=== PATIENT | female | born 1960 | race Caucasian/White ===

== ENCOUNTER 2018-07-14 12:00 | Emergency (ER) | payer OTHER ==
[~2018-07-14] VITALS: Ht 172.7 cm; Wt 90.7 kg
[~2018-07-14 12:00] MED LIST: AMLO5 PO; CEPH500 PO; CHOL10002 PO; CYCL10 PO; Celebrex200 MG PO; Cleocin HCl150 MG PO; Flagyl500 MG PO; HYDACE5 PO; HYDR1TAB94 PO; IBUP600 PO; IBUP800 PO; LEVSOD125 PO; LEVSOD150 PO; LEVSOD175 PO; LISI20 PO; LISI5 PO; MAGIC MOUTHWASH; Monodox100 MG PO; Naprosyn500 MG PO; Neurontin 300300 MG PO; Norco 10-325 T1 EACH PO; Norco 5-325 Ta1 EACH PO; OXYACE5T PO; PENVK500 PO; Percocet 5-3251 EACH PO; Robaxin500 MG PO; SULTRIDS PO; Ultram50 MG PO; Zofran Odt8 MG SL; Zofran4 MG PO
[2018-07-14] MEDS ORDERED: Amoxicillin500 MG PO (13:28)
== END 2018-07-14 13:35 | disposition home or self-care (01) ==
LOC: ER 12:00
DX: H65.91 Unspecified nonsuppurative otitis media, right ear (principal); J06.9 Acute upper respiratory infection, unspecified; I10 Essential (primary) hypertension; Z87.891 Personal history of nicotine dependence; Z88.2 Allergy status to sulfonamides; Z88.1 Allergy status to other antibiotic agents; Z79.899 Other long term (current) drug therapy
CPT/HCPCS: 99282

== ENCOUNTER 2018-08-06 05:59 | Inpatient (IN) | payer OTHER ==
[~2018-08-06] VITALS: Ht 172.7 cm; Wt 83.2 kg
[~2018-08-06 05:59] MED LIST changes: +Amoxicillin500 MG PO; -LISI20 PO
[2018-08-06 06:31] LABS: BASOPHILS ABSOLUTE AUTO 0.08 K/mm3 (0.00-0.23); BASOPHILS PERCENT AUTO 1 % (0-2); EOSINOPHILS ABSOLUTE AUTO 0.41 K/mm3 (0.00-0.68); EOSINOPHILS PERCENT AUTO 4 % (0-6); Hematocrit 40.6 % (33.0-51.0); Hemoglobin 12.6 g/dL (11.5-16.0); IMMATURE GRAN ABSOLUTE AUTO 0.06 K/mm3 (0.00-0.10); IMMATURE GRAN PERCENT AUTO 1 % (0-1); LYMPHOCYTES ABSOLUTE AUTO 2.28 K/mm3 (0.84-5.20); LYMPHOCYTES PERCENT AUTO 20 % (21-46); MONOCYTES ABSOLUTE AUTO 0.91 K/mm3 (0.16-1.47); MONOCYTES PERCENT AUTO 8 % (4-13); Mean Corpuscular HGB 28.2 pg (26.0-34.0); Mean Corpuscular Volume 91 fL (80-100); Mean Platelet Volume 11.2 fL (9.1-12.4); NEUTROPHILS ABSOLUTE AUTO 7.94 K/mm3 (1.96-9.15); NEUTROPHILS PERCENT AUTO 68 % (41-73); Platelet Count 281 K/mm3 (150-400); RDW Coefficient Variation 14.5 % (11.7-14.2); RDW Standard Deviation 48.1 fL (35.1-46.3); Red Blood Cell Count 4.47 M/mm3 (3.80-5.20); White Blood Cell Count 11.68 K/mm3 (4.00-11.30)
[2018-08-06 06:43] LABS: PCO2 Arterial 37.7 mmHg (35-45); PO2 Arterial 57.5 mmHg (80-100); pH Blood Arterial 7.36 (7.35-7.45)
[2018-08-06 06:49] LABS: Anion Gap 13 mmol/L (6-16); Blood Urea Nitrogen 22 mg/dL (8-24); Bun/Creatinine Ratio 22.6 (12.0-20.0); CO2, Blood 18 mmol/L (21-32); Chloride, Blood 109 mmol/L (98-108); Creatinine, Blood 0.97 mg/dL (0.40-1.00); Glomerular Filtration Rate >60 (60-); Glucose, Blood 161 mg/dL (70-99); Potassium, Blood 4.3 mmol/L (3.5-5.5); Sodium, Blood 140 mmol/L (136-145); Troponin I 0.048 ng/mL (0.000-0.040)
[2018-08-06 08:54] LABS: PCO2 Arterial 56.3 mmHg (35-45); PO2 Arterial 54.5 mmHg (80-100); pH Blood Arterial 7.11 (7.35-7.45)
[2018-08-06 11:13] LABS: Source, Urine Catheter
[2018-08-06 11:24] LABS: Appearance, Urine Clear (Clear); Bilirubin, Urine Neg (Neg); Blood, Urine Neg (Neg); Color, Urine Yellow (P-Yellow); Glucose Qualitative, Urine 1+ (Neg); Ketones, Urine Neg (Neg); Leukocyte Esterase, Urine Neg (Neg); Nitrite, Urine Neg (Neg); Protein, Urine Neg (Neg); Urobilinogen, Urine NORM (Normal)
[2018-08-06 11:53] LABS: PO2 Arterial 69.3 mmHg (80-100); pH Blood Arterial 7.27 (7.35-7.45)
[2018-08-06 11:59] LABS: U Amphetamine Screen DETECTED; U Barbituate Screen Not Detected; U Benzodiazapine Screen Not Detected; U Buprenorphine Screen Not Detected; U Cannabinoids Screen DETECTED; U Cocaine Screen Not Detected; U Methadone Screen Not Detected; U Methamphetamine Screen DETECTED; U Opiates Screen Not Detected; U Oxycodone Screen Not Detected; U Phencyclidine Screen Not Detected; U Propoxyphene Screen Not Detected
[2018-08-06 16:19] LABS: BASOPHILS ABSOLUTE AUTO 0.02 K/mm3 (0.00-0.23); BASOPHILS PERCENT AUTO 0 % (0-2); EOSINOPHILS ABSOLUTE AUTO 0.01 K/mm3 (0.00-0.68); EOSINOPHILS PERCENT AUTO 0 % (0-6); Hematocrit 40.2 % (33.0-51.0); Hemoglobin 12.5 g/dL (11.5-16.0); IMMATURE GRAN ABSOLUTE AUTO 0.11 K/mm3 (0.00-0.10); IMMATURE GRAN PERCENT AUTO 1 % (0-1); LYMPHOCYTES ABSOLUTE AUTO 0.66 K/mm3 (0.84-5.20); LYMPHOCYTES PERCENT AUTO 4 % (21-46); MONOCYTES ABSOLUTE AUTO 0.28 K/mm3 (0.16-1.47); MONOCYTES PERCENT AUTO 2 % (4-13); Mean Corpuscular HGB 28.4 pg (26.0-34.0); Mean Corpuscular HGB Conc 31.1 g/dL (31.5-36.5); Mean Corpuscular Volume 91 fL (80-100); Mean Platelet Volume 11.2 fL (9.1-12.4); NEUTROPHILS ABSOLUTE AUTO 14.83 K/mm3 (1.96-9.15); NEUTROPHILS PERCENT AUTO 93 % (41-73); Platelet Count 279 K/mm3 (150-400); RDW Coefficient Variation 14.4 % (11.7-14.2); White Blood Cell Count 15.91 K/mm3 (4.00-11.30)
[2018-08-06 16:36] LABS: Albumin, Blood 3.1 g/dL (3.4-5.0); Albumin/Globulin Ratio 0.7 (0.8-1.8); Bilirubin, Total 0.7 mg/dL (0.1-1.0); Bun/Creatinine Ratio 19.7 (12.0-20.0); Calcium, Blood 8.6 mg/dL (8.5-10.1); Creatinine, Blood 1.27 mg/dL (0.40-1.00); Globulin, Blood 4.2 g/dL (2.2-4.0); Potassium, Blood 4.5 mmol/L (3.5-5.5); Total Protein, Blood 7.3 g/dL (6.4-8.2)
[2018-08-07 05:17] LABS: BASOPHILS ABSOLUTE AUTO 0.03 K/mm3 (0.00-0.23); BASOPHILS PERCENT AUTO 0 % (0-2); EOSINOPHILS PERCENT AUTO 0 % (0-6); Hematocrit 38.2 % (33.0-51.0); Hemoglobin 12.1 g/dL (11.5-16.0); IMMATURE GRAN ABSOLUTE AUTO 0.14 K/mm3 (0.00-0.10); IMMATURE GRAN PERCENT AUTO 1 % (0-1); LYMPHOCYTES ABSOLUTE AUTO 1.38 K/mm3 (0.84-5.20); LYMPHOCYTES PERCENT AUTO 7 % (21-46); MONOCYTES ABSOLUTE AUTO 1.62 K/mm3 (0.16-1.47); MONOCYTES PERCENT AUTO 8 % (4-13); Mean Corpuscular HGB 28.5 pg (26.0-34.0); Mean Corpuscular HGB Conc 31.7 g/dL (31.5-36.5); Mean Corpuscular Volume 90 fL (80-100); Mean Platelet Volume 10.7 fL (9.1-12.4); NEUTROPHILS ABSOLUTE AUTO 17.65 K/mm3 (1.96-9.15); NEUTROPHILS PERCENT AUTO 85 % (41-73); Platelet Count 334 K/mm3 (150-400); RDW Coefficient Variation 14.5 % (11.7-14.2); RDW Standard Deviation 47.7 fL (35.1-46.3); Red Blood Cell Count 4.25 M/mm3 (3.80-5.20); White Blood Cell Count 20.82 K/mm3 (4.00-11.30)
[2018-08-07 05:21] LABS: Base Excess Venous -0.1 mmol/L; PCO2 Venous 44.2 mmHg (38-42); PO2 Venous 60.6 mmHg (38-42); pH Blood Venous 7.37 (7.34-7.37)
[2018-08-07 05:38] LABS: Albumin/Globulin Ratio 0.7 (0.8-1.8); Bilirubin, Total 0.4 mg/dL (0.1-1.0); Bun/Creatinine Ratio 22.4 (12.0-20.0); Calcium, Blood 8.3 mg/dL (8.5-10.1); Creatinine, Blood 1.25 mg/dL (0.40-1.00); Globulin, Blood 4.1 g/dL (2.2-4.0); Magnesium, Blood 1.8 mg/dL (1.6-2.4); Phosphorus, Blood 4.4 mg/dL (2.5-4.9); Potassium, Blood 4.5 mmol/L (3.5-5.5); Total Protein, Blood 7.1 g/dL (6.4-8.2)
[2018-08-07 16:31] LABS: Albumin, Blood 2.7 g/dL (3.4-5.0); Albumin/Globulin Ratio 0.7 (0.8-1.8); Bilirubin, Total 0.4 mg/dL (0.1-1.0); Bun/Creatinine Ratio 24.4 (12.0-20.0); Calcium, Blood 8.2 mg/dL (8.5-10.1); Creatinine, Blood 1.31 mg/dL (0.40-1.00); Globulin, Blood 3.7 g/dL (2.2-4.0); Potassium, Blood 4.4 mmol/L (3.5-5.5); Total Protein, Blood 6.4 g/dL (6.4-8.2)
[2018-08-08 02:55] LABS: BASOPHILS ABSOLUTE AUTO 0.04 K/mm3 (0.00-0.23); BASOPHILS PERCENT AUTO 0 % (0-2); EOSINOPHILS ABSOLUTE AUTO 0.04 K/mm3 (0.00-0.68); EOSINOPHILS PERCENT AUTO 0 % (0-6); Hemoglobin 11.8 g/dL (11.5-16.0); IMMATURE GRAN ABSOLUTE AUTO 0.07 K/mm3 (0.00-0.10); IMMATURE GRAN PERCENT AUTO 0 % (0-1); LYMPHOCYTES ABSOLUTE AUTO 3.68 K/mm3 (0.84-5.20); LYMPHOCYTES PERCENT AUTO 22 % (21-46); MONOCYTES ABSOLUTE AUTO 1.46 K/mm3 (0.16-1.47); MONOCYTES PERCENT AUTO 9 % (4-13); Mean Corpuscular HGB 28.6 pg (26.0-34.0); Mean Corpuscular HGB Conc 31.9 g/dL (31.5-36.5); Mean Corpuscular Volume 90 fL (80-100); Mean Platelet Volume 10.6 fL (9.1-12.4); NEUTROPHILS ABSOLUTE AUTO 11.12 K/mm3 (1.96-9.15); NEUTROPHILS PERCENT AUTO 68 % (41-73); Platelet Count 314 K/mm3 (150-400); RDW Coefficient Variation 14.6 % (11.7-14.2); RDW Standard Deviation 47.5 fL (35.1-46.3); Red Blood Cell Count 4.13 M/mm3 (3.80-5.20); White Blood Cell Count 16.41 K/mm3 (4.00-11.30)
[2018-08-08 03:12] LABS: Albumin, Blood 2.9 g/dL (3.4-5.0); Albumin/Globulin Ratio 0.7 (0.8-1.8); Bilirubin, Total 0.5 mg/dL (0.1-1.0); Bun/Creatinine Ratio 26.4 (12.0-20.0); Calcium, Blood 8.5 mg/dL (8.5-10.1); Creatinine, Blood 1.25 mg/dL (0.40-1.00); Globulin, Blood 3.9 g/dL (2.2-4.0); Magnesium, Blood 1.7 mg/dL (1.6-2.4); Phosphorus, Blood 2.1 mg/dL (2.5-4.9); Potassium, Blood 3.8 mmol/L (3.5-5.5); Total Protein, Blood 6.8 g/dL (6.4-8.2)
[2018-08-08 12:11] LABS: Magnesium, Blood 2.3 mg/dL (1.6-2.4); Phosphorus, Blood 3.1 mg/dL (2.5-4.9); Potassium, Blood 4.2 mmol/L (3.5-5.5)
[2018-08-08] MEDS ORDERED: VITAMIN D-32000 UNIT PO (17:19)
[2018-08-09 04:40] LABS: PCO2 Arterial 42.8 mmHg (35-45); pH Blood Arterial 7.42 (7.35-7.45)
[2018-08-09 05:04] LABS: BASOPHILS ABSOLUTE AUTO 0.04 K/mm3 (0.00-0.23); BASOPHILS PERCENT AUTO 0 % (0-2); EOSINOPHILS ABSOLUTE AUTO 0.22 K/mm3 (0.00-0.68); EOSINOPHILS PERCENT AUTO 2 % (0-6); Hematocrit 37.5 % (33.0-51.0); Hemoglobin 11.7 g/dL (11.5-16.0); IMMATURE GRAN ABSOLUTE AUTO 0.07 K/mm3 (0.00-0.10); IMMATURE GRAN PERCENT AUTO 1 % (0-1); LYMPHOCYTES ABSOLUTE AUTO 1.63 K/mm3 (0.84-5.20); LYMPHOCYTES PERCENT AUTO 14 % (21-46); MONOCYTES ABSOLUTE AUTO 0.98 K/mm3 (0.16-1.47); MONOCYTES PERCENT AUTO 8 % (4-13); Mean Corpuscular HGB 28.1 pg (26.0-34.0); Mean Corpuscular HGB Conc 31.2 g/dL (31.5-36.5); Mean Corpuscular Volume 90 fL (80-100); Mean Platelet Volume 10.7 fL (9.1-12.4); NEUTROPHILS ABSOLUTE AUTO 9.07 K/mm3 (1.96-9.15); NEUTROPHILS PERCENT AUTO 76 % (41-73); Platelet Count 247 K/mm3 (150-400); RDW Coefficient Variation 14.6 % (11.7-14.2); RDW Standard Deviation 47.5 fL (35.1-46.3); Red Blood Cell Count 4.17 M/mm3 (3.80-5.20); White Blood Cell Count 12.01 K/mm3 (4.00-11.30)
[2018-08-09 05:33] LABS: Anion Gap 9 mmol/L (6-16); Blood Urea Nitrogen 19 mg/dL (8-24); Bun/Creatinine Ratio 22.9 (12.0-20.0); CO2, Blood 27 mmol/L (21-32); Calcium, Blood 8.6 mg/dL (8.5-10.1); Chloride, Blood 102 mmol/L (98-108); Creatinine, Blood 0.83 mg/dL (0.40-1.00); Glomerular Filtration Rate >60 (60-); Glucose, Blood 111 mg/dL (70-99); Magnesium, Blood 1.9 mg/dL (1.6-2.4); Phosphorus, Blood 2.8 mg/dL (2.5-4.9); Potassium, Blood 4.3 mmol/L (3.5-5.5); Sodium, Blood 138 mmol/L (136-145)
[2018-08-11 05:03] LABS: Magnesium, Blood 1.7 mg/dL (1.6-2.4)
[2018-08-11 05:04] LABS: Anion Gap 9 mmol/L (6-16); Blood Urea Nitrogen 22 mg/dL (8-24); Bun/Creatinine Ratio 24.2 (12.0-20.0); CO2, Blood 28 mmol/L (21-32); Chloride, Blood 99 mmol/L (98-108); Creatinine, Blood 0.91 mg/dL (0.40-1.00); Glomerular Filtration Rate >60 (60-); Glucose, Blood 105 mg/dL (70-99); Potassium, Blood 4.2 mmol/L (3.5-5.5); Sodium, Blood 136 mmol/L (136-145)
[2018-08-11] MEDS ORDERED: CARV6.25 PO (09:46)
[2018-08-11] MEDS ORDERED: SACC250C PO (09:47)
[2018-08-11] MEDS ORDERED: SPIR25 PO (09:47)
[2018-08-11] MEDS ORDERED: AMOX875 PO (09:48)
[2018-08-11] MEDS ORDERED: FURO20 PO (09:49)
== END 2018-08-11 11:00 | disposition home or self-care (01) | DRG 208 ==
LOC: ER 05:59 → ICUW 08:17 → PCU 08-09 18:41
PROVIDERS: Emergency Medicine; Internal Medicine; Internal Medicine Critical Care Medicine; Internal Medicine Pulmonary Disease
PROC: 0BH18EZ Insertion of Endotracheal Airway into Trachea, Via Natural or Artificial Opening Endoscopic (ICD-10-PCS; principal; 2018-08-06)
PROC: 5A1945Z Respiratory Ventilation, 24-96 Consecutive Hours (ICD-10-PCS; 2018-08-06)
PROC: 3E033XZ Introduction of Vasopressor into Peripheral Vein, Percutaneous Approach (ICD-10-PCS; 2018-08-06)
PROC: 3E033XZ Introduction of Vasopressor into Peripheral Vein, Percutaneous Approach (ICD-10-PCS; 2018-08-07)
DX: J96.01 Acute respiratory failure with hypoxia (principal); R57.0 Cardiogenic shock; J18.1 Lobar pneumonia, unspecified organism; I50.23 Acute on chronic systolic (congestive) heart failure; I47.1 Supraventricular tachycardia; N17.9 Acute kidney failure, unspecified; I11.0 Hypertensive heart disease with heart failure; I25.5 Ischemic cardiomyopathy; E03.9 Hypothyroidism, unspecified; D72.829 Elevated white blood cell count, unspecified; F15.10 Other stimulant abuse, uncomplicated; I34.0 Nonrheumatic mitral (valve) insufficiency; I16.0 Hypertensive urgency; E66.9 Obesity, unspecified; Z68.30 Body mass index [BMI] 30.0-30.9, adult; Z79.899 Other long term (current) drug therapy; Z88.2 Allergy status to sulfonamides; Z88.1 Allergy status to other antibiotic agents; Z87.891 Personal history of nicotine dependence
CPT/HCPCS: 31500; 31720; 36415; 36556; 36600; 51702; 71045; 71260; 80048; 80053; 81003; 82803; 83605; 83735; 83880; 84100; 84132; 84145; 84443; 84484; 85025; 85379; 87040; 87070; 87205; 93005; 93010; 93306; 94002; 94003; 94640; 96374; 96375; 97161; 97530; 99291-25; 99292; C1751; C9113; G0480; G8978; G8979; G8980; J0330; J0456; J0696; J1265; J1650; J1940; J2060; J2250; J2930; J3010; J3475; J3480; J7030; J7040; J7050; J7060; Q9967

== ENCOUNTER 2019-02-03 08:30 | Day surgery (SDC) | payer OTHER ==
[~2019-02-03] VITALS: Ht 170.2 cm; Wt 100.0 kg
[~2019-02-03 08:30] MED LIST changes: +AMOX875 PO; +CARV6.25 PO; +FURO20 PO; +SACC250C PO; +SPIR25 PO; +VITAMIN D-32000 UNIT PO
--- NOTE | 2019-02-03 15:31 | NUR ---
TR BAND TR BAND DEFLATED AT THIS TIME. WILL LEAVE IN POSITION AND MONITOR. IV DC'D TIP IN TACT-DUE TO SMALL INFILTRATION-LIGHT PRESSURE DRESSING APPLIES TO AREA.
[2019-02-03] MEDS ORDERED: ATOR80 PO (16:31)
[2019-02-03] MEDS ORDERED: CLOP75 PO (16:32)
[2019-02-03] MEDS ORDERED: ASPI81CH PO (16:32)
--- NOTE | 2019-02-03 16:50 | NUR ---
DISCHARGE PT REMAINED A&OX3 AND DENIED ANY PAIN DURING RECOVERY. R RADIAL SITE CDI-NO HEMATOMA NOTED-WHITE BOARD AND CLOTH DOT BADAGE IN PLACE. R GIFTY SITE REMAINS CDI-NO HEMATOMA NOTED-BAILEY PATCH AND TEGADERM IN PLACE. PT UP TO RESTROOM INDEPENDANLY WITH STEADY GATE. IV SITE IMPROVED -BRUISING NOTED VERY LITTLE SWELLING NOTED. PT DRESSES SELF INDEPENDANTLY. MEDICATIONS CALLED INTO [facility]. PLAVIX AND ASPIRIN CONTRACT FILLED OUT AND SIGNED. DISCHARGE PAPERWORK GONE OVER WITH PT. PT DENIED ANY QUESTIONS ON THE DICHARGE EDUCATION GIVEN. PT WHEELED OUT WITH BELONGING BY AVANI Hale RN.
== END 2019-02-03 17:00 | disposition home or self-care (01) ==
LOC: MHTC 08:30
DX: I25.10 Atherosclerotic heart disease of native coronary artery without angina pectoris (principal); I11.0 Hypertensive heart disease with heart failure; I50.9 Heart failure, unspecified; Z88.1 Allergy status to other antibiotic agents; Z79.899 Other long term (current) drug therapy; Z79.02 Long term (current) use of antithrombotics/antiplatelets
CPT/HCPCS: 85347; 93005; 93010; 93460; 99152; 99153; C1725; C1769; C1874; C1887; C1894; C9600; J1644; J2250; J3010; J3246; J7030; Q9967

== ENCOUNTER → 2019-08-23 | Outpatient (CLI) | payer OTHER ==
[~2019-08-23] MED LIST changes: +ASPI81CH PO; +ATOR80 PO; +CLOP75 PO
== END | disposition home or self-care (01) ==
LOC: LAB 10:45 → LAB SHORT 10:45 → LAB FUT 07-22 14:05
DX: N18.3 Chronic kidney disease, stage 3 (moderate) (principal); D63.1 Anemia in chronic kidney disease; D75.1 Secondary polycythemia; N25.81 Secondary hyperparathyroidism of renal origin; E55.9 Vitamin D deficiency, unspecified; E78.00 Pure hypercholesterolemia, unspecified; R76.9 Abnormal immunological finding in serum, unspecified; R94.5 Abnormal results of liver function studies; R94.6 Abnormal results of thyroid function studies
CPT/HCPCS: 87493

== ENCOUNTER → 2020-10-23 | Outpatient (CLI) | payer OTHER ==
[2020-10-23 20:46] LABS: Free Thyroxine 1.35 ng/dL (0.70-1.60); Thyroid Stimulating Hormone 5.2 uIU/mL (0.360-4.800)
== END ==
LOC: LAB 19:38 → LAB SHORT 19:38
PROVIDERS: Family Medicine
DX: E03.9 Hypothyroidism, unspecified (principal)
CPT/HCPCS: 84439; 84443

== ENCOUNTER 2021-05-11 05:42 | Emergency (ER) | payer OTHER ==
[~2021-05-11] VITALS: Ht 170.2 cm; Wt 104.3 kg
[2021-05-11 06:27] LABS: BASOPHILS ABSOLUTE AUTO 0.09 K/mm3 (0.00-0.23); BASOPHILS PERCENT AUTO 1 % (0-2); EOSINOPHILS ABSOLUTE AUTO 0.45 K/mm3 (0.00-0.68); EOSINOPHILS PERCENT AUTO 4 % (0-6); Hematocrit 39.3 % (33.0-51.0); Hemoglobin 12.5 g/dL (11.5-16.0); IMMATURE GRAN ABSOLUTE AUTO 0.19 K/mm3 (0.00-0.10); IMMATURE GRAN PERCENT AUTO 2 % (0-1); LYMPHOCYTES PERCENT AUTO 27 % (21-46); MONOCYTES ABSOLUTE AUTO 1.04 K/mm3 (0.16-1.47); MONOCYTES PERCENT AUTO 10 % (4-13); Mean Corpuscular HGB 29.3 pg (26.0-34.0); Mean Corpuscular HGB Conc 31.8 g/dL (31.5-36.5); Mean Corpuscular Volume 92 fL (80-100); NEUTROPHILS ABSOLUTE AUTO 5.96 K/mm3 (1.96-9.15); NEUTROPHILS PERCENT AUTO 56 % (41-73); Platelet Count 246 K/mm3 (150-400); RDW Coefficient Variation 14.7 % (11.7-14.2); Red Blood Cell Count 4.26 M/mm3 (3.80-5.20); White Blood Cell Count 10.63 K/mm3 (4.00-11.30)
[2021-05-11 06:52] LABS: Albumin/Globulin Ratio 0.8 (0.8-1.8); Bilirubin, Total 0.3 mg/dL (0.1-1.0); Bun/Creatinine Ratio 13.1 (12.0-20.0); Calcium, Blood 8.5 mg/dL (8.5-10.1); Creatinine, Blood 1.07 mg/dL (0.40-1.00); Globulin, Blood 3.8 g/dL (2.2-4.0); Potassium, Blood 4.7 mmol/L (3.5-5.5); Total Protein, Blood 6.8 g/dL (6.4-8.2)
[2021-05-11] MEDS ORDERED: Prinivil10 MG PO (10:24)
[2021-05-11] MEDS ORDERED: OMEP20ER PO (10:24)
[2021-05-11] MEDS ORDERED: CARVEDILOL6.25 MG PO (10:24)
[2021-05-11] MEDS ORDERED: EUTHYROX175 MC1 PO (10:24)
[2021-05-11] MEDS ORDERED: METFORMIN HCL500 M3 PO (10:24)
[2021-05-11] MEDS ORDERED: HYDR1TAB94 PO (10:26)
[2021-05-11] MEDS ORDERED: CLIN300 PO (10:26)
== END 2021-05-11 10:35 | disposition home or self-care (01) ==
LOC: ER 05:42
PROVIDERS: Emergency Medicine
DX: S52.601A Unspecified fracture of lower end of right ulna, initial encounter for closed fracture (principal); S22.43XA Multiple fractures of ribs, bilateral, initial encounter for closed fracture; E03.9 Hypothyroidism, unspecified; I11.0 Hypertensive heart disease with heart failure; I50.30 Unspecified diastolic (congestive) heart failure; Z88.2 Allergy status to sulfonamides; Z88.1 Allergy status to other antibiotic agents; Z79.82 Long term (current) use of aspirin; Z79.899 Other long term (current) drug therapy; V49.40XA Driver injured in collision with unspecified motor vehicles in traffic accident, initial encounter; Y92.410 Unspecified street and highway as the place of occurrence of the external cause
CPT/HCPCS: 12002; 29125; 70450; 71260; 72125; 73130; 73560-RT; 74177; 80053; 85025; 96365-59; 96375-59; 99284-25; G0480; J0690; J2270; Q9967

== ENCOUNTER 2021-05-12 17:02 | Inpatient (IN) | payer OTHER ==
[~2021-05-12] VITALS: Ht 170.2 cm; Wt 112.6 kg
[~2021-05-12 17:02] MED LIST changes: +ATOR40TA PO; -ATOR80 PO; +CARVEDILOL6.25 MG PO; +CLIN300 PO; +EUTHYROX175 MC1 PO; +METFORMIN HCL500 M3 PO; +OMEP20ER PO; +Prinivil10 MG PO
[2021-05-12 17:40] LABS: BASOPHILS ABSOLUTE AUTO 0.07 K/mm3 (0.00-0.23); BASOPHILS PERCENT AUTO 0 % (0-2); EOSINOPHILS PERCENT AUTO 0 % (0-6); Hematocrit 28.2 % (33.0-51.0); Hemoglobin 9.1 g/dL (11.5-16.0); IMMATURE GRAN ABSOLUTE AUTO 0.23 K/mm3 (0.00-0.10); IMMATURE GRAN PERCENT AUTO 1 % (0-1); LYMPHOCYTES ABSOLUTE AUTO 3.48 K/mm3 (0.84-5.20); LYMPHOCYTES PERCENT AUTO 16 % (21-46); MONOCYTES ABSOLUTE AUTO 1.75 K/mm3 (0.16-1.47); MONOCYTES PERCENT AUTO 8 % (4-13); Mean Corpuscular HGB 29.6 pg (26.0-34.0); Mean Corpuscular HGB Conc 32.3 g/dL (31.5-36.5); Mean Corpuscular Volume 92 fL (80-100); Mean Platelet Volume 11.8 fL (9.1-12.4); NEUTROPHILS ABSOLUTE AUTO 16.22 K/mm3 (1.96-9.15); NEUTROPHILS PERCENT AUTO 75 % (41-73); Platelet Count 270 K/mm3 (150-400); RDW Coefficient Variation 15.1 % (11.7-14.2); RDW Standard Deviation 49.4 fL (35.1-46.3); Red Blood Cell Count 3.07 M/mm3 (3.80-5.20); White Blood Cell Count 21.75 K/mm3 (4.00-11.30)
[2021-05-12 18:02] LABS: Albumin, Blood 2.7 g/dL (3.4-5.0); Albumin/Globulin Ratio 0.8 (0.8-1.8); Bilirubin, Total 0.6 mg/dL (0.1-1.0); Bun/Creatinine Ratio 16.1 (12.0-20.0); Calcium, Blood 8.6 mg/dL (8.5-10.1); Creatinine, Blood 1.68 mg/dL (0.40-1.00); Globulin, Blood 3.4 g/dL (2.2-4.0); Potassium, Blood 4.7 mmol/L (3.5-5.5); Total Protein, Blood 6.1 g/dL (6.4-8.2)
[2021-05-12 18:10] LABS: Calcium, Ionized (POC) 1.08 mmol/L (1.10-1.46); Chloride (POC) 98 mmol/L (98-108); Creatinine (POC) 1.9 mg/dL (0.6-1.0); Glucose (ISTAT POC) 277 mg/dL (70-99); Hemoglobin (POC) 6.8 g/dL (12.0-16.0); Potassium (POC) 4.4 mmol/L (3.5-5.5); Sodium (POC) 129 mmol/L (135-148); Total CO2 (POC) 18 mmol/L (21-32)
[2021-05-12 18:31] LABS: International Normalized Ratio 1.01; Prothrombin Time Results 10.9 Sec (9.7-11.5)
[2021-05-12 20:01] LABS: SARS-Cov-2 (COVID-19) PCR, MMC NEGATIVE (NEGATIVE)
[2021-05-12 20:38] LABS: Magnesium, Blood 1.5 mg/dL (1.6-2.4); Troponin I 0.062 ng/mL (0.000-0.040)
[2021-05-12 20:40] LABS: Thyroid Stimulating Hormone 2.68 uIU/mL (0.360-4.800)
--- NOTE | 2021-05-12 21:14 | NUR ---
05/12/212113 Liz Giron PT ENTERED OR WITH NAVARRETE CATHETER
--- NOTE | 2021-05-12 22:37 | NUR ---
PT PLACED ON O2 AT 4 LITER VIA NC. SPO2 DECREASED TO 88%. PLACED PT BACK ON NRB AT 15 LITERS, SPO2 UP TO 96%. ENCOURAGED PT TO COUGH AND DEEP BREATH. LUNGS COARSE. PT A&O FOLLOWING INSTRUCTIONS.
--- NOTE | 2021-05-12 22:56 | NUR ---
PT PLACE ON OXMIZER AT 10 LITERS O2, SPO2 93%. PT C/O BILAT RIB PAIN 03/21, MED WITH FENTANYL 50 MCQ.
--- NOTE | 2021-05-12 23:08 | NUR ---
PAIN PT AWAKE, A&O. C/O PAIN TO RIBS MORE ON LEFT THAN RIGHT 03/21, MED WITH FENTANYL 50 MCQ. PT ON OXMIZER AT 10 LITERS SPO2 92-93%. PT DOING COUGH AND DEEP BREATHING.
--- NOTE | 2021-05-12 23:30 | NUR ---
CALL TO HOSPITALIST CALL TO LINSEY OSBORNE REGARDING COARSE LUNGS. O2 AT 10 LITERS VIA OXMIZER. OBTAINED ORDER FOR LASIX 40 MG IV BID FIRST DOSE NOW, BIPAP/CPAP PROTOCOL AND CXR IN AM. ALSO PT TO RECEIVE MAG THAT WAS ORDERED AT 2114.
--- NOTE | 2021-05-12 23:53 | NUR ---
REPORT CALLED TO [facility] ON SURGICAL FLOOR. PT TO TRANSFER TO 208. LASIX GIVEN AND MAG INFUSING.
[2021-05-13] MEDS ORDERED: THERA-D2000 UNIT PO (00:17)
[2021-05-13 02:28] LABS: BASOPHILS ABSOLUTE AUTO 0.02 K/mm3 (0.00-0.23); BASOPHILS PERCENT AUTO 0 % (0-2); EOSINOPHILS PERCENT AUTO 0 % (0-6); Hematocrit 27.9 % (33.0-51.0); Hemoglobin 9.2 g/dL (11.5-16.0); IMMATURE GRAN ABSOLUTE AUTO 0.22 K/mm3 (0.00-0.10); IMMATURE GRAN PERCENT AUTO 1 % (0-1); LYMPHOCYTES ABSOLUTE AUTO 0.84 K/mm3 (0.84-5.20); LYMPHOCYTES PERCENT AUTO 5 % (21-46); MONOCYTES ABSOLUTE AUTO 0.64 K/mm3 (0.16-1.47); MONOCYTES PERCENT AUTO 4 % (4-13); Mean Corpuscular HGB 30.1 pg (26.0-34.0); Mean Corpuscular Volume 91 fL (80-100); Mean Platelet Volume 11.4 fL (9.1-12.4); NEUTROPHILS ABSOLUTE AUTO 16.27 K/mm3 (1.96-9.15); NEUTROPHILS PERCENT AUTO 90 % (41-73); Platelet Count 163 K/mm3 (150-400); RDW Coefficient Variation 15.3 % (11.7-14.2); RDW Standard Deviation 49.3 fL (35.1-46.3); Red Blood Cell Count 3.06 M/mm3 (3.80-5.20); White Blood Cell Count 17.99 K/mm3 (4.00-11.30)
[2021-05-13 02:38] LABS: Base Excess Venous -2.5 mmol/L; Bicarbonate Venous 22.5 mmol/L (24.0-30.0); PCO2 Venous 38.8 mmHg (38-42); PO2 Venous 161 mmHg (38-42); pH Blood Venous 7.37 (7.34-7.37)
[2021-05-13 02:45] LABS: Albumin, Blood 2.9 g/dL (3.4-5.0); Anion Gap 8 mmol/L (6-16); Blood Urea Nitrogen 24 mg/dL (8-24); CO2, Blood 23 mmol/L (21-32); Calcium, Blood 7.9 mg/dL (8.5-10.1); Chloride, Blood 102 mmol/L (98-108); Glomerular Filtration Rate 35 (60-); Glucose, Blood 300 mg/dL (70-99); Magnesium, Blood 2.1 mg/dL (1.6-2.4); Phosphorus, Blood 4.2 mg/dL (2.5-4.9); Potassium, Blood 4.9 mmol/L (3.5-5.5); Sodium, Blood 133 mmol/L (136-145); Troponin I 0.064 ng/mL (0.000-0.040)
[2021-05-13 03:21] LABS: Source, Urine Clean Catch
[2021-05-13 03:23] LABS: Bilirubin, Urine Neg (Neg); Blood, Urine 1+ (Neg); Glucose Qualitative, Urine Neg (Neg); Ketones, Urine Neg (Neg); Leukocyte Esterase, Urine Neg (Neg); Nitrite, Urine Neg (Neg); Protein, Urine 2+ (Neg); Urobilinogen, Urine NORM (Normal)
[2021-05-13 03:26] LABS: Appearance, Urine Clear (Clear); Color, Urine Yellow (P-Yellow)
[2021-05-13 03:34] LABS: Amorphous Light (0-Heavy); Bacteria Few /hpf; Red Blood Cells, Urine Rare /hpf (0-2); Squamous Epithelial Cells Few /hpf (Few); White Blood Cells, Urine Rare /hpf (0-5)
[2021-05-13 03:36] LABS: U Amphetamine Screen Not Detected; U Barbituate Screen Not Detected; U Benzodiazapine Screen Not Detected; U Buprenorphine Screen Not Detected; U Cannabinoids Screen DETECTED; U Cocaine Screen Not Detected; U Methadone Screen Not Detected; U Methamphetamine Screen Not Detected; U Opiates Screen DETECTED; U Oxycodone Screen Not Detected; U Phencyclidine Screen Not Detected; U Propoxyphene Screen Not Detected
--- NOTE | 2021-05-13 04:16 | NUR ---
SHIFT SUMMARY POD#1 EXP LAB WITH EVACUATION OF HEMOPARITONIUM + INCARCERATED HERNIA REPAIR. AAOX4. DISCOMFORT DECREASED WITH X1 0.5MG IV DILAUDID SINCE ARRIVAL TO FLOOR. NO NAUSEA/EMESIS. LAP ABD INCISIONS X3 SHAY C/D/I. ABD SOFT/TENDER. PT ON 10L VIA OXYMIZER, 91-93%, RESPIRATIONS 18-22, CONTINUE TO ENCOURAGE DEEP BREATHING + INCENTIVE SPIROMETRY/FLUTTER VALVE. TELEMETRY NSR TO ST, 90s TO 110s. RUE IN SPLINT. PT REPOSITIONS WITH ASSISTANCE WELL IN BED, CONTINUE TO ENCOURAGE. CURRENTLY PT IS RESTING WELL IN BED WITH CALL LIGHT IN REACH.
--- NOTE | 2021-05-13 09:49 | NUR ---
V-TACH TECHNICAL PUBLICATIONS MANAGER CALLS TO REPORT PT HAS HAD A 8 BEAT RUN OF V-TACH & HR IS CURRENTLY IN 150'S. UPON ENTERING ROOM, PT IS HAVING A COUGHING FIT. BP CHECK COMPLETED AFTER PT WAS DONE COUGHING & CALL BACK TO TELE MONITOR REPORTS HR @ 76. PT DENIES ANY CP, DIZZINESS, OR LIGHTHEADEDNESS. DR HARRIS CALLED, NO NEW ORDERS.
[2021-05-13 14:29] LABS: Hemoglobin 8.8 g/dL (11.5-16.0)
--- NOTE | 2021-05-13 18:02 | NUR ---
SHIFT SUMMARY PT IS DOING WELL. WAS WEANED TO 8L OXYMIZER. UP IN CHAIR FOR COUPLE HOURS. MOVING AROUND WELL. ABD SOFT. DIURESING WELL. ADVANCED TO ADA DINNER & TOLERATING WELL.
--- NOTE | 2021-05-13 20:39 | NUR ---
PT ALERT SITTING UP IN BED. DENIES CP OR SOB.VERB HURTS WITH COUGH DUE TO RIB PAIN,BUT COMPLIANT WITH CDB.02 WAS TITRATED DOWN PER DAY SHIFT TO 8L FROM REPORTED 16L.RT AT BEDSIDE TAUGHT PT FLUTTER VALVE AND PT DEMONSTRATES EFFECTIVE USE.SATS ON 6L 94-95%
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
--- NOTE | 2021-05-13 22:20 | NUR ---
@221 RECEIVED VOCERA FROM [employer] STATING PT WAS IN V FIB.I IMMEDICATELY WENT TO CHECK ON PT AND NOTED HER LYING IN BED UNRESPONISVE SOME ORAL SECRETION BUBBLING.CODE WAS CALLED AT 2219-SEE CODE RECORDS AND ORDERS FOR FURTHER SPECIFICS.COMPRESSIONS STARTED WAITING CODE TEAM ARRIVAL. ONCE DR AND CODE TEAM ARRIVED,MEDS WERE GIVEN,SHOCK WAS DELIVERED X1,CPR CONTINUOUS. PULSE WAS OBTAINED.PT BECAME MINIMALLY RESPONSE PRIOR TO INTUBATION.PT WAS TRANSFERRED TO ICU 12 PER BED IN ATTENDANCE OF ICU STAFF.
[2021-05-13 22:44] LABS: Hemoglobin 9.7 g/dL (11.5-16.0); Mean Corpuscular HGB 30.3 pg (26.0-34.0); Mean Corpuscular HGB Conc 32.3 g/dL (31.5-36.5); Mean Corpuscular Volume 94 fL (80-100); Mean Platelet Volume 11.7 fL (9.1-12.4); NRBC ABSOLUTE 0.09 K/mm3 (0.00-0.02); NRBC Auto 0.3 /100 WBC (0.0-0.2); Platelet Count 193 K/mm3 (150-400); RDW Coefficient Variation 15.8 % (11.7-14.2); White Blood Cell Count 25.91 K/mm3 (4.00-11.30)
[2021-05-13 23:01] LABS: Albumin, Blood 2.7 g/dL (3.4-5.0); Albumin/Globulin Ratio 0.7 (0.8-1.8); Bilirubin, Total 0.7 mg/dL (0.1-1.0); Bun/Creatinine Ratio 18.5 (12.0-20.0); Calcium, Blood 8.5 mg/dL (8.5-10.1); Creatinine, Blood 1.46 mg/dL (0.40-1.00); Globulin, Blood 3.7 g/dL (2.2-4.0); Potassium, Blood 4.4 mmol/L (3.5-5.5); Total Protein, Blood 6.4 g/dL (6.4-8.2)
[2021-05-13 23:02] LABS: BAND PERCENT MAN 2 % (0-8); BASOPHILS PERCENT MAN 0 % (0-2); EOSINOPHILS PERCENT MAN 0 % (0-6); LYMPHOCYTES ABSOLUTE MAN 5.95 K/mm3 (0.84-5.20); LYMPHOCYTES PERCENT MAN 23 % (21-46); MONOCYTES ABSOLUTE MAN 2.59 K/mm3 (0.16-1.47); MONOCYTES PERCENT MAN 10 % (4-13); NEUTROPHILS ABSOLUTE MAN 17.35 K/mm3 (1.96-9.15); SEG NEUTROPHILS PERCENT MAN 65 % (41-73); TOTAL CELLS COUNTED 100
[2021-05-13 23:05] LABS: PCO2 Arterial 47.5 mmHg (35-45); PO2 Arterial 51.7 mmHg (80-100); pH Blood Arterial 7.32 (7.35-7.45)
[2021-05-13 23:27] LABS: Troponin I 0.083 ng/mL (0.000-0.040)
[2021-05-14 01:20] LABS: U Amphetamine Screen Not Detected; U Barbituate Screen Not Detected; U Benzodiazapine Screen Not Detected; U Buprenorphine Screen Not Detected; U Cannabinoids Screen DETECTED; U Cocaine Screen Not Detected; U Methadone Screen Not Detected; U Methamphetamine Screen Not Detected; U Opiates Screen DETECTED; U Oxycodone Screen DETECTED; U Phencyclidine Screen Not Detected; U Propoxyphene Screen Not Detected
--- NOTE | 2021-05-14 01:45 | NUR ---
CALL TO DR BUSTOS TO DR BARBOUR REGARDING LEVOPHED AT 10 MCQ/MIN. OBTAINED ORDER FOR NS BOLUS AND VASOPRESSIN. BOLUS STARTED.
--- NOTE | 2021-05-14 03:16 | NUR ---
ASSESSMENT/ASSUMED CARE PT WAS V-FIB CODE ON SURGICAL FLOOR AT 2220. WAS SHOCKED ONCE AND INTUBATED. PT TRANSFERED TO ICU 12 AT 2245. PT PLACED ON VENT AC 24 TV 350 PEEP [address] F[address]%. DR BARBOUR AT BEDSIDE. PROPOFOL STARTED AT 10 MCQ/KG/MIN. 2317 INCREASED PEEP TO 16 DUE TO CONT LOW SPO2 IN THE 80'S. [address] TO RIGHT GROIN BY DR BARBOUR. ORDER FOR AMIODARONE OBTAINED. 2347 AMIODARONE 1 MG/HR STARTED. 05/14/21 0009 PT WAKING UP AND FOLLOWING INSTRUCTIONS. DENIES PAIN AT THIS TIME. 0020 PT STARTED ON LEVOPHED AT 5 MCQ/MIN AND SEDATION INCREASED.
--- NOTE | 2021-05-14 04:11 | NUR ---
IO REMOVED IO IV CATHETER REMOVED BY THIS RN. IO LINE PLACED IN PT'S L ABRAMS DURING PT'S CODE BLUE. REMOVAL WNL.
[2021-05-14 04:15] LABS: BASOPHILS ABSOLUTE AUTO 0.06 K/mm3 (0.00-0.23); BASOPHILS PERCENT AUTO 0 % (0-2); EOSINOPHILS ABSOLUTE AUTO 0.04 K/mm3 (0.00-0.68); EOSINOPHILS PERCENT AUTO 0 % (0-6); Hematocrit 26.8 % (33.0-51.0); Hemoglobin 8.7 g/dL (11.5-16.0); IMMATURE GRAN ABSOLUTE AUTO 0.51 K/mm3 (0.00-0.10); IMMATURE GRAN PERCENT AUTO 2 % (0-1); LYMPHOCYTES ABSOLUTE AUTO 2.94 K/mm3 (0.84-5.20); LYMPHOCYTES PERCENT AUTO 13 % (21-46); MONOCYTES ABSOLUTE AUTO 2.07 K/mm3 (0.16-1.47); MONOCYTES PERCENT AUTO 9 % (4-13); Mean Corpuscular HGB Conc 32.5 g/dL (31.5-36.5); Mean Corpuscular Volume 92 fL (80-100); Mean Platelet Volume 11.3 fL (9.1-12.4); NEUTROPHILS ABSOLUTE AUTO 17.92 K/mm3 (1.96-9.15); NEUTROPHILS PERCENT AUTO 76 % (41-73); Platelet Count 211 K/mm3 (150-400); RDW Coefficient Variation 15.5 % (11.7-14.2); RDW Standard Deviation 51.8 fL (35.1-46.3); White Blood Cell Count 23.54 K/mm3 (4.00-11.30)
[2021-05-14 04:23] LABS: PCO2 Arterial 41.8 mmHg (35-45); PO2 Arterial 55.9 mmHg (80-100); pH Blood Arterial 7.38 (7.35-7.45)
[2021-05-14 04:35] LABS: Albumin, Blood 2.5 g/dL (3.4-5.0); Albumin/Globulin Ratio 0.8 (0.8-1.8); Bilirubin, Total 1.1 mg/dL (0.1-1.0); Bun/Creatinine Ratio 21.3 (12.0-20.0); Creatinine, Blood 1.36 mg/dL (0.40-1.00); Globulin, Blood 3.3 g/dL (2.2-4.0); Magnesium, Blood 1.7 mg/dL (1.6-2.4); Potassium, Blood 4.5 mmol/L (3.5-5.5); Total Protein, Blood 5.8 g/dL (6.4-8.2); Troponin I 0.121 ng/mL (0.000-0.040)
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
--- NOTE | 2021-05-14 07:21 | NUR ---
Received report from Rachel JARAMILLO. Patient is lightly sedated and intubated with 7.5 ET and 24 cm at lips, with vent settings AC 24, TV 350, FiO2 90% and PEEP 16 with sats 96%. Jayme opens eye to verbal stimuli and fall right back to sleep. She has Right groin CL Dressing intact and site WNL's and is infusing: Vasopressin 0.04 units/min, Levophed 8 mcg/min, Amiodarone 0.5 mcg/min for 15 hrs more, NS at 25ml/hr-TKO, and Propofol 35 mcg/kg/min. Just placed OG and is on LIS. She has 16 Fr Lucero draining to gravity yellow urine. She has sutures to right inner knee and her right arm spinted and wrapped in Aki bandage. Dr Lehman has been by and assessed patient.
--- NOTE | 2021-05-14 09:30 | NUR ---
No changes with patient, gtt's or vent settings except FiO2 decreased to 80% . She awakens to verbal stimuli and assist with turning. She tolerated med through OG. Repositioned and pulled up in bed. Dr Mistry by and took quick look at patient and will be back to assess. She held coreg and lasix until after am ECHO.
--- NOTE | 2021-05-14 12:06 | NUR ---
Repositioned patient. Decreased FiO2 to 65% and sats >90%. No other changes to gtt's or vent settings. She is able to answer questions and stated she was having pain and medicated with Fentanyl per MAR. Patient awakens with care and falls back to sleep. Dr hill by to evaluate changes.
--- NOTE | 2021-05-14 13:30 | NUR ---
Dr Garcia by for consult, EKG done. ECHO done. Reduced Levophed to 6 mcg/min. Repostioned. Patient thought she had bm and cleaned backside and changed chucks. She continues to awaken with care. No other changes to vent or gtt's.
--- NOTE | 2021-05-14 15:30 | NUR ---
No significant changes with patient and she is resting.
--- NOTE | 2021-05-14 17:36 | NUR ---
Levophed reduced to 4 mcg/min andc systolics 117, HR70's. Vent settings AC 24, TV 350, PEEP 16, FiO2 65% and sats >90%. Vasopressin at 0.04 unit/min, levophed 4 mcg/min, Amiodarone 0.5 mcg/min, NS TKO. Patient awakens with care.
--- NOTE | 2021-05-14 19:00 | NUR ---
ASSUMED CARE ASSUMED CARE OF PATIENT. REMAINS INTUBATED- AC 24, TV 350, PEEP 16, FIO2 65%. RR 24-28. SEDATED WITH PROPOFOL AT 35MCG/KG/MIN. PT ROUSES EASILY TO ANY STIMULI. FOLLOWS SIMPLE COMMANDS. ATTEMPTS TO COMMUNICATE BY POINTING AND MOUTHING WORDS. NODS HEAD YES/NO APPROPRIATELY. BILATERAL SOFT WRIST RESTRAINTS IN PLACE TO PREVENT SELF-EXTUBATION. MONITOR SHOWS NSR, RATE 60s-70s. AMIODARONE AT 0.5MG/MIN AT THIS TIME- PLAN IS TO TRANSITION TO PO CORDARONE THIS EVENING. LEVOHED AT 4MC/MIN AND VASOPRESSIN AT 0.04UNITS/MIN TO MAINTAIN MAP >65. OG CLAMPED AT THIS TIME. ABDOMINAL INCISIONS X 3 INTACT. PT C/O FEELING LIKE SHE NEEDS TO URINATE. NAVARRETE WITH MINIMAL DRAINAGE, BUT WHEN TUBING RESPOSITIONED, IMMEDIATE RETURN OF APPROXIMATELY 1100CC OF YELLOW URINE. SEE SHIFT ASSESSMENT FOR FULL ASSESSMENT.
[2021-05-15 04:42] LABS: BASOPHILS ABSOLUTE AUTO 0.05 K/mm3 (0.00-0.23); BASOPHILS PERCENT AUTO 0 % (0-2); EOSINOPHILS ABSOLUTE AUTO 0.15 K/mm3 (0.00-0.68); EOSINOPHILS PERCENT AUTO 1 % (0-6); Hematocrit 24.5 % (33.0-51.0); Hemoglobin 8.2 g/dL (11.5-16.0); IMMATURE GRAN PERCENT AUTO 3 % (0-1); LYMPHOCYTES ABSOLUTE AUTO 2.18 K/mm3 (0.84-5.20); LYMPHOCYTES PERCENT AUTO 15 % (21-46); MONOCYTES ABSOLUTE AUTO 1.46 K/mm3 (0.16-1.47); MONOCYTES PERCENT AUTO 10 % (4-13); Mean Corpuscular HGB 30.5 pg (26.0-34.0); Mean Corpuscular HGB Conc 33.5 g/dL (31.5-36.5); Mean Corpuscular Volume 91 fL (80-100); Mean Platelet Volume 11.1 fL (9.1-12.4); NEUTROPHILS ABSOLUTE AUTO 10.42 K/mm3 (1.96-9.15); NEUTROPHILS PERCENT AUTO 71 % (41-73); NRBC ABSOLUTE 0.08 K/mm3 (0.00-0.02); NRBC Auto 0.5 /100 WBC (0.0-0.2); Platelet Count 191 K/mm3 (150-400); RDW Coefficient Variation 15.4 % (11.7-14.2); RDW Standard Deviation 49.8 fL (35.1-46.3); Red Blood Cell Count 2.69 M/mm3 (3.80-5.20); White Blood Cell Count 14.76 K/mm3 (4.00-11.30)
[2021-05-15 05:10] LABS: Albumin, Blood 2.4 g/dL (3.4-5.0); Albumin/Globulin Ratio 0.7 (0.8-1.8); Bun/Creatinine Ratio 20.5 (12.0-20.0); Calcium, Blood 8.2 mg/dL (8.5-10.1); Creatinine, Blood 1.51 mg/dL (0.40-1.00); Globulin, Blood 3.6 g/dL (2.2-4.0); Potassium, Blood 3.9 mmol/L (3.5-5.5)
--- NOTE | 2021-05-15 06:23 | NUR ---
SHIFT SUMMARY NO ACUTE CHANGES DURING NOC. REMAINS INTUBATED- AC 24, TV 350, PEEP 12, FIO2 55%. SEDATED WITH PROPOFOL BETWEEN 35-45MCG/KG/MIN- NOW AT 45MCG/KG/MIN. ROUSES TO STIMULI. CONTINUES TO FOLLOW SIMPLE COMMANDS. MOVES ALL EXTREMITIES. MEDICATED WITH FENTANYL 50MCG IV X 1 FOR COMFORT. FREQUENTLY DENIED C/O PAIN WHEN ASKED. MONITOR SHOWS NSR, RATE 60s-70s. SEVERAL EPISODES OF ACCELERATED IDIOVENTRICULAR RHYTHM, BUT SELF-LIMITING. LEVOPHED NOW AT 4MCG/MIN TO MAINTAIN MAP >65. VASOPRESSIN CONTINUES AT 0.04UNITS/MIN. AMIODARONE GTT HAS BEEN OFF SINCE APPROXIMATELY 2129. OG CLAMPED. NAVARRETE PATENT AND DRAINING TO GRAVITY. RUE WITH SPLINT INTACT. ABDOMINAL INCISIONS INTACT. CONTINUED BRUISING NOTED TO ABDOMEN AND SCATTERED T/O BODY. WILL REPORT ONCOMING RN WHEN AVAILABLE.
--- NOTE | 2021-05-15 07:07 | NUR ---
Received report from Lovely JARAMILLO. Patient is sedated and intubated with 7.5 ET and 24cm at lips. She is currently sleeping but awakens to verbal stimuli and is able mostly to communicate her needs. Her vent settings are AC 24, TV 350, FiO2 55% and PEEP 12 with sats 97%. She has right groin CL dressing intact and site WNL's and is infusing Vasopressin 0.04 units/min, Propofol at 45 mcg/kg/min, Levophed 4 mcg/min, NS TKO. She has 16 Fr Lucero draining bradford gravity annel colored urine. Her right arm is splinted and wrapped in Aki bandage. She has open wound with 5 sutures to inner right knee. She has small bruises t/o her body. She MAEW. VSS, See EMR
--- NOTE | 2021-05-15 10:01 | NUR ---
Patient continues to rest on sedation and arouses with care. No vent or gtt setting changes since last note. She tolerated am med IV and OG. VSS, See EMR. Flushed goddard to ensure patency.
--- NOTE | 2021-05-15 12:47 | NUR ---
FiO2 decreased to 50% and no other changes to vent settings. Vasopressin placed on standby and she is tolerating well. VSS, See EMR. No other gtt changes. Sister called and got update after son added her to list.
--- NOTE | 2021-05-15 14:00 | NUR ---
Significant other by and visited, she awoke when hearing his voice. Repositioned. Vasopressin remains off, increased Levophed to 6 mcg/min and systolics low 100's. vent setting changes by Dr Mistry and are AC 24, TV 350, Peep 10, FiO2 50% and sats 96%. Propofol increased to 55 mcg/kg/min.
--- NOTE | 2021-05-15 16:05 | NUR ---
FiO2 40% and no other vent or gtt changes. She continues to rest with sedation at 55 mcg/kg/min. VSS, See EMR. Levophed remains at 6 mcg/min.
--- NOTE | 2021-05-15 18:00 | NUR ---
Vital High Protien started at 25 ml/hr and 30 mlq4 water flushes. AC 24, TV 350, FiO2 40% and Peep 10.0 and after positioning sats 90%. Levophed 6 mcg/min, Propofol 55 mcg/kg/min and sedateded well but still opend eyes with care at times. Was moving all extremities post positioning. She had 1500 urine output. NS TKO. She has denied pain all shift.
--- NOTE | 2021-05-15 19:34 | NUR ---
ASSUMED CARE REPORT RECEIVED FROM LIGIA JARAMILLO. PT INTUBATE AND SEDATED. VENT SETTINGS 224/350/10/40% SPO2 92%. CURRENTLY INFUSING PROPOFOL @ 55 MCG/KG/MIN, LEVOPHED @ 6 MCG/MIN AND NS TKO. TF VHP RUNNING AT 25 ML/HR WITH 30 Q4H WATER FLUSH. NAVARRETE DRAINING TO GRAVITY. LUNGS COARSE WITH DIMINISHED BASES. R ARM SPLINTED AND WRAPPED IN OSCAR BANDAGE. SUTURES TO R KNEE. BRUISES SCATTERED T/O.
[2021-05-16 05:49] LABS: Hematocrit 23.7 % (33.0-51.0); Hemoglobin 7.8 g/dL (11.5-16.0); Mean Corpuscular HGB Conc 32.9 g/dL (31.5-36.5); Mean Corpuscular Volume 91 fL (80-100); Mean Platelet Volume 11.3 fL (9.1-12.4); NRBC ABSOLUTE 0.03 K/mm3 (0.00-0.02); NRBC Auto 0.2 /100 WBC (0.0-0.2); Platelet Count 211 K/mm3 (150-400); RDW Coefficient Variation 15.8 % (11.7-14.2); RDW Standard Deviation 49.7 fL (35.1-46.3)
[2021-05-16 06:12] LABS: Albumin, Blood 2.2 g/dL (3.4-5.0); Albumin/Globulin Ratio 0.6 (0.8-1.8); Bilirubin, Total 1.2 mg/dL (0.1-1.0); Bun/Creatinine Ratio 21.3 (12.0-20.0); Creatinine, Blood 1.83 mg/dL (0.40-1.00); Globulin, Blood 3.5 g/dL (2.2-4.0); Magnesium, Blood 2.2 mg/dL (1.6-2.4); Phosphorus, Blood 4.2 mg/dL (2.5-4.9); Potassium, Blood 3.2 mmol/L (3.5-5.5); Total Protein, Blood 5.7 g/dL (6.4-8.2)
[2021-05-16 06:13] LABS: BAND PERCENT MAN 7 % (0-8); BASOPHILS PERCENT MAN 0 % (0-2); EOSINOPHILS ABSOLUTE MAN 0.26 K/mm3 (0.00-0.68); EOSINOPHILS PERCENT MAN 2 % (0-6); LYMPHOCYTES PERCENT MAN 10 % (21-46); METAMYELOCYTE ABSOLUTE MAN 0.26 K/mm3 (0.00-0.00); METAMYELOCYTE PERCENT MAN 2 % (0-0); MONOCYTES ABSOLUTE MAN 0.65 K/mm3 (0.16-1.47); MONOCYTES PERCENT MAN 5 % (4-13); MYELOCYTE ABSOLUTE MAN 0.39 K/mm3 (0.00-0.00); MYELOCYTE PERCENT MAN 3 % (0-0); NEUTROPHILS ABSOLUTE MAN 10.14 K/mm3 (1.96-9.15); SEG NEUTROPHILS PERCENT MAN 71 % (41-73); TOTAL CELLS COUNTED 100
--- NOTE | 2021-05-16 07:07 | NUR ---
SHIFT SUMMARY PT REMAINS INTUBATED AND SEDATED. PROPOFOL INFUSING AT 55 MCG/KG/MIN, LEVOPHED AT 4 MCG/MIN AND NS TKO. VENT SETTINGS 24/350/10/45%. PT WITH MODERATE AMOUNTS OF THICK CLEAR SECRETIONS FROM ETT. VSS, HR 60'S SR WITH PVC'S, LEVO GOAL MAP >65. NAVARRETE DRAINING YELLOW URINE TO GRAVITY. TF VHP AT GOAL RATE OF 30 ML/HR WITH 30 Q4H WATER FLUSH. LUNGS CLEAR WITH DIMINISHED BASES. WILL CONTINUE TO MONITOR UNTIL REPORT GIVEN TO ONCOMING RN.
[2021-05-16 10:25] LABS: PCO2 Arterial 38.2 mmHg (35-45); PO2 Arterial 62.8 mmHg (80-100); pH Blood Arterial 7.46 (7.35-7.45)
--- NOTE | 2021-05-16 11:00 | NUR ---
ASSUMED PT CARE:REPORT FROM DR. BARBOUR. PT REMAINS INTUBATED AND SEDATED. LUNGS DIMINISHED L>R BASE. PEEP DECREASED TO [address] BARBOUR-FIO2 40%-SATS 92-94%. MAP 60-65 ON LEVOPHED @ 4 MCG/MIN. ECG SHOWS SR. SCATTERED BRUISING NOTED THROUGH OUT THE BODY MORE PREVALENT ON THE LEFT SIDE THAN THE RIGHT. RIGHT ARM IN SPLINT, SUTURES INTACT TO RIGHT LEG -NO SIGNS OF INFECTION. ABDOMEN SLIGHTLY DISTENDED WITH BT'S-OGTF WITH 5 CC RESIDUAL-REFED. NAVARRETE WITH ADEQUATE URINE OUTPUT. 1 UNIT OF PRBC'S HAS JUST COMPLETED AND K+RIDER INFUSING. CECI KNOWLES'D. PLAN TO ATTEMPT WEANING TRIAL ONCE PT AWAKE AND ABLE TO FOLLOW COMMANDS.
--- NOTE | 2021-05-16 14:00 | NUR ---
PT OPENED EYES TO VERBAL ON PROPOFOL @ 55 MG/KG/MIN. PT GRIMACING AND NODS "YES" WHEN ASKED IF IN PAIN-MED WITH FENTANYL 50 MCG IV X1. BED BATH GIVEN, LINEN CHANGE COMPLETED AND PT POSITIONED TO HIGH VU'S POSITION WITH EXTREMITIES ELEVATED ON PILLOWS. SATS 80'S OF FIO2 50% AND PEEP 8-ETT SUCTIONED-LARGE AMOUNT OF THICK, JEREZ SECRETIONS.
--- NOTE | 2021-05-16 14:16 | NUR ---
FIO2 TITRATED UP TO 60% TO KEEP SATS>90% DR. BARBOUR AWARE-CANCELED WEANING TRIAL FOR TODAY DUE TO INCREASED FI02 REQUIREMENTS.
--- NOTE | 2021-05-16 16:00 | NUR ---
PT RESTING QUIETLY ON THE VENT WITH PROPOFOL @ 55 MCG/KG/MIN. SATS>90% ON PEEP 8 AND FIO2 60%. LUNGS DIMINISHED L<R. SUCTION PRODUCTIVE OF MODERATE TO LARGE AMOUNT OF THICK, JEREZ SECRETIONS. MAP TRENDING 60-65 WITH LEVOPHED @ 4 MCG/MIN.OGTF GOAL DECREASED TO 15 CC/HR PER DIETARY. PT TOLERATING OGTF WITH MINIMAL RESIDUALS. URINE OUTPUT IS ADEQUATE.
--- NOTE | 2021-05-16 20:15 | NUR ---
ASSUMED CARE REPORT RECEIVED FROM ARTUR JARAMILLO. PT INTUBATED AND SEDATED. PROPOFOL INFUSING AT 55 MCG/KG/MIN, LEVOPHED AT 4 MCG/MIN AND NS TKO. PT RESPONDS TO PAIN STIMULI, OCCASIONALLY OPENS EYES AND FOLLOWS COMMANDS. VENT SETTINGS 24/350/8/60% WITH SPO2 96%. CPT ORDERED FOR LEFT LOWER LUNG, LUNGS CURRENTLY CLEAR WITH DIMINISHE BASES. TF VHP RUNNING AT GOAL RATE OF 15 ML/HR WITH 30 Q4H WATER FLUSHES. RUE IN SPLINT/OSCAR WRAP, CAP REFILL LESS THAN 3 SECONDS. NAVARRETE DRAINING TO GRAVITY.
[2021-05-17 04:46] LABS: Hematocrit 27.5 % (33.0-51.0); Hemoglobin 9.2 g/dL (11.5-16.0); Mean Corpuscular HGB 30.7 pg (26.0-34.0); Mean Corpuscular HGB Conc 33.5 g/dL (31.5-36.5); Mean Corpuscular Volume 92 fL (80-100); Mean Platelet Volume 10.8 fL (9.1-12.4); NRBC ABSOLUTE 0.04 K/mm3 (0.00-0.02); NRBC Auto 0.4 /100 WBC (0.0-0.2); Platelet Count 201 K/mm3 (150-400); RDW Coefficient Variation 15.7 % (11.7-14.2); RDW Standard Deviation 50.8 fL (35.1-46.3); White Blood Cell Count 10.54 K/mm3 (4.00-11.30)
[2021-05-17 05:04] LABS: BAND PERCENT MAN 1 % (0-8); BASOPHILS PERCENT MAN 0 % (0-2); EOSINOPHILS ABSOLUTE MAN 0.31 K/mm3 (0.00-0.68); EOSINOPHILS PERCENT MAN 3 % (0-6); LYMPHOCYTES ABSOLUTE MAN 0.73 K/mm3 (0.84-5.20); LYMPHOCYTES PERCENT MAN 7 % (21-46); METAMYELOCYTE ABSOLUTE MAN 0.31 K/mm3 (0.00-0.00); METAMYELOCYTE PERCENT MAN 3 % (0-0); MONOCYTES ABSOLUTE MAN 0.73 K/mm3 (0.16-1.47); MONOCYTES PERCENT MAN 7 % (4-13); MYELOCYTE ABSOLUTE MAN 0.21 K/mm3 (0.00-0.00); MYELOCYTE PERCENT MAN 2 % (0-0); NEUTROPHILS ABSOLUTE MAN 8.22 K/mm3 (1.96-9.15); SEG NEUTROPHILS PERCENT MAN 77 % (41-73); TOTAL CELLS COUNTED 100
[2021-05-17 05:06] LABS: Albumin, Blood 2.2 g/dL (3.4-5.0); Albumin/Globulin Ratio 0.6 (0.8-1.8); Bilirubin, Total 1.1 mg/dL (0.1-1.0); Bun/Creatinine Ratio 25.7 (12.0-20.0); Calcium, Blood 8.3 mg/dL (8.5-10.1); Creatinine, Blood 1.67 mg/dL (0.40-1.00); Globulin, Blood 3.6 g/dL (2.2-4.0); Magnesium, Blood 2.2 mg/dL (1.6-2.4); Phosphorus, Blood 3.9 mg/dL (2.5-4.9); Potassium, Blood 3.5 mmol/L (3.5-5.5); Total Protein, Blood 5.8 g/dL (6.4-8.2)
--- NOTE | 2021-05-17 06:38 | NUR ---
SHIFT SUMMARY PT INTUBATED/SEDATED, VENT SETTINGS 24/350/8/50% SPO2 >95% T/O SHIFT. PT CURRENTLY HAS INFUSING PROPOFOL AT 55 MCG/KG/MIN, LEVOPHED AT 2 MCG/MIN AND NS TKO. TF VHP RUNNING AT GOAL RATE OF 15 ML/HR WITH 30 Q4H WATER FLUSHES, NO RESIDUALS THIS SHIFT. BRUISING T/O, SUTURES REMAIN INTACT TO R LEG/KNEE, EDEMA TO LUE AND BLE'S. NAVARRETE DRAINING TO GRAVITY. PT WITH MODERATE AMOUNTS OF THICK JEREZ SECRETIONS VIA ETT AND ORALLY THIS SHIFT.
--- NOTE | 2021-05-17 08:40 | NUR ---
ASSUMED CARE BEDSIDE REPORT FROM LAURA JARAMILLO. PT INTUBATED AND SEDATED. VENT SETTINGS AC 24/350/8/50%. PROPOFOL GTT AT 55 MCG/KG/MIN. PT FOLLOWS SIMPLE COMMANDS. GRIMACES c CARE. LUNGS CLEAR. THICK YELLOW SECRETIONS THROUGH ETT. ABD ROUND, SOFT, NON TENDER. BT X 4. EX LAP INCISIONS C/D/I. INCISION TO RIGHT THIGH C/D/. SCATTERED BRUISING THROUGHOUT BODY. TUBE FEEDS AT 15 ML/HR, TOLERATING WELL. NO RESIDUALS THIS AM. NAVARRETE PATENT, DRAINING CLEAR YELLOW URINE TO GRAVITY. LEVO GTT FOR SBP>90. CVC TO RIGHT GROIN, DRESSING C/D/I. WILL CONTINUE TO MONITOR.
--- NOTE | 2021-05-17 10:18 | NUR ---
Upon receiving a request for spiritual care to contact Father Karlos, I call him and he states that he will visit patient this day after he performs mass.
--- NOTE | 2021-05-17 17:17 | NUR ---
SHIFT SUMMARY PT REMAINS INTUBATED AND SEDATED. VENT SETTINGS SPONT 10/8/60%. PROPOFOL GTT INFUSING AT 40 MCG/KG/MIN. PT FOLLOW SIMPLE COMMANDS. NODS HEAD TO YES/NO QUESTIONS. LUNGS COARSE c EXP WHEEZE. COPIOUS ORAL SECRETIONS, SMALL AMOUNT OF THICK YELLOW SECRETIONS THROUGH ETT. ABD ROUND, SOFT, NON TENDER. BT X 4. 2 SMEAR BM'S THIS SHIFT. INCISIONS C/D/I. NO RESIDUALS THIS SHIFT. NAVARRETE PATENT, DRAINING CLEAR YELLOW URINE TO GRAVITY. VSS. LEVO PLACED ON STANDBY THIS SHIFT. WILL CONTINUE TO MONITOR UNTIL REPORT TO ONCOMING NURSE.
--- NOTE | 2021-05-17 19:40 | NUR ---
ASSUMED CARE PT INTUBATED AND SEDATED, PROPOFOL INFUSING AT 40 MCG/KG/MIN. VENT SETTINGS SPONT 10/8/60%, SPO2 >90%. PT WITH SON AT BEDSIDE. PT OPENING EYES AND FOLLOWING COMMANDS, NODS HEAD "YES/NO". PT NODS HEAD "YES" WHEN ASKED IF IN PAIN, PRN FENTANYL GIVEN. MODERATE AMOUNT OF ORAL SECRETIONS SUCTIONED, SMALL AMOUNT SUCTIONED THROUGH ETT. VSS, HR 70'S SR ON MONITOR, SBP 115'S LEVO ON STANDBY.
[2021-05-18 04:14] LABS: BASOPHILS ABSOLUTE AUTO 0.03 K/mm3 (0.00-0.23); BASOPHILS PERCENT AUTO 0 % (0-2); EOSINOPHILS ABSOLUTE AUTO 0.48 K/mm3 (0.00-0.68); EOSINOPHILS PERCENT AUTO 5 % (0-6); Hematocrit 27.8 % (33.0-51.0); Hemoglobin 8.8 g/dL (11.5-16.0); IMMATURE GRAN ABSOLUTE AUTO 0.45 K/mm3 (0.00-0.10); IMMATURE GRAN PERCENT AUTO 4 % (0-1); LYMPHOCYTES ABSOLUTE AUTO 1.16 K/mm3 (0.84-5.20); LYMPHOCYTES PERCENT AUTO 11 % (21-46); MONOCYTES ABSOLUTE AUTO 1.07 K/mm3 (0.16-1.47); MONOCYTES PERCENT AUTO 10 % (4-13); Mean Corpuscular HGB 29.8 pg (26.0-34.0); Mean Corpuscular HGB Conc 31.7 g/dL (31.5-36.5); Mean Corpuscular Volume 94 fL (80-100); Mean Platelet Volume 10.7 fL (9.1-12.4); NEUTROPHILS ABSOLUTE AUTO 7.11 K/mm3 (1.96-9.15); NEUTROPHILS PERCENT AUTO 69 % (41-73); Platelet Count 238 K/mm3 (150-400); RDW Coefficient Variation 15.8 % (11.7-14.2); RDW Standard Deviation 52.9 fL (35.1-46.3); Red Blood Cell Count 2.95 M/mm3 (3.80-5.20)
[2021-05-18 04:49] LABS: Albumin, Blood 2.3 g/dL (3.4-5.0); Albumin/Globulin Ratio 0.7 (0.8-1.8); Bun/Creatinine Ratio 34.4 (12.0-20.0); Calcium, Blood 8.5 mg/dL (8.5-10.1); Creatinine, Blood 1.54 mg/dL (0.40-1.00); Globulin, Blood 3.5 g/dL (2.2-4.0); Magnesium, Blood 2.2 mg/dL (1.6-2.4); Phosphorus, Blood 4.5 mg/dL (2.5-4.9); Potassium, Blood 4.2 mmol/L (3.5-5.5); Total Protein, Blood 5.8 g/dL (6.4-8.2)
--- NOTE | 2021-05-18 07:02 | NUR ---
SHIFT SUMMARY PT REMAINS INTUBATED/SEDATED ON 40 MCG/KG PROPOFOL. VENT SETTINGS SPONT 10/8 55%. VSS, HR 70'S SR ON MONITOR, SBP 115-120'S, SPO2 >90%. PT OPENS EYES AND FOLLOWS COMMANDS. FREQUENTLY NEEDS ORAL SUCTIONING DUE TO LARGE AMOUNTS OF SECRETIONS. ETT WITH SMALL AMOUNTS OF SECRETIONS. PT MEDICATED WITH PRN FENTANYL THIS SHIFT PER EMAR. NAVARRETE DRAINING DARK TALA URINE TO GRAVITY. SPLINT/OSCAR WRAP IN PLACE ON RUE.
--- NOTE | 2021-05-18 10:00 | NUR ---
Care Assumed 0700 Pt intubated and sedated. On Propofol 40 mcg/kg/min, pt opens eyes and able to follow commands. Nods yes/no to pain and simple questions. Able to move extrems. Vent settings: PS 10/8, FIO2 55%, SPO2 > 88%. Pt has coughing spells where SPO2 decreases to 86% but pt recovers. Small amount of secreations. VHP @ goal of 15 ml/hr, min residual. RUE in splint/francisca wrap, cap refill 4 seconds. Jazmine draning to gravity. Spoke to pts and updated on care being provided. Dr. Morgan in to see patient. VSS.
--- NOTE | 2021-05-18 13:18 | NUR ---
Update- Dr. Perry Proivder in to see patient and plan to extubate tomorrow if FIO2 requirments decrease. No other changes.
--- NOTE | 2021-05-18 16:46 | NUR ---
Shift Summary Pt continues to be intubated and sedated. Vent settings: PS 10/8, FIO2 increased to 60% Propofol infusing via central line, see flow sheet. Pts son at bedside. Pt having PAC's. HR 60-70'S. VSS. Pt able to follow commands, nods yes/no to pain. Lucero remains in place, will report to oncoming shift.
--- NOTE | 2021-05-18 18:51 | NUR ---
ASSUMED PT CARE FROM CLINT WILLIS AT 1700 PT INTUBATED AND LIGHTLY SEDATED. PROPOFOL AT 30MCG/KG/MIN AND PT IS STILL ABLE TO OPEN EYES TO VERBAL STIMULI, FOLLOW COMMANDS, NODS HEAD YES/NO TO QUESTIONS, AND MOVES ALL EXTREMITIES. VENT SPONTANEOUS 10/8; FIO2 60%, RESP RATE UPPER 30'S. MEDICATED WITH 50MCG OF FENTANYL PER ORDERS. VHP IS AT GOAL OF 15MLS/HR. NAVARRETE CATHETER IS PATENT AND DRAINING TALA/GREEN URINE TO GRAVITY. NSR WITH PAC'S; RATE 60'S. BP'S SOFT, BUT STABLE, SEE FLOWSHEET. FAMILY AT BEDSIDE UPON ASSUMPTION OF CARE. SEE SHIFT SUMMARY FOR FURTHER DETAILS.
[2021-05-19 04:45] LABS: Hematocrit 27.8 % (33.0-51.0); Hemoglobin 8.7 g/dL (11.5-16.0); Mean Corpuscular HGB 29.7 pg (26.0-34.0); Mean Corpuscular HGB Conc 31.3 g/dL (31.5-36.5); Mean Corpuscular Volume 95 fL (80-100); Mean Platelet Volume 11.1 fL (9.1-12.4); Platelet Count 265 K/mm3 (150-400); RDW Coefficient Variation 15.8 % (11.7-14.2); RDW Standard Deviation 54.3 fL (35.1-46.3); Red Blood Cell Count 2.93 M/mm3 (3.80-5.20); White Blood Cell Count 12.93 K/mm3 (4.00-11.30)
[2021-05-19 05:01] LABS: Calcium, Blood 8.5 mg/dL (8.5-10.1); Creatinine, Blood 1.74 mg/dL (0.40-1.00); Potassium, Blood 3.9 mmol/L (3.5-5.5)
--- NOTE | 2021-05-19 06:07 | NUR ---
END OF SHIFT SUMMARY NO SIGNIFICANT CHANGES SINCE LAST ENTRY. VENT SETTINGS: SPONTANEOUS 07/19; FIO2 65%, SPO2 94%, RR 20'S. PT HAS REMAINED MOSTLY AWAKE ON PROPOFOL OF 30MCG/KG/MIN. ABLE TO COMMUNICATE NEEDS. SHE HAS REMAINED OUT OF RESTRAINTS THIS SHIFT WITH ADEQUATE COMPLIANCE OF NOT REACHING TOWARD ETT. SHE IS ABLE TO NOD HER HEAD YES/NO APPROPRIATELY TO QUESTIONS. MEDICATED FREQUENTLY (Q1-2 HRS) WITH FENTANYL PER ORDERS; HOWEVER, PT MAY BENEFIT FROM CONTINUOUS INFUSION D/T FREQUENT NEED. BP'S HAVE BEEN SOFT; THEREFORE, UNABLE TO TITRATE UP ON PROPOFOL. CENTRAL LINE TO RIGHT GROIN IS PATENT. PT HAS REMAINED NSR WITH OCCASIONAL PAC'S. SHE DID HAVE A 4 BEAT RUN OF VTACH; NONSUSTAINED. ABDOMEN IS ROUND, FIRM, AND DISTENDED; TENDER UPON PALPATION, BUT HYPOACTIVE TONES WITH A MEDIUM SIZED BM THIS SHIFT. VHP AT GOAL OF 15MLS/HR. NAVARRETE IS PATENT AND DRAINING DARK YELLOW/GREEN URINE TO GRAVITY. WILL CONTINUE TO MONITOR UNTIL REPORT IS HANDED OFF TO ONCOMING RN.
--- NOTE | 2021-05-19 11:07 | NUR ---
Care Assumed 0700 Pt intubated and sedated. Propofol GTT 35 mcg/kg/min, pt awake in room, able to follow commands, nods yes/no to simple questions, not on restraints, moves all extrems. Vent settings: PS 10/8, FIO2 65%, SPO2 > 88%. Pt has moderate thick secreations, white. MAP 70's. Spoke to Dr. Perry in regards to patients BP medications and Lasix (due to elevated renal funcation per Dr. Morgan). Dr. Perry states he will review chart but would like Coreg given to patient and wait one hour to give lisniopril. VHP @ GOAL. NSR with PAC's, HR 70's.
--- NOTE | 2021-05-19 16:01 | NUR ---
DVT - Update Pt has one DVT in right peroneal vein per US tech. Will let Dr. Perry know. Pt requiring increased FIO2 75%. Spoke to patients son and sister to update on current care being provided. Son to visit pt later on today.
--- NOTE | 2021-05-19 17:53 | NUR ---
Shift Summary Pt remains on PS 10/8, FIO2 75%, SPO2 92%. On propofol GTT 30 mcg/kg/min, following commands, opens eyes to verbal stumli, and moving all extrems. Lucero in place with 700 dark yellow cloudy output. VHP @ goal, residual of 5. Pt started on Levonox per Dr. Perry for right peroneal vein DVT. Son at bedside and updated on current care/treatment being provided. Son appears upset about limited visitings hours but states he will be back tomorrow. VSS. NSR with occasional PAC's. Will report to oncoming shift.
--- NOTE | 2021-05-19 20:07 | NUR ---
ASSUMPTION OF CARE PT REMAINS INTUBATED WITH SETTINGS ON SPONT 07/19 WITH FIO2 75%. PT WAKENS TO VERBAL STIMULI. FOLLOWS VERBAL COMMANDS SUCH SQUEEZING HANDS AND WIGGLING TOES. PT NODS/SHAKES HEAD YES/NO TO ANSWER QUESTIONS. PT CURRENTLY RECEIVING PROPOFOL AT 30MCG/KG/MIN AND VHP TUBE FEEDING AT GOAL RATE. PT HAS SCD ON L CALF. SPLINT REMAINS ON R ARM. PT DENIES PAIN AT THIS TIME.
--- NOTE | 2021-05-19 23:47 | NUR ---
SEDATION VACATION PROPOFOL TURNED OFF FOR BLOOD DRAW. PT AWAKE AND ABLE TO FOLLOW COMMANDS, MOVES ALL EXTREMITIES WITH PURPOSEFUL MOVEMENT. PT NODS HEAD YES WHEN ASKED IF SHE HAD DISCOMFORT BUT DENIES PAIN. PROPOFOL RESTARTED AT 30MCG/KG/MIN.
[2021-05-20 03:38] LABS: BASOPHILS ABSOLUTE AUTO 0.04 K/mm3 (0.00-0.23); BASOPHILS PERCENT AUTO 0 % (0-2); EOSINOPHILS ABSOLUTE AUTO 0.53 K/mm3 (0.00-0.68); EOSINOPHILS PERCENT AUTO 4 % (0-6); Hematocrit 25.8 % (33.0-51.0); Hemoglobin 8.2 g/dL (11.5-16.0); IMMATURE GRAN ABSOLUTE AUTO 0.29 K/mm3 (0.00-0.10); IMMATURE GRAN PERCENT AUTO 2 % (0-1); LYMPHOCYTES ABSOLUTE AUTO 1.15 K/mm3 (0.84-5.20); LYMPHOCYTES PERCENT AUTO 9 % (21-46); MONOCYTES ABSOLUTE AUTO 1.32 K/mm3 (0.16-1.47); MONOCYTES PERCENT AUTO 10 % (4-13); Mean Corpuscular HGB 30.1 pg (26.0-34.0); Mean Corpuscular HGB Conc 31.8 g/dL (31.5-36.5); Mean Corpuscular Volume 95 fL (80-100); NEUTROPHILS ABSOLUTE AUTO 9.38 K/mm3 (1.96-9.15); NEUTROPHILS PERCENT AUTO 74 % (41-73); Platelet Count 270 K/mm3 (150-400); RDW Coefficient Variation 15.7 % (11.7-14.2); RDW Standard Deviation 53.5 fL (35.1-46.3); Red Blood Cell Count 2.72 M/mm3 (3.80-5.20); White Blood Cell Count 12.71 K/mm3 (4.00-11.30)
[2021-05-20 03:54] LABS: Albumin, Blood 2.7 g/dL (3.4-5.0); Anion Gap 6 mmol/L (6-16); Blood Urea Nitrogen 85 mg/dL (8-24); Bun/Creatinine Ratio 53.5 (12.0-20.0); CO2, Blood 27 mmol/L (21-32); Calcium, Blood 8.6 mg/dL (8.5-10.1); Chloride, Blood 104 mmol/L (98-108); Creatinine, Blood 1.59 mg/dL (0.40-1.00); Glomerular Filtration Rate 33 (60-); Glucose, Blood 175 mg/dL (70-99); Magnesium, Blood 2.3 mg/dL (1.6-2.4); Phosphorus, Blood 3.7 mg/dL (2.5-4.9); Potassium, Blood 4.1 mmol/L (3.5-5.5); Sodium, Blood 137 mmol/L (136-145)
--- NOTE | 2021-05-20 05:29 | NUR ---
SHIFT SUMMARY PT REMAINS INTUBATED THROUGHOUT SHIFT. VENT SETTINGS: SPONT 8 FIO2 80%. BIOX REMAINS >92%. PT WAKENS TO VERBAL STIMULI, FOLLOWS COMMANDS AND ANSWERS QUESTIONS BY NODDING/SHAKING HEAD. RHONCHI AND COARSE LUNG SOUNDS THROUGHOUT. SMALL AMOUNT OF CLEAR SPUTUM DURING SUCTIONING. PT REQUIRES INCREASED FIO2 WHILE REPOSITIONING. PT DOES NOT TOLERATE LYING FLAT WELL, BEGINS COUGHING AND BIOX DECREASES. WHEN ASKED IF PT HAS PAIN AFTER REPOSITIONING, PT NODS YES. FENTANYL ADMINISTERED PER EMAR. PT'S HR REMAINS IN 60S-70S, SR WITH BBB WITH OCCASIONAL PACS. BOWEL SOUNDS HYPOACTIVE X4 QUADRANTS. URINE OUTPUT 800ML THIS SHIFT. PT RECEIVING PROPOFOL 35MCG/KG/MIN. VHP AT GOAL RATE.
--- NOTE | 2021-05-20 09:35 | NUR ---
Care Assumed 0700 Pt intubated and sedated. Propofol GTT 35 mcg/kg/min, pt able to follow commonds, moves all extrems, and makes needs known. Vent settings: PS 10/8, FIO2 70%, SPO2 > 90%. NSR with PAC's. MAP 65-70's. VHP @ goal. Lucero in place, 300 ml of yellow output currently. SCD on left leg. Splint and francisca wrap remains in place on right arm. VSS. Pt denies pain at this time.
--- NOTE | 2021-05-20 17:54 | NUR ---
Shift Summary Propofol remains the same. Vent settings changed by Dr. Willis, A/C VC 14/400/10/50%, SPO2 > 90%. Pt opens eyes to verbal stumli, able to nod yes/no to simple questions. Nodded yes to pain once but when asked again pt nods no. Moves all extrems. JAYNE. MEÑO. FREDP @ [facility]. Lucero in place with 900 dark yellow clear output. Will report to oncoming shift.
--- NOTE | 2021-05-20 19:20 | NUR ---
12 beat run of VT Pt had 12 beat run of VT, see strip in chart. Pt is A/O and nods yes to being in pain, treated per emar. Otherwise VSS. Charge nurse, Ben, made aware.
--- NOTE | 2021-05-20 20:00 | NUR ---
ASSUMED CARE OF PT AT 1915. REPORT RECEIVED AT BEDSIDE. PT PRESENTS IN BED. INTUBATED. VENT AC/VC 14, Tv 400, 50 PERCENT, PEEP 10. PT TOLERATING THIS WELL. HAD BEEN MEDICATED WITH FENTANYL BY OFFGOING RN. WILL REVIEW CHART AND PLAN OF CARE FOR THIS PT.
--- NOTE | 2021-05-20 23:22 | NUR ---
PT RECEIVED FULL BEDBATH. TOLERATES THIS WELL. IS ABLE TO OPEN EYES AND NOD 'YES' OR 'NO' TO QUESTIONS. PT PREMEDICATED WITH 50 MCG FENTANYL FOR PROBABLE DISCOMFORT WITH BATH. THIS DEMONSTRATES AFFECTIVENESS. INCISIONS TO ABDOMEN WITHOUT DRAINAGE OR S/S INFECTIONS. EDGES ATTACHED. INCISION TO RIGHT INFERIOR TO KNEE INCISION WITH SUTURES. NO S/S INFECTIONS. WILL CONTINUE TO MONITOR PT.
[2021-05-21 04:10] LABS: BASOPHILS ABSOLUTE AUTO 0.05 K/mm3 (0.00-0.23); BASOPHILS PERCENT AUTO 0 % (0-2); EOSINOPHILS ABSOLUTE AUTO 0.63 K/mm3 (0.00-0.68); EOSINOPHILS PERCENT AUTO 5 % (0-6); Hematocrit 26.4 % (33.0-51.0); Hemoglobin 8.4 g/dL (11.5-16.0); IMMATURE GRAN ABSOLUTE AUTO 0.27 K/mm3 (0.00-0.10); IMMATURE GRAN PERCENT AUTO 2 % (0-1); LYMPHOCYTES ABSOLUTE AUTO 1.19 K/mm3 (0.84-5.20); LYMPHOCYTES PERCENT AUTO 9 % (21-46); MONOCYTES ABSOLUTE AUTO 1.52 K/mm3 (0.16-1.47); MONOCYTES PERCENT AUTO 11 % (4-13); Mean Corpuscular HGB Conc 31.8 g/dL (31.5-36.5); Mean Corpuscular Volume 94 fL (80-100); NEUTROPHILS ABSOLUTE AUTO 10.41 K/mm3 (1.96-9.15); NEUTROPHILS PERCENT AUTO 74 % (41-73); Platelet Count 319 K/mm3 (150-400); RDW Coefficient Variation 15.5 % (11.7-14.2); RDW Standard Deviation 53.1 fL (35.1-46.3); White Blood Cell Count 14.07 K/mm3 (4.00-11.30)
[2021-05-21 04:19] LABS: PCO2 Arterial 37.2 mmHg (35-45); PO2 Arterial 69.3 mmHg (80-100); pH Blood Arterial 7.45 (7.35-7.45)
[2021-05-21 04:25] LABS: Albumin, Blood 2.4 g/dL (3.4-5.0); Anion Gap 6 mmol/L (6-16); Blood Urea Nitrogen 88 mg/dL (8-24); Bun/Creatinine Ratio 62.9 (12.0-20.0); CO2, Blood 25 mmol/L (21-32); Calcium, Blood 8.8 mg/dL (8.5-10.1); Chloride, Blood 106 mmol/L (98-108); Glomerular Filtration Rate 38 (60-); Glucose, Blood 159 mg/dL (70-99); Magnesium, Blood 2.4 mg/dL (1.6-2.4); Potassium, Blood 3.9 mmol/L (3.5-5.5); Sodium, Blood 137 mmol/L (136-145)
--- NOTE | 2021-05-21 07:18 | NUR ---
PT HAS BEEN SUCTIONED AT TIMES WITH RETURN OF WHITE/YELLOW SECRETIONS. HAVE DONE SEDATION VACATION FOR THIS PT. PT ABLE TO FOLLOW COMMANDS AND NOD HEAD 'YES' AND 'NO' TO QUESTIONS. DURING BEDSIDE REPORT, PT DOES NOD HEAD 'NO' TO QUESTION IF SHE HAD PAIN.
--- NOTE | 2021-05-21 09:00 | NUR ---
ASSUMED CARE: REPORT RECEIVED FROM JORDAN Wesley RN. ASSUMED CARE OF THIS PT AT APPROX 0700. ON ASSESSMENT, THE PT IS RESTING QUIETLY, LIGHTLY SEDATED W/ PROPOFOL & INTUBATED. SHE AWAKENS EASILY TO VERBAL STIMULUS & IS ABLE TO FOLLOW DIRECTIONS AT THAT TIME. SHE DENIES PAIN BUT DOES SHAKE HEAD "YES" WHEN ASKED IF FEELING ANXIOUS OR NEEDING TO HAVE ETT SUCTIONED. LS COARSE T/O, VENT SETTINGS: AC/VC 14/400/10/55% W/ O2 SATS > 92% ON AVG. MONITOR SHOWS SR W/ HR 60-80s, BP STABLE. OGT IN PLACE W/ TUBE FEEDS INFUSING AT GOAL RATE. TEMP NAVARRETE PATENT/ DRAINING YELLOW URINE. SKIN CONDITION OVERALL INTACT W/ Q2H REPOSITIONING TO MAINTAIN SKIN INTEGRITY. WILL CONTINUE TO MONITOR & UPDATE NEEDED.
--- NOTE | 2021-05-21 10:45 | NUR ---
DR RUDOLPH / UPDATE: PROVIDER AT BEDSIDE TO ANGELLA PT AT APPROX 0950, HE HAS CHANGED VENT SETTINGS TO SPONTANEOUS W/ PS 7, PEEP 5 & 40% FIO2 AT THAT TIME. PROPOFOL PLACED ON STANDBY & THE PT IS AWAKE, ANSWERING QUESTIONS BY NODDING HEAD. TUBE FEED ALSO PLACED ON HOLD AT THIS TIME. SHE NODS "EYS" THAT SHE WOULD LIKE THE ETT REMOVED TODAY. IF SHE CAN REMAIN ON SPONTANEOUS FOR AT LEAST 30 MINS, THE EXTUBATION MAY BE COMPLETED TODAY. THE PT HAS TOLERATED THESE CHANGES WELL FOR APPROX 20 MINS, AT WHICH TIME SHE HAS BECOME INCREASINGLY ANXIOUS & O2 SATS HAVE DECREASED TO 86%. SHE IS ALSO NOTED TO BE HAVING LARGE AMNTS OF JEREZ SECRETIONS SUCTIONED THROUGH ETT. EXTUBATION WILL NOT BE COMPLETED TODAY & AT APPROX 1030 THE PT HAS BEEN RESEDATED & VENT SETTINGS CHANGED BACK TO AC/VC 14/400/10/40%. THE PT IS TOLERATING WELL. TUBE FEEDS ALSO RESUMED AT PRIOR RATE.
--- NOTE | 2021-05-21 12:35 | NUR ---
Pt. is lying in bed and doing much better prayed for her and gave spiritual suppor
[2021-05-21 14:52] LABS: Vancomycin, Random 21.9 ug/mL
--- NOTE | 2021-05-21 17:06 | NUR ---
TUBE FEEDING: TUBE FEED FORMULA CHANGED TO PIVOT 1.5 IMMUNE PER DIETARY ORDERS. INITIATED AT 15 ML/HR AT 1700, CAN BE INCREASED TO GOAL RATE OF 20 ML/HR AT APPROX 0100, PUMP SET TO ALARM AT THAT TIME.
--- NOTE | 2021-05-21 17:18 | NUR ---
SHIFT SUMMARY: NO ACUTE CHANGES SINCE PRIOR UPDATES. PT CONTINUES RESTING QUIETLY, MINIMALLY SEDATED W/ PROPOFOL, AWAKENS EASILY TO VERBAL STIMULUS & IS ABLE TO ANSWER YES/ NO QUESTIONS & FOLLOW DIRECTIONS AT THAT TIME. LS COARSE T/O, VENT SETTINGS: AC/VC 14/400/10/45% W/ O2 SATS > 90% ON AVG, DESATS TO 86% W/ COUGHING EPISODES. MONITOR SHOWS SR W/ BBB, PACs & PVCs, HR 60-80s. HYPOTENSION NOTED WHEN PT MORE HEAVILY SEDATED, BP IMPROVED W/ DECREASED PROPOFOL. OGT IN PLACE W/ TUBE FEEDS INFUSING PER NEW ORDERS - SEE PRIOR NOTE. BM x1 THIS SHIFT. NAVARRETE PATENT/ DRAINING DARK YELLOW URINE. SKIN CONDITION OVERALL INTACT, ECCHYMOTIC W/ SURGICAL SITES x3 TO ABD WNL. WILL CONTINUE TO MONITOR & REPORT OFF TO ONCOMING RN.
--- NOTE | 2021-05-21 20:00 | NUR ---
ASSUMED CARE OF PT AT 1915. PT VENTED. AC 14, Tv 400, FIO2 45, PEEP 10. PT TOLERATING THIS WELL. PT ON LIGHT SEDATIION WITH PROPOFOL AT 15 MCG'S/KG/MIN. PT IN NO APPARENT DISTRESS. IS ABLE TO NOD HEAD 'YES' AN 'NO' TO QUESTIONS. PT DENIES PAIN OR DISTRESS. IS ABLE TO ACKNOWLEDGE IF SHE NEEDS TO BE SUCTIONED. WILL REVIEW CHART AND PLAN OF CARE FOR THIS PT.
--- NOTE | 2021-05-22 | NUR ---
FULL BEDBATH DONE FOR THIS PT. DID PREMEDICATE WITH 50 MCG FENTANYL. THIS IMPROVES PT'S TOLERANCE FOR VENT AND BEDBATH. PT HAS BEEN INCONTINENT TO LIQUID BROWN STOOL. PLACED DIGNISHIELD WITHOUT ISSUES. HAVE SUCTIONED PT WITH RETURN OF WHITE SECRETIONS. WILL CONTINUE TO MONITOR.
[2021-05-22 06:17] LABS: BASOPHILS ABSOLUTE AUTO 0.06 K/mm3 (0.00-0.23); BASOPHILS PERCENT AUTO 0 % (0-2); EOSINOPHILS ABSOLUTE AUTO 0.63 K/mm3 (0.00-0.68); EOSINOPHILS PERCENT AUTO 5 % (0-6); Hematocrit 27.3 % (33.0-51.0); Hemoglobin 8.6 g/dL (11.5-16.0); IMMATURE GRAN ABSOLUTE AUTO 0.42 K/mm3 (0.00-0.10); IMMATURE GRAN PERCENT AUTO 3 % (0-1); LYMPHOCYTES ABSOLUTE AUTO 1.25 K/mm3 (0.84-5.20); LYMPHOCYTES PERCENT AUTO 9 % (21-46); MONOCYTES ABSOLUTE AUTO 1.33 K/mm3 (0.16-1.47); MONOCYTES PERCENT AUTO 10 % (4-13); Mean Corpuscular HGB 29.6 pg (26.0-34.0); Mean Corpuscular HGB Conc 31.5 g/dL (31.5-36.5); Mean Corpuscular Volume 94 fL (80-100); Mean Platelet Volume 10.7 fL (9.1-12.4); NEUTROPHILS ABSOLUTE AUTO 10.21 K/mm3 (1.96-9.15); NEUTROPHILS PERCENT AUTO 74 % (41-73); Platelet Count 363 K/mm3 (150-400); RDW Coefficient Variation 15.5 % (11.7-14.2); RDW Standard Deviation 52.8 fL (35.1-46.3); Red Blood Cell Count 2.91 M/mm3 (3.80-5.20)
--- NOTE | 2021-05-22 06:30 | NUR ---
PT HAS BEEN ABLE TO REST SOME THIS NIGHT. DOES AWAKEN AND ACKNOWLEDGE QUESTIONS. NO COMPLAINTS OF PAIN. NO CHANGE IN VENT SETTINGS THIS NIGHT. DIGNISHIELD IN PLACE DRAINING LIQUID STOOL. WILL CONTINUE TO MONITOR PT, AND WILL REPORT OFF TO ONCOMING RN.
[2021-05-22 06:40] LABS: Albumin, Blood 2.4 g/dL (3.4-5.0); Anion Gap 8 mmol/L (6-16); Blood Urea Nitrogen 101 mg/dL (8-24); Bun/Creatinine Ratio 74.8 (12.0-20.0); CO2, Blood 22 mmol/L (21-32); Calcium, Blood 8.9 mg/dL (8.5-10.1); Chloride, Blood 109 mmol/L (98-108); Creatinine, Blood 1.35 mg/dL (0.40-1.00); Glomerular Filtration Rate 40 (60-); Glucose, Blood 176 mg/dL (70-99); Magnesium, Blood 2.4 mg/dL (1.6-2.4); Potassium, Blood 3.6 mmol/L (3.5-5.5); Sodium, Blood 139 mmol/L (136-145); Vancomycin, Random 16.4 ug/mL
--- NOTE | 2021-05-22 11:13 | NUR ---
AM NOTE.... ASSUMED CARE OF PT AT 0700, PT IS A&Ox4 INTUBATED AND SLIGHTLY SEDEATED ON THE VENT AT AC: 14/400/10/45% WITH O2 SATS >92%. L/S COARSE AND DIM IN THE BASES. BT PRESENT AND HYPOACTIVE, ABD IS SOFT AND TENDER TO PALP, PT IS ABLE TO NOD YES OR NO APPROPRIATELY AND FOLLOW DIRECTIONS. PT HAS 1+ PITTING EDEMA TO HER BLE AND DEPENDENT EDEMA TO HER BILAT HANDS. NAVARRETE IS PATENT AND DRAINING TO GRAVITY. PT IS IN SR /W FIRST DEGREE IN THE HIGH 50'S LOW 60'S. PT'S BP IS STABLE. AT APROX 0930 DR. RUDOLPH AT THE BEDSIDE TO ASSESS THE PT, THE PT'S PEEP WAS TURNED FROM 10 TO 5, PT TOLERATED THIS UNTIL 1105 WHEN HER O2 SATS STARTED TO DROP DOWN TO THE MID 80'S, THE PEEP WAS INCREASED BACK UP TO 10 BY THIS RN WITH THE OKAY FROM MYA MONCADA AND DR. RUDOLPH. WILL CONTINUE TO MONITOR.
[2021-05-22 17:16] LABS: International Normalized Ratio 1.04; Prothrombin Time Results 11.2 Sec (9.7-11.5)
--- NOTE | 2021-05-22 17:50 | NUR ---
SHIFT SUMMARY..... PT CONTINUES TO HAVE SOFT BPs OFF AND ON T/O THE SHIFT, DR. RUDOLPH AWARE. PT'S RIGHT GROIN CENTRAL LINE WAS D/C'd WNL, APROX 2 HOURS LATER UPON ASSESSMENT THE PT'S RIGHT GROIN SITE WAS BLEEDING, PRESSURE WAS HELD FOR 10 MINS AND A BAILEY DRESSING WAS APPLIED. ALSO NOTED THE PT HAS BEEN HAVING RUNS OF ACCELERATED JUNCTIONAL RHYTHM. DR. RUDOLPH AWARE. THE PT WAS STARTED ON HEPARIN GTT RUNNING AT 15 UNITS/KG/HR PER ORDERS. PT'S TUBE FEEDS RUNNING PER ORDERS WITH NO RESIDUALS NOTED. PT'S NAVARRETE IS PATENT AND DRAINING TO GRAVITY. PT'S RECTAL TUBE IS PATENT AND HAS DRAINED A SCANT AMOUNT OF LQIUID BROWN STOOL. PT'S VENT SETTINGS HAVE NOT CHANGED BUT THERE HAS BEEN A NOTICABLE DECREASE IN THE PT'S TRACHIAL SECRETIONS THIS AFTERNOON. WILL CONTINUE TO MONITOR UNTIL REPORT IS GIVEN TO ONCOMING RN.
[2021-05-22 17:55] LABS: Hematocrit 26.4 % (33.0-51.0); Hemoglobin 8.2 g/dL (11.5-16.0)
[2021-05-22 18:22] LABS: Albumin, Blood 2.2 g/dL (3.4-5.0); Albumin/Globulin Ratio 0.6 (0.8-1.8); Bilirubin, Total 0.8 mg/dL (0.1-1.0); Bun/Creatinine Ratio 78.7 (12.0-20.0); Calcium, Blood 8.8 mg/dL (8.5-10.1); Creatinine, Blood 1.27 mg/dL (0.40-1.00); Globulin, Blood 3.5 g/dL (2.2-4.0); Magnesium, Blood 2.4 mg/dL (1.6-2.4); Phosphorus, Blood 3.2 mg/dL (2.5-4.9); Potassium, Blood 3.9 mmol/L (3.5-5.5); Total Protein, Blood 5.7 g/dL (6.4-8.2)
[2021-05-23 04:25] LABS: BASOPHILS ABSOLUTE AUTO 0.07 K/mm3 (0.00-0.23); BASOPHILS PERCENT AUTO 1 % (0-2); EOSINOPHILS ABSOLUTE AUTO 0.62 K/mm3 (0.00-0.68); EOSINOPHILS PERCENT AUTO 4 % (0-6); Hematocrit 26.3 % (33.0-51.0); Hemoglobin 8.1 g/dL (11.5-16.0); IMMATURE GRAN ABSOLUTE AUTO 0.49 K/mm3 (0.00-0.10); IMMATURE GRAN PERCENT AUTO 3 % (0-1); LYMPHOCYTES ABSOLUTE AUTO 1.47 K/mm3 (0.84-5.20); LYMPHOCYTES PERCENT AUTO 10 % (21-46); MONOCYTES ABSOLUTE AUTO 1.32 K/mm3 (0.16-1.47); MONOCYTES PERCENT AUTO 9 % (4-13); Mean Corpuscular HGB 28.8 pg (26.0-34.0); Mean Corpuscular HGB Conc 30.8 g/dL (31.5-36.5); Mean Corpuscular Volume 94 fL (80-100); Mean Platelet Volume 10.7 fL (9.1-12.4); NEUTROPHILS ABSOLUTE AUTO 11.17 K/mm3 (1.96-9.15); NEUTROPHILS PERCENT AUTO 74 % (41-73); Platelet Count 364 K/mm3 (150-400); RDW Coefficient Variation 15.7 % (11.7-14.2); RDW Standard Deviation 53.1 fL (35.1-46.3); Red Blood Cell Count 2.81 M/mm3 (3.80-5.20); White Blood Cell Count 15.14 K/mm3 (4.00-11.30)
[2021-05-23 04:43] LABS: International Normalized Ratio 1.08; Prothrombin Time Results 11.6 Sec (9.7-11.5)
[2021-05-23 04:50] LABS: Alanine Aminotransfer (ALT/SGP 41 U/L (12-78); Albumin, Blood 2.1 g/dL (3.4-5.0); Albumin/Globulin Ratio 0.6 (0.8-1.8); Alk Phos 84 U/L (50-136); Anion Gap 4 mmol/L (6-16); Aspartate Aminotrans (AST/SGOT 42 U/L (12-37); Bilirubin, Total 0.7 mg/dL (0.1-1.0); Blood Urea Nitrogen 97 mg/dL (8-24); Bun/Creatinine Ratio 78.2 (12.0-20.0); CO2, Blood 26 mmol/L (21-32); Calcium, Blood 9.2 mg/dL (8.5-10.1); Chloride, Blood 111 mmol/L (98-108); Creatinine, Blood 1.24 mg/dL (0.40-1.00); Globulin, Blood 3.5 g/dL (2.2-4.0); Glomerular Filtration Rate 44 (60-); Glucose, Blood 183 mg/dL (70-99); Magnesium, Blood 2.6 mg/dL (1.6-2.4); Potassium, Blood 3.9 mmol/L (3.5-5.5); Sodium, Blood 141 mmol/L (136-145); Total Protein, Blood 5.6 g/dL (6.4-8.2)
--- NOTE | 2021-05-23 07:38 | NUR ---
SUMMARY PT CONTINUES TO WAKE UP WITH STIMULATION, SHE IS ABLE TO NOD HER HEAD & ANSWER YES OR NO QUESTIONS. PROPOFOL INFUSING @ 25 MCH/HR, HEP GTT PER EMAR. PT CONTINUES TO HAVE A LOT SECRETIONS, ORAL CARE PROVIDED PRN & SCHEDULED, VENT SETTING REMAIN UNCHANGED VC 14/400/10/45%. LUNG SOUNDS COARS/DIM IN BASES, NAVARRETE PATENT, 775 ML TALA URINE NOTED, RECTAL TUBE IN PLACE. Q2 TURNS PROVIDED. PT IS AWAKE AT THIS TIME WATCHING TV, APPEARS TO BE COMFORTABLE, DENIES PAIN. REPORT GIVEN TO RN. CALL LIGHT IN REACH.
--- NOTE | 2021-05-23 10:07 | NUR ---
Care Assumed 0700 Pt intubated and sedated. Propofol GTT 220-25 MCG/KG/MIN and heparin 13.5 u/kg/hr decreased from 14.5 u/kg/hr due to pTT of 116.4, pharmacy and charge nurse made aware. Vent settings changed from AC VC to PS 7/5, FIO2 45% by Junior MONCADA. Pt tolerating these settings well. Continues to have scant amount of thick secreations. A/O to location, following directions, and able to nod yes/no to pain. Remains off restriants. Pivot 1.5 @ goal. Rectal tube and goddard remain in place. Brown liquid stool via rectal tube. Dr. Lehman in to see patient, dressing removed from mid abd incision, patient with scant amount of bleeding from site, cleared with gauze and band-aid applied per Dr. Lehman. VSS.
--- NOTE | 2021-05-23 11:39 | NUR ---
Extubation at [address] Willis. Initally placed on 5 L via NC, increased to 10-11 L due to pt having coughing spells and stridor. Placed on Bipap after, 22/02, FIO2 50%. Pt A/O to location, able to follow commands, weak campus chaplain bilaterally, moves all extrems. Has good cough with thick yellow production, lung sounds are coarse. VSS. NSR. Will continue to monitor. OG tube removed as well. Tube feed has been stopped. Oral care provided.
--- NOTE | 2021-05-23 19:15 | NUR ---
ASSUMED CARE OF PATIENT. REPORT RECEIVED FROM CLINT WILLIS. PT IS AWAKE AND ALERT. AOX4/4. COMFORTABLY RESTING WITH BIPAP IN PLACE. REVIEWED ABD LAP SITES AND DRESSINGS, IV'S AND HEPARIN GTT. PT'S R ARM IS SPLINTED AND ELEVATED ON PILLOW.
--- NOTE | 2021-05-23 19:39 | NUR ---
pt on bipap therputic vivist with pt and husabnd will follow up with promotions specialist plan of care.
--- NOTE | 2021-05-23 19:39 | NUR ---
Shift Summary Pt A/O X 4, able to follow directions, knows location, and event. On Heparin GTT 12.5 u/kg/hr. Pts mid abd surgical site with oozing blood, chucho dressing in place, nightshift nurse made aware. Powerglide with TKO infusing, dressing needs to be changed, nightshift nurse made aware about oozing around powerglide dressing. Pts at bedside from 1700 to 1800. Updated on care being provided. Pt asking for frequent pain medication due to pain all over and in right arm, treated per emar. Pt hypertensive and Dr. Bar called twice, new orders recieved per emar. Pt remains on Bipap or on 5 L via NC, SPO2 > 90%. NSR with PAC's. Lucero and rectal tube remain in place.
--- NOTE | 2021-05-24 00:31 | NUR ---
PLUM SIZE HEMATOMA NOTED ON MEDIAL ASPECT OF L UPPER ARM. PRESSURE DRESSING APPLIED.
[2021-05-24 04:24] LABS: BASOPHILS ABSOLUTE AUTO 0.13 K/mm3 (0.00-0.23); BASOPHILS PERCENT AUTO 1 % (0-2); EOSINOPHILS ABSOLUTE AUTO 0.21 K/mm3 (0.00-0.68); EOSINOPHILS PERCENT AUTO 1 % (0-6); Hematocrit 28.2 % (33.0-51.0); Hemoglobin 8.9 g/dL (11.5-16.0); IMMATURE GRAN ABSOLUTE AUTO 0.62 K/mm3 (0.00-0.10); IMMATURE GRAN PERCENT AUTO 3 % (0-1); LYMPHOCYTES ABSOLUTE AUTO 1.37 K/mm3 (0.84-5.20); LYMPHOCYTES PERCENT AUTO 6 % (21-46); MONOCYTES ABSOLUTE AUTO 1.68 K/mm3 (0.16-1.47); MONOCYTES PERCENT AUTO 7 % (4-13); Mean Corpuscular HGB 29.5 pg (26.0-34.0); Mean Corpuscular HGB Conc 31.6 g/dL (31.5-36.5); Mean Corpuscular Volume 93 fL (80-100); Mean Platelet Volume 10.6 fL (9.1-12.4); NEUTROPHILS ABSOLUTE AUTO 19.85 K/mm3 (1.96-9.15); NEUTROPHILS PERCENT AUTO 83 % (41-73); Platelet Count 467 K/mm3 (150-400); RDW Coefficient Variation 15.8 % (11.7-14.2); RDW Standard Deviation 53.8 fL (35.1-46.3); Red Blood Cell Count 3.02 M/mm3 (3.80-5.20); White Blood Cell Count 23.86 K/mm3 (4.00-11.30)
[2021-05-24 04:43] LABS: Alanine Aminotransfer (ALT/SGP 44 U/L (12-78); Albumin, Blood 2.3 g/dL (3.4-5.0); Albumin/Globulin Ratio 0.6 (0.8-1.8); Alk Phos 97 U/L (50-136); Anion Gap 5 mmol/L (6-16); Aspartate Aminotrans (AST/SGOT 55 U/L (12-37); Bilirubin, Total 0.9 mg/dL (0.1-1.0); Blood Urea Nitrogen 51 mg/dL (8-24); Bun/Creatinine Ratio 64.5 (12.0-20.0); CO2, Blood 23 mmol/L (21-32); Chloride, Blood 118 mmol/L (98-108); Creatinine, Blood 0.79 mg/dL (0.40-1.00); Globulin, Blood 3.9 g/dL (2.2-4.0); Glomerular Filtration Rate >60 (60-); Glucose, Blood 147 mg/dL (70-99); Magnesium, Blood 2.1 mg/dL (1.6-2.4); Phosphorus, Blood 2.3 mg/dL (2.5-4.9); Potassium, Blood 4.3 mmol/L (3.5-5.5); Sodium, Blood 146 mmol/L (136-145); Total Protein, Blood 6.2 g/dL (6.4-8.2)
--- NOTE | 2021-05-24 06:39 | NUR ---
SHIFT SUMMARY PT CONTINUES TO BE ALERT AND OREINTED, PAINFUL, BUT CONTROLLED WITH IV PAIN MEDICATIONS. POWERGLIDE IN L UA POSITIONAL. HEMATOMA IN MEDIAL L UA RESOLVED, BUT WILL CONTINUE TO MONITOR. OOZING FROM IV SITES AND SURGICAL SITES CONTINUES, BUT DRESSINGS CHANGED. SPEECH EVAL ORDERED FOR THIS MORNING. PT C/O FEELING HUNGRY AND IS ANXIOUS TO GET TO EAT. SHE IS SATIFIED WITH LEMON GLYCERIN SWABS IN THE MEANTIME. WILL REPORT TO ONCOMING SHIFT.
--- NOTE | 2021-05-24 08:30 | NUR ---
ASSUMED CARE BEDSIDE REPORT RECIEVED. PT IS RESTING IN BED WITH BIPAP IN PLACE. PT IS AWAKE, ALERT, AND ORIENTED. PT ANSWERS QUESTIONS APPROPRIATELY. PT COMPLAINS OF PAIN TO RIGHT ARM. PT MED PER EMAR. BIPAP SETTINGS 14/5, FIO2 40%. PT SWITCHED TO 5L O2 NC AND IS TOLERATING WELL. PT REQUESTING WATER AT THIS TIME. PT PENDING SPEECH EVAL THIS AM. POWERGLIDE TO LIZETH C/D/I. HEPARIN INFUSING AT 10 UNITS/KG/HR AND NS TKO. NAVARRETE IN PLACE WITH YELLOW OUTPUT NOTED. RECTAL TUBE IN PLACE WITH DARK BROWN LIQUID OUTPUT NOTED. SPLINT TO RIGHT ARM IN PLACE. PT WITH SCATTERED BRUISING THROUGHOUT. VITAL SIGNS STABLE. WILL CONTINUE TO MONITOR.
--- NOTE | 2021-05-24 11:46 | NUR ---
Spiritual care visit conducted. Patient is sitting up in bed and alert. Patient is very talkative and pleasant. She tells me about her solid family support system consisting of her SO, Reji (they have been together 35 yrs) and her 3 sons (one son lives locally). We discuss her Confucianist background and how that she has walked away from "all of that." Patient has an upbeat personality but is also clearly energize and encouraged by social interaction and positive conversation. I will continue to remain available to patient and family.
--- NOTE | 2021-05-24 17:18 | NUR ---
TRANSFER TO PCU REPORT CALLED VIA PHONE. ALL QUESTIONS ANSWERED. PT TAKEN TO PCU 2 VIA BED. ALL PT BELONGINGS AND MEDS TAKEN WITH PT.
--- NOTE | 2021-05-24 17:45 | NUR ---
UPDATE PT TRANSFERRED TO BED VIA SLIDE TRANSFER. AT TIME OF TRANSFER PT WORKING HARD TO BREATHE WITH RR 30'S. O2 SATURATION IN THE MID 80'S. O2 INCREASED TO 5L NC. PT USING ACCESSORY MUSCLES TO BREATHE. THIS RN CALLS RT IN THE ROOM. WHEN RT ENTERS THE ROOM PT STARTS AGONAL BREATHING. PT LOST PULSE AND CODE BLUE WAS CALLED. SEE CODE CHARTING.
--- NOTE | 2021-05-24 18:29 | NUR ---
pt post cardiac arrest on vent back to icu. family noified son came in to meet with intensvist. prognosis guarded will seek sofa score
--- NOTE | 2021-05-24 18:34 | NUR ---
CODE BLUE/TRANSFER TO ICU CODE BLUE CALLED TO PCU, CPR DONE IN PCU, PT INTUBATED IN PCU. PT TRANSFERED BACK TO ICU 10 AT 1755. PT PLACED ON VENT SETTINGS AC 16, TV 450, PEEP 10, FIO2 100%. 8.0 ETT, 23 AT TEETH. OGT PLACED, BILE OUTPUT NOTED. PT STARTED TO OPEN EYES AND SHAKE HEAD. DR PETERSON AT BEDSIDE. PROPOFOL STARTED AT 30 MCG/KG/MIN. LEVOPHED STARTED, TITRATED UP TO 8 MCG/MIN. PT REMAINS HYPOTENSIVE. PLANS TO PLACE CENTRAL LINE AT THIS TIME. WILL CONTINUE TO MONITOR.
--- NOTE | 2021-05-24 20:00 | NUR ---
INITAL ASSESSMENT PT INTUBATED AND SEDATED WHILE BED SIDE REPORT RECIEVED FROM OFF GOING RN. DR PETERSON JUST FINISHED PLACING A CENTRAL LINE TO PT'S RIGHT IJ. PT HAS A LOW BP AND THUS LEVOPHED GTT IS RUNNING AT 15MCG WILL CON'T TO TITRATE NEEED T/O SHIFT. PT WILL ASLO BE STARTED ON DOBUTAMINE GTT. PROPOFOL GTT WAS TITRATED DOWN AT THIS TIME TO HELP WITH BP. PT IS FAIRLY AWAKE AND NODDING HER HEAD TO YES AND NO QUESTIONS. PT HAS BILATERAL SOFT WRIST RESTRAINTS IN PLACE. RIGHT ARM IS IN A SOFT SPLINT AT THIS TIME. VENT SETTINGS ARE AC 16 VT 450 FIO2 100% AND PEEP IS 10. PT IS TOLERTING THIS WELL. WITH INLINE SUCTION THERE IS BRIGHT RED RETURN SECRETIONS. PT HAS A VERY ROUND ABD AND HAS MANY MANY BRUISES NOTED ON ABD AND T/O BODY. FLEXI SEAL IN PLACE WITH MINIMAL LIGHT BROWN STOOL FOR RETURN. PT ALSO HAS A NAVARRETE CATH IN PLACE WITH GLODEN YELLOW URINE FOR RETURN. PT'S SON IS IN ROOM AT THIS TIME WITH DR PETERSON PRESENT. WILL CON'T TO MONITOR AND KEEP PT SAFE T/O REMAINDER OF SHIFT.
[2021-05-24 20:42] LABS: Base Excess Venous -8.6 mmol/L; Bicarbonate Venous 17.7 mmol/L (24.0-30.0); PCO2 Venous 40.5 mmHg (38-42); PO2 Venous 49.7 mmHg (38-42); pH Blood Venous 7.26 (7.34-7.37)
[2021-05-24 20:47] LABS: Hematocrit 20.5 % (33.0-51.0); Hemoglobin 6.2 g/dL (11.5-16.0)
[2021-05-24 21:08] LABS: Troponin I 0.081 ng/mL (0.000-0.040); Vancomycin, Random 21.5 ug/mL
[2021-05-24 23:27] LABS: Hematocrit 27.5 % (33.0-51.0); Mean Corpuscular HGB 29.7 pg (26.0-34.0); Mean Corpuscular HGB Conc 32.7 g/dL (31.5-36.5); Mean Corpuscular Volume 91 fL (80-100); Mean Platelet Volume 10.6 fL (9.1-12.4); NRBC ABSOLUTE 0.06 K/mm3 (0.00-0.02); NRBC Auto 0.2 /100 WBC (0.0-0.2); Platelet Count 380 K/mm3 (150-400); RDW Coefficient Variation 14.7 % (11.7-14.2); Red Blood Cell Count 3.03 M/mm3 (3.80-5.20); White Blood Cell Count 34.44 K/mm3 (4.00-11.30)
[2021-05-24 23:51] LABS: Bicarbonate Venous 18.9 mmol/L (24.0-30.0); PCO2 Venous 36.5 mmHg (38-42); PO2 Venous 39.8 mmHg (38-42); pH Blood Venous 7.33 (7.34-7.37)
--- NOTE | 2021-05-25 | NUR ---
SHIFT UPDATE PT CON'T TO HAVE A BP ONLY BY DOPPLER WITH 60'S SYSTOLIC BP. DR PETERSON IN TO SEE PT AND HE PLACED A RIGHT GROIN ARTERIAL LINE. VERY LOW BASELINE BP. LEVOPHED GTT UP TO 25MCG AND DOBUTAMINE GTT 15MCG. PT CON'T TO BE DROWSY HOWEVER WAKES WITH NO ISSUES. DR PETERSON ORDERED TO HAVE THREE UNITS OF PRBC'S TO BE GIVEN WHICH WERE GIVEN WITH GOOD RESPONSE TO BLOOD PRESSURE. PT WAS ALSO THEN TAKEN TO CT AND RESULTS WERE REVIEWED BY DR PETERSON. DR CAMP WAS CALLED AND SHE ALSO CAME IN TO SEE PT. STATES PT'S ABD LOOKS BETTER AND DOES NOT HAVE SURGICAL NEEDS AT THIS TIME. ABD IS VERY TENDER TO ANY PALPITATION AT THIS TIME. PT CURRENTLY HAS DOBUTAMINE AT 20MCG, EPI GTT STARTED AND QUICKLY TITRATED UP TO 10MCG AND LEVOPHED GTT AT 30MCG. FAMILY WAS CALLED IN TO SEE PT. DR PETERSON AND CORAZON VASQUEZ IN ROOM TO TALK WITH PT ABOUT HER CODE STATUS. SHE CON'T TO WANT TO BE A FULL CODE AT THIS TIME.
--- NOTE | 2021-05-25 01:16 | NUR ---
FAMILY FAMILY PRESENT IN ROOM. DR PETERSON TALKED WITH BOTH PT'S SONS. FAMILY WILL BE STAYING THE NIGHT WITH PT THEY STATE. PT ALSO HAD A COVID SWAB RE-DONE PER DR CAMP ORDERS. CARDIOLOGY CONSULT WAS CALLED IN BY CORAZON BUTLER ORDERED. DR PETERSON ORDERED TO HAVE TWO UNTIS OF PRBC'S GIVEN AGAIN. HOWEVER H&H RECOVERED WELL AT THIS TIME, THUS THE TWO UNITS WILL BE ON HOLD AT THIS TIME. PT CON'T TO HAVE DELMY WRIST RESTRAINTS IN PLACE. SHE ALSO CON'T TO RESPOND TO VERBAL STIMULI. PROPOFOL GTT AT 15MCG. WILL CON'T TO MONITOR AND KEEP PT COMFORTABLE.
[2021-05-25 01:47] LABS: SARS-Cov-2 (COVID-19) PCR, MMC NEGATIVE (NEGATIVE)
[2021-05-25 03:37] LABS: BASOPHILS ABSOLUTE AUTO 0.17 K/mm3 (0.00-0.23); BASOPHILS PERCENT AUTO 1 % (0-2); EOSINOPHILS ABSOLUTE AUTO 0.02 K/mm3 (0.00-0.68); EOSINOPHILS PERCENT AUTO 0 % (0-6); Hematocrit 26.2 % (33.0-51.0); Hemoglobin 8.5 g/dL (11.5-16.0); IMMATURE GRAN ABSOLUTE AUTO 1.59 K/mm3 (0.00-0.10); IMMATURE GRAN PERCENT AUTO 4 % (0-1); LYMPHOCYTES ABSOLUTE AUTO 2.81 K/mm3 (0.84-5.20); LYMPHOCYTES PERCENT AUTO 8 % (21-46); MONOCYTES ABSOLUTE AUTO 2.95 K/mm3 (0.16-1.47); MONOCYTES PERCENT AUTO 8 % (4-13); Mean Corpuscular HGB 29.1 pg (26.0-34.0); Mean Corpuscular HGB Conc 32.4 g/dL (31.5-36.5); Mean Corpuscular Volume 90 fL (80-100); Mean Platelet Volume 10.7 fL (9.1-12.4); NEUTROPHILS ABSOLUTE AUTO 28.37 K/mm3 (1.96-9.15); NEUTROPHILS PERCENT AUTO 79 % (41-73); NRBC ABSOLUTE 0.03 K/mm3 (0.00-0.02); NRBC Auto 0.1 /100 WBC (0.0-0.2); Platelet Count 365 K/mm3 (150-400); RDW Standard Deviation 49.1 fL (35.1-46.3); Red Blood Cell Count 2.92 M/mm3 (3.80-5.20); White Blood Cell Count 35.91 K/mm3 (4.00-11.30)
[2021-05-25 04:09] LABS: Albumin, Blood 1.6 g/dL (3.4-5.0); Anion Gap 13 mmol/L (6-16); Blood Urea Nitrogen 59 mg/dL (8-24); Bun/Creatinine Ratio 27.6 (12.0-20.0); CO2, Blood 18 mmol/L (21-32); Calcium, Blood 7.8 mg/dL (8.5-10.1); Chloride, Blood 98 mmol/L (98-108); Creatinine, Blood 2.14 mg/dL (0.40-1.00); Glomerular Filtration Rate 23 (60-); Glucose, Blood 499 mg/dL (70-99); Phosphorus, Blood 5.1 mg/dL (2.5-4.9); Potassium, Blood 4.2 mmol/L (3.5-5.5)
[2021-05-25 04:10] LABS: Sodium, Blood 129 mmol/L (136-145)
--- NOTE | 2021-05-25 04:53 | NUR ---
SHIFT UPDATE PT CON'T TO BE FAIRLY STABLE. ARTERIAL LINE TO LEFT GROIN CON'T TO BE PATENT. LOW BLOOD PRESSURES NOTED WITH MAPS IN THE LOW 50'S. DR PETERSON AWARE. LEVOPHED GTT AT 30MCG, DOBUTAMINE GTT AT 20MCG, AND EPI GTT AT 15MCG. WILL CON'T TO TITRATE THESE NEEDED. PT'S ARTERIAL LINE SEEMS TO BE A BIT SENSITIVE. PT'S PANNUS PUTS PRESSURE ON LINE, WHEN PRESSURE IS REMOVED BETTER WAVE FORM IS NOTED AND A BETTER BP. WILL CON'T TO WORK WITH ARTERIAL LINE TO OBTAIN MOST ACCURATE READING OF BP. PT'S MENTATION CON'T TO BE VERY CLEAR. CON'T TO SHAKE HEAD YES OR NO TO QUESTIONS. PROPOFOL GTT AT 15MCG. PT DOES CON'T TO DENY PAIN. HOWEVER WHENEVER THIS NURSE PALPATES HER ABD SHE APPEARS TO BE IN A GREAT DEAL OF DISCOMFORT. SOFT BILATERAL WRIST RESTRAINTS ARE IN PLACE TO PREVENT ACCIDENTAL EXTUBATION OR PULLING ON HER LINES. PT CON'T TO HAVE NAVARRETE CATH IN PLACE DRAINING CLEAR YELLOW URINE. FLEXISEAL IN PLACE DRAINING LIGHT BROWN LIQUID STOOL. MINIMAL OUTPUT WITH FLEXISEAL. CENTRAL LINE TO RIGHT IJ CON'T TO BE IN PLACE AND PATENT. PT'S TEMP PRIMARLY HAS BEEN 96 TO 95 RANGE T/O SHIFT. SHE DOES SHAKE HER HEAD YES TO BEING COLD AND SHE HAS BEEN PROVIDED WITH NEW WARM BLANKETS. NO CHANGES TO VENT SETTINGS T/O SHIFT. WILL CON'T TO MONITOR AND KEEP PT SAFE.
--- NOTE | 2021-05-25 07:30 | NUR ---
ASSUMED CARE BEDSIDE REPORT RECIEVED. PT IS INTUBATED AND SEDATED. PT SEDATED WITH PROPOFOL INITIALLY AT 10 MCG'S, THEN INCREASED TO 30 MCG/KG/MIN. PT ABLE TO OPEN EYES AND SQUEEZE HANDS TO COMMAND. VENT SETTINGS AC 16, TV 450, PEEP 10, FIO2 100%. PT WITH BLOODY ETT SECRETIONS NOTED. PT PROFOUNDLY HYPOTENSIVE. LEVOPHED, EPI, AND DOBUTAMINE GTT'S INFUSING. SEE FLOWSHEET FOR TITRATIONS. CENTRAL LINE TO [facility] C/D/I. ARTLINE TO LEFT FEMORAL SITE IN PLACE, BUT IS POSITIONAL. TRACTION TO SITE NEEDED. LINE ZERO'D AND GOOD WAVEFORM NOTED. BP 70/40'S. NAVARRETE IN PLACE WITH MINIMAL DARK YELLOW OUTPUT NOTED. RECTAL TUBE IN PLACE WITH MINIMAL AMOUNT OF LIQUID BROWN OUTPUT NOTED. OGT IN PLACE, CLAMPED. SPLINT TO RIGHT ARM IN PLACE. SBW RESTRAINTS IN PLACE. WILL CONTINUE TO MONITOR.
[2021-05-25 08:55] LABS: Base Excess Venous -9.2 mmol/L; Bicarbonate Venous 17.5 mmol/L (24.0-30.0); PCO2 Venous 33.8 mmHg (38-42); PO2 Venous 54.9 mmHg (38-42); pH Blood Venous 7.31 (7.34-7.37)
--- NOTE | 2021-05-25 18:35 | NUR ---
SHIFT SUMMARY PT WITH MINIMAL IMPROVEMENT THIS SHIFT. PT REMAINS INTUBATED AND MINIMALLY SEDATED. VENT SETTINGS UNCHANGED. PT WITH MINIMAL ETT SECRETIONS THIS SHIFT. PT SEDATED WITH PROPOFOL AT 40 MCG/KG/MIN. PT OPENS EYES TO VERBAL COMMAND AND SHAKES HEAD YES OR NO TO SIMPLE QUESTIONS. BP SLIGHTLY IMPROVED THIS AFTERNOON AFTER FLUID BOLUSES. LEVOPHED REMAINS AT 30 MCG/MIN AND EPI TITRATED DOWN TO 14 MCG/MIN. HEPARIN GTT INFUSING AT 7 UNITS/KG/HR. CENTRAL LINE TO RIJ C/D/I. ART LINE TO LEFT FEMORAL REMAINS C/D/I. SBW RESTRAINTS REMAIN IN PLACE. SPLINT TO RIGHT ARM REMAINS IN PLACE. FAMILY AT BEDSIDE THIS AFTERNOON TO SEE PT. WILL CONTINUE TO MONITOR AND REPORT OFF TO ONCOMING RN.
--- NOTE | 2021-05-25 19:36 | NUR ---
RECEIVED PATIENT FROM CLINT STILES. PT RESTLESS, STARING AT ME. NODS HEAD TO QUESTION IF SHE IS IN PAIN, MEDICATED WITH FENTANYL 100MCG, BLOOD PRESSURE IS 166/68, EPI ON STANDBY AT THIS TIME. HEART RHYTHM WITH TRIGEMINY, SATS >96% VENT AC/16/450/10/90%. ABDOMEN LARGE ROUND, TENDER, NO BOWEL SOUNDS HEARD, LUNGS COARSE THROUGHOUT, HEART TONES BOUNDING, PULSES PALPABLE IN ALL EXTREMITIES, HANDS AND FEET EDEMATOUS, SALINE LOCK IN LEFT FOREARM PATENT, ART LINE IN LEFT GROIN, GOOD WAVEFORM, CENTRAL LINE RIGHT NECK, NAVARRETE TO GRAVITY DRAINAGE WITH YELLOW RETURN. PT QUIETED WITH FENTANYL. LR FLUID BOLUS CONT. LESS THAN 300 LEFT TO GO, LEVOPHED @ 30MCG, VASOPRESSIN @ 0.04U, HEPARIN @ 7U /MIN. PROPOFOL @ 50MCG/KG/MIN.
--- NOTE | 2021-05-26 01:27 | NUR ---
PT MEDICATED, TURNED AND CLEANED UP. RECTAL TUBE LEAKING, PT REPOSITIONED. ART LINE ZEROED, PT TOLERATED WELL.
--- NOTE | 2021-05-26 04:53 | NUR ---
PT HAS BEEN RESTING WELL THIS SHIFT COMPARED TO LAST EVENING. PT WITH COARSE BREATH SOUNDS, COUGHING OCC, SCANT TO SMALL RETURN WITH SUCTIONING, BROWN TINGE RETURN. ABDOMEN WITH BRUISING PRESENT, CONTINUES WITH HYPOACTIVE BOWEL SOUNDS, NAVARRETE DRAINING YELLOW RETURN, RECTAL TUBE WITH BROWN THICK RETURN. PT TOLERATING ORAL CARE, PILLOWS UNDER SIDES, HANDS REMAIN EDEMATOUS TRYING TO KEEP ELEVATED. CONTINUING TO WEAN OFF LEVOPHED, DOWN TO 5 MCG/MIN. VASOPRESSIN @ 0.04U, EPI REMAINS OFF. HEPARIN CONTINUES AT 6U/KG/HR, AWAITING LAB RESULT TO SEE IF CHANGES NEEDED.
[2021-05-26 05:01] LABS: BASOPHILS ABSOLUTE AUTO 0.14 K/mm3 (0.00-0.23); BASOPHILS PERCENT AUTO 0 % (0-2); EOSINOPHILS ABSOLUTE AUTO 0.04 K/mm3 (0.00-0.68); EOSINOPHILS PERCENT AUTO 0 % (0-6); Hematocrit 28.1 % (33.0-51.0); Hemoglobin 9.8 g/dL (11.5-16.0); IMMATURE GRAN ABSOLUTE AUTO 1.89 K/mm3 (0.00-0.10); IMMATURE GRAN PERCENT AUTO 5 % (0-1); LYMPHOCYTES ABSOLUTE AUTO 1.75 K/mm3 (0.84-5.20); LYMPHOCYTES PERCENT AUTO 5 % (21-46); MONOCYTES ABSOLUTE AUTO 1.77 K/mm3 (0.16-1.47); MONOCYTES PERCENT AUTO 5 % (4-13); Mean Corpuscular HGB 29.8 pg (26.0-34.0); Mean Corpuscular HGB Conc 34.9 g/dL (31.5-36.5); Mean Platelet Volume 10.8 fL (9.1-12.4); NEUTROPHILS ABSOLUTE AUTO 30.48 K/mm3 (1.96-9.15); NEUTROPHILS PERCENT AUTO 85 % (41-73); NRBC ABSOLUTE 0.02 K/mm3 (0.00-0.02); NRBC Auto 0.1 /100 WBC (0.0-0.2); Platelet Count 299 K/mm3 (150-400); RDW Standard Deviation 46.5 fL (35.1-46.3); Red Blood Cell Count 3.29 M/mm3 (3.80-5.20); White Blood Cell Count 36.07 K/mm3 (4.00-11.30)
[2021-05-26 05:10] LABS: Mean Corpuscular Volume 85 fL (80-100)
[2021-05-26 05:32] LABS: Anion Gap 14 mmol/L (6-16); Blood Urea Nitrogen 57 mg/dL (8-24); CO2, Blood 15 mmol/L (21-32); Calcium, Blood 7.1 mg/dL (8.5-10.1); Chloride, Blood 91 mmol/L (98-108); Creatinine, Blood 2.85 mg/dL (0.40-1.00); Glomerular Filtration Rate 17 (60-); Glucose, Blood 308 mg/dL (70-99); Phosphorus, Blood 5.3 mg/dL (2.5-4.9); Potassium, Blood 4.3 mmol/L (3.5-5.5); Sodium, Blood 120 mmol/L (136-145)
[2021-05-26 05:36] LABS: Vancomycin, Trough 25.6 ug/mL (5.0-10.0)
--- NOTE | 2021-05-26 06:49 | NUR ---
SUMMARY: LAURA HAS BEEN RESTING WELL THIS SHIFT, SHE WAS MEDICATED X 2 WITH FENTANYL FOR PAIN RELIEF. TITRATED OFF THE EPI AND THE LEVO DOWN TO 5. VASOPRESSIN CONTINUES @ 0.04, PROPOFOL @ 50, ABDOMEN SOFT, NAVARRETE DRAINING TO GRAVITY, RECTAL TUBE IN PLACE WITH GOOD RETURN. WILL REPORT OFF TO NEXT SHIFT.
--- NOTE | 2021-05-26 10:42 | NUR ---
Care Assumed 0700 Recieved bedside report from CLINT Waterman. Pt able to nod yes/no to questions, denies being in pain. Heparin @ 5 u/kg/hr, Propofol @ 50 mcg/kg/min, Vasopressin @ 0.04 U (placed on SB due to MAP > 65), Norepinephrine 5 mcg/min, infusing via central line to RIJ, dressing C/D/I. NSR with BBB and occasional PVC's. ART line has been zored with good wave form. Lucero draning to gravity and rectal tube in place, stool sample set for C. Diff testing. SWB in place.
[2021-05-26 11:02] LABS: C DIFFICILE DNA NEGATIVE (Negative)
--- NOTE | 2021-05-26 11:35 | NUR ---
Update- Dr. Lehman at bedside Dr. Lehman at bedside, new orders recieved for Lipase test. Pts abd is distended. Dr. Zhu in to see pt, no new orders recieved. Levophed GTT 7 MG/MIN, MAP > 70. Heparin remains the same. Pt able to open eyes to verbal stumli. Vent settings: AC VC 16/450/10/60%, SPO2 > 90%. Will continue to monitor.
--- NOTE | 2021-05-26 12:13 | NUR ---
Report given to CLINT Gambino
[2021-05-26 12:25] LABS: Bun/Creatinine Ratio 19.9 (12.0-20.0); Calcium, Blood 7.2 mg/dL (8.5-10.1); Creatinine, Blood 2.91 mg/dL (0.40-1.00)
--- NOTE | 2021-05-26 14:26 | NUR ---
O.G. PLACEDMENT CONFIRMED WITH [facility] [employer]. STARTED TUBE FEEDING WITH PIVOT 1.5 AT 20ML/HR UNTIL DIETARY CONSULT IN AM.
--- NOTE | 2021-05-26 18:52 | NUR ---
SHIFT SUMMARY PT REMAINS ON VENT WITH AC16/450/10. ABLE TO TITRATE FIO2 TO 50% WITH SATS >90%. HEPARING GTT REMAINING AT SAME GTT RATE PER PHARMACY. NEXT PTT AT 05/26. STARTED TUBE FEEDING PIVOT 1.5 AT 20ML/HR. DIETARY CONSULT IN AM. NOT ABLE TO TITRATE LEVOPHED GTT DOWN, REMAINS AT 7MCG/HR. TITRATED PROPOFOL DOWN TO 45MCG/KG/HR. NO OTHER CHANGES NOTED. WILL REPORT OFF TO NOC SHIFT.
--- NOTE | 2021-05-26 19:15 | NUR ---
ASSUMED CARE. BEDSIDE REPORT RECIEVED. PT ON VENTILATOR: SETTINGS AC 16, TV 450, PEEP 10, FI02 45%. OG TUBE IN PLACE, PIVOT TUBE FEED RUNNING AT 20 ML/HR. PT ON PROPOFOL AT 45 MCG/KG/MIN, LEVOPHED AT 7 MCG/MIN, HEPARIN AT 5 UNITS/KG/HR AND NS AT 10 ML/HR. CENTRAL LINE IN PLACE, RIGHT SUBCLAVIAN. LEFT FEMORIAL ARTERIAL BP LINE IN PLACE. PERIPHERAL IV IN PLACE, LEFT FOREARM. TEMP NAVARRETE IN PLACE, DRAINING DARK TALA URINE. RECTAL TUBE IN PLACE, DRAINING BROWN LIQUID STOOL. NO ACUTE NEEDS NOTED AT THIS TIME, WILL CONTINUE TO MONITOR.
[2021-05-27 05:01] LABS: Hemoglobin 8.9 g/dL (11.5-16.0); Mean Corpuscular HGB 30.3 pg (26.0-34.0); Mean Corpuscular HGB Conc 35.6 g/dL (31.5-36.5); Mean Corpuscular Volume 85 fL (80-100); Mean Platelet Volume 10.6 fL (9.1-12.4); NRBC ABSOLUTE 0.02 K/mm3 (0.00-0.02); NRBC Auto 0.1 /100 WBC (0.0-0.2); Platelet Count 298 K/mm3 (150-400); RDW Coefficient Variation 15.1 % (11.7-14.2); RDW Standard Deviation 46.8 fL (35.1-46.3); Red Blood Cell Count 2.94 M/mm3 (3.80-5.20); White Blood Cell Count 38.45 K/mm3 (4.00-11.30)
[2021-05-27 05:24] LABS: Blood Urea Nitrogen 64 mg/dL (8-24); Bun/Creatinine Ratio 19.5 (12.0-20.0); CO2, Blood 14 mmol/L (21-32); Calcium, Blood 7.1 mg/dL (8.5-10.1); Chloride, Blood 90 mmol/L (98-108); Creatinine, Blood 3.29 mg/dL (0.40-1.00); Glomerular Filtration Rate 14 (60-); Glucose, Blood 272 mg/dL (70-99); Vancomycin, Random 21.3 ug/mL
[2021-05-27 05:26] LABS: Anion Gap 15 mmol/L (6-16); Sodium, Blood 119 mmol/L (136-145)
[2021-05-27 06:00] LABS: BAND PERCENT MAN 6 % (0-8); BASOPHILS PERCENT MAN 0 % (0-2); EOSINOPHILS PERCENT MAN 0 % (0-6); MONOCYTES ABSOLUTE MAN 1.92 K/mm3 (0.16-1.47); MONOCYTES PERCENT MAN 5 % (4-13); MYELOCYTE ABSOLUTE MAN 0.76 K/mm3 (0.00-0.00); MYELOCYTE PERCENT MAN 2 % (0-0); NEUTROPHILS ABSOLUTE MAN 35.75 K/mm3 (1.96-9.15); SEG NEUTROPHILS PERCENT MAN 87 % (41-73); TOTAL CELLS COUNTED 100
--- NOTE | 2021-05-27 06:45 | NUR ---
SHIFT SUMMARY. PT CONTINUES ON VENTILATOR, SETTINGS: AC 16, TV 450, PEEP 10, FI02 50%. OG TUBE IN PLACE, PIVOT RUNNING AT 20 ML/HR WITH 30 ML FLUSH/4 HRS. IV PUMP SETTINS ARE FOLLOWS: LEVOPHED RUNNING AT 8 MCG/MIN, PROPOFOL RUNNING AT 45 MCG/KG/MIN, HEPARIN AT 6 UNITS/KG/HR AND NS AT 10 ML/HR. ARTERIAL BLOOD PRESSURE STILL IN PLACE, R/FEMORAL ACCESS. NAVARRETE CATHETER IN PLACE, SCANT OUTPUT WITH SEDIMENT NOTED IN LINE, FLUSHED WITH 30 ML/STERILE WATER, NO INCREASE IN OUTPUT NOTED. RECTAL TUBE IN PLACE. SEE SHIFT ASSESSMENT FOR FURTHER DETAILS. WILL CONTINUE TO MONITOR AND REPORT OFF TO ONCOMING RN.
--- NOTE | 2021-05-27 08:00 | NUR ---
CARE ASSUMED 0700 Pt intubated and sedated. Heparin GTT 6 units/kg/hr, propofol 45 mcg/kg/min, levophed 8 mcg/min, all infusing via central line to RIJ. Vent settings: AC VC 16/450/10/50%. SPO2 > 90%, lung sounds coarse with wheezing in bases. Pt nods no to being in pain, not opening eyes at this time. Gross movememnt of extrems. Lucero in place with 50 ml of dark yellow urine output. Rectal tube in place with liquid brown output. PIvot @ goal via OG tube. BT active, abd distended. NSR with BBB. Art line zored with good wave form, MAP > 60.
--- NOTE | 2021-05-27 09:58 | NUR ---
Patient positive for ESBL and Ecoli in sputum. Isolation order placed and charge nurse made aware.
[2021-05-27 13:05] LABS: Bun/Creatinine Ratio 19.7 (12.0-20.0); Calcium, Blood 7.1 mg/dL (8.5-10.1); Creatinine, Blood 3.51 mg/dL (0.40-1.00); Potassium, Blood 4.1 mmol/L (3.5-5.5)
[2021-05-27 13:27] LABS: Source, Urine Catheter
[2021-05-27 13:30] LABS: Appearance, Urine Cloudy (Clear); Bilirubin, Urine Neg (Neg); Blood, Urine 5+ (Neg); Color, Urine Yellow (P-Yellow); Glucose Qualitative, Urine Neg (Neg); Ketones, Urine Neg (Neg); Leukocyte Esterase, Urine 3+ (Neg); Nitrite, Urine Neg (Neg); Protein, Urine 3+ (Neg); Specific Gravity, Urine 1.015 (1.003-1.022); Urobilinogen, Urine NORM (Normal)
[2021-05-27 13:39] LABS: Squamous Epithelial Cells Rare /hpf (Few)
[2021-05-27 13:40] LABS: Bacteria Rare /hpf; Yeast/Fungi Urine Many /hpf
[2021-05-27 13:57] LABS: Uric Acid, Blood 7.9 mg/dL (2.6-6.0)
[2021-05-27 14:24] LABS: Albumin, Blood 1.6 g/dL (3.4-5.0); Anion Gap 15 mmol/L (6-16); Blood Urea Nitrogen 65 mg/dL (8-24); Bun/Creatinine Ratio 18.1 (12.0-20.0); CO2, Blood 14 mmol/L (21-32); Calcium, Blood 7.2 mg/dL (8.5-10.1); Chloride, Blood 89 mmol/L (98-108); Glomerular Filtration Rate 13 (60-); Glucose, Blood 258 mg/dL (70-99); Potassium, Blood 4.2 mmol/L (3.5-5.5); Sodium, Blood 118 mmol/L (136-145)
[2021-05-27 14:29] LABS: Osmolality, Serum 275 mos/KG (275-300)
--- NOTE | 2021-05-27 14:35 | NUR ---
Met pt. still in vent offered prayers and blessing for candelaria.
--- NOTE | 2021-05-27 14:52 | NUR ---
Dr. Alonso consulted Dr. Alonso called in regards to consult. New orders recieved, see emar. New lab orders also completed and stat ABG ordered as well, see lab results.
[2021-05-27 14:55] LABS: PO2 Arterial 57.2 mmHg (80-100); pH Blood Arterial 7.29 (7.35-7.45)
[2021-05-27 14:56] LABS: PCO2 Arterial 28.7 mmHg (35-45)
--- NOTE | 2021-05-27 19:15 | NUR ---
Shift Summary Pt continues to be intubated and sedated. Vent settings: AC VC 16/450/10/60%, SPO2 > 88%. Heparin GTT unchanged, Propofol GTT 45 mcg/kg/min, and levophed 14 mcg/min. Pt nods yes/no to pain. Dr. Alonso in to see patient, see new orders. Dr. Ann placed temporary HD cath in [facility] for dialysis. [place]xt x-ray completed and per provider ok to use. [facility] nurse made aware. Notified of critical NA of 118, Dr. Ann aware. Art line remains in place, MAP > 60. NSR with BBB.
--- NOTE | 2021-05-27 20:00 | NUR ---
ASSUMED CARE @1900, PATIENT RESPONDS TO VERBAL STIMULI AND LOCALIZES TO PAIN. ABLE TO NOD YES/NO TO QUESTIONS. PATIENT SEDATED AND INTUBATED, VENT SETTINGS AC VC 16, VT 450, PEEP 10, FI02 60%, PROPOFOL @45MCG/KG/MIN INFUSING THROUGH RIGHT IJ, PRN PAIN MEDICATION GIVEN SEE EMAR. HR SR @70s, LEVOPHED @10 MCG/MIN. TUBE FEED @25 MLS/HR, 20 OF RISDUAL, CHECKED PLACEMENT. BOWEL SOUNDS HYPOACTIVE RECTAL TUBE DRAINING. BRUISING ON LOWER ABDOMEN. NAVARRETE DRAINING BURGUNDY URINE. BED BATH DONE AND GREEN SHEET CHANGED. SOFT CAST IN PLACE ON RIGHT ARM. DIALYSIS TO BE DONE OVERNIGHT. ORAL CARE COMPLETED. PATIENT APPEARS COMFORTABLE WILL CONTINUE TO MONITOR.
[2021-05-28 04:48] LABS: BASOPHILS ABSOLUTE AUTO 0.11 K/mm3 (0.00-0.23); BASOPHILS PERCENT AUTO 0 % (0-2); Hematocrit 22.9 % (33.0-51.0); LYMPHOCYTES ABSOLUTE AUTO 0.79 K/mm3 (0.84-5.20); LYMPHOCYTES PERCENT AUTO 2 % (21-46); MONOCYTES ABSOLUTE AUTO 2.34 K/mm3 (0.16-1.47); MONOCYTES PERCENT AUTO 6 % (4-13); Mean Corpuscular HGB 29.3 pg (26.0-34.0); Mean Corpuscular HGB Conc 34.9 g/dL (31.5-36.5); Mean Corpuscular Volume 84 fL (80-100); Mean Platelet Volume 10.4 fL (9.1-12.4); NRBC ABSOLUTE 0.05 K/mm3 (0.00-0.02); NRBC Auto 0.1 /100 WBC (0.0-0.2); Platelet Count 301 K/mm3 (150-400); RDW Standard Deviation 45.4 fL (35.1-46.3); Red Blood Cell Count 2.73 M/mm3 (3.80-5.20); White Blood Cell Count 37.69 K/mm3 (4.00-11.30)
[2021-05-28 04:49] LABS: EOSINOPHILS ABSOLUTE AUTO 0.01 K/mm3 (0.00-0.68); EOSINOPHILS PERCENT AUTO 0 % (0-6); IMMATURE GRAN ABSOLUTE AUTO 2.54 K/mm3 (0.00-0.10); IMMATURE GRAN PERCENT AUTO 7 % (0-1); NEUTROPHILS PERCENT AUTO 85 % (41-73)
[2021-05-28 05:09] LABS: BAND PERCENT MAN 6 % (0-8); BASOPHILS PERCENT MAN 0 % (0-2); EOSINOPHILS PERCENT MAN 0 % (0-6); LYMPHOCYTES ABSOLUTE MAN 0.75 K/mm3 (0.84-5.20); LYMPHOCYTES PERCENT MAN 2 % (21-46); MONOCYTES PERCENT MAN 4 % (4-13); MYELOCYTE ABSOLUTE MAN 0.37 K/mm3 (0.00-0.00); MYELOCYTE PERCENT MAN 1 % (0-0); NEUTROPHILS ABSOLUTE MAN 35.05 K/mm3 (1.96-9.15); SEG NEUTROPHILS PERCENT MAN 87 % (41-73); TOTAL CELLS COUNTED 100
[2021-05-28 05:14] LABS: Albumin, Blood 1.5 g/dL (3.4-5.0); Albumin/Globulin Ratio 0.4 (0.8-1.8); Bilirubin, Total 1.1 mg/dL (0.1-1.0); Bun/Creatinine Ratio 18.5 (12.0-20.0); Calcium, Blood 6.7 mg/dL (8.5-10.1); Creatinine, Blood 3.03 mg/dL (0.40-1.00); Globulin, Blood 3.6 g/dL (2.2-4.0); Magnesium, Blood 1.5 mg/dL (1.6-2.4); Phosphorus, Blood 5.7 mg/dL (2.5-4.9); Potassium, Blood 3.6 mmol/L (3.5-5.5); Total Protein, Blood 5.1 g/dL (6.4-8.2)
--- NOTE | 2021-05-28 06:28 | NUR ---
SHIFT SUMMARY PATIENT RESPONDS TO VERBAL STIMULI, NODS YES/NO, LOCALIZES TO PAIN. SEDATED, PROPROFOL 50MCG/KG/MIN. REMIANS INTUBATED WITH VENT SETTING, AC VC 16, 450, PEEP 10, FI02 60%, RR 20s-30s, MEDICATED WITH FENTANYL ADJUNCT SEDATION. BICARB INF 50MLS/HR VIA CENTRAL LINE TO RIGHT IJ. HEPARIN gtt REMAINS 6U/KG/HR. LEVOPHED 12 MCG/MIN. ART LINE REMIANS TO LEFT FEMORAL; DRESSING CHANGED. RIGHT IJ DRESSING CHANGED. TUBE FEED PIVOT 1.5 AT GOAL RATE 25 MLS/HR. URINE OUTPUT BURGUNDY WITH HEAVY SEDIMENT, 175 OUTPUT FOR THE SHIFT. MINIMAL OUTPUT TO RECTAL TUBE. ABDOMEN VERY DISTENDED, PAIN WHEN PALPATED, DIFFUSE BRUISE REMAINS UNCHANGED. WILL CONTINUE TO MONITOR UNTIL REPORT HANDED OFF TO DAYSHIFT RN.
--- NOTE | 2021-05-28 08:30 | NUR ---
ASSUMED CARE ASSUMED CARE OF PT AT 0700. REPORT RECEIVED FROM CLINT RAMIREZ. PT INTUBATED AND SEDATED. PT OPENS EYES TO TACTILE STIMULUS, ABLE TO FOLLOW COMMANDS TO WIGGLE TOES AND NODS HEAD YES/NO TO QUESTIONS, HOWEVER NO PURPOSEFUL MOVEMENTS NOTED TO UPPER EXTREMITIES. VENT SETTINGS AC 16, TV 450, PEEP 10, FiO2 60%. SPO2 MID 90'S. LUNG SOUNDS COARSE THROUGHOUT. PT HAS OG TUBE WITH PIVOT 1.5 TF AT GOAL OF 25ML/HR. ABDOMEN ROUND, FIRM, DISTENDED, BT'S FAINT. BRUISES NOTED T/O ABDOMEN. PT HAS RECTAL TUBE IN PLACE WITH SMALL AMT THIN LIQUID STOOL DRAINING TO GRAVITY. PT HAS NAVARRETE IN PLACE DRAINING DARK GREENISH URINE. PT HAS LEFT FEMORAL ART LINE IN PLACE - ZEROED, DRESSING DRY AND INTACT. PT HAS RIGHT IJ CENTRAL LINE AND LEFT IJ DIALYSIS CATHETER IN PLACE - DRESSINGS SECURE AND INTACT. PROPOFOL GTT AT 50MCG/KG, LEVOPHED AT 12 MCG/MIN, HEPARIN AT 6 UNITS/KG, 1/2NS c HCO3 AT 50 ML/HR. PT IS NOT RESTRAINED AT THIS TIME. PLAN FOR ABDOMINAL CT TODAY AND DIALYSIS.
[2021-05-28 10:38] LABS: PCO2 Arterial 39.7 mmHg (35-45); PO2 Arterial 59.8 mmHg (80-100); pH Blood Arterial 7.42 (7.35-7.45)
--- NOTE | 2021-05-28 12:34 | NUR ---
PT TO CT AND BACK UNEVENTFULLY.
--- NOTE | 2021-05-28 14:19 | NUR ---
Pt. is in vent but prayed for her.
--- NOTE | 2021-05-28 14:42 | NUR ---
CT RESULTS REVIEWED CT RESULTS AND DISCUSSED WITH DR. SAXENA AND DR. CAMP. DR. CAMP STATES SHE WILL NOT BE TAKING PT TO SURGERY AND SHE RECOMMENDS DISCONTINUING THERAPEUTIC HEPARIN. DISCUSSED WITH DR. SAXENA AND HEPARIN GTT TURNED OFF. CALLED DR Kilpatrick FOR CONSULT AND LEFT MESSAGE FOR POSSIBLE EMBOLIZATION AND/OR IVC FILTER PLACEMENT. PROVIDED UPDATE TO PT'S SIGNFICANT PHYLICIA ALCAZAR.
--- NOTE | 2021-05-28 15:01 | NUR ---
DR. Kilpatrick HERE TO SEE PT. PLANS TO TAKE HER TO LABEL CUTTER THIS AFTERNOON.
--- NOTE | 2021-05-28 16:10 | NUR ---
PT TO BUILDING CONSTRUCTION PROFESSOR AT THIS TIME WITH BUILDING CONSTRUCTION PROFESSOR RN'S. [place] [facility] [place]
[2021-05-28 16:12] LABS: Hematocrit 22.5 % (33.0-51.0); Hemoglobin 7.9 g/dL (11.5-16.0)
[2021-05-28 16:23] LABS: Bun/Creatinine Ratio 16.7 (12.0-20.0); Calcium, Blood 7.2 mg/dL (8.5-10.1); Creatinine, Blood 2.57 mg/dL (0.40-1.00); Potassium, Blood 3.3 mmol/L (3.5-5.5)
--- NOTE | 2021-05-28 18:19 | NUR ---
SHIFT SUMMARY PT REMAINS IN MINER AT THIS TIME WITH DR. WILDER. VENT SETTINGS AC 16, TV 450, PEEP 10, FIO2 70%. LEVOPHED AT 12 MCG/MIN. PROPOFOL AT 50MCG/KG. PT RECEIEVED DIALYSIS THIS MORNING. PT ABLE TO OPEN EYES TO VOICE AND NOD HEAD YES/NO TO QUESTIONS, NO PURPOSEFUL MOVEMENTS NOTED TO UPPER EXTREMITIES. PT HAD BLOODY OUTPUT FROM NAVARRETE CATHETER - DR. SAXENA AWARE. THIN BROWN STOOL DRAINED TO RECTAL TUBE. PT'S SIGNIFICANT OTHER, PHYLICIA, UPDATED MULTIPLE TIMES TODAY.
[2021-05-29 05:03] LABS: BASOPHILS ABSOLUTE AUTO 0.09 K/mm3 (0.00-0.23); BASOPHILS PERCENT AUTO 0 % (0-2); Hematocrit 24.4 % (33.0-51.0); Hemoglobin 8.4 g/dL (11.5-16.0); LYMPHOCYTES ABSOLUTE AUTO 0.64 K/mm3 (0.84-5.20); LYMPHOCYTES PERCENT AUTO 2 % (21-46); MONOCYTES ABSOLUTE AUTO 2.16 K/mm3 (0.16-1.47); MONOCYTES PERCENT AUTO 7 % (4-13); Mean Corpuscular HGB 29.4 pg (26.0-34.0); Mean Corpuscular HGB Conc 34.4 g/dL (31.5-36.5); Mean Corpuscular Volume 85 fL (80-100); Mean Platelet Volume 10.3 fL (9.1-12.4); NRBC ABSOLUTE 0.05 K/mm3 (0.00-0.02); NRBC Auto 0.2 /100 WBC (0.0-0.2); Platelet Count 239 K/mm3 (150-400); RDW Standard Deviation 46.5 fL (35.1-46.3); Red Blood Cell Count 2.86 M/mm3 (3.80-5.20); White Blood Cell Count 30.08 K/mm3 (4.00-11.30)
[2021-05-29 05:04] LABS: EOSINOPHILS ABSOLUTE AUTO 0.06 K/mm3 (0.00-0.68); EOSINOPHILS PERCENT AUTO 0 % (0-6); IMMATURE GRAN ABSOLUTE AUTO 1.86 K/mm3 (0.00-0.10); IMMATURE GRAN PERCENT AUTO 6 % (0-1); NEUTROPHILS ABSOLUTE AUTO 25.27 K/mm3 (1.96-9.15); NEUTROPHILS PERCENT AUTO 84 % (41-73)
[2021-05-29 05:27] LABS: BAND PERCENT MAN 4 % (0-8); BASOPHILS PERCENT MAN 0 % (0-2); EOSINOPHILS PERCENT MAN 0 % (0-6); LYMPHOCYTES PERCENT MAN 2 % (21-46); METAMYELOCYTE PERCENT MAN 1 % (0-0); MONOCYTES PERCENT MAN 6 % (4-13); NEUTROPHILS ABSOLUTE MAN 27.37 K/mm3 (1.96-9.15); SEG NEUTROPHILS PERCENT MAN 87 % (41-73); TOTAL CELLS COUNTED 100
[2021-05-29 05:28] LABS: Albumin, Blood 1.4 g/dL (3.4-5.0); Anion Gap 12 mmol/L (6-16); Blood Urea Nitrogen 47 mg/dL (8-24); Bun/Creatinine Ratio 16.5 (12.0-20.0); CO2, Blood 23 mmol/L (21-32); Calcium, Blood 6.4 mg/dL (8.5-10.1); Chloride, Blood 86 mmol/L (98-108); Creatinine, Blood 2.85 mg/dL (0.40-1.00); Glomerular Filtration Rate 17 (60-); Glucose, Blood 232 mg/dL (70-99); Phosphorus, Blood 5.5 mg/dL (2.5-4.9); Potassium, Blood 3.3 mmol/L (3.5-5.5); Sodium, Blood 121 mmol/L (136-145)
[2021-05-29 07:05] LABS: PCO2 Arterial 36.5 mmHg (35-45); PO2 Arterial 64.6 mmHg (80-100); pH Blood Arterial 7.41 (7.35-7.45)
--- NOTE | 2021-05-29 07:14 | NUR ---
SHIFT SUMMARY NO ACUTE CHANGES THIS SHIFT. PT REMAINS INTUBATED AND SEDATED, VENT SET TO AC 16/450 PEEP 10 FiO2 70%, THICK YELLOW AND RED TINGED SPUTUM FROM ETT, PT AROUSES TO VERBAL STIMULI, NODS HEAD YES/NO, MOVES TOES UPON COMMAND, NO MOVEMENT NOTED TO UPPER EXTREMETIES, R ARM REMAINS IN SPLINT. MONITOR SHOWS SINUS RHYTHM WITH HR 60'S, LEVO GTT INFUSING TO MAINTAIN MAPS> 65, ABLE TO TITRATE LEVOPHED FROM 12mcg/min TO 4mcg/min THIS SHIFT. 1 UNIT PRBC ADMINISTERED EARLIER IN SHIFT. SODIUM BICARB IN 1/2NS INFUSING @ 50ml/hr. OG IN PLACE WITH TF @ 20ml/hr, LOW RESIDUALS. RECTAL TUBE REMAINS IN PLACE WITH 550ml LIQUID BROWN OUTPUT. NAVARRETE REMAINS IN PLACE WITH RED/PINK TINGED URINE. AM LAB RESULTS DISCUSSED WITH DR ANDREW, SEE NEW ORDERS.
--- NOTE | 2021-05-29 08:15 | NUR ---
ASSUMED CARE FROM NOC SHIFT. PATIENT REMAINS INTUBATED WITH SAME SETTINGS AND CONTINUES TO HAVE IV GTT'S PROPOFOL, LEVOPHED, NSHCO3 AND NS TKO INFUSING. PT HAS EYES CLOSED, VSS. CONTINUE TO MONITOR AND TX PRN.
--- NOTE | 2021-05-29 09:00 | NUR ---
DR SAXENA AT BEDSIDE. NEW ORDERS TO COLLECT SPUTUM DUE TO THICK JEREZ REDDISH COLOR SPUTUM SUCTIONED.
--- NOTE | 2021-05-29 10:30 | NUR ---
GETTING READY TO DO A BED BATH. PT ALERT, NODS HEAD TO "YES" TO HAVING PAIN. WILL MEDICATE PER ORDERS.
--- NOTE | 2021-05-29 11:00 | NUR ---
INCREASE PAIN NOTED, GRIEMANCING TO FOREHEAD WITH BED BATH. WILL GIVE ADD'L FENTANYL 50MCG IV PER ORDERS. CONTINUE TO MONITOR AND TX PRN.
--- NOTE | 2021-05-29 12:30 | NUR ---
RETURNED SISTER ALICIA'S CALL. UPDATED ON PATIENT'S STATUS. VERBALIZED UNDERSTANDING.
--- NOTE | 2021-05-29 13:19 | NUR ---
Pt. lying in bed and her nurses in the room attending to them pt. in her needs and I did pray fo pt.
--- NOTE | 2021-05-29 13:22 | NUR ---
Met pt. in bed relaxed and resting, pt reports to be doing fine encouraged pt. andprayed for him.
--- NOTE | 2021-05-29 14:17 | NUR ---
RESTING COMFORTABLE. INCREASE ALERTNESS, OPENS EYES AND NODS HEAD TO FEELING COMFORTABLE AND HAVING NO PAIN. DIALYSIS NURSE CALLED AND WILL BE DOWN TO DIALYLIZE. TITRATING LEVOPHED GTT DOWN, 2MCG. CONTINUE TO MONITOR.
--- NOTE | 2021-05-29 15:15 | NUR ---
DIALYSIS NURSE HERE AT BEDSIDE SETTING UP. DIALYSIS NURSE ANASTACIO SPOKE WITH DR WASHBURN AND WILL ATEEMPT TO PULL 1.5L OF FLUID OFF TOLERATED.
--- NOTE | 2021-05-29 16:51 | NUR ---
PATIENT NOT ABLE TO TOLERATE DIALYSIS. BP'S TRENDED DOWN AND TITRATED LEVOPHED GTT UP TO 12MCG/HR AND SAT'S DECREASED TO <90%. DIALYSIS NURSE RETURNED PATIENTS BLOOD AND STOPPED. ONCE DIALYSIS WAS STOPPED, WAS ABLE TO DECREASE LEVOPHED BACK TO 2MCG/HR AND SATS IMPROVED BACK TO 93%. DIALYSIS NURSE SPOKE WITH DR SAXENA AND UPDATED ON PATIENT'S STATUS.
--- NOTE | 2021-05-29 18:08 | NUR ---
PLEASE SEE RN NOTES FROM ICU [place]. PT UNABLE TO TOLERATE DIALYSIS. DR SAXENA NOTIFIED. LESLY
--- NOTE | 2021-05-29 18:09 | NUR ---
SHIFT SUMMARY PT REMAINED ON SAME VENT SETTINGS AC16/TV450/PEEP10/60%FIO2. OCCASIONALLY SATS DROPPED DOWN <90%. SUCTIONED SCANT TO MODERATE JEREZ RED BLOOD CLOTS. BP REMAINED STABLE T/O DAY UNTIL DIALYSIS ATTEMPTED. HAD TO TITRATE LEVOPHED TO EFFECT. NEW DRESSING PLACED TO BUTTOCKS AREA TO PREVENT FURTHER BREAKDOWN, PHOTO TAKEN. MELONY AREA RAW/RED/BLEEDING IN AREAS. APPLED ZINCE OXIDE CREAM AND PILLOW CASES PLACED BETWEEN FOLDS. URINE COLOR IMPROVED FROM DARK TALA/PINKISH TINGE TO LIGHT TALA COLOR. NO OTHER ACUTE CHANGES NOTED, WILL REPORT OFF TO NOC SHIFT.
--- NOTE | 2021-05-29 18:22 | NUR ---
review of pt in rounds sofa score is 9, pt to remain full code.
--- NOTE | 2021-05-29 22:00 | NUR ---
ASSUMPTION OF CARE PT INTUBATED AND SEDATE, PT OPENS EYES SPONTANEOUSLY, ABLE TO FOLLOW SOME COMMANDS, NODS YES/NO TO QUESTIONS, NO MOVEMENT NOTED TO UPPER EXTREMETIES. VENT SET TO AC 16/450 PEEP 10 FiO2 60%, LS COARSE. MONITOR SHOWS SINUS RHYTHM WITH HR 60'S, LEVO GTT @ 4mcg/min TO MAINTA MAPS> 65, ARTLINE REMAINS IN PLACE TO L GROIN. R GROIN SITE SOFT AND NONTENDER, BRUISING NOTED AROUND INSERTION SITE. OG IN PLACE WITH TF @ 25ml/hr. RECTAL TUBE IN PLACE WITH LIQUID BROWN STOOL. FOELY IN PLACE, TALA URINE. DIFUSE BRUISING TO ABD AND UPPER EXTREMETIES, EXCORIATIONS TO MELONY AREA, SKIN CARE PROVIDED.
[2021-05-30 05:50] LABS: Hematocrit 24.2 % (33.0-51.0); Hemoglobin 8.3 g/dL (11.5-16.0); Mean Corpuscular HGB 29.4 pg (26.0-34.0); Mean Corpuscular HGB Conc 34.3 g/dL (31.5-36.5); Mean Corpuscular Volume 86 fL (80-100); Mean Platelet Volume 10.9 fL (9.1-12.4); NRBC ABSOLUTE 0.03 K/mm3 (0.00-0.02); NRBC Auto 0.1 /100 WBC (0.0-0.2); Platelet Count 271 K/mm3 (150-400); RDW Coefficient Variation 15.2 % (11.7-14.2); RDW Standard Deviation 47.1 fL (35.1-46.3); Red Blood Cell Count 2.82 M/mm3 (3.80-5.20); White Blood Cell Count 32.12 K/mm3 (4.00-11.30)
[2021-05-30 06:04] LABS: Albumin, Blood 1.4 g/dL (3.4-5.0); Anion Gap 13 mmol/L (6-16); Blood Urea Nitrogen 60 mg/dL (8-24); Bun/Creatinine Ratio 18.6 (12.0-20.0); CO2, Blood 22 mmol/L (21-32); Calcium, Blood 7.3 mg/dL (8.5-10.1); Chloride, Blood 86 mmol/L (98-108); Creatinine, Blood 3.23 mg/dL (0.40-1.00); Glomerular Filtration Rate 14 (60-); Glucose, Blood 240 mg/dL (70-99); Magnesium, Blood 1.8 mg/dL (1.6-2.4); Phosphorus, Blood 6.9 mg/dL (2.5-4.9); Potassium, Blood 3.6 mmol/L (3.5-5.5); Sodium, Blood 121 mmol/L (136-145)
[2021-05-30 06:23] LABS: BAND PERCENT MAN 1 % (0-8); BASOPHILS PERCENT MAN 0 % (0-2); EOSINOPHILS PERCENT MAN 0 % (0-6); LYMPHOCYTES ABSOLUTE MAN 0.32 K/mm3 (0.84-5.20); LYMPHOCYTES PERCENT MAN 1 % (21-46); MONOCYTES ABSOLUTE MAN 0.32 K/mm3 (0.16-1.47); MONOCYTES PERCENT MAN 1 % (4-13); MYELOCYTE ABSOLUTE MAN 1.28 K/mm3 (0.00-0.00); MYELOCYTE PERCENT MAN 4 % (0-0); NEUTROPHILS ABSOLUTE MAN 30.19 K/mm3 (1.96-9.15); SEG NEUTROPHILS PERCENT MAN 93 % (41-73); TOTAL CELLS COUNTED 100
--- NOTE | 2021-05-30 07:28 | NUR ---
SHIFT SUMMARY NO ACUTE CHANGES THIS SHIFT. PT REMAINS INTUBATED AND SEDATED, ANSWERS YES/NO QUESTIONS, PRN FENTANYL ADMINISTERED FOR PAIN. VENT SET TO AC 16/450 PEEP 10 FiO2V 65%. PT CONTINUES TO HAVE THICK JEREZ/YELLOW SECRETIONS WITH RED SPECKS FROM ETT. MONITOR SHOWS SINUS RHYTHM WITH HR 60'S, NO CHANGES TO LEVO GTT TO MAINTAIN MAPS> 65. OG WITH TF INFUSING @ 25ml/hr. RECTAL TUBE CONTINUES TO HAVE MODERATE OUTPUT. NAVARRETE IN PLACE.
--- NOTE | 2021-05-30 08:30 | NUR ---
REMAINS ON VENTILATOR WITH PROPOFOL GTT AT 50MCG AND LEVOPHED GTT AT 4MCG. VSS. OPENS EYES TO VERBAL STIMULI AND NODS HEAD "NO" TO HAVING ANY PAIN. DIALYSIS PLAN FOR THIS AM. CONTINUE TO MONITOR AND TX PRN.
--- NOTE | 2021-05-30 13:00 | NUR ---
COMPLETE WITH DIALYSIS, TOLERATED WELL. WAS ABLE TO REMOVE FLUID. HAD TO TITRATE LEVOPHED GTT UP TEMPORARY DURING DIALYSIS BUT WAS ABLE TO RETURN BACK TO PREVIOUS SETTING 4MCG/HR TO KEEP MAP >60. DENIES NO PAIN. CONTINUE TO MONITOR.
--- NOTE | 2021-05-30 13:56 | NUR ---
Met pt. lying in bed still in vent with little improvement , prayed for the pt.
--- NOTE | 2021-05-30 18:26 | NUR ---
SHIFT SUMMARY NO NEW CHANGES ON VENT SETTINGS. WAS ABLE TO HAVE DIALYSIS WITH FLUID TAKEN OFF; TOLERATED WELL. CONTINUES TO BE ON PROPOFOL GTT AT 50MCG AND LEVOPHED AT 2MCG WITH MAP >60. LUNGS SOUNDS OCCASIONALLY COARSE BUT CLEARS WITH EXP. WHEEZE NOTED, DECREASE BASES AFTER SCANT AMOUNT THICK JEREZ WITH RED FLEX NOTED. ABDOMEN CONTINUES TO BE DISTENDED BUT SOFTER. TOLERATING TUBE FEEDING. CONTINUES TO HAVE RECTAL TUBE WITH LIQUID BROWN AND NAVARRETE CATH PATENT WITH TALA COLOR. NO OTHER CHANGES NOTED. WILL REPORT OFF TO NOC SHIFT.
[2021-05-31 05:37] LABS: Hematocrit 24.8 % (33.0-51.0); Hemoglobin 8.2 g/dL (11.5-16.0); Mean Corpuscular HGB 28.8 pg (26.0-34.0); Mean Corpuscular HGB Conc 33.1 g/dL (31.5-36.5); Mean Corpuscular Volume 87 fL (80-100); Mean Platelet Volume 10.8 fL (9.1-12.4); NRBC ABSOLUTE 0.04 K/mm3 (0.00-0.02); NRBC Auto 0.1 /100 WBC (0.0-0.2); Platelet Count 327 K/mm3 (150-400); RDW Coefficient Variation 15.4 % (11.7-14.2); RDW Standard Deviation 48.5 fL (35.1-46.3); Red Blood Cell Count 2.85 M/mm3 (3.80-5.20); White Blood Cell Count 26.87 K/mm3 (4.00-11.30)
[2021-05-31 05:48] LABS: PO2 Arterial 72.9 mmHg (80-100); pH Blood Arterial 7.41 (7.35-7.45)
[2021-05-31 05:50] LABS: Albumin, Blood 1.5 g/dL (3.4-5.0); Anion Gap 13 mmol/L (6-16); Blood Urea Nitrogen 66 mg/dL (8-24); Bun/Creatinine Ratio 20.4 (12.0-20.0); CO2, Blood 23 mmol/L (21-32); Calcium, Blood 7.7 mg/dL (8.5-10.1); Chloride, Blood 91 mmol/L (98-108); Creatinine, Blood 3.24 mg/dL (0.40-1.00); Glomerular Filtration Rate 14 (60-); Glucose, Blood 215 mg/dL (70-99); Magnesium, Blood 2.1 mg/dL (1.6-2.4); Phosphorus, Blood 7.3 mg/dL (2.5-4.9); Potassium, Blood 3.7 mmol/L (3.5-5.5); Sodium, Blood 127 mmol/L (136-145)
[2021-05-31 06:17] LABS: BAND PERCENT MAN 2 % (0-8); BASOPHILS PERCENT MAN 0 % (0-2); EOSINOPHILS PERCENT MAN 0 % (0-6); LYMPHOCYTES ABSOLUTE MAN 1.34 K/mm3 (0.84-5.20); LYMPHOCYTES PERCENT MAN 5 % (21-46); MONOCYTES ABSOLUTE MAN 2.41 K/mm3 (0.16-1.47); MONOCYTES PERCENT MAN 9 % (4-13); MYELOCYTE ABSOLUTE MAN 0.53 K/mm3 (0.00-0.00); MYELOCYTE PERCENT MAN 2 % (0-0); NEUTROPHILS ABSOLUTE MAN 22.57 K/mm3 (1.96-9.15); SEG NEUTROPHILS PERCENT MAN 82 % (41-73); TOTAL CELLS COUNTED 100
[2021-05-31 07:11] LABS: HBSAG SCREEN Negative (Negative); HEP A AB, IGM Negative (Negative); HEP B CORE AB, IGM Negative (Negative); HEP C VIRUS AB >11.0 (0.0-0.9)
--- NOTE | 2021-05-31 07:28 | NUR ---
SHIFT SUMMARY: NO CHANGE IN THE PATIENT'S CONDITION DURING THE NIGHT. SEDATED UNDER PROPOFOL, ALERT AT TIMES, NOD HEAD TO YES/NO QUESTIONS. RECEIVING FENTANYL FOR PAIN. RESPIRATORY UNDER MECHANICAL VENTILATION DOCUMENTED. MODERATE AMOUNT OF ETT SECRETIONS. HEMODYNAMICALLY SUPPORTED BY NOREPINEPHRINE AT 2MCG/MIN. MAP GREATER THAN 65. PULSE IN NORMAL SINUS RHYTHM. AL WAS DC THIS SHIFT. URINE VIA NAVARRETE CATHETER. RECTAL TUBE IN PLACE. NUTRITION VIA TUBE FEED.
--- NOTE | 2021-05-31 08:00 | NUR ---
ASSUMED CARE ASSUMED CARE OF PT AT 0800. REPORT RECEIVED FROM CLINT LANGSTON. PT INTUBATED AND SEDATED. PT OPENS EYES TO VOICE AND FOLLOWS COMMANDS TO MOVE LOWER EXTREMITIES, NODS HEAD YES/NO TO QUESTIONS. PT NOT MOVING UPPER EXTREMITIES TO COMMAND, BUT NOTED TO RAISE LEFT HAND/ARM OFF THE BED. PROPOFOL AT 50MCG/KG. VENT SETTINGS AC 16, TV 450, PEEP 10, FIO2 70%. LUNG SOUNDS COARSE AND WHEEZY T/O. MODERATE AMT THICK JEREZ/BLOODY SECRETIONS SUCTIONED FROM ET TUBE. MONITOR SHOWS SINUS RHYTHM WITH BBB, HR 70-80'S. SBP WITH MAP >65, LEVOPHED INFUSING AT 2MCG/MIN, PLAN TO TITRATE DOWN ABLE. PT HAS OG TUBE IN PLACE WITH PIVOT 1.5 AT GOAL OF 25ML/HR. ABDOMEN ROUND, DISTENDED, BT'S PRESENT X4 QUADRANTS. SCARS/DRESSING IN PLACE R/T LAP SURGICAL SITES. RECTAL TUBE IN PLACE DRAINING YELLOW/BROWN LIQUID STOOL TO GRAVITY. NAVARRETE IN PLACE DRAINING YELLOW/GREEN URINE TO GRAVITY. CENTRAL LINE IN PLACE TO RIJ. DIALYSIS CATHETER IN PLACE TO LEFT IJ. PT IS NOT RESTRAINED. SPLINT IN PLACE TO RIGHT ARM R/T FX. PLAN FOR DIALYSIS THIS AFTERNOON. WILL CONTINUE TO MONITOR PT.
--- NOTE | 2021-05-31 13:03 | NUR ---
met pt. in bed and still in vent prayed and blessed her
--- NOTE | 2021-05-31 16:47 | NUR ---
DIALYSIS COMPLETE. 3.5 L REMOVED PER MARKETING TEACHER HERMAN. PT REMAINS ON VENT AND LIGHTLY SEDATED WITH PROPOFOL AT 50MCG/KG. LEVOPHED WAS STARTED AT 6MCG AT 1454 FOR HYPOTENSION DURING DIALYSIS, WAS PLACED ON STANDBY WHEN DIALYSIS COMPLETE AT 1635. NO OTHER CHANGES TO PT ASSESSMENT THUS FAR DURING SHIFT.
--- NOTE | 2021-05-31 18:11 | NUR ---
SHIFT SUMMARY NO ACUTE EVENTS THIS SHIFT. VENT SETTINGS REMAIN UNCHANGED. FIO2 50% CURRENTLY WITH SPO2 92%. LEVOPHED ON STANDBY. PROPOFOL CONTINUES AT 50MCG/KG AND PT EASILY AROUSABLE WITH THIS. PT RECEIVED DIALYSIS TODAY WITH 3.5L FLUID REMOVAL.
--- NOTE | 2021-05-31 22:18 | NUR ---
PATIENT AT 2121 GRIMACING NOTED, ASKED PATIENT IF SHE WAS IN PAIN, PATIENT IS ABLE TO NOD HER HEAD YES AND NO, UNABLE TO GET A NUMBER. PATIENT RECEIVED FENTANYL 100MCG IVB PER ORDER, PATIENT UPON REASSESSMENT WAS RESTING COMFORTABLY.
--- NOTE | 2021-06-01 01:27 | NUR ---
MIDNIGHT REASSESSMENT, LUNGS REMAIN COARSE WITH RUB ON EXPIRATION. PT CONTINUES TO ANSWER WITH HEAD NOD, ANASARCA CONTINUES. BRUISING ALL OVER, PT EXPRESSES PAIN TO US. WHEN SPEAKING WITH HER REGARDING FAMILY, PT GETS TEARY. NAVARRETE CONTINUES TO GRAVITY DRAINAGE WELL RECTAL TUBE. PT WAS RESTARTED ON HER LEVOPHED AT 2MCG @ 2210 FOR CONSISTENTLY LOW BLOOD PRESSURES. UP TO 5 MCG @ 2230. 0040 PT BACK DOWN TO 2 MCG.
[2021-06-01 04:26] LABS: Hematocrit 26.7 % (33.0-51.0); Hemoglobin 8.9 g/dL (11.5-16.0); Mean Corpuscular HGB 29.1 pg (26.0-34.0); Mean Corpuscular HGB Conc 33.3 g/dL (31.5-36.5); Mean Corpuscular Volume 87 fL (80-100); Mean Platelet Volume 10.9 fL (9.1-12.4); NRBC ABSOLUTE 0.05 K/mm3 (0.00-0.02); NRBC Auto 0.2 /100 WBC (0.0-0.2); Platelet Count 383 K/mm3 (150-400); RDW Coefficient Variation 15.7 % (11.7-14.2); RDW Standard Deviation 49.2 fL (35.1-46.3); Red Blood Cell Count 3.06 M/mm3 (3.80-5.20); White Blood Cell Count 25.06 K/mm3 (4.00-11.30)
[2021-06-01 04:56] LABS: Albumin, Blood 1.7 g/dL (3.4-5.0); Albumin/Globulin Ratio 0.4 (0.8-1.8); Bilirubin, Direct 0.4 mg/dL (0.0-0.3); Bilirubin, Indirect 0.2 mg/dL (0.1-0.7); Bilirubin, Total 0.6 mg/dL (0.1-1.0); Bun/Creatinine Ratio 21.2 (12.0-20.0); Calcium, Blood 7.4 mg/dL (8.5-10.1); Creatinine, Blood 3.2 mg/dL (0.40-1.00); Globulin, Blood 3.8 g/dL (2.2-4.0); Phosphorus, Blood 7.6 mg/dL (2.5-4.9); Potassium, Blood 3.3 mmol/L (3.5-5.5); Total Protein, Blood 5.5 g/dL (6.4-8.2)
[2021-06-01 05:34] LABS: BAND PERCENT MAN 1 % (0-8); BASOPHILS PERCENT MAN 0 % (0-2); EOSINOPHILS PERCENT MAN 2 % (0-6); LYMPHOCYTES PERCENT MAN 2 % (21-46); METAMYELOCYTE PERCENT MAN 2 % (0-0); MONOCYTES PERCENT MAN 0 % (4-13); MYELOCYTE PERCENT MAN 2 % (0-0); NEUTROPHILS ABSOLUTE MAN 23.05 K/mm3 (1.96-9.15); SEG NEUTROPHILS PERCENT MAN 91 % (41-73); TOTAL CELLS COUNTED 100
--- NOTE | 2021-06-01 12:22 | NUR ---
DR. AMAYA AT BEDSIDE. PEEP INCREASED TO 10, FI02 INCREASED TO 60%. OK TO INCREASE PEEP UP TO [address] AMAYA, RT NOTIFIED. DR. AMAYA DISCUSSED PLAN TO TRACH/PEG PT AND TRANSFER TO [facility] FOR REHAB WHEN ELIGIBLE. PT ABLE TO PARTICIPATE IN CONVERSATION WITH NODS YES/NO.
--- NOTE | 2021-06-01 18:40 | NUR ---
PT REMAINS INTUBATED AND SEDATED. VENT SETTINGS AC 16/450/12/60%. PROPOFOL @ 50 MCG/KG/MIN. PT TREATED WITH OXYCODONE PER TUBE WITH GOOD PAIN RELIEF. LEVOPHED OFF SINCE NOON, MAP REMAINS>65. PLAN TO CONSULT DR. CAMP THURSDAY FOR TRACH/PEG AND POTENTIAL TRANSFER TO [facility] FOR REHAB. WILL REPORT TO ONCOMING NURSE.
[2021-06-02 04:43] LABS: Hematocrit 25.9 % (33.0-51.0); Hemoglobin 8.6 g/dL (11.5-16.0); Mean Corpuscular HGB 29.4 pg (26.0-34.0); Mean Corpuscular HGB Conc 33.2 g/dL (31.5-36.5); Mean Corpuscular Volume 88 fL (80-100); Mean Platelet Volume 10.2 fL (9.1-12.4); NRBC ABSOLUTE 0.02 K/mm3 (0.00-0.02); NRBC Auto 0.1 /100 WBC (0.0-0.2); Platelet Count 364 K/mm3 (150-400); RDW Coefficient Variation 15.8 % (11.7-14.2); RDW Standard Deviation 50.2 fL (35.1-46.3); Red Blood Cell Count 2.93 M/mm3 (3.80-5.20); White Blood Cell Count 17.66 K/mm3 (4.00-11.30)
[2021-06-02 05:09] LABS: Albumin, Blood 1.6 g/dL (3.4-5.0); Anion Gap 15 mmol/L (6-16); Blood Urea Nitrogen 86 mg/dL (8-24); Bun/Creatinine Ratio 24.8 (12.0-20.0); CO2, Blood 22 mmol/L (21-32); Calcium, Blood 7.8 mg/dL (8.5-10.1); Chloride, Blood 94 mmol/L (98-108); Creatinine, Blood 3.47 mg/dL (0.40-1.00); Glomerular Filtration Rate 13 (60-); Glucose, Blood 148 mg/dL (70-99); Magnesium, Blood 2.1 mg/dL (1.6-2.4); Potassium, Blood 3.5 mmol/L (3.5-5.5); Sodium, Blood 131 mmol/L (136-145)
[2021-06-02 05:11] LABS: Phosphorus, Blood 8.3 mg/dL (2.5-4.9)
[2021-06-02 05:41] LABS: BAND PERCENT MAN 1 % (0-8); BASOPHILS PERCENT MAN 0 % (0-2); EOSINOPHILS PERCENT MAN 4 % (0-6); LYMPHOCYTES ABSOLUTE MAN 0.52 K/mm3 (0.84-5.20); LYMPHOCYTES PERCENT MAN 3 % (21-46); METAMYELOCYTE ABSOLUTE MAN 0.35 K/mm3 (0.00-0.00); METAMYELOCYTE PERCENT MAN 2 % (0-0); MONOCYTES PERCENT MAN 4 % (4-13); MYELOCYTE ABSOLUTE MAN 0.35 K/mm3 (0.00-0.00); MYELOCYTE PERCENT MAN 2 % (0-0); NEUTROPHILS ABSOLUTE MAN 15.01 K/mm3 (1.96-9.15); SEG NEUTROPHILS PERCENT MAN 84 % (41-73); TOTAL CELLS COUNTED 100
--- NOTE | 2021-06-02 05:46 | NUR ---
LAURA REMAINS VENTILATED AC16/450/12/45%. SHE HAS BEEN ABLE TO COUGH AND ETT SUCTION RETURNS JEREZ SECRETIONS. SHE HAS BEEN DROOLING T/O THE SHIFT, TOLERATED ORAL CARE WELL EACH TIME, DOES GRIMACE WITH EACH TIME. PT HAD HER BATH, IV NS @ TKO, PROPOFOL @ 50MCG/KG/MIN, TF @ 25ML/HR, NAVARRETE TO GRAVITY DRAINAGE WITH GOOD OUTPUT, RECTAL TUBE W/ 100CC'S OF LIQUID STOOL. EDEMA CONTINUES TO HANDS AND FEET, TRUNK AND THIGHS. PT ABLE TO COMMUNICATE WELL WITH STAFF THIS NIGHT. SHE HAS BEEN TURNED Q2 AND TOLERATED WELL. HER BUTTOCKS ARE RAW & EXCORIATED, CREAM APPLIED WITH CLOVER DRESSINGS APPLIED FOR COMFORT. WILL REPORT OFF TO NEXT SHIFT WHEN ABLE.
--- NOTE | 2021-06-02 08:28 | NUR ---
PT IS AWAKE AND RESPONDING WHILE ON PROPOFOL GTT AT 50 MCG AND TITRATED TO 45 MCG. TOLERATING TF AT GOAL OF 25ML. ABD DSG INTACT AND LAP SITED HEALING. RECTAL TUBE PATENT OF BROWN STOOL. NAVARRETE PATENT OF YELLOW URINE. PT EXT ARE ALL PUFFY TO 2-3 RANGE AND ELEVATED ON PILLOW. H.D. SCHEDULED TODAY.
--- NOTE | 2021-06-02 09:51 | NUR ---
PT BP DROPPED WITH H.D. FLUID PER PRICING MANAGER RETURNED TIMES 400 ML AND PRESSURES CAME UP. PROPOFOL SL DEC NOTED. FIO2 INC FOR SHORT PERIOD AND THEN DOWN TO 40% AGAIN. SATS WERE DOWN TO MID 80 RANGE AND BACK UP WITH RETURN OF BP. WILL MONITOR.
--- NOTE | 2021-06-02 09:57 | NUR ---
ATTEMPTING TO AVOID LEVOPHED GTT, ON S.B. IF NEEDED.
--- NOTE | 2021-06-02 18:16 | NUR ---
PT HAS TOLERATED SLOW DEC OF PROPOFOL GTT TO 35MCG THIS DAY AND OG MEDS. I/O NOTED. VSS POST DIALYSIS. VENT SETTINGS REMAIN AC 18 450 40% 10 PEEP. MODERATE ET SECREATIONS T/O DAY YELLOW COLOR. PT HAS TOLERATED TF WELL THIS DAY WITH CBG NOTED.
[2021-06-03 04:15] LABS: BASOPHILS ABSOLUTE AUTO 0.06 K/mm3 (0.00-0.23); BASOPHILS PERCENT AUTO 0 % (0-2); EOSINOPHILS ABSOLUTE AUTO 0.32 K/mm3 (0.00-0.68); EOSINOPHILS PERCENT AUTO 2 % (0-6); Hematocrit 25.3 % (33.0-51.0); Hemoglobin 8.2 g/dL (11.5-16.0); IMMATURE GRAN ABSOLUTE AUTO 1.27 K/mm3 (0.00-0.10); IMMATURE GRAN PERCENT AUTO 8 % (0-1); LYMPHOCYTES PERCENT AUTO 5 % (21-46); MONOCYTES ABSOLUTE AUTO 1.05 K/mm3 (0.16-1.47); MONOCYTES PERCENT AUTO 7 % (4-13); Mean Corpuscular HGB Conc 32.4 g/dL (31.5-36.5); Mean Corpuscular Volume 89 fL (80-100); Mean Platelet Volume 10.3 fL (9.1-12.4); NEUTROPHILS PERCENT AUTO 78 % (41-73); Platelet Count 356 K/mm3 (150-400); RDW Coefficient Variation 15.8 % (11.7-14.2); RDW Standard Deviation 50.8 fL (35.1-46.3); Red Blood Cell Count 2.83 M/mm3 (3.80-5.20)
[2021-06-03 04:49] LABS: Magnesium, Blood 2.1 mg/dL (1.6-2.4)
[2021-06-03 04:50] LABS: Albumin, Blood 2.2 g/dL (3.4-5.0); Albumin/Globulin Ratio 0.7 (0.8-1.8); Bilirubin, Direct 0.4 mg/dL (0.0-0.3); Bilirubin, Indirect 0.3 mg/dL (0.1-0.7); Bilirubin, Total 0.7 mg/dL (0.1-1.0); Bun/Creatinine Ratio 26.6 (12.0-20.0); Creatinine, Blood 2.89 mg/dL (0.40-1.00); Globulin, Blood 3.2 g/dL (2.2-4.0); Phosphorus, Blood 6.5 mg/dL (2.5-4.9); Potassium, Blood 3.5 mmol/L (3.5-5.5); Total Protein, Blood 5.4 g/dL (6.4-8.2)
--- NOTE | 2021-06-03 05:09 | NUR ---
SHIFT SUMMARY NO ACUTE EVENTS OR CHANGES OVERNIGHT. ASSESSMENT IS CHARTED. VSS. NO C/O PAIN. WILL CONTINUE TO MONITOR.
[2021-06-03 05:57] LABS: BASOPHILS PERCENT MAN 0 % (0-2); EOSINOPHILS PERCENT MAN 2 % (0-6); LYMPHOCYTES ABSOLUTE MAN 0.76 K/mm3 (0.84-5.20); LYMPHOCYTES PERCENT MAN 5 % (21-46); METAMYELOCYTE PERCENT MAN 4 % (0-0); MONOCYTES PERCENT MAN 2 % (4-13); MYELOCYTE ABSOLUTE MAN 0.15 K/mm3 (0.00-0.00); MYELOCYTE PERCENT MAN 1 % (0-0); NEUTROPHILS ABSOLUTE MAN 13.07 K/mm3 (1.96-9.15); SEG NEUTROPHILS PERCENT MAN 86 % (41-73); TOTAL CELLS COUNTED 100
--- NOTE | 2021-06-03 11:40 | NUR ---
LATE AM NOTE. PT WAS CHANGED TO SPONT 5/5 40% AND THEN TURNED UP TO HIGHER SETTINGS BEFORE RETURNED TO AC 16 450 40% 5 PEEP. PT SEDATION TURNED TO 30 ON PROPOFOL AND IS AGAIN CALM AND RESTING ON THESE IMPROVED SETTING. PT IS TOLEATING TF WELL, URINE OUTPUT GOOD. WILL MONITOR PT STATUS. HAVE TALKED WITH THE FAMILY AND SHARED STATUS REPORT. ARRANGED TO PERMACATH PLACEMENT FOR H.D. WITH DR WILDER, [facility] RN TO NOTIFY.
--- NOTE | 2021-06-03 14:09 | NUR ---
Pt. lying in bed and in vent , prayed for the pt.
--- NOTE | 2021-06-03 14:19 | NUR ---
DR MONGE OFFICE CALLED RE PLACING TRACH ON HOLD 1315.
--- NOTE | 2021-06-03 16:45 | NUR ---
PT CONSENTED PER DR WILDER FOR PERMACATH AND CALLED SON TO CONSENT. I/O COMPLETED, VSS. PT IS AWARE TO TALK WITH DR WILDER AND NODING HEAD TO ANSWER, BUT NOT FULLY CLEAR. PT CONT TO TOLERATE PEEP OF 5 WITH OTHER SAME SETTINGS. TUBE FEEDINGS ON HOLD, PROPOFOL CONTINUES AND TKO NS LINE. REMAINS NSR. RT CALLED FOR TRANSPORT WITH PT TO ELECTROLYSIS ENGINEER.
--- NOTE | 2021-06-03 17:18 | NUR ---
PT TO STONE PROCESSING MACHINE OPERATOR VIA BED 1710 WITH RT AND RN X2
--- NOTE | 2021-06-03 18:36 | NUR ---
[facility] SITE BLEEDING INTRACATH WAS CONTROLLED AND SITE CDI CURRENTLY. PT VS STABLE NEW CATH SITE ON L CHEST DSG IS CDI AND PORTS PROTECTED DUE TO HEPARIN PACKING. PT REMAINS ON PROPOFOL GTT AT 40. WILL HOLD TF FOR NOW. PT SEEMED TO TOLERATE WELL AND WAS MAKING EYE CONTACT UPON RETURN TO THE UNIT.
[2021-06-04 05:25] LABS: BASOPHILS ABSOLUTE AUTO 0.08 K/mm3 (0.00-0.23); BASOPHILS PERCENT AUTO 1 % (0-2); EOSINOPHILS ABSOLUTE AUTO 0.51 K/mm3 (0.00-0.68); EOSINOPHILS PERCENT AUTO 3 % (0-6); Hematocrit 26.7 % (33.0-51.0); Hemoglobin 8.7 g/dL (11.5-16.0); IMMATURE GRAN ABSOLUTE AUTO 1.16 K/mm3 (0.00-0.10); IMMATURE GRAN PERCENT AUTO 8 % (0-1); LYMPHOCYTES ABSOLUTE AUTO 0.95 K/mm3 (0.84-5.20); LYMPHOCYTES PERCENT AUTO 6 % (21-46); MONOCYTES ABSOLUTE AUTO 0.97 K/mm3 (0.16-1.47); MONOCYTES PERCENT AUTO 6 % (4-13); Mean Corpuscular HGB 29.3 pg (26.0-34.0); Mean Corpuscular HGB Conc 32.6 g/dL (31.5-36.5); Mean Corpuscular Volume 90 fL (80-100); Mean Platelet Volume 10.5 fL (9.1-12.4); NEUTROPHILS ABSOLUTE AUTO 11.65 K/mm3 (1.96-9.15); NEUTROPHILS PERCENT AUTO 76 % (41-73); Platelet Count 368 K/mm3 (150-400); RDW Standard Deviation 51.7 fL (35.1-46.3); Red Blood Cell Count 2.97 M/mm3 (3.80-5.20); White Blood Cell Count 15.32 K/mm3 (4.00-11.30)
[2021-06-04 05:43] LABS: BASOPHILS PERCENT MAN 0 % (0-2); EOSINOPHILS PERCENT MAN 2 % (0-6); LYMPHOCYTES ABSOLUTE MAN 1.07 K/mm3 (0.84-5.20); LYMPHOCYTES PERCENT MAN 7 % (21-46); MONOCYTES ABSOLUTE MAN 0.76 K/mm3 (0.16-1.47); MONOCYTES PERCENT MAN 5 % (4-13); MYELOCYTE ABSOLUTE MAN 0.15 K/mm3 (0.00-0.00); MYELOCYTE PERCENT MAN 1 % (0-0); NEUTROPHILS ABSOLUTE MAN 13.02 K/mm3 (1.96-9.15); SEG NEUTROPHILS PERCENT MAN 85 % (41-73); TOTAL CELLS COUNTED 100
[2021-06-04 05:51] LABS: Albumin, Blood 1.9 g/dL (3.4-5.0); Albumin/Globulin Ratio 0.5 (0.8-1.8); Bilirubin, Direct 0.4 mg/dL (0.0-0.3); Bilirubin, Indirect 0.3 mg/dL (0.1-0.7); Bilirubin, Total 0.7 mg/dL (0.1-1.0); Bun/Creatinine Ratio 29.9 (12.0-20.0); Calcium, Blood 7.5 mg/dL (8.5-10.1); Creatinine, Blood 3.04 mg/dL (0.40-1.00); Globulin, Blood 3.5 g/dL (2.2-4.0); Magnesium, Blood 1.8 mg/dL (1.6-2.4); Phosphorus, Blood 6.9 mg/dL (2.5-4.9); Potassium, Blood 3.5 mmol/L (3.5-5.5); Total Protein, Blood 5.4 g/dL (6.4-8.2)
--- NOTE | 2021-06-04 06:18 | NUR ---
NO UNUSUAL EVENTS DURING THE NIGHT. SEDATED UNDER PROPOFOL. OPEN EYES TO STIMULI AND FOLLOW COMMANDS SHE CAN. CALM AND COOPERATIVE WHEN AWAKE. RESPIRATORY UNDER MECHANICAL VENTILATION. LARGE AMOUNT OF SECRETIONS FROM ETT. HEMODYNAMIC STABLE W/O SUPPORT. MAP GREATER THAN 65. PULSE IN NORMAL SINUS RHYTHM, AROUND 80 BPM. URINE VIA NAVARRETE CATHETER. ADEQUATE OUTPUT. BATHED.
--- NOTE | 2021-06-04 09:50 | NUR ---
ASSUMED CARE OF PT. PT INTUBATED AND SEDATED, VENT SETTINGS 16/450/5/70%. PROPOFOL @ 40 SKILLED NURSING/KG/MIN. PT OPENES EYES SPONTANEOUSLY AND NODS HEAD YES/NO, ABLE TO MOVE BILATERAL LOWER EXTREMETIES AND LEFT ARM WEAKLY. LEVOPHED @ 3 MCG/MIN TO MAINTAIN MAP>65. PT CURRENTLY GETTING DIALYSIS. PLAN TO EXTUBATE THIS AFTERNOON PER DR. PETERSON.
--- NOTE | 2021-06-04 13:41 | NUR ---
PT'S SISTER ALICIA UPDATED ON PT'S STATUS. STATES SHE WILL ARRIVE IN [place] ON THURSDAY.
--- NOTE | 2021-06-04 14:33 | NUR ---
Pt. is still on vent and can not talk prayed for the pt.
--- NOTE | 2021-06-04 18:15 | NUR ---
SHIFT SUMMARY PT ON SPONTANEOUS VENT SETTINGS 09/15, 50% SINCE 1600. PT TOLERATING WELL. PT HAS MODERATE AMOUNT OF THICK JEREZ/BLOOD TINGED SECRETIONS AND COPIOUS AMOUNTS OF TENACIOUS ORAL SECRETIONS. TITRATING PROPOFOL DOWN (CURRENTLY 10 MCG/KG/MIN) AND STARTED PRECEDEX (CURRENTLY 1.0 MCG/KG/HR), PT APPEARS MUCH MORE COMFORTABLE/RELAXED ON PRECEDEX. PT REMAINS ALERT AND ORIENTED, ABLE TO FOLLOW COMMANDS. PT'S LEFT ARM INCREASING MOBILITY. LEVOPHED TITRATED BETWEEN 1-4 MCG/MIN, CURRENTLY AT 3 MCG/MIN TO MAINTAIN MAP>65. 400 ML DARK TLAA URINARY OUTPUT. WATERY BROWN STOOL IN RECTAL TUBE. PLAN TO EXTUBATE TOMORROW, PT'S SON MALLIKA UPDATED THIS AFTERNOON. WILL REPORT TO ONCOMING NURSE.
--- NOTE | 2021-06-04 18:38 | NUR ---
will review code status with intesivist and prognosis. pt kps score is 30%
--- NOTE | 2021-06-04 20:00 | NUR ---
ASSUMED CARE OF PT AT 1915. REPORT RECEIVED. PT PRESENTS IN BED. ALERT TO MEETING. FOLLOWS THIS RN WITH EYES. NODS HEAD 'YES' AND 'NO' TO QUESTIONS. DENIES COMPLAINTS AT THIS TIME. PT INTUBATED. TOLERATING THIS WELL. WILL REVIEW CHART AND PLAN OF CARE FOR THIS PT.
--- NOTE | 2021-06-04 22:51 | NUR ---
PT TOLERATING TURNS IN BED WELL. TOLERATING VENT WELL. WILL CONTINUE TO MONITOR.
--- NOTE | 2021-06-05 01:13 | NUR ---
HAVE DECREASED LEVOPHED TO 1 MCG/KG/MIN. WILL MONITOR
[2021-06-05 04:31] LABS: Hemoglobin 8.7 g/dL (11.5-16.0); Mean Corpuscular HGB 29.2 pg (26.0-34.0); Mean Corpuscular HGB Conc 32.2 g/dL (31.5-36.5); Mean Corpuscular Volume 91 fL (80-100); Mean Platelet Volume 10.2 fL (9.1-12.4); Platelet Count 359 K/mm3 (150-400); RDW Coefficient Variation 15.9 % (11.7-14.2); RDW Standard Deviation 52.2 fL (35.1-46.3); Red Blood Cell Count 2.98 M/mm3 (3.80-5.20); White Blood Cell Count 14.35 K/mm3 (4.00-11.30)
[2021-06-05 04:55] LABS: Albumin, Blood 1.8 g/dL (3.4-5.0); Anion Gap 10 mmol/L (6-16); Blood Urea Nitrogen 71 mg/dL (8-24); Bun/Creatinine Ratio 26.5 (12.0-20.0); CO2, Blood 26 mmol/L (21-32); Calcium, Blood 7.9 mg/dL (8.5-10.1); Chloride, Blood 101 mmol/L (98-108); Creatinine, Blood 2.68 mg/dL (0.40-1.00); Glomerular Filtration Rate 18 (60-); Glucose, Blood 138 mg/dL (70-99); Magnesium, Blood 1.9 mg/dL (1.6-2.4); Phosphorus, Blood 6.1 mg/dL (2.5-4.9); Potassium, Blood 3.9 mmol/L (3.5-5.5); Sodium, Blood 137 mmol/L (136-145)
--- NOTE | 2021-06-05 06:43 | NUR ---
PT HAS REMAINED AT 1 MCG LEVOPHED THROUGH THE NIGHT. HAS HAD BLOOD PRESSURES THAT WERE SOMEWHAT LOW. DID SPEAK WITH DR ANDREW CONCERNING BLOOD PRESSURES AND LEVOPHED. ORDER RECEIVED FOR MIDODRINE. PT HAS HAD DECREASE IN AMOUNT OF SECRETIONS FROM ETT. LUNGS SOUNDS HAVE IMPROVED SOMEWHAT. PT REMAINS AFEBRILE. DOES ACKNOWLEDGE TEACHING. INCREASE IN PROPOFOL TO 30 MCG'S/KG/HOUR HAS ALLOWED FOR BETTER VENT TOLERANCE. WILL CONTINUE TO MONITOR PT, AND WILL REPORT OFF TO ONCOMING RN.
--- NOTE | 2021-06-05 09:37 | NUR ---
ASSUMED CARE REPORT FROM JORDAN/DEA JARAMILLO. PT INTUBATED, SEDATED. VENT SETTINGS SPONT 12/5, 50%, RATE LOW 20'S. TIDAL VOLUMES MID 300'S. LUNGS c EXP WHEEZES, COARSE. COUGH/GAG REFLEX PRESENT. PT FOLLOWS SIMPLE COMMANDS. PROPOFOL AND PRECEDEX GTT INFUSING. CVC TO RIJ, DRESSING C/D/I. PERICATH TO LEFT CHEST WALL, DRESSING C/D/I. ABD FIRM, DISTENDED, ECCHYMOTIC. TUBE FEEDS PLACED ON STANDBY D/T HIGH RESIDUALS. NAVARRETE PATENT, DRAINING CLOUDY YELLOW URINE TO GRAVITY. RECTAL TUBE IN PLACE, SOFT BROWN STOOL OUT. ANASCARA. LEVO GTT PLACED ON STANDBY, MIDODRINE ORDERED AND ADMINSTERED. WILL CONTINUE TO MONITOR.
--- NOTE | 2021-06-05 10:22 | NUR ---
Residual noted to be greater than 300 cc this morning at time of medication pass. Medications were given with 50 cc water flush to follow, and tube feeding placed on hold.
--- NOTE | 2021-06-05 13:05 | NUR ---
REASSESSMENT PT UP TO RECLINER. DR KRISTEN KELLY. ATTEMPTED TO DECREASE VENT SUPPORT TO 10/5/40%. DECREASED TIDAL VOLUMES AND O2 SATS DECREASED TO UPPER 80'S. VENT CHANGED TO 12/5/40%. WILL NOT ATTEMPT EXTUBATION THIS SHIFT.
--- NOTE | 2021-06-05 18:15 | NUR ---
SHIFT SUMMARY PT REMAINS INTUBATED, SPONT 09/20/50%. LUNGS COARSE c MODERATE AMOUNT OF THICK YELLOW SECRETIONS THROUGH ETT. PT UP TO CHAIR FOR MOST OF SHIFT, REQUESTING TO REMAIN IN CHAIR. FOLLOWS SIMPLE COMMANDS. NODS YES/NO. SPLINT TO RIGHT ARM REMOVED, SUTURES REMOVED AND RE WRAPPED AND SPLINT PLACED. WILL COMMUNICATE TO FOLLOWING RN NEED FOR ORTHO CONSULT. ABD ROUND, SOFT, NON TENDER. BT X 4. TUBE FEEDS CONTINUE AT GOAL. NAVARRETE PATENT, DRAINING TO GRAVITY. NO DIALYSIS TODAY. CVC TO RIJ, DRESSING CHANGED THIS SHIFT. VSS. LEVO REMAINED OFF ENTIRE SHIFT. WILL CONTINUE TO MONITOR UNTIL REPORT TO ONCOMING NURSE.
--- NOTE | 2021-06-06 | NUR ---
LAURA HAS BEEN VERY ENGAGING WITH ME THIS SHIFT, SHE HAS BEEN UP IN THE RECLINER, ON THE VENTILATOR, SPONTANEOUS SETTING WITH 50% FIO2, 12/5. SHE CONTINUES TO HAVE MODERATE AMOUNT OF SECRETIONS, JEREZ THICK. SHE WAS MOVED BACK TO THE BED USING THE CEILING LIFT, SHE HAD A FRIGHTENED LOOK AND WAS ENCOURAGED TO SLOW HER BREATHING, SHE DID WELL AFTER THAT. NAVARRETE AND RECTAL TUBE TO GRAVITY DRAINAGE, TF CONTINUES.
--- NOTE | 2021-06-06 04:44 | NUR ---
LAURA CONTINUES TO DO WELL ON SPONTANEOUS 09/15 50% VENTILATOR SETTINGS, SHE HAS BEEN SLEEPING FOR THE LAST FEW HOURS, INTERRUPTED BY TURNS AND ORAL CARE. SHE TOLERATES BOTH WELL. FEET AND HANDS REMAIN EDEMATOUS, CALLOUSED, LOTION APPLIED. BRUISING SCATTERED OVER HER ENTIRE BODY. LESS DROOLING NOTED AND LESS RETURN ON ET SUCTION OF JEREZ MATERIAL. NAVARRETE AND RECTAL TUBE TO GRAVITY DRAINAGE.
[2021-06-06 04:55] LABS: BASOPHILS ABSOLUTE AUTO 0.06 K/mm3 (0.00-0.23); BASOPHILS PERCENT AUTO 0 % (0-2); EOSINOPHILS ABSOLUTE AUTO 0.63 K/mm3 (0.00-0.68); EOSINOPHILS PERCENT AUTO 4 % (0-6); Hematocrit 27.6 % (33.0-51.0); Hemoglobin 8.7 g/dL (11.5-16.0); IMMATURE GRAN ABSOLUTE AUTO 0.45 K/mm3 (0.00-0.10); IMMATURE GRAN PERCENT AUTO 3 % (0-1); LYMPHOCYTES ABSOLUTE AUTO 0.91 K/mm3 (0.84-5.20); LYMPHOCYTES PERCENT AUTO 6 % (21-46); MONOCYTES ABSOLUTE AUTO 0.86 K/mm3 (0.16-1.47); MONOCYTES PERCENT AUTO 6 % (4-13); Mean Corpuscular HGB 28.7 pg (26.0-34.0); Mean Corpuscular HGB Conc 31.5 g/dL (31.5-36.5); Mean Corpuscular Volume 91 fL (80-100); Mean Platelet Volume 10.6 fL (9.1-12.4); NEUTROPHILS ABSOLUTE AUTO 12.79 K/mm3 (1.96-9.15); NEUTROPHILS PERCENT AUTO 81 % (41-73); Platelet Count 324 K/mm3 (150-400); RDW Coefficient Variation 15.9 % (11.7-14.2); RDW Standard Deviation 52.7 fL (35.1-46.3); Red Blood Cell Count 3.03 M/mm3 (3.80-5.20)
[2021-06-06 05:31] LABS: Alanine Aminotransfer (ALT/SGP 68 U/L (12-78); Albumin, Blood 1.8 g/dL (3.4-5.0); Albumin/Globulin Ratio 0.5 (0.8-1.8); Alk Phos 104 U/L (50-136); Anion Gap 14 mmol/L (6-16); Aspartate Aminotrans (AST/SGOT 430 U/L (12-37); Bilirubin, Direct 0.4 mg/dL (0.0-0.3); Bilirubin, Indirect 0.3 mg/dL (0.1-0.7); Bilirubin, Total 0.7 mg/dL (0.1-1.0); Blood Urea Nitrogen 92 mg/dL (8-24); Bun/Creatinine Ratio 27.1 (12.0-20.0); CO2, Blood 22 mmol/L (21-32); Calcium, Blood 8.1 mg/dL (8.5-10.1); Chloride, Blood 101 mmol/L (98-108); Globulin, Blood 3.5 g/dL (2.2-4.0); Glomerular Filtration Rate 14 (60-); Glucose, Blood 133 mg/dL (70-99); Magnesium, Blood 2.4 mg/dL (1.6-2.4); Phosphorus, Blood 7.2 mg/dL (2.5-4.9); Potassium, Blood 4.4 mmol/L (3.5-5.5); Sodium, Blood 137 mmol/L (136-145); Total Protein, Blood 5.3 g/dL (6.4-8.2)
--- NOTE | 2021-06-06 06:33 | NUR ---
LAURA DID WELL T/O THE NIGHT, MEDS WERE ON STANDBY FOR A BRIEF PERIOD OF TIME. LAURA BECAME VERY ANXIOUS, SHAKING HER HEAD, "GASPING" FOR BREATH, ENCOURAGED THAT HER NUMBERS WERE GOOD, SHE WAS OXYGENATING WELL, HER BODY WAS GETTING ENOUGH OXYGEN. MEDS TURNED BACK ON AND SHE WAS ABLE TO SETTLE DOWN. PROPOFOL @ 10MCG/KG/MIN AND PRECEDEX @ 1.4 MCG/KG/MIN. PT ENCOURAGED TO HAVE THE ETT OUT TODAY. JUST IN TO SEE PATIENT.
--- NOTE | 2021-06-06 09:58 | NUR ---
This morning Xiomara is alert, oriented and able to nod/shake head in response to questions. Oral care was completed, pt was repositioned and meds given. she denied pain at 0800, after care done.
--- NOTE | 2021-06-06 11:23 | NUR ---
PT'S LEFT ARM DUSKY/PURPLE/ECCHYMOTIC FROM SHOULDER TO HAND. HAND SWOLLEN. DR. PETERSON TO BEDSIDE FOR ASSESSMENT, ORDER FOR DVT STUDY TO LEFT UPPER EXTREMITY.
--- NOTE | 2021-06-06 18:09 | NUR ---
PT EXTUBATED AT 1700 TO 6L NC, SATS 92%. PT ANXIOUS UPON EXTUBATION. PT BREATHING THROUGH HER MOUTH AND UNABLE TO MAINTAIN SATS, SWITCHED TO VENTURI MASK 15L-RESPIRATORY THERAPY AND DR. PETERSON CONTACTED. PT DIAPHORETIC AND TACHYPNEIC. DECISION TO REINTUBATE MADE AND PT AGREES. INTUBATION STARTED AT 1737, 50 MCG PROPOFOL GIVEN AND 40 OF ROCURONIUM. PT BAGGED TO 96% AND ORAL AIRWAY ATTEMPTED UNSUCCESSFULLY WITH SATS<68%. GLIDESCOPE USED WITH SUCCESSFUL INTUBATION AT 1757. TUBE VISUALIZED THROUGH VOCAL CORDS, +COLOR CHANGE AND BREATH SOUNDS BILATERALLY. 8.0 TUBE, 26 CM @LIP. XRAY CONFIRMATION OF ETT AND OGT. VENT SETTINGS AC 16/400/15/100%. PROPOFOL CONTINUES TO INFUSE @ 25 MCG/KG/MIN, PRECEDEX @ 1.4 MCG/KG/HR. PT COMFORTABLY SEDATED AT THIS TIME. DR. PETERSON TO CALL SON (MEDICAL POWER OF CHEMICAL CHECKER) AND UPDATE. CONSULT TO BE PLACED WITH DR. MONGE FOR TRACH AND TRANSFER TO [facility]. WILL REPORT TO ONCOMING NURSE.
--- NOTE | 2021-06-06 19:43 | NUR ---
ASSUMING PT CARE: PT INTUBATED & SEDATED. VENT: AC 16/400, 15/90%. GTTs: PROPOFOL 20mcg/kg/min, PRECEDEX 1.4mcg/kg/hr, LEVOPHED 2mcg/min. PT WITHDRAWS SLIGHTLY W/ ORAL CARE, TURNING HEAD FROM SIDE TO SIDE, NO GAG, +SWALLOW. UNABLE TO FOLLOW COMMANDS. MINIMAL ETT SECRETIONS, ORAL SERETIONS THICK BROWN/RED. SEE INITIAL SHIFT ASSESSMENT. PER PREVIOUS RN REPORT, PT FAILED EXTUBATION TODAY & WAS REINTUBATED. PLAN FOR TRACH & TO SENT PT TO CARE ONE AT [facility].
--- NOTE | 2021-06-07 | NUR ---
UPDATE: TF RESTARTED. PIVOT @ 20ml/hr W/ NO SCHEDULED FLUSHES PER ORDERS. WILL MONITOR CLOSELY FOR ANY S/Sx OF FEEDING INTOLERANCE. ABD CONTINUES TO BE SOFT, NONTENDER. RESIDUALS <10ml.
[2021-06-07 04:18] LABS: BASOPHILS ABSOLUTE AUTO 0.07 K/mm3 (0.00-0.23); BASOPHILS PERCENT AUTO 0 % (0-2); EOSINOPHILS ABSOLUTE AUTO 0.55 K/mm3 (0.00-0.68); EOSINOPHILS PERCENT AUTO 3 % (0-6); Hematocrit 28.1 % (33.0-51.0); Hemoglobin 8.9 g/dL (11.5-16.0); IMMATURE GRAN ABSOLUTE AUTO 0.39 K/mm3 (0.00-0.10); IMMATURE GRAN PERCENT AUTO 2 % (0-1); LYMPHOCYTES ABSOLUTE AUTO 0.85 K/mm3 (0.84-5.20); LYMPHOCYTES PERCENT AUTO 5 % (21-46); MONOCYTES ABSOLUTE AUTO 1.26 K/mm3 (0.16-1.47); MONOCYTES PERCENT AUTO 8 % (4-13); Mean Corpuscular HGB 28.6 pg (26.0-34.0); Mean Corpuscular HGB Conc 31.7 g/dL (31.5-36.5); Mean Corpuscular Volume 90 fL (80-100); Mean Platelet Volume 10.6 fL (9.1-12.4); NEUTROPHILS PERCENT AUTO 81 % (41-73); Platelet Count 333 K/mm3 (150-400); RDW Standard Deviation 53.1 fL (35.1-46.3); Red Blood Cell Count 3.11 M/mm3 (3.80-5.20); White Blood Cell Count 16.12 K/mm3 (4.00-11.30)
[2021-06-07 04:42] LABS: Albumin, Blood 2.1 g/dL (3.4-5.0); Albumin/Globulin Ratio 0.6 (0.8-1.8); Bilirubin, Direct 0.5 mg/dL (0.0-0.3); Bilirubin, Indirect 0.3 mg/dL (0.1-0.7); Bilirubin, Total 0.8 mg/dL (0.1-1.0); Bun/Creatinine Ratio 24.7 (12.0-20.0); C-REACTIVE PROTEIN, EXT RANGE 5.01 mg/dL (0.000-0.300); Calcium, Blood 8.4 mg/dL (8.5-10.1); Globulin, Blood 3.5 g/dL (2.2-4.0); Magnesium, Blood 2.3 mg/dL (1.6-2.4); Phosphorus, Blood 5.7 mg/dL (2.5-4.9); Potassium, Blood 4.1 mmol/L (3.5-5.5); Total Protein, Blood 5.6 g/dL (6.4-8.2)
--- NOTE | 2021-06-07 06:13 | NUR ---
SHIFT SUMMARY: PT REMAINS INTUBATED & SEDATED. VENT: AC 16/400, 10/45%. GTTs: LEVOPHED 2mcg/min, PRECEDEX 1.4mcg/kg/hr, PROPOFOL 35mcg/kg/min. PT ABLE TO OPEN EYES, SQUEEZE HANDS, MOVE TOES, MOVE LIMBS VERY WEAKLY, & NOD TO SOME YES/NO QUESTIONS. RECTAL TUBE REMOVED, RE-SEATED, & REINFLATED D/T PERSISTENT LEAKING & NOW APPEARS TO BE DOING WELL. NO ACUTE NEG CHANGES THIS SHIFT. WILL CONTINUE TO MONITOR UNTIL REPORT OFF TO ONCOMING RN.
--- NOTE | 2021-06-07 15:09 | NUR ---
PT'S FAMILY AT WINDOW. PUSHED PT'S BED TO WINDOW SO THAT SHE IS ABLE TO INTERACT WITH FAMILY.
--- NOTE | 2021-06-07 18:50 | NUR ---
NO ACUTE CHANGES THIS SHIFT. PT REMAINS INTUBATED, VENT SETTINGS AC 16/400/8/45%. PT REMAINS ALERT TO VERBAL STIMULATION, COOPERATIVE WITH CARE AND ABLE TO REMAIN UNRESTRAINED. PT INTERACTED WITH FAMILY THROUGH WINDOW THIS AFTERNOON. PROPOFOL @ 25 MCG/KG/MIN, LEVOPHED @ 2 MCG/MIN, PRECEDEX @ 1.4 MCG/KG/HR. ATTEMPTS TO PLACE LEVOPHED ON STANDBY RESULTED IN IMMEDIATE HYPOTENSION. 50 ML DARK URINARY OUTPUT THIS SHIFT. WILL REPORT TO ONCOMING NURSE.
--- NOTE | 2021-06-07 20:19 | NUR ---
review of tp in rounds duscussion of trach and peg and vibra. Will follow up suggest pt be made dnr.
--- NOTE | 2021-06-08 01:11 | NUR ---
LAURA CONTINUES ON VENT, LEVO ON STANDBY WITH STABLE BLOOD PRESSURE, PT BEING TURNED Q2, NO OTHER CHANGES SINCE INIT. ASSESSMENT.
--- NOTE | 2021-06-08 04:00 | NUR ---
LAURA'S LEVO IS ON STANDBY AND BLOOD PRESSURE IS STABLE. SHE HAS A SKIN TEAR TO THE LEFT BREAST, DRESSING APPLIED. HER SKIN CONTINUES TO SHED IN THE AXILLA THE PERINEUM, INNER THIGHS AND UNDER HER BREASTS. THE CALAZIME LOTION WAS APPLIED. SHE HAS HAD MINIMAL OUTPUT FROM HER NAVARRETE AND FROM HER RECTAL TUBE.
[2021-06-08 04:43] LABS: BASOPHILS ABSOLUTE AUTO 0.05 K/mm3 (0.00-0.23); BASOPHILS PERCENT AUTO 0 % (0-2); EOSINOPHILS ABSOLUTE AUTO 0.55 K/mm3 (0.00-0.68); EOSINOPHILS PERCENT AUTO 4 % (0-6); Hematocrit 26.5 % (33.0-51.0); Hemoglobin 8.4 g/dL (11.5-16.0); IMMATURE GRAN ABSOLUTE AUTO 0.27 K/mm3 (0.00-0.10); IMMATURE GRAN PERCENT AUTO 2 % (0-1); LYMPHOCYTES ABSOLUTE AUTO 1.01 K/mm3 (0.84-5.20); LYMPHOCYTES PERCENT AUTO 7 % (21-46); MONOCYTES ABSOLUTE AUTO 1.19 K/mm3 (0.16-1.47); MONOCYTES PERCENT AUTO 8 % (4-13); Mean Corpuscular HGB 28.6 pg (26.0-34.0); Mean Corpuscular HGB Conc 31.7 g/dL (31.5-36.5); Mean Corpuscular Volume 90 fL (80-100); Mean Platelet Volume 10.9 fL (9.1-12.4); NEUTROPHILS ABSOLUTE AUTO 11.12 K/mm3 (1.96-9.15); NEUTROPHILS PERCENT AUTO 78 % (41-73); Platelet Count 262 K/mm3 (150-400); RDW Coefficient Variation 15.9 % (11.7-14.2); RDW Standard Deviation 51.8 fL (35.1-46.3); Red Blood Cell Count 2.94 M/mm3 (3.80-5.20); White Blood Cell Count 14.19 K/mm3 (4.00-11.30)
[2021-06-08 05:08] LABS: Albumin, Blood 1.8 g/dL (3.4-5.0); Albumin/Globulin Ratio 0.5 (0.8-1.8); Bilirubin, Total 0.8 mg/dL (0.1-1.0); Bun/Creatinine Ratio 24.8 (12.0-20.0); Creatinine, Blood 3.79 mg/dL (0.40-1.00); Globulin, Blood 3.4 g/dL (2.2-4.0); Magnesium, Blood 2.2 mg/dL (1.6-2.4); Phosphorus, Blood 6.1 mg/dL (2.5-4.9); Potassium, Blood 4.5 mmol/L (3.5-5.5); Total Protein, Blood 5.2 g/dL (6.4-8.2)
--- NOTE | 2021-06-08 06:32 | NUR ---
LAURA HAS BEEN SLEEPING FOR THE MAJORITY OF THE SHIFT, SHE WILL AROUSE TO VERBAL STIMULI AND NOD/SHAKE HER HEAD TO ANSWER QUESTIONS, SHE CONTINUES WITH GENERALIZED EDEMA OVER HER ENTIRE BODY, BRUISING ALL OVER WELL. HER VENT SETTINGS AC 16/400/8/45%. PROPOFOL @ 25MCG/KG, PRECEDEX @ 1.4MCG/KG, LEVO ON SB SINCE 0. PIVOT 1.5 TF @ 25ML/HR, SHE HAD MINIMAL OUTPUT FROM HER NAVARRETE AND NONE FROM THE RECTAL TUBE. SHE CONTINUES IN SR W/ BBB. SHE IS LESS ENGAGING THAN THE PREVIOUS SHIFTS.
--- NOTE | 2021-06-08 09:00 | NUR ---
ASSUMED CARE FROM NOC SHIFT. PT ALERT WITH MININMAL SEDATION WHILE VENTILATED. DIALYSIS NURSE AT BEDSIDE SETTING UP. WILL MONITOR BP AND START LEVOPHED GTT NEEDED. DENIES NO PAIN BY SHAKING HEAD "NO". VENTILATOR SETTINGS REMAIN THE SAME. DR SAXENA IN THIS AM, NO NEW ORDERS. PLAN FOR TRACHEOSTOMY THIS COMING WEEK. CONTINUE TO MONITOR AND TX PRN.
--- NOTE | 2021-06-08 14:42 | NUR ---
SPOKE WITH PATIENT'S SISTER ALICIA AND UPDATE ON PATIENTS STATUS. VERBALIZED UNDERSTANDING AND PLANS TO COME SEE PATIENT ON THURSDAY THROUGH WINDOW.
--- NOTE | 2021-06-08 18:43 | NUR ---
SHIFT SUMMARY INCREASE INTERACTION WITH BEDSIDE RN. PT DIDN'T WANT ME TO LEAVE AND STAY IN ROOM TO KEEP COMPANY. MADE TIME FRAME ARRANGEMENTS WHEN I WOULD RETURN AND PATIENT WAS AGREEABLE. TOLERATED WELL ON VENT SETTINGS, CONTINUES TO HAVE COPIOUS AMOUNT OF ORAL SECRETIONS AND MODERATE AMOUNT OF THICK JEREZ/REDDISH COLOR SPUTUM. RECEIVED DIAYLSIS TODAY, REMOVED 3.2L PER DIALYSIS NURSE. WAS ABLE TO STOP PROPOFOL GTT AND CONTINUE ONLY WTH PRECEDEX GTT AT 0.5MCG TO KEEP COMFORT WHILE VENTILATED. LEVOPHED WAS TURNED OFF SHORTLY AFTER COMPLETION OF DIALYSIS, CONTINUES TO RECEIVE MIDORINE PO. TOLERATING TUBE FEEDINGS AT GOAL RATE 20ML/HR. DENIES NO PAIN. INCREASE MOVEMENT TO UPPER EXT'S AND AT TIMES PULLS AT VENT TUBING. NO OTHER CHANGES NOTED. WILL REPORT OFF TO NOC SHIFT.
[2021-06-09 04:53] LABS: BASOPHILS ABSOLUTE AUTO 0.04 K/mm3 (0.00-0.23); BASOPHILS PERCENT AUTO 0 % (0-2); EOSINOPHILS ABSOLUTE AUTO 0.42 K/mm3 (0.00-0.68); EOSINOPHILS PERCENT AUTO 3 % (0-6); Hematocrit 26.1 % (33.0-51.0); Hemoglobin 8.1 g/dL (11.5-16.0); IMMATURE GRAN ABSOLUTE AUTO 0.24 K/mm3 (0.00-0.10); IMMATURE GRAN PERCENT AUTO 2 % (0-1); LYMPHOCYTES ABSOLUTE AUTO 1.06 K/mm3 (0.84-5.20); LYMPHOCYTES PERCENT AUTO 8 % (21-46); MONOCYTES ABSOLUTE AUTO 1.09 K/mm3 (0.16-1.47); MONOCYTES PERCENT AUTO 8 % (4-13); Mean Corpuscular Volume 90 fL (80-100); Mean Platelet Volume 11.1 fL (9.1-12.4); NEUTROPHILS ABSOLUTE AUTO 10.67 K/mm3 (1.96-9.15); NEUTROPHILS PERCENT AUTO 79 % (41-73); Platelet Count 238 K/mm3 (150-400); RDW Coefficient Variation 15.9 % (11.7-14.2); RDW Standard Deviation 52.6 fL (35.1-46.3); Red Blood Cell Count 2.89 M/mm3 (3.80-5.20); White Blood Cell Count 13.52 K/mm3 (4.00-11.30)
[2021-06-09 05:18] LABS: Albumin, Blood 1.9 g/dL (3.4-5.0); Anion Gap 9 mmol/L (6-16); Blood Urea Nitrogen 73 mg/dL (8-24); Bun/Creatinine Ratio 22.3 (12.0-20.0); CO2, Blood 27 mmol/L (21-32); Calcium, Blood 8.2 mg/dL (8.5-10.1); Chloride, Blood 104 mmol/L (98-108); Creatinine, Blood 3.27 mg/dL (0.40-1.00); Glomerular Filtration Rate 14 (60-); Glucose, Blood 108 mg/dL (70-99); Magnesium, Blood 2.2 mg/dL (1.6-2.4); Phosphorus, Blood 4.7 mg/dL (2.5-4.9); Potassium, Blood 3.9 mmol/L (3.5-5.5); Sodium, Blood 140 mmol/L (136-145)
--- NOTE | 2021-06-09 06:29 | NUR ---
LAURA HAS BEEN RESTLESS, AGITATED AND UNCOMFORTABLE THIS SHIFT, SHE WAS FINALLY MEDICATED WITH ATIVAN AND SHE WAS ABLE TO REST SOME. SHE DID GET HER BATH, TURNED Q2 AND ORAL CARE Q4. SHE CONTINUES ON THE VENTILATOR WITH SETTING AC 16/400/8/45% PROPOFOL @ 20MCG/KG, PRECEDEX @ 0.7MCG/KG. TUBE FEEDING @ 20ML /HR. MINIMAL OUTPUT FROM NAVARRETE AND FROM RECTAL TUBE.
--- NOTE | 2021-06-09 13:59 | NUR ---
DR AMAYA EVALUATED PATIENT THIS AM AND MADE SOME CHANGES TO SEDATION MEDS. WILL TITRATE PROPOFOL OFF AND PRECEDEX OFF TOLERATED. WILL START LORAZEMPAM AND SEROQUEL PER TUBE. REMAINS ON SAME VENT SETTINGS. PLANS FOR TRACH PLACEMENT FOR THIS COMING WEEK. CONTINUE TO MONITOR AND TX PRN.
--- NOTE | 2021-06-09 15:31 | NUR ---
PATIENT TOLERATING SITTING UP IN CHAIR. CALLED TO FAMILY TO TRANSER CALL INTO ROOM SO THEY CAN TALK WITH PATIENT. PATIENT LISTENING AND REMAINS CALM.
--- NOTE | 2021-06-09 18:49 | NUR ---
SHIFT SUMMARY PATIENT HAD INCREASE AGITATION/ANXIETY FIRST PART OF DAY. PROPOFOL AND PRECEDEX GTT TITRATED TO EFFECT. LEFT WRIST RESTRAINT IN PLACE DUE TO PULLING AT ETT LINE. REMAINS VENTED WITH SAME SETTINGS. AWAITS FOR TRACH AND PEG TUBE PLACEMENT THIS COMING WEEK. DR AMAYA MADE SOME CHANGES TO ANXIETY MEDS, STARTED LORAZEPAM AND SEROQUEL AND TITRATED PRECEDEX AND PROPOFOL GTT TO OFF. MODERATE IMPROVEMENT NOTICED WITH NEW MEDS. CONTINUES WITH TUBE FEEDING AT GOAL RATE AND TOLERATING WELL. NO DIALYSIS TODAY. KIDNEYS BECOMING ANURIC, ONLY 25CC DARK TALA COLOR URINE. UP TO CHAIR TODAY FOR 2.5HRS, TOLERATED WELL. RESTRAINTS OFF DURING THAT TIME AND PULLED AT ETT LINE AND PULLED ETT OUT FROM ORIGINAL CM. RESPIRATORY THERAPY RETAPED AND PLACED ETT BACK AT 26CM @ LIP. FAMILY SPOKE TO PATIENT VIA PHONE AND SPOKE WITH SON MALLIKA AND GAVE UPDATE ON STATUS AND PLAN FOR THE WEEK. NO OTHER CHANGES, WILL REPORT TO NOC SHIFT.
[2021-06-10 04:49] LABS: BASOPHILS ABSOLUTE AUTO 0.07 K/mm3 (0.00-0.23); BASOPHILS PERCENT AUTO 1 % (0-2); EOSINOPHILS ABSOLUTE AUTO 0.45 K/mm3 (0.00-0.68); EOSINOPHILS PERCENT AUTO 3 % (0-6); Hematocrit 28.8 % (33.0-51.0); Hemoglobin 8.8 g/dL (11.5-16.0); IMMATURE GRAN PERCENT AUTO 1 % (0-1); LYMPHOCYTES ABSOLUTE AUTO 0.79 K/mm3 (0.84-5.20); LYMPHOCYTES PERCENT AUTO 5 % (21-46); MONOCYTES ABSOLUTE AUTO 1.05 K/mm3 (0.16-1.47); MONOCYTES PERCENT AUTO 7 % (4-13); Mean Corpuscular HGB 27.8 pg (26.0-34.0); Mean Corpuscular HGB Conc 30.6 g/dL (31.5-36.5); Mean Corpuscular Volume 91 fL (80-100); Mean Platelet Volume 11.5 fL (9.1-12.4); NEUTROPHILS PERCENT AUTO 83 % (41-73); Platelet Count 267 K/mm3 (150-400); RDW Coefficient Variation 16.2 % (11.7-14.2); RDW Standard Deviation 53.3 fL (35.1-46.3); Red Blood Cell Count 3.16 M/mm3 (3.80-5.20); White Blood Cell Count 14.86 K/mm3 (4.00-11.30)
[2021-06-10 05:22] LABS: Anion Gap 10 mmol/L (6-16); Blood Urea Nitrogen 96 mg/dL (8-24); Bun/Creatinine Ratio 22.7 (12.0-20.0); CO2, Blood 27 mmol/L (21-32); Calcium, Blood 9.2 mg/dL (8.5-10.1); Chloride, Blood 103 mmol/L (98-108); Creatinine, Blood 4.23 mg/dL (0.40-1.00); Glomerular Filtration Rate 11 (60-); Glucose, Blood 102 mg/dL (70-99); Phosphorus, Blood 5.5 mg/dL (2.5-4.9); Potassium, Blood 4.3 mmol/L (3.5-5.5); Sodium, Blood 140 mmol/L (136-145)
--- NOTE | 2021-06-10 07:28 | NUR ---
Not receiving sedation. Open eyes spontanously. Follow commands to best of her ability. Noticeable weakness on all 4 extremities. Respiratory supported by mechanical ventilation, as documented. Urine via goddard catheter. Anuric output. No calls asking about her well being, during the night.
[2021-06-10 10:25] LABS: International Normalized Ratio 0.98; Prothrombin Time Results 10.6 Sec (9.7-11.5)
--- NOTE | 2021-06-10 12:36 | NUR ---
LATE AM NOTE... PT AT EARLY 0830 ASSESSMENT WAS RESTLESS AND SOMEWHAT MILDLY AGITATIED AND UNABLE TO FULLY FOLLOW COMMANDS OR COOPERATED AT THIS TIME. VS NOTED STABLE. PT IS NOT RESTRAINED AND WILL REACHING FOR SX TUBING BUT NOT GRABBING TO PULL OUT. LAMINA SEARCHER IN AND SHORTLY AFTER STARTING HD BP DROPPED AND LEVOPHED GTT WAS REQUIRED. SEE HD RN NOTED FOR COLLABERATIVE TITRATION. LEVOPHED ENDED UP AT 10MCG AT END OF HD AND WILL FOLLOW. DR CAMP IN TO SEE PT AND WILL TAKE TO OR FOR TRACH AT APPROX [id number]. T.F. STOPPED AT APPROX 0900 PER-OP. TOWARD THE END OF HD HR ELEVATED TO 120-130 RANGE AND SPONT RESOLVED. DR SAXENA IN TO ASSESS AND STAT LABS ORDERED, WILL REPORT AVALIBLE. PT REMAINS ON AC 16 400 45 AND OF PEEP.
[2021-06-10 12:55] LABS: Magnesium, Blood 2.3 mg/dL (1.6-2.4)
[2021-06-10 12:59] LABS: Albumin, Blood 2.4 g/dL (3.4-5.0); Albumin/Globulin Ratio 0.6 (0.8-1.8); Bilirubin, Total 1.2 mg/dL (0.1-1.0); Bun/Creatinine Ratio 21.9 (12.0-20.0); Calcium, Blood 9.6 mg/dL (8.5-10.1); Creatinine, Blood 2.15 mg/dL (0.40-1.00); Globulin, Blood 4.3 g/dL (2.2-4.0); Potassium, Blood 3.6 mmol/L (3.5-5.5); Total Protein, Blood 6.7 g/dL (6.4-8.2)
--- NOTE | 2021-06-10 14:44 | NUR ---
Pt. is still in vent and the nurses in the room attending to her needs offered prayers for pt.
--- NOTE | 2021-06-10 15:42 | NUR ---
PERC TRACH PER DR CAMP AND KRISTEN. IQRA PLACED AND CXR CONFIRMED PER DR SAXENA AND FEEDING RESUMED. JORDYN FRANCOIS IS 60 CM AT THE L NARE AND SECURED.
--- NOTE | 2021-06-10 18:13 | NUR ---
PT CONT TO SLEEP POST TRACH. VSS ON 4 MCG LEVOPHED GTT. TRACH SITE ONLY NOTED WITH SCANT BLEEDING. I/O NOTED. HAVE SPOKEN TO FAMILY AND PLAN TO VISIT AT WINDOW.
[2021-06-11 03:55] LABS: BASOPHILS ABSOLUTE AUTO 0.08 K/mm3 (0.00-0.23); BASOPHILS PERCENT AUTO 1 % (0-2); EOSINOPHILS ABSOLUTE AUTO 0.09 K/mm3 (0.00-0.68); EOSINOPHILS PERCENT AUTO 1 % (0-6); Hematocrit 29.1 % (33.0-51.0); IMMATURE GRAN ABSOLUTE AUTO 0.23 K/mm3 (0.00-0.10); IMMATURE GRAN PERCENT AUTO 1 % (0-1); LYMPHOCYTES ABSOLUTE AUTO 1.09 K/mm3 (0.84-5.20); LYMPHOCYTES PERCENT AUTO 7 % (21-46); MONOCYTES ABSOLUTE AUTO 1.13 K/mm3 (0.16-1.47); MONOCYTES PERCENT AUTO 7 % (4-13); Mean Corpuscular HGB 27.7 pg (26.0-34.0); Mean Corpuscular HGB Conc 30.9 g/dL (31.5-36.5); Mean Corpuscular Volume 90 fL (80-100); Mean Platelet Volume 10.8 fL (9.1-12.4); NEUTROPHILS ABSOLUTE AUTO 13.28 K/mm3 (1.96-9.15); NEUTROPHILS PERCENT AUTO 84 % (41-73); Platelet Count 285 K/mm3 (150-400); RDW Coefficient Variation 16.3 % (11.7-14.2); RDW Standard Deviation 53.2 fL (35.1-46.3); Red Blood Cell Count 3.25 M/mm3 (3.80-5.20)
[2021-06-11 04:17] LABS: Albumin, Blood 1.9 g/dL (3.4-5.0); Anion Gap 10 mmol/L (6-16); Blood Urea Nitrogen 83 mg/dL (8-24); Bun/Creatinine Ratio 23.8 (12.0-20.0); CO2, Blood 27 mmol/L (21-32); Calcium, Blood 8.1 mg/dL (8.5-10.1); Chloride, Blood 103 mmol/L (98-108); Creatinine, Blood 3.49 mg/dL (0.40-1.00); Glomerular Filtration Rate 13 (60-); Glucose, Blood 161 mg/dL (70-99); Magnesium, Blood 2.2 mg/dL (1.6-2.4); Phosphorus, Blood 4.5 mg/dL (2.5-4.9); Sodium, Blood 140 mmol/L (136-145)
--- NOTE | 2021-06-11 06:33 | NUR ---
DR ANDREW TO BEDSIDE AT THIS TIME.
--- NOTE | 2021-06-11 07:48 | NUR ---
SHIFT SUMMARY PT ALERT, DIFFICULT TO DETERMINE HOW ORIENTED PT IS D/T NON-VERBAL W/TRACH. MOUTHS WORDS, DIFFICULT TO DECIPHER, MOST OF THE TIME WORDS APPEAR TO BE SAYING "I'M IN PAIN" PT NODS HEAD "YES" WHEN THIS RN ASKS IF THIS IS WHAT PT IS SAYING. PT MEDICATED PER EMAR FOR PAIN AND ANXIETY. PT'S BP ARE VARYING T/O SHIFT AND MULTIPLE ADJUSTMENTS/TITRATIONS ARE NEEDED TO BE MADE TO LEVOPHED GTT. PT TITRATED DOWN TO 2 MCG INITIALLY, THEN NEEDED TO BE INCREASED TO 4 MCG AND THEN 8 MCG FOLLOWING MEDICATED W/ORDERED ATIVAN AND SEROQUEL PT AND OXYCODONE PRN FOR PAIN. ABLE TO TITRATE PT BACK DOWN D/T SBP 160'S-180'S. PT RHYTHM SHOWS BBB ON THE MONITOR, OCCASIONALLY TACHYCARDIC TO 120 BPM WITH INCREASED AGITATION. AT START OF SHIFT, PT REPEATEDLY GRABBED AT TUBING FOR VENT ON NETSUITE DEVELOPER DESPITE THIS RN WARNING PT OF RISK OF PULLING ON TUBE MULTIPLE TIMES. PT HAS ROUGH EPISODE OF COUGHING THAT DISPLACES VENT TUBING, SATS DROP TO 82% OFF OF VENT, IMMEDIATELY BACK TO 94% ONCE TUBING IS REPLACED. TKO FLUIDS CONTINUE INFUSING. PT HAS MINIMAL URINE OUTPUT OF 25 MLS T/O SHIFT IN NAVARRETE. LITTLE STOOL OUTPUT FROM RECTAL TUBE. TF CONTINUE AT 20 MLS/HR W/O FLUSHES D/T ORDER TO REFRAIN FROM OVER FLUSHING W/FEEDS. FLUSHES GIVEN WITH MEDICATIONS. PT IS UNABLE TO INDICATE WHERE PAIN IS WHEN THIS RN ASKS. SOME BLOODY DRAINAGE FROM TRACH SITE THROUGH NIGHT. LEVOPHED INFUSING AT 4 MCG. AND TKO NS INFUSING.
--- NOTE | 2021-06-11 09:12 | NUR ---
PT REMAINS SENSITIVE TO TITRATING LEVOPHED GTT, WILL FOLLOW NEEDED AND UNSURE RE H.D. STATUS TODAY. PT TRACH SITE WITH ONLY SL AMOUNT OF OLD BLOOD AND STABLE WHEN CLEANED. PT IS QUITE PSYCHOTIC AND SHAKING HEAD PRIOR TO PO ATIVAN, SEE EMAR. CONT TO HAVE RECTAL STOOLING, BROWN PER TUBE, AND LIQUID. PERMACATH INTACT, RIJ WITH 2 LUMENS PLUGGED AND WILL CHANGE TO PICC WHEN AVALIBLE. ON AC CURRENTLY AND ANTICIPATE CHANGE TO SPONT THIS AM. LUNGS CLEAR W/O ACTIVE BLEEDING.
--- NOTE | 2021-06-11 13:49 | NUR ---
et pt in bed out of vent, but sleeping , prayed for pt.
--- NOTE | 2021-06-11 18:39 | NUR ---
PT BP HAS CONT TO BE QUITE LABILE TODAY RANGING FROM 2-5 MCG, SEE VS. PT CONT TO TOLERATE SPONT 15/5 AT 40%. TRACH SX HAS BEEN WHITE AND OUTER STOMA AREA WITH MINIMAL/SCANT BLEEDING NOTED. NAVARRETE OUTPUT IS MINIMAL. RECTAL TUBE CONT WITH LIQUID STOOL. THERE WAS NO H.D. TODAY. PT TF HAS BEEN INC TO 40 ML AND VIA DOBHOFF.
[2021-06-12 03:46] LABS: BASOPHILS ABSOLUTE AUTO 0.06 K/mm3 (0.00-0.23); BASOPHILS PERCENT AUTO 0 % (0-2); EOSINOPHILS ABSOLUTE AUTO 0.16 K/mm3 (0.00-0.68); EOSINOPHILS PERCENT AUTO 1 % (0-6); Hematocrit 28.1 % (33.0-51.0); Hemoglobin 8.7 g/dL (11.5-16.0); IMMATURE GRAN ABSOLUTE AUTO 0.22 K/mm3 (0.00-0.10); IMMATURE GRAN PERCENT AUTO 1 % (0-1); LYMPHOCYTES ABSOLUTE AUTO 1.09 K/mm3 (0.84-5.20); LYMPHOCYTES PERCENT AUTO 7 % (21-46); MONOCYTES ABSOLUTE AUTO 0.97 K/mm3 (0.16-1.47); MONOCYTES PERCENT AUTO 6 % (4-13); Mean Corpuscular HGB 27.8 pg (26.0-34.0); Mean Corpuscular Volume 90 fL (80-100); NEUTROPHILS ABSOLUTE AUTO 13.31 K/mm3 (1.96-9.15); NEUTROPHILS PERCENT AUTO 84 % (41-73); Platelet Count 287 K/mm3 (150-400); RDW Coefficient Variation 16.6 % (11.7-14.2); RDW Standard Deviation 54.3 fL (35.1-46.3); Red Blood Cell Count 3.13 M/mm3 (3.80-5.20); White Blood Cell Count 15.81 K/mm3 (4.00-11.30)
[2021-06-12 04:01] LABS: Albumin, Blood 1.7 g/dL (3.4-5.0); Anion Gap 9 mmol/L (6-16); Blood Urea Nitrogen 105 mg/dL (8-24); Bun/Creatinine Ratio 24.9 (12.0-20.0); CO2, Blood 29 mmol/L (21-32); Calcium, Blood 8.5 mg/dL (8.5-10.1); Chloride, Blood 100 mmol/L (98-108); Creatinine, Blood 4.21 mg/dL (0.40-1.00); Glomerular Filtration Rate 11 (60-); Glucose, Blood 145 mg/dL (70-99); Phosphorus, Blood 5.7 mg/dL (2.5-4.9); Potassium, Blood 4.7 mmol/L (3.5-5.5); Sodium, Blood 138 mmol/L (136-145)
--- NOTE | 2021-06-12 07:01 | NUR ---
SHIFT SUMMARY PT SLEPT THROUGH MOST OF NIGHT, EASILY AWOKEN WITH THIS RN AT BEDSIDE. LATER IN SHIFT IN EARLY AM PT RESPONDS MORE READILY TO QUESTIONS WITH HEAD NODS AND MOUTHING WORDS TO THIS RN. Q2 TURNS T/O SHIFT. PT TOLERATED WELL, COPIOUS ORAL SPUTUM SUCTIONED T/O SHIFT, MORE TRACH SUCTIONING NEEDED AFTER PT AWAKENS THIS AM. LITTLE URINE OUTPUT 25 MLS. LEVOPHED INFUSING AT 6 MCG/MIN. TKO NS INFUSING AT 10 MLS/HR. CONTINUOUS TUBE FEEDS AT 40 MLS/HR W/NO PROGRAMMED FLUSHES. SINUS RHYTHM-SINUS TACH BBB 90'S-100'S. SBP VARYING, INCREASE W/AGITATION AND DROP RAPIDLY AFTER PT RELAXES/SLEEPS. VENT ON SPONTANEOUS 15/5 AND 40% FIO2.
--- NOTE | 2021-06-12 07:22 | NUR ---
Received report from Jeferson/Imelda JARAMILLO. Patient has #8 Shiley trach and is on settings of Spon. PS 15, FiO2 40% PEEP % with sats >90%. She is on Isolation for ESBL. She awakens and follows commands. She is in single Left wrist restraint as she reaches up to pull vent tubes, will cont. to re-evaluate. She has RIJ dressing intact and site WNL's and is infusing NS TKO, Levophed at 6 mcg/min and systolic 116. She has Dobhoff to left nares ans is infusing Pivot 1.5 and is running at 40 ml/hr no flushes.. She has 16 Fr goddard draioning to gravity cloudy yellow urine. Rectal tube in place. She has kelsey glass cast to right arm for Ulna fx. She has mepalex style heel protectors in place. Trach care, oral care and scant trach secretions.
--- NOTE | 2021-06-12 10:00 | NUR ---
Patient remaisn on spon. mode and sats >90%. She contin ues to participate with care. remains in left soft wrist restraints as not to pull at tubes Levophed remaisn at 6 mcg/min and systolics getting better 130's. NS remaisn TKO.
--- NOTE | 2021-06-12 12:00 | NUR ---
Dialysis in room and started about 15 minutes ago. Levo was on standby per Dr Ann and restarted after dialysis strated and Dr Alonso wanted to pull 3 liters and dropped BP. Tolerating dialysis well.
--- NOTE | 2021-06-12 14:00 | NUR ---
Dialysis continues and patient tolerating well. Increased Levophed to 8mcg/min during dialysis. Asked her to slow pull toward end to help with BP, systolic 90. No changes to vent setting and remains on spon. mode PS 15, 40% FiO2, sats >90%.
--- NOTE | 2021-06-12 16:00 | NUR ---
Levophed remains at 8 mcg/min and systolics 90-low 100's. VSS, See EMR. Patient needs frequent positioning changes for comfort. No chnages to vent settings.
--- NOTE | 2021-06-12 18:00 | NUR ---
Levophed placed on standby and systolic >100's. Vent settings Spon. PS 15, FiO2 40% and sats >90%. Medicated patient for pain.. Remains in left soft wrist restraits for tube and patient safety. NS TKO.
[2021-06-13 04:59] LABS: Hematocrit 29.6 % (33.0-51.0); Hemoglobin 9.1 g/dL (11.5-16.0); Mean Corpuscular HGB 27.7 pg (26.0-34.0); Mean Corpuscular HGB Conc 30.7 g/dL (31.5-36.5); Mean Corpuscular Volume 90 fL (80-100); Mean Platelet Volume 10.9 fL (9.1-12.4); Platelet Count 309 K/mm3 (150-400); RDW Coefficient Variation 16.6 % (11.7-14.2); Red Blood Cell Count 3.29 M/mm3 (3.80-5.20); White Blood Cell Count 13.86 K/mm3 (4.00-11.30)
[2021-06-13 05:14] LABS: Albumin, Blood 1.7 g/dL (3.4-5.0); Anion Gap 8 mmol/L (6-16); Blood Urea Nitrogen 91 mg/dL (8-24); Bun/Creatinine Ratio 25.6 (12.0-20.0); CO2, Blood 31 mmol/L (21-32); Calcium, Blood 8.5 mg/dL (8.5-10.1); Chloride, Blood 99 mmol/L (98-108); Creatinine, Blood 3.55 mg/dL (0.40-1.00); Glomerular Filtration Rate 13 (60-); Glucose, Blood 267 mg/dL (70-99); Potassium, Blood 5.2 mmol/L (3.5-5.5); Sodium, Blood 138 mmol/L (136-145)
[2021-06-13 06:49] LABS: BAND PERCENT MAN 1 % (0-8); BASOPHILS PERCENT MAN 0 % (0-2); EOSINOPHILS ABSOLUTE MAN 0.13 K/mm3 (0.00-0.68); EOSINOPHILS PERCENT MAN 1 % (0-6); LYMPHOCYTES ABSOLUTE MAN 0.27 K/mm3 (0.84-5.20); LYMPHOCYTES PERCENT MAN 2 % (21-46); MONOCYTES ABSOLUTE MAN 0.13 K/mm3 (0.16-1.47); MONOCYTES PERCENT MAN 1 % (4-13); SEG NEUTROPHILS PERCENT MAN 95 % (41-73); TOTAL CELLS COUNTED 100
--- NOTE | 2021-06-13 07:00 | NUR ---
assumed care after patient ambassador report. Pt anxious in bed, hitting siderail. pt mouthed she needed to void, reminded of catheter and ensure her she could void at any time. pt has foul odor present. unable to locate source. oral care and pericare provided. repositioned for comfort.
--- NOTE | 2021-06-13 07:37 | NUR ---
SHIFT SUMMARY PT INCREASINGLY AGITATED THROUGH SHIFT. HR INCREASED W/AGITATION UP INTO 110'S SINUS TACH/BBB FROM 80'S-100'S AT START OF SHIFT. PT VENT INCREASED TO 50% O2 TWICE DURING SHIFT, ONCE IN FIRST HALF, AND RECENTLY THIS AM D/T LOW SATS OF 88% DESPITE FREQUENT SUCTIONING AND REPOSITIONING. PT MEDICATED PER EMAR FOR AGITATION. LEVOPHED TURNED OFF AT AROUND 2106-5712 FROM 1 MCG/MIN D/T CONSISTENT MAPS OF 70'S-90'S. PT DIAPHORETIC AND C/O BEING OVERHEATED, UTILIZED COOL WASHCLOTHS AND ICE PACKS W/LITTLE EFFECT. PT REQUIRED COVERAGE W/INSULIN THROUGH SHIFT. NS TKO INFUSING THROUGH CENTRAL LINE.
--- NOTE | 2021-06-13 17:57 | NUR ---
pt extremely anxious with every encounter, bangs on side rails. md increase po ativan and pt more relaxed and able to rest after.
--- NOTE | 2021-06-13 19:30 | NUR ---
ASSUMED CARE OF PT AT 1915. REPORT RECEIVED. PT PRESENTS IN BED. EYES OPEN AND ACKNOWLEDGES THIS RN. SHAKES HEAD 'YES' AND 'NO' TO QUESTIONS. PT HAD DISLODGED VENT TUBE FROM TRACH. SATURATIONS DROP TO 75 PERCENT. RECONNECTED TUBING. PT CURRENTLY AT 92 PERCENT. CAUTIONED PT ON BEING CAREFUL WITH TUBING. WILL CONSIDER RESTRAINTS IF NECESSARY. WILL REVIEW CHART AND PLAN OF CARE FOR THIS PT.
--- NOTE | 2021-06-14 02:15 | NUR ---
PT RECEIVES BEDBATH IN WHICH SHE TOLERATES FAIRLY. PT HAS BEEN MEDICATED WITH OXYCODONE AND 25 MCG FENTANYL FOR COMPLAINTS OF GENERALIZED DISCOMFORT. PT HAD BEEN HYPERTENSIVE AND RECEIVED 10 MG HYDRALAZINE WITH FAIR RESULTS. DID RECEIVE HER SCHEDULED CATAPRESS AND MIDNIGHT MEDS. SINCE THIS, PT HAS BEEN SOMEWHAT HYPOTENSIVE. WILL CONTINUE TO MONITOR.
[2021-06-14 04:58] LABS: BASOPHILS ABSOLUTE AUTO 0.05 K/mm3 (0.00-0.23); BASOPHILS PERCENT AUTO 0 % (0-2); EOSINOPHILS ABSOLUTE AUTO 0.03 K/mm3 (0.00-0.68); EOSINOPHILS PERCENT AUTO 0 % (0-6); Hematocrit 27.3 % (33.0-51.0); Hemoglobin 8.5 g/dL (11.5-16.0); IMMATURE GRAN ABSOLUTE AUTO 0.29 K/mm3 (0.00-0.10); IMMATURE GRAN PERCENT AUTO 2 % (0-1); LYMPHOCYTES ABSOLUTE AUTO 1.27 K/mm3 (0.84-5.20); LYMPHOCYTES PERCENT AUTO 7 % (21-46); MONOCYTES ABSOLUTE AUTO 1.05 K/mm3 (0.16-1.47); MONOCYTES PERCENT AUTO 6 % (4-13); Mean Corpuscular HGB 27.8 pg (26.0-34.0); Mean Corpuscular HGB Conc 31.1 g/dL (31.5-36.5); Mean Corpuscular Volume 89 fL (80-100); Mean Platelet Volume 11.3 fL (9.1-12.4); NEUTROPHILS ABSOLUTE AUTO 14.67 K/mm3 (1.96-9.15); NEUTROPHILS PERCENT AUTO 85 % (41-73); Platelet Count 380 K/mm3 (150-400); RDW Coefficient Variation 16.9 % (11.7-14.2); RDW Standard Deviation 54.5 fL (35.1-46.3); Red Blood Cell Count 3.06 M/mm3 (3.80-5.20); White Blood Cell Count 17.36 K/mm3 (4.00-11.30)
[2021-06-14 05:20] LABS: Albumin, Blood 2.4 g/dL (3.4-5.0); Anion Gap 11 mmol/L (6-16); Blood Urea Nitrogen 123 mg/dL (8-24); Bun/Creatinine Ratio 28.4 (12.0-20.0); CO2, Blood 27 mmol/L (21-32); Calcium, Blood 9.1 mg/dL (8.5-10.1); Chloride, Blood 100 mmol/L (98-108); Creatinine, Blood 4.33 mg/dL (0.40-1.00); Glomerular Filtration Rate 10 (60-); Glucose, Blood 185 mg/dL (70-99); Magnesium, Blood 2.6 mg/dL (1.6-2.4); Phosphorus, Blood 5.3 mg/dL (2.5-4.9); Potassium, Blood 4.9 mmol/L (3.5-5.5); Sodium, Blood 138 mmol/L (136-145)
--- NOTE | 2021-06-14 07:00 | NUR ---
PT HAS BEEN FOUND PULLING VENT LINE FROM TRACH SOMETIMES OFTEN. REDIRECTION OF PT NOT KEEPING HER FROM DOING THIS. DID OPT TO PLACE SOFT WRIST RESTRAINTS FOR PT SAFETY. PT WAS MEDICATED ONCE THIS SHIFT WITH 25 MCG FENTANYL, AND OXYCODONE FOR GENERALIZED PAIN. WILL KEEP OBSERVING PT AND WILL REPORT OFF TO ONCOMING RN.
--- NOTE | 2021-06-14 10:45 | NUR ---
SISTER ALICIA CALLED, UPDATED ON PATIENT'S STATUS AND ANSWERED MOST OF HER QUESTIONS. THE ONLY QUESTIONS I COULDN'T ANSWER WAS; HOW LONG WILL PATIENT BE VENT DEPENDENT AND THE NEED FOR TRACH DETENTION. INFORMED HER THAT I WOULD ASK THE IMPORT CLERK THE QUESTIONS AND GET BACK TO HER.
--- NOTE | 2021-06-14 12:58 | NUR ---
DR PETERSON MADE CHANGES TO VENT SETTINGS, DECREASE PRESSURE SUPPORT 12 FROM 15. PATIENT VERY SOMULENT, AWAKES WITH STIMULI AND FALLS BACK TO SLEEP. HELD SEROQUEL AND LORAZEPAM FOR NOON DOSE. REPORT GIVEN TO CLINT SANDOVAL. WILL TRANSFER PATIENT TO [facility] WHEN BED IS AVAILABLE.
--- NOTE | 2021-06-14 13:03 | NUR ---
CALLED TO DR CAMP'S OFFICE FOR CONSULT ON PEG TUBE PLACEMENT. LEFT MESSAGE WITH OFFICE.
--- NOTE | 2021-06-14 14:46 | NUR ---
DR CAMP'S OFFICE CALLED AND INFORMED PER DR CAMP NO PEG PLACEMENT FOR NOW UNTIL DISCHARGED TO REHAB; CONCERNS T/O DEVELOPING HEMATOMA WITH PLACEMENT. WILL INFORM DR PETERSON. JUST SPOKE WITH SON JOSE M AND UPDATED ON PATIENT TRANSFER AND ANSWERED ALL QUESTIONS EVEN THE ONES THAT AUNT ALICIA ASKED ABOUT.
--- NOTE | 2021-06-14 15:18 | NUR ---
PT ARRIVED FROM ICU, TRACH AND VENT, ON PRESSURE SUPPORT OF 12, PEEP OF 5 AND FI02 OF 35%
--- NOTE | 2021-06-14 18:15 | NUR ---
SUMMARY PT BROUGHT FROM ICU IN RECLINER, PT UP IN THE RECLINER FOR MOST OF THE DAY, PT WITH ANXIETY AND FIDGETS, PULLS OFF TELE IF SHE CAN REACH IT, CONT TO BE ON THE VENT VIA TRACH, PS 12, 45% FIO2, AND PEEP OF 5.0, PT MED PER EMAR FOR PAIN AND ANXIETY, NAVARRETE AND RECTAL BAG IN PLACE, PT PLACED BACK IN BED VIA THE LIFT, PT CHAD WELL, WILL CONT TO MONITOR
[2021-06-15 06:43] LABS: BASOPHILS ABSOLUTE AUTO 0.12 K/mm3 (0.00-0.23); BASOPHILS PERCENT AUTO 1 % (0-2); EOSINOPHILS ABSOLUTE AUTO 0.44 K/mm3 (0.00-0.68); EOSINOPHILS PERCENT AUTO 3 % (0-6); Hematocrit 30.8 % (33.0-51.0); Hemoglobin 9.5 g/dL (11.5-16.0); IMMATURE GRAN ABSOLUTE AUTO 0.64 K/mm3 (0.00-0.10); IMMATURE GRAN PERCENT AUTO 4 % (0-1); LYMPHOCYTES ABSOLUTE AUTO 1.32 K/mm3 (0.84-5.20); LYMPHOCYTES PERCENT AUTO 7 % (21-46); MONOCYTES ABSOLUTE AUTO 1.02 K/mm3 (0.16-1.47); MONOCYTES PERCENT AUTO 6 % (4-13); Mean Corpuscular HGB 27.5 pg (26.0-34.0); Mean Corpuscular HGB Conc 30.8 g/dL (31.5-36.5); Mean Corpuscular Volume 89 fL (80-100); Mean Platelet Volume 11.4 fL (9.1-12.4); NEUTROPHILS ABSOLUTE AUTO 14.28 K/mm3 (1.96-9.15); NEUTROPHILS PERCENT AUTO 80 % (41-73); Platelet Count 467 K/mm3 (150-400); RDW Coefficient Variation 17.3 % (11.7-14.2); RDW Standard Deviation 55.4 fL (35.1-46.3); Red Blood Cell Count 3.46 M/mm3 (3.80-5.20); White Blood Cell Count 17.82 K/mm3 (4.00-11.30)
--- NOTE | 2021-06-15 06:50 | NUR ---
SHIFT SUMMARY PT REMAINS VENTILATED PER TRACH, VENT SET TO PS 12 PEEP 5 FiO2 INCREASED TO 55% THIS SHIFT TO MAINTAIN O2 SATURATIONS> 90%. PT CONTINUES TO HAVE INTERMITTENT ANXIETY AND AGITATION, OCCASSIONALLY PULLS AT RESTRAINTS. PT FOLLOWS COMMANDS, ANSWERS YES/NO QUESTIONS AND ATTEMPTS TO MOUTH WORDS, COMMUNICATION BOARD AT BEDSIDE. MONITOR SHOWS SINUS RHYTHM WITH HR 80'S-90'S, HYPOTENSION THIS SHIFT, SELF RESOLVED, MAPS MAINTAINED > 55, AM DOSE OF ATIVAN HELD R/T BP ISSUES, PT CALM AND COOPERATIVE. DOBHOFF REMAINS IN PLACE @ 60cm, TF AT GOAL RATE OF 45ml/hr. PICC TO LIZETH, OUT 5cm, TENDERNESS WITH FLUSH AND NO BLOOD RETURN.
[2021-06-15 07:14] LABS: Albumin, Blood 2.1 g/dL (3.4-5.0); Anion Gap 13 mmol/L (6-16); Blood Urea Nitrogen 148 mg/dL (8-24); Bun/Creatinine Ratio 31.4 (12.0-20.0); CO2, Blood 26 mmol/L (21-32); Calcium, Blood 8.6 mg/dL (8.5-10.1); Chloride, Blood 98 mmol/L (98-108); Creatinine, Blood 4.72 mg/dL (0.40-1.00); Glomerular Filtration Rate 9 (60-); Glucose, Blood 167 mg/dL (70-99); Magnesium, Blood 2.7 mg/dL (1.6-2.4); Phosphorus, Blood 6.2 mg/dL (2.5-4.9); Potassium, Blood 5.4 mmol/L (3.5-5.5); Sodium, Blood 137 mmol/L (136-145)
--- NOTE | 2021-06-15 07:45 | NUR ---
Received report from Noc RN. Patient and awake and resonds with hand jestures and moving her liips mouthing words. She has 8.0 shiley trach and vent settings of Spon. PS 12, 55%, Peep 5.0 and sats 100%. She continues with kelsey glass splint on right arm for Ulnar fx. She has left soft wrist restraint in place to prevnt pulling vent tube and patient safety. She has rectal tube in place and 16Fr Lucero draing to gravity annel colored urine. She has dobhoff in place and is infusing Nephro at 45 ml/hr.She has dialysis cath to left upper chest/ Multiple abrasions and healing wounds throughout, see pics in chart.
--- NOTE | 2021-06-15 09:31 | NUR ---
Patient tolerated meds through Dobhoff and SQ. Dialysis started at 0830 and will attempt to pull 2 liters off id systolic stays stable, they have increased and systolic 130's. VSS, See EMR. She tolerated Nystatin susp. Swish and swallow. Mid line PICC flushes fine but does not draw. Reduced Vent settings Spon. mode, PS 10, FiO2 45%, Peep 5.0 and sats upper 90%'s.
--- NOTE | 2021-06-15 11:30 | NUR ---
Patient finished Dialysis and they removed 2.5 liters of fluid and tolerated well and systolic remains 110-120's. We will be getting her up to recliner. Dialysis had me hold bumex and will give now. VSS, See EMR. No changes to neuro's and nbery animated with care and assist as able.
--- NOTE | 2021-06-15 13:30 | NUR ---
Patient was getting bath and started to leak around rectal tube. Cleaned up patient and changes linen. Changed rectal tube out and coccyx dressing. VSS. No changes to vent settings and sats >95%.. She remains interactive with care.
--- NOTE | 2021-06-15 15:30 | NUR ---
Decreased FiO2 to 30% and she is tolerating well. VSS with an occassional hypertensive systolic. TF continue and meds crushed infused to Dobhoff. She is more active with left arm and has been able to pull wires and have hd to redo ECG leads. Tightened up restraint length more. She still want nto get up and go outside or want soda to drink and explain why not and then she understands.
--- NOTE | 2021-06-15 18:00 | NUR ---
CBG covered per SS. VSS, See EMR. Vent settings Spont. 07/16 at 30% FiO2 with sats 94%. Dobhoff patent with 1800 meds. Repositioned and re-set ECG leads. Oral Care and washed her face again as she tends to drool with frquent suctyining.
--- NOTE | 2021-06-15 21:20 | NUR ---
ASSUMPTION OF CARE RECEIVED REPORT FROM CLINT STRONG @1900. PT RESTING, OPENS EYES SPONTANEOUSLY AND TO VERBAL STIMULI. ABLE TO MOUTH WORDS AND FOLLOW COMMANDS. ORIENTED TO SELF. PT IS VERY WEAK THROUGHOUT. SHE HAS A TRACH WITH VENT SETTINGS AT PS 10, PEEP 5, FI02 40%. SATS >92%. SINUS RHYTHM/ SINUS TACH WITH RATE 90-100'S. BP STABLE. MODERATE EDEMA NOTED THROUGHOUT. DOBHOFF IN PLACE WITH NEPHRO TB @ GOAL OF 45ML/HR. SHE HAS A SPLINT W/ OSCAR BANDAGE ON HER RIGHT FORARM FOR ULNAR FRACTURE. RECTAL TUBE IS IN PLACE WITH ACTIVE BOWEL TONES. NAVARRETE IS PATENT WITH SMALL AMOUNT OF TALA URINE. SHE HAS MULTIPLE WOUNDS/BRUISING THROUGHOUT. PINK MEPILEX ON COCCYX. WILL REVIEW ORDERS AND TREAT PRESCRIBED.
[2021-06-16 05:08] LABS: BASOPHILS ABSOLUTE AUTO 0.12 K/mm3 (0.00-0.23); BASOPHILS PERCENT AUTO 1 % (0-2); EOSINOPHILS ABSOLUTE AUTO 0.09 K/mm3 (0.00-0.68); EOSINOPHILS PERCENT AUTO 1 % (0-6); Hemoglobin 9.2 g/dL (11.5-16.0); IMMATURE GRAN ABSOLUTE AUTO 0.96 K/mm3 (0.00-0.10); IMMATURE GRAN PERCENT AUTO 6 % (0-1); LYMPHOCYTES ABSOLUTE AUTO 1.09 K/mm3 (0.84-5.20); LYMPHOCYTES PERCENT AUTO 7 % (21-46); MONOCYTES ABSOLUTE AUTO 1.05 K/mm3 (0.16-1.47); MONOCYTES PERCENT AUTO 6 % (4-13); Mean Corpuscular HGB 27.9 pg (26.0-34.0); Mean Corpuscular HGB Conc 30.7 g/dL (31.5-36.5); Mean Corpuscular Volume 91 fL (80-100); Mean Platelet Volume 11.7 fL (9.1-12.4); NEUTROPHILS ABSOLUTE AUTO 13.06 K/mm3 (1.96-9.15); NEUTROPHILS PERCENT AUTO 80 % (41-73); Platelet Count 512 K/mm3 (150-400); RDW Coefficient Variation 17.4 % (11.7-14.2); RDW Standard Deviation 57.4 fL (35.1-46.3); White Blood Cell Count 16.37 K/mm3 (4.00-11.30)
[2021-06-16 05:29] LABS: Anion Gap 10 mmol/L (6-16); Blood Urea Nitrogen 110 mg/dL (8-24); Bun/Creatinine Ratio 29.3 (12.0-20.0); CO2, Blood 30 mmol/L (21-32); Calcium, Blood 8.5 mg/dL (8.5-10.1); Chloride, Blood 99 mmol/L (98-108); Creatinine, Blood 3.76 mg/dL (0.40-1.00); Glomerular Filtration Rate 12 (60-); Glucose, Blood 174 mg/dL (70-99); Magnesium, Blood 2.8 mg/dL (1.6-2.4); Phosphorus, Blood 4.6 mg/dL (2.5-4.9); Potassium, Blood 4.4 mmol/L (3.5-5.5); Sodium, Blood 139 mmol/L (136-145)
[2021-06-16 06:05] LABS: BASOPHILS ABSOLUTE MAN 0.16 K/mm3 (0.00-0.23); BASOPHILS PERCENT MAN 1 % (0-2); EOSINOPHILS ABSOLUTE MAN 0.16 K/mm3 (0.00-0.68); EOSINOPHILS PERCENT MAN 1 % (0-6); LYMPHOCYTES ABSOLUTE MAN 0.98 K/mm3 (0.84-5.20); LYMPHOCYTES PERCENT MAN 6 % (21-46); MONOCYTES PERCENT MAN 8 % (4-13); MYELOCYTE ABSOLUTE MAN 0.81 K/mm3 (0.00-0.00); MYELOCYTE PERCENT MAN 5 % (0-0); NEUTROPHILS ABSOLUTE MAN 12.93 K/mm3 (1.96-9.15); SEG NEUTROPHILS PERCENT MAN 79 % (41-73); TOTAL CELLS COUNTED 100
--- NOTE | 2021-06-16 06:39 | NUR ---
PT'S TRACH REMAINS IN PLACE WITH VENT SETTINGS PS 10/5 WITH FIO2 INCREASED TO 40%, PT DESATS TO 87-88% WHILE SLEEPING OR WHEN IN NEED OF SUCTIONING, OTHERWISE REMAINS 91-92%. LUNGS CLEAR WITH COUGHING/SUCTIONING. PT AGITATED/CONFUSED, REQUESTING WATER, PULLS OFF BLANKETS AND TELEMETRY CORDS. ABLE TO RESPOND TO QUESTIONS APPROPRIATELY. VSS, ST IN 90-100'S. NAVARRETE PATENT WITH 50ML TEA COLORED OUTPUT. RECTAL TUBE PATENT. PT CURRENTLY RESTING PEACFULLY. WILL GIVE REPORT TO ONCOMING RN.
--- NOTE | 2021-06-16 07:18 | NUR ---
Received report from Rula JARAMILLO. Patient laying in bed supine and awake. She has #8 shiley trach and her settings Spont. 10/5 35% and sats >90%. She is anxious this am, as she wants water and to get out of bed to go outside. She has Midline PICC to LIZETH and [facility] CL, will attempt to place PICC in REBECCA today. She is able to mouth words and continues to be confused with her requests. She pulls at sheet and takes off her but states she is not hot. She moves left extremity well and minimal to LE's and not at all right upper extremity. She has rectal tube with xiao liquid stool that was replaced yesterday. She has 16 Fr Lucero draining minimal urine. She has multiple healing wound throughout her body and documented in chart. She has thick cracking calouses to bilateral. bottom feet. She has right soft wrist restraint in place as she pulls at wires and tubes. She has Dobhoff in place and is infusing Nephro 1.8 at 45 ml/hr. Her right ar, is in astroglass splint and has been imobile since May 13 when admitted.
--- NOTE | 2021-06-16 18:31 | NUR ---
SHIFT SUMMARY ASSUMED CARE DURING SHIFT FROM CLINT STRONG. PT ALERT. ANXIOUS AT TIMES. REPOSITIONED Q 2 HRS. NAVARRETE PATENT. RECTAL TUBE DRAINING AND IRRIGATED. RESTRAINT ON L HAND. PT ABLE TO PULL OUT DOBHOFF AT END OF SHIFT. CLINT STRONG RE-INSERTING. OXYGEN SATURATION MAINTAINED ABOVE 90% ON VENT SETTINGS, SEE EHR. HR STABLE. BP STABLE. NO CP OR PRESSURE REPORTED. MEDICATED FOR PAIN, SEE EMAR. WILL CONT TO MONITOR UNTIL REPORT GIVEN TO NIGHTSHIFT CLINT.
--- NOTE | 2021-06-16 18:51 | NUR ---
PT PULLED DOBHOFF RE-INSERTED BY CLINT STRONG. X RAY ORDERED TO CONFIRM PLACEMENT.
--- NOTE | 2021-06-16 20:00 | NUR ---
ASSUMED PT CARE REPORT FROM GENEVA Pastrana RN AT 1910, ASSUMED PT CARE. PT ALERT TO SELF. RESPONSIVE TO VERBAL STIMULI. ABLE TO NOD/MOUTH YES/NO TO SIMPLE QUESTIONS. PT HAS TRACH WITH VENT ATTACHED, SPONTANEOUS, PRESSURE SUPPORT 10, PEEP 5, 40% FIO2. SR-ST ON TELE. BPS STABLE. NAVARRETE DRAINING SCANT TALA URINE. RECTAL TUBE TO GRAVITY, SCANT LIQUID BROWN STOOL TO BAG. ABD DISTENDED, BRUISING ALL OVER. EDEMA TO BLE, BUE, ABD. DOBHOFF TO NARE, TUBE FEEDS ON HOLD UNTIL RAD REPORT CONFIRMS PLACEMENT OF TUBE. TUBE FEEDS WILL RESUME AT 45ML/HR (GOAL). RIGHT ARM IN SPLINT, FINGERS SWOLLEN. SOFT WRIST RESTRAINT TO LEFT WRIST. LUNG SOUNDS COARSE THROUGHOUT. INLINE SUCTIONING PRN. TL PICC TO [facility], DRESSING HAS OLD BLOOD NOTED. FLUSHES WELL, NO BLOOD RETURN. CENTRAL LINE TO RIGHT IJ. DRESSING C/D/I. BLOOD DRAWS FROM BROWN PORT ONLY. SEE FULL SHIFT ASSESSMENT.
--- NOTE | 2021-06-16 21:30 | NUR ---
DOBHOFF VERIFICATION OF PLACEMENT RECEIVED CALL FROM DR. LEON AFTER X RAY OBTAINED TO VERIFY PLACEMENT OF DOBHOFF. PER DR. LEON, PLACEMENT IS VERIFIED AND DOBHOFF IS OK TO USE.
[2021-06-17 04:09] LABS: Hematocrit 28.7 % (33.0-51.0); Mean Corpuscular HGB 27.9 pg (26.0-34.0); Mean Corpuscular HGB Conc 31.4 g/dL (31.5-36.5); Mean Corpuscular Volume 89 fL (80-100); Mean Platelet Volume 11.2 fL (9.1-12.4); Platelet Count 573 K/mm3 (150-400); RDW Coefficient Variation 17.8 % (11.7-14.2); Red Blood Cell Count 3.23 M/mm3 (3.80-5.20); White Blood Cell Count 17.02 K/mm3 (4.00-11.30)
[2021-06-17 04:27] LABS: Anion Gap 9 mmol/L (6-16); Blood Urea Nitrogen 125 mg/dL (8-24); Bun/Creatinine Ratio 28.9 (12.0-20.0); CO2, Blood 30 mmol/L (21-32); Calcium, Blood 8.5 mg/dL (8.5-10.1); Chloride, Blood 98 mmol/L (98-108); Creatinine, Blood 4.32 mg/dL (0.40-1.00); Glomerular Filtration Rate 10 (60-); Glucose, Blood 165 mg/dL (70-99); Magnesium, Blood 2.6 mg/dL (1.6-2.4); Phosphorus, Blood 5.1 mg/dL (2.5-4.9); Potassium, Blood 4.9 mmol/L (3.5-5.5); Sodium, Blood 137 mmol/L (136-145)
[2021-06-17 05:42] LABS: BAND PERCENT MAN 1 % (0-8); BASOPHILS ABSOLUTE MAN 0.17 K/mm3 (0.00-0.23); BASOPHILS PERCENT MAN 1 % (0-2); EOSINOPHILS ABSOLUTE MAN 0.68 K/mm3 (0.00-0.68); EOSINOPHILS PERCENT MAN 4 % (0-6); LYMPHOCYTES ABSOLUTE MAN 2.04 K/mm3 (0.84-5.20); LYMPHOCYTES PERCENT MAN 12 % (21-46); METAMYELOCYTE ABSOLUTE MAN 0.51 K/mm3 (0.00-0.00); METAMYELOCYTE PERCENT MAN 3 % (0-0); MONOCYTES ABSOLUTE MAN 0.34 K/mm3 (0.16-1.47); MONOCYTES PERCENT MAN 2 % (4-13); MYELOCYTE ABSOLUTE MAN 0.17 K/mm3 (0.00-0.00); MYELOCYTE PERCENT MAN 1 % (0-0); SEG NEUTROPHILS PERCENT MAN 76 % (41-73); TOTAL CELLS COUNTED 100
--- NOTE | 2021-06-17 06:28 | NUR ---
SHIFT SUMMARY NO SIGNIFICANT CHANGES THROUGHOUT SHIFT. PT VENTED THROUGH TRACH 14/8/45%. LOTS OF SPUTUM SUCTIONED DURING SHIFT. ABD SOFT, DISTENDED, BRUISED. LINE TO LIZETH RECINTIA, SITE WNL. DIALYSIS PORT TO LEFT CHEST, DRESSING INTACT. CENTRAL LINE TO RIGHT IJ, SITE WNL. PT HAS NAVARRETE DRAINING SCANT BROWN URINE. RECTAL TUBE TO GRAVITY. DOBHOFF INF NEPRO WITHOUT ISSUE. PILLS CRUSH EASILY THROUGH IT. SOFT WRIST RESTRAINT TO LEFT WRIST. SPLINT INTACT TO RIGHT ARM. CBG 155 AND 151, COVERAGE REQUIRED FOR BOTH. HEELS FLOATED, AND HEEL PROTECTERS IN PLACE. WILL REPORT TO ONCOMING SHIFT.
--- NOTE | 2021-06-17 10:01 | NUR ---
CARE OF PT ASSUMED AT 0700. PT SLEEPING ON VENT SPONT, FIO2 45%, PEEP 5. PT AWAKENS TO VOICE AND ABLE TO FOLLOW SIMPLE COMMANDS, MOUTHS WORDS. PT DENIES C/O PAIN. DR ANDREW AT BEDSIDE THIS AM. PT RECEIVING HD NOW. BUMEX HELD PER SOCRATES JARAMILLO, PT IS RECEIVING HD AT THIS TIME. CLONIDINE HELD FOR MILD HYPOTENSION W MAP >60. INNER CANNULA CHANGED BY LAMINE RT. TUBE FEEDING AT GOAL. THICK CREAMY SPUTUM SUCTIONED FROM TRACH.
--- NOTE | 2021-06-17 11:30 | NUR ---
2.5L FLUID REMOVED PER SOCRATES BOO RN. BP STABLE.
--- NOTE | 2021-06-17 13:48 | NUR ---
PT'S SISTER WHOM IS LISTED ON RELEASE OF INFO FORM GIVEN PHONE UPDATE
--- NOTE | 2021-06-17 14:36 | NUR ---
CENTRAL LINE TO RIGHT IJ DC'D PER DR SAXENA. CL WAS PLACED ON 05/22/21 AND WAS DUE TO BE REMOVED, ONLY 1 OF 4 PORTS WERE PATENT. CL REMOVED W/O DIFFICULTY, PT CHAD WELL. PICC LINE DRSG (WHICH IS ACTUALLY A MIDLINE) TO LIZETH WAS CHANGED. 6CM EXPOSED. TRACH CARE COMPLETED, TIE CHANGED OUT.
--- NOTE | 2021-06-17 16:13 | NUR ---
DR ROSENBERG CONSULTED FOR RIGHT DISTAL ULNARFX, HE WILL SEE PT TOMORROW AM.
--- NOTE | 2021-06-17 17:50 | NUR ---
PT VERY DROWSEY/SOMNOLENT TODAY. WILL HOLD 1800 ATIVAN AND SERAQUEL FOR NOW. FIO2 INCREASED TO 55% FROM 45% FOR SATS 87-88%.
--- NOTE | 2021-06-17 20:00 | NUR ---
ASSUMED PT CARE REPORT FROM ALICE CHAVIS RN AT 1900, ASSUMED PT CARE. PT ALERT/ORIENTED X3. ANSWERS QUESTIONS WITH YES/NO NOD AND MOUTHING WORDS. PT VENTED (SPONTANEOUS) VIA TRACH. PS 10, PEEP 5, 55% FIO2. DENIES PAIN, SPLINT TO RIGHT ARM. SORES AND BRUISES ALL OVER BODY. SOFT RESTRAINT TO LEFT ARM SECURE. MEPILEX TO ABD, C/D/I. HEEL PROTECTERS TO HEELS. EXT FLOATED ON PILLOWS OFTEN. PT HAS DOBHOFF WITH NEPRO INF AT 45ML/HR CONTINUOUSLY. ABD DISTENDED, BOWEL TONES ACTIVE. RECTAL TUBE TO GRAVITY WITH SCANT LIQUID BROWN STOOL. NAVARRETE TO GRAVITY WITH SCANT BROWN URINE. PICC LINE TO LIZETH, SITE WNL, DRESSING C/D/I, ALL 3 SITES FLUSH. PT ANXIOUS OFTEN, MEDS AVAIL PER EMAR. PT HYPERTENSIVE, WILL ADDRESS WITH PRN MEDICATION. SEE FULL ASSESSMENT.
[2021-06-18 03:59] LABS: Hematocrit 28.6 % (33.0-51.0); Hemoglobin 8.8 g/dL (11.5-16.0); Mean Corpuscular HGB 27.6 pg (26.0-34.0); Mean Corpuscular HGB Conc 30.8 g/dL (31.5-36.5); Mean Corpuscular Volume 90 fL (80-100); Mean Platelet Volume 11.4 fL (9.1-12.4); Platelet Count 608 K/mm3 (150-400); RDW Coefficient Variation 17.8 % (11.7-14.2); RDW Standard Deviation 57.2 fL (35.1-46.3); Red Blood Cell Count 3.19 M/mm3 (3.80-5.20); White Blood Cell Count 21.93 K/mm3 (4.00-11.30)
[2021-06-18 04:32] LABS: Anion Gap 9 mmol/L (6-16); Blood Urea Nitrogen 101 mg/dL (8-24); Bun/Creatinine Ratio 28.5 (12.0-20.0); CO2, Blood 30 mmol/L (21-32); Calcium, Blood 9.2 mg/dL (8.5-10.1); Chloride, Blood 101 mmol/L (98-108); Creatinine, Blood 3.55 mg/dL (0.40-1.00); Glomerular Filtration Rate 13 (60-); Glucose, Blood 180 mg/dL (70-99); Magnesium, Blood 2.7 mg/dL (1.6-2.4); Phosphorus, Blood 4.2 mg/dL (2.5-4.9); Potassium, Blood 4.5 mmol/L (3.5-5.5); Sodium, Blood 140 mmol/L (136-145)
[2021-06-18 05:24] LABS: BAND PERCENT MAN 2 % (0-8); BASOPHILS ABSOLUTE MAN 0.21 K/mm3 (0.00-0.23); BASOPHILS PERCENT MAN 1 % (0-2); EOSINOPHILS ABSOLUTE MAN 0.21 K/mm3 (0.00-0.68); EOSINOPHILS PERCENT MAN 1 % (0-6); LYMPHOCYTES ABSOLUTE MAN 1.53 K/mm3 (0.84-5.20); LYMPHOCYTES PERCENT MAN 7 % (21-46); METAMYELOCYTE ABSOLUTE MAN 0.21 K/mm3 (0.00-0.00); METAMYELOCYTE PERCENT MAN 1 % (0-0); MONOCYTES ABSOLUTE MAN 1.31 K/mm3 (0.16-1.47); MONOCYTES PERCENT MAN 6 % (4-13); NEUTROPHILS ABSOLUTE MAN 18.42 K/mm3 (1.96-9.15); SEG NEUTROPHILS PERCENT MAN 82 % (41-73); TOTAL CELLS COUNTED 100
--- NOTE | 2021-06-18 06:39 | NUR ---
SHIFT SUMMARY PT HAD NO SIGNIFICANT CHANGES THROUGH SHIFT. REMAINS VENTED VIA TRACH. SPONTANEOUS PS 10, PEEP 5, 40% FIO2. LUNG SOUNDS COARSE THROUGHOUT. GOOD COUGH WITH MODERATE SPUTUM PRODUCTION. ASKS TO BE SUCTIONED FREQUENTLY. PT HAS DOBHOFF WITH NEPRO INF AT 45ML/HR (GOAL), TOLERATING WELL. NAVARRETE TO GRAVITY DRAINING SCANT BROWN URINE. RECTAL TUBE TO GRAVITY, SCANT LIQUID BROWN STOOL NOTED. PICC TO [facility], SITE WNL, DRESSING C/D/I, FLUSHES WELL. ABD DISTENDED AND BRUISED. SORES/BRUISES SCATTERED. BOTTOM VERY EXCORIATED. PT WOULD BENEFIT FROM AN AIR BED OR EGG CRATE MATTRESS. SR-ST ON MONITOR. SBP HYPERTENSIVE AT BEGINING OF SHIFT, AFTER DOSES OF HYDRALAZINE AND ADDRESSING ANXIETY SBP CAME DOWN. WILL REPORT TO ONCOMING SHIFT.
--- NOTE | 2021-06-18 09:03 | NUR ---
CARE OF PT ASSUMED AT 0700. PT MORE AWAKE TODAY, MILDLY ANXIOUS. PT ABLE TO FOLLOW SIMPLE COMMANDS, NODS HEAD APPROPRIATELY TO QUESTIONS. DENIES C/O PAIN. COPIOUS AMTS OF THICK DARK YELLOW/CREAM SECRETIONS SUCTIONED FROM TRACH. LUNGS CLEAR OVERALL. TUBE FEEDS AT GOAL. EXCORIATION TO BUTTOCKS IMPROVED FROM YESTERDAY.
--- NOTE | 2021-06-18 10:16 | NUR ---
RT DECREASED FIO2 DOWN TO 35%. PS DOWN TO 5, IF PT CONTINUES TO TOLERATE THESE SETTINGS PT MAY BE ABLE TO TRANSITION TO A TRACH COLLAR. PICC LINE HAS A LOT OF SS LEAKING, WILL ASK ABOUT CHEST XRAY TO EVALUATE LINE. TRACH STITCHES ARE IN AND HAVE BEEN IN FOR 8DAYS, WILL INQUIRE ABOUT REMOVING STITCHES.
--- NOTE | 2021-06-18 12:12 | NUR ---
XRAY TAKEN OF LIZETH MIDLINE, AND RIGHT ARM. PT AWAKE WATCHING TV, DROWSY BUT STILL MORE AWAKE THAN YESTERDAY. ATIVAN AND SERAQUEL DOSE DECREASED BY HALF. SATS 91-94% ON 35% FIO2, W PS OF 8.
--- NOTE | 2021-06-18 13:17 | NUR ---
DR CAMP IN TO SEE PT. OKAY TP REMOVE TRACH STITCHES, PT TO HAVE CT OF ABD. PT C/O PAIN VIA MOUTHING WORDS. OXY GIVEN DOWN DOBHOFF ORDERED FOR PAIN.
--- NOTE | 2021-06-18 13:37 | NUR ---
PICC TO LIZETH IS NOT A CENTRAL LINE AND IS NOT A MIDLINE, PICC LINE ENDS RIGHT IN AXILLA AREA PER RADIOLOGIST.
--- NOTE | 2021-06-18 14:18 | NUR ---
Pt. is doing better out of vent encouraged pt and prayed for her.
--- NOTE | 2021-06-18 14:24 | NUR ---
PT BACK FROM CT OF ABD.
--- NOTE | 2021-06-18 14:40 | NUR ---
DR DELGADILLO IN TO SEE PT, FULL UPDATE GIVEN. RT TO TRIAL PT ON TRACH COLLAR AT 35%.
--- NOTE | 2021-06-18 16:16 | NUR ---
UNABLE TO PLACE POWERGLIDE TO REBECCA D/T POOR VESSELS.
--- NOTE | 2021-06-18 17:29 | NUR ---
DR ROSENBERG IN TO SEE PT. NEW SPLINT PLACED TO R WRIST. BREAKDOWN OF SKIN NOTED TO RIGHT SMALL FINGER.
--- NOTE | 2021-06-18 17:33 | NUR ---
ABLE TO DRAW BLOOD FROM PICC LINE, WHICH IS AN EXTENDED CATH IV W 3 PORTS IT IS ONLY A PERIPHERAL LINE. WILL LEAVE IN FOR NOW UNABLE TO PLACE POWERGLIDE D/T POOR VESSELS.
--- NOTE | 2021-06-18 20:00 | NUR ---
ASSUMED PT CARE REPORT FROM ALICE CHAVIS RN AT 1855, ASSUMED PT CARE. PT AWAKE AND ALERT. OPENS EYES SPONTANEOUSLY AND TO VERBAL STIMULI. PT HAS PICC TO LIZETH, SITE LEAKY AND DRESSING SOGGY (CHANGED YESTERDAY). FLUSHES WELL. PT ON TRACH COLLAR AT 40%, SATS >92%. LUNG SOUNDS WHEEZY/COARSE. WEAK OCCASSIONALY PRODUCTIVE COUGH. LEFT WRIST IN SOFT WRIST RESTRAINT. RIGHT ARM IN NEW SPLINT/OSCAR WRAP. DOBHOFF SECURE AND INF NEPRO AT 45ML/HR (GOAL). RECTAL TUBE DRAINING. SKIN BRUISED ALL OVER, SORES OF VARYING HEALING STAGES TO EXT/TORSO. SEE FULL SHIFT ASSESSMENT.
[2021-06-19 04:24] LABS: Hematocrit 31.8 % (33.0-51.0); Hemoglobin 9.6 g/dL (11.5-16.0)
[2021-06-19 04:55] LABS: Albumin, Blood 1.9 g/dL (3.4-5.0); Anion Gap 10 mmol/L (6-16); Blood Urea Nitrogen 121 mg/dL (8-24); Bun/Creatinine Ratio 30.3 (12.0-20.0); CO2, Blood 27 mmol/L (21-32); Chloride, Blood 101 mmol/L (98-108); Creatinine, Blood 3.99 mg/dL (0.40-1.00); Glomerular Filtration Rate 11 (60-); Glucose, Blood 141 mg/dL (70-99); Magnesium, Blood 2.8 mg/dL (1.6-2.4); Phosphorus, Blood 5.9 mg/dL (2.5-4.9); Potassium, Blood 4.8 mmol/L (3.5-5.5); Sodium, Blood 138 mmol/L (136-145)
--- NOTE | 2021-06-19 06:29 | NUR ---
SHIFT SUMMARY PT REMAINS ALERT TO PERSON. RESPONDS TO VERBAL STIMULI. PICC TO LIZETH, SL, DRESSING AND CAPS CHANGED. ALL PORTS FLUSH, UNABLE TO DRAW BLOOD. LUNG SOUNDS CONTINUE TO BE WHEEZY AND COARSE. SUCTIONED FREQUENTLY, MODERATE AMOUNTS OF THICK YELLOW/JEREZ SPUTUM. PT HAS WEAK PRODUCTIVE COUGH. SORES/BRUISING HEALING. NEW DRESSINGS PLACED. TUBE FEEDS PER DOBHOFF AT 45ML/HR. ABD SOFT AND DISTENDED. PT BLOOD SUGARS STABLE. RECTAL TUBE DRAINING WELL. NAVARRETE HAS SCANT BROWN URINE. PT GETS FRUSTRATED AT WHATS GOING ON AND CONSTANTLY REQUESTS WATER. WILL REPORT TO ONCOMING SHIFT.
--- NOTE | 2021-06-19 07:23 | NUR ---
ASSUMED CARE: PT RESTING IN BED WITH TRACH COLLAR ON AT 60%. SATTING 93% AT THIS TIMEDOBHOFF IN PLACE FOR FEEDING. RIGHT WRIST SPLINT IN PLACE FOR FX. NAVARRETE CATH IN PLACE. NO FURTHER NEEDS AT THIS TIME.
--- NOTE | 2021-06-19 09:45 | NUR ---
RT WENT TO BEDSIDE AND PT STATED THAT SHE WAS TIRED, DESATURATING TO MID 80S. RT PLACED PT BACK ON VENT WITH PS AT 7. PLAN IS TO KEEP HER ON THIS FOR A FEW HOURS AND PLACE BACK ON PS OVERNIGHT
--- NOTE | 2021-06-19 19:20 | NUR ---
SHIFT SUMMARY: PT RECIEVED DIALYSIS TODAY. WAS ON PS AT 7 FOR REST OF SHIFT SATTING MID 90S WITH THIS. CONFUSED AT TIMES AND TRIES TO PULL OFF TELE AND GETS ANXIOUS AND SHAKES HEAD TO STAFF AND CIRCUIT DISCONNECTS. DR CAMP CAME TO SEE PT TODAY AND PLAN IS FOR PEG PLACEMENT THURSDAY. NO FURTHER NEEDS AT THIS TIME.
--- NOTE | 2021-06-20 01:00 | NUR ---
RT IS CALLED DUE TO PT'S LOW TV AND SPO2. WILL PLACE BACK ON AC VENT SETTINGS
[2021-06-20 04:36] LABS: Hemoglobin 9.4 g/dL (11.5-16.0)
[2021-06-20 04:59] LABS: Albumin, Blood 1.8 g/dL (3.4-5.0); Anion Gap 8 mmol/L (6-16); Blood Urea Nitrogen 85 mg/dL (8-24); CO2, Blood 29 mmol/L (21-32); Calcium, Blood 8.9 mg/dL (8.5-10.1); Chloride, Blood 99 mmol/L (98-108); Creatinine, Blood 3.04 mg/dL (0.40-1.00); Glomerular Filtration Rate 16 (60-); Glucose, Blood 167 mg/dL (70-99); Magnesium, Blood 2.4 mg/dL (1.6-2.4); Phosphorus, Blood 3.6 mg/dL (2.5-4.9); Potassium, Blood 3.8 mmol/L (3.5-5.5); Sodium, Blood 136 mmol/L (136-145)
--- NOTE | 2021-06-20 06:45 | NUR ---
NO SIGNIFICANT CHANGE IN PT CONDITION OVERNIGHT. SHE IS VERY CHATTY AND SPEAKS HER NEEDS VERY CLEARLY. SHE DOES NOT TOLERATE TURNING VERY WELL DUE TO C/O HIP PAIN. C/O MILD H/A, WHICH IS TX WITH TYLENOL. PT SLEEPS ON AND OFF THROUGH THE NIGHT WITH SHORT INTERRUPTIONS FOR CARE. WILL CONTINUE TO MONITOR AND REPORT TO ONCOMING SHIFT.
--- NOTE | 2021-06-20 07:30 | NUR ---
ASSUMED CARE: PT ON VENT VIA TRACH AT AC 16/560/5/45%. SATURATING MID 90S WITH THIS. DOBHOFF AT GOAL. SINUS RHYTHM ON TELE. NO ACUTE NEEDS AT THIS TIME.
[2021-06-20 14:57] LABS: SARS-Cov-2 (COVID-19) PCR, MMC NEGATIVE (NEGATIVE)
--- NOTE | 2021-06-20 18:09 | NUR ---
SHIFT SUMMARY: PT ON VENTILATOR THROUGH VENT WITH AC 16/360/45/5. SATURATING MID 90S WITH THIS. LEFT WRIST RESTRAINT IN PLACE DUE TO PT'S CONFUSION AND ATTEMPTING TO PULL CIRCUIT OFF. PLAN FOR SURGERY IN AM FOR PEG TUBE. NO FURTHER NEEDS OR CONCERNS AT THIS TIME
--- NOTE | 2021-06-20 19:15 | NUR ---
ASSUMED CARE OF PT. SHE IS ON AC 16/560/5/45% WITH SPO2 IN MID 90'S. L HAND RESTRAINED DUE TO PT PULLING LINES AND VENT CIRCUIT OFF.PT WAS DIALYZED TODAY WITH 1200ML TAKEN OFF. NO OTHER ACUTE CHANGES, PLAN FOR PEG TOMORROW.
[2021-06-21 04:15] LABS: Hematocrit 32.7 % (33.0-51.0); Hemoglobin 10.2 g/dL (11.5-16.0)
[2021-06-21 04:40] LABS: Anion Gap 9 mmol/L (6-16); Blood Urea Nitrogen 101 mg/dL (8-24); Bun/Creatinine Ratio 28.5 (12.0-20.0); CO2, Blood 28 mmol/L (21-32); Calcium, Blood 10.5 mg/dL (8.5-10.1); Chloride, Blood 96 mmol/L (98-108); Creatinine, Blood 3.54 mg/dL (0.40-1.00); Glomerular Filtration Rate 13 (60-); Glucose, Blood 143 mg/dL (70-99); Magnesium, Blood 2.6 mg/dL (1.6-2.4); Phosphorus, Blood 3.9 mg/dL (2.5-4.9); Potassium, Blood 3.8 mmol/L (3.5-5.5); Sodium, Blood 133 mmol/L (136-145)
--- NOTE | 2021-06-21 05:59 | NUR ---
PT SLEEPS VERY LITTLE AND IS VERY ANXIOUS AND AGITATED. SHE WANTS TO GET OUT OF BED AT TIMES, THOUGH SHE IS NOT STRONG ENOUGH, AND PULLS OFF HER MONITORS AND VENT CIRCUIT. SHE C/O R ARM PAIN EARLY IN THE EVENING THAT WAS WELL MANAGED WITH TYLENOL, OTHERWISE DENIES PAIN. VENT SETTINGS REMAIN THE SAME ALL NIGHT. TRACH CARE AND ORAL CARE DONE AT REGULAR INTERVALS AND PT'S MOUTH IS MOISTENED WITH DAMP SWABS AND CHAP STICK. SHE HAS DIFFICULTY MANAGING HER ORAL SECRETIONS, SO REQUIRES FREQUENT SX. SHE CONTINUES TO HAVE THICK JEREZ SECRETIONS SX FROM TRACH. PT'S SKIN IS DRY AND FLAKY, LOTION APPLIED SEVERAL TIMES. PT REQUIRES FREQUENT REASSURANCE HER FRUSTRATION WITH HER SITUATION IS APPARENT AND CLEARLY COMMUNICATED. PLAN FOR PEG PLACEMENT THIS AM, TF HELD SINCE MIDNIGHT. WILL CONTINUE TO MONITOR AND REPORT TO ONCOMING SHIFT.
--- NOTE | 2021-06-21 07:30 | NUR ---
06/21/21 25[address] H[address] CARE BY DR. KO PER MAC WITH PEG TUNE PLACEMENT. IN PCU, ICU STATUS PT ON VENT WITH TRACH.
--- NOTE | 2021-06-21 08:18 | NUR ---
DR CAMP ATTEMPTED PEG TUBE PLACEMENT FIRST THING THIS AM, UNABLE TO TRANS-ILLUMINATE, UNABLE TO PLACE PEG, DR CAMP PLACED A CALL TO IR, PLAN FOR PEG ON THURSDAY OR THURSDAY
--- NOTE | 2021-06-21 18:33 | NUR ---
SUMMARY PT RESTING QUIETLY IN BED, ON THE VENT, AC16, TV 560, FIO2 40%, PEEP 5.0, HAS A 8.0 TRACH, OCC THICK JEREZ SECRETIONS, DR CAMP UNABLE TO DO PEG PLACEMENT THIS MORNING, DOBHOFF REPLACED AND TUBE FEEDS RESTARTED, PEG THURSDAY OR THURSDAY WITH IR, PT HAS BEEN ANXIOUS T/O THE DAY, MOUTHS WORDS, PULLS OFF TELE WIRES AND WHATEVER SHE CAN REACH, OCC SHAKES HER HEAD TO MAKE THE VENT POP OFF THE TRACH, IN THE ROOM FREQUENTLY FOR REASSURANCES, PT MED PER EMAR FOR PAIN AND ANXIETY, PT DID HAVE DIALYSIS TODAY, CHAD WELL, BP IS LABILE, WILL CONTINUE TO MONITOR
--- NOTE | 2021-06-21 19:51 | NUR ---
ASSUMED CARE OF PT. REPORT RECEIVED FROM CLINT SANDOVAL. PT DID NOT HAVE PEG TUBE PLACED TODAY, WILL RESCHEDULE FOR THURSDAY OR THURSDAY. SHE IS RESTING QUIETLY AT THE MOMENT.
[2021-06-22 04:15] LABS: Hematocrit 30.5 % (33.0-51.0); Hemoglobin 9.3 g/dL (11.5-16.0)
[2021-06-22 04:30] LABS: Albumin, Blood 1.8 g/dL (3.4-5.0); Anion Gap 8 mmol/L (6-16); Blood Urea Nitrogen 73 mg/dL (8-24); Bun/Creatinine Ratio 24.3 (12.0-20.0); CO2, Blood 28 mmol/L (21-32); Calcium, Blood 10.1 mg/dL (8.5-10.1); Chloride, Blood 100 mmol/L (98-108); Creatinine, Blood 3.01 mg/dL (0.40-1.00); Glomerular Filtration Rate 16 (60-); Glucose, Blood 120 mg/dL (70-99); Magnesium, Blood 2.3 mg/dL (1.6-2.4); Phosphorus, Blood 4.5 mg/dL (2.5-4.9); Potassium, Blood 3.9 mmol/L (3.5-5.5); Sodium, Blood 136 mmol/L (136-145)
--- NOTE | 2021-06-22 06:43 | NUR ---
MEDHAT MARTINS ASSUMED CARE OF PATIENT AT APPROXIMETLY 2230. FOUND TO BE A PLESANT LADY WHO GETS VERY ANXIOUS WITH GEN WEAKNESS. VSS. ON TRACH COLLAR WITH 45% FIO2 ALL NIGHT. SUCTIONING PRN. NSR ON THE MONITOR. COMPLAINED OF SOME PAIN TO BUTTOCKS WITH PRN NORCO HELPING KEEP AT TOLERABLE LEVEL . Q2H TURNS AND ORAL CARE PERFORMED. TUBE FEEDS RUNNING PER ORDER. MEDS PER DOBHOFF. NO ISSUES WITH THIS. RECTAL TUBE IN PLACE WITH MODERATE OUTPUT. SEVERE EXCORIATION NOTED AROUND RECTAL TUBE AND IS BLOODY WITH WIPING. KEEPING CLEAN AND DRY ABLE. NAVARRETE PATENT DRAINING TO GRAVITY WITH CLOUDY THICK URINE. NO ACUTE CONCERNS AT THIS TIME. WILL CONTINUE TO MONITOR UNTIL REPORT GIVEN TO DAYSHIFT RN.
--- NOTE | 2021-06-22 15:06 | NUR ---
PT ALERT AND ORIENTED X3-4. ABLE TO ANSWER ALL ORIENTING QUESTIONS CORRECTLY. BILATERAL SALES ASSISTANTS AND SALESPERSONS STRENGTH. FOLLOWING SIMPLE COMMANDS. PERRLA. DENIES NUMBNESS/TINGLING. ON SPONTANEOUS PRESSURE VIA VENT THROUGH TRACH, FIO2 AT 50%. RESP RATE 18-24. SATING MID 90'S. SUCTIONING NEEDED. SPUTUM LIGHT JEREZ IN COLOR. ORAL CARE Q4. TRACH SITE C/D/I. LUNGS SOUNDING CLEAR BUT DIM. TELE SHOWING SINUS WITH HR 80-90'S. DENIES CHEST PAIN/PRESSURE. VITAL SIGNS STABLE. 2+ EDEMA NOTED THROUGHOUT BILATERAL UPPER AND LOWER EXTREMITIES. DIALYSIS CATH TO LEFT UPPER CHEST WALL WNL, BRUISING AT SITE. NO DIALYSIS TODAY. BOWEL TONES PRESENT. DOBHOFF IN PLACE THIS AM, PATIENT PULLED. PATIENT STATED SHE WAS "FRUSTERATED". DOBHOFF REPLACED, MARKED AT 65. CONFIRMED PLACEMENT WITH RADIOLOGY. NEPRO TUBE FEED RUNNING AT 30 ML/HR. WILL TITRATE UP TO GOAL. RECTAL TUBE IN PLACE, DRAINING BROWN LIQUID STOOL. SKIN AROUND BOTTOM EXCORIATED AND BLEEDING. CLEANED WITH WOUND CENTRIFUGAL SCREEN TENDER AND ABDOMINAL PADDING PLACED AROUND. NAVARRETE CATH IN PLACE DRAINING CLOUDY/TALA URINE. SKIN OVERALL PALE, BRUISING/SCARRING SCATTERED THROUGHOUT. Q2 TURNING AND NEEDED. Q4 ORAL CARE. Q6 BLOOD SUGARS. PATIENT ANXIOUS AT TIMES, CALMS DOWN WITH REASSURANCE AT BEDSIDE. SCHEDULED ATIVAN. PICC TO LIZETH PLACEMENT CONFIRMED, AND RADIOLOGY STATED "20-25CM SHORT IN LEFT SUBCLAVIAN VEIN, LEVEL OF SHOULDER". SPOKE WITH PICC NURSE ALICE CHAVIS, PLAN TO LEAVE PICC LINE IN AND TREAT LINE PERIPHERAL, SEE NURSE NOTIFY IN ORDERS. BILATERAL SOFT WRIST RESTRAINTS IN PLACE DUE TO PATIENT PULLING DOBHOFF OUT. MESSAGE LEFT FOR SON ROSY, ATTEMPTED TO GIVE UPDATE. CALL LIGHT IN REACH. WILL CONTINUE TO MONITOR.
--- NOTE | 2021-06-22 19:34 | NUR ---
SHIFT SUMMARY: NO ACUTE CHANGES. PATIENT NEURO REMAINS THE SAME. TRACH IN PLACE ON SPONTANEOUS VENTILATION, FIO2 AT 40%. RESPIRATIONS 18-28. SUCTIONING NEEDED. DOBHOFF IN PLACE, MARKED AT 65 WITH CONTINUOUS NEPRO TUBE FEED AT 35 ML/HR WITH GOAL RATE OF 45 ML/HR. TOLERATING AT THIS TIME. Q6 BLOOD SUGARS. RECTAL TUBE IN PLACE WITH 400ML OUTPUT THIS SHIFT. NAVARRETE CATH DRAINING CLOUDY DARK URINE, 200ML OUTPUT THIS SHIFT. BOTTOM EXCORIATED, CLEANED WITH WOUND CLEANSER AND PADDING ADDED AROUND RECTAL TUBE WHEN TURNING. TELE REMAINS SINUS WITH HR 80'S. VITAL SIGNS STABLE. Q2 TURNING AND Q4 ORAL CARE. SEE PREVIOUS NOTE ABOUT PICC LINE AND NURSE NOTIFY ORDER. PATIENT EMOTIONAL THIS EVENING, REASSURED WITH SUPPORT AT BEDSIDE, CALMED DOWN WELL WITH SCHEDULED ATIVAN. PATIENT EXPRESSES DESIRE TO LEAVE HOSPITAL AND [facility]. BILATERAL SOFT WRIST RESTRAINTS IN PLACE DUE TO PATIENT PULLING AT DOBHOFF. PLAN FOR PEG TUBE PLACEMENT ON THURSDAY.
--- NOTE | 2021-06-22 20:00 | NUR ---
PT IS ALERT AND ORIENTED, ABLE TO COMMUNICATE THROUGH MOUTHING HER NEEDS, AND ANSWERS YES/NO TO QUESTIONS ASKED. TRACH IN PLACE, FIO2 AT 40%, RESP THERAPY JUST IN FOR CARE. DOBHOFF IN PLACE, INFUSING FORMULA AT 35ML HOUR. ORAL CARE PERFORMED. PT IS NPO. CALL LIGHT WITHIN REACH. PT IN BILATERAL WRIST RESTRAINTS SHE PULLED HER DOBHOFF OUT TODAY. BED IN LOW POSITION. RECTAL TUBE IN PLACE. NAVARRETE IN PLACE.
--- NOTE | 2021-06-22 22:15 | NUR ---
PT ADAMENT ABOUT SITTING AT THE SIDE OF THE BED. 3 STAFF IN ROOM. REVIEWED PHYSICAL THERAPY NOTES. WRIST RESTRAINTS REMOVED, AND ENCOURAGED PT TO MOVE HER LEGS TO THE SIDE OF THE BED, ALSO PULLED PT'S TORSO FORWARD - PT WEAK, AND WAS STARTING TO DOZE DURING THIS TIME. PT WASN'T ABLE TO ASSIST WITH MOVEMENT TO THE SIDE OF THE BED. GREEN SHEET PLACED UNDER PATIENT, SHE IS A LIFT PT. PT PLACED BACK IN RESTRAINTS, AND BACK IN HIGH SEMI FOWLERS POSITION. TRACH SUCTION PERFORMED, YANKHAR SUCTION PERFORMED. PT BEGAN DOZING ONCE BACK INTO BED, AND REPOSITIONED, AND INTERVENTIONS DONE. CALL LIGHT WITHIN REACH. BED IN LOW POSITION.
[2021-06-23 04:20] LABS: Hematocrit 30.5 % (33.0-51.0); Hemoglobin 9.5 g/dL (11.5-16.0); Mean Corpuscular HGB 28.4 pg (26.0-34.0); Mean Corpuscular HGB Conc 31.1 g/dL (31.5-36.5); Mean Corpuscular Volume 91 fL (80-100); Mean Platelet Volume 11.3 fL (9.1-12.4); Platelet Count 484 K/mm3 (150-400); RDW Coefficient Variation 18.5 % (11.7-14.2); RDW Standard Deviation 60.3 fL (35.1-46.3); Red Blood Cell Count 3.34 M/mm3 (3.80-5.20); White Blood Cell Count 20.97 K/mm3 (4.00-11.30)
[2021-06-23 04:38] LABS: Magnesium, Blood 2.4 mg/dL (1.6-2.4)
[2021-06-23 04:39] LABS: Albumin, Blood 1.9 g/dL (3.4-5.0); Anion Gap 9 mmol/L (6-16); Blood Urea Nitrogen 79 mg/dL (8-24); Bun/Creatinine Ratio 22.8 (12.0-20.0); CO2, Blood 26 mmol/L (21-32); Calcium, Blood 10.7 mg/dL (8.5-10.1); Chloride, Blood 99 mmol/L (98-108); Creatinine, Blood 3.46 mg/dL (0.40-1.00); Glomerular Filtration Rate 13 (60-); Glucose, Blood 133 mg/dL (70-99); Phosphorus, Blood 5.4 mg/dL (2.5-4.9); Sodium, Blood 134 mmol/L (136-145)
--- NOTE | 2021-06-23 07:22 | NUR ---
SHIFT SUMMARY - PT HAD AN UNEVENTFUL NIGHT, EXCEPT WHEN SHE BECAME AGITATED X1 LAST NOC - MEDICATED WITH PRN ATIVAN, AND SCHEDULED ATIVAN. REMOVED WRIST RESTRAINTS FOR A BREAK, WHILE RN IN ROOM, PER PT REQUEST TO HAVE REMOVED - REPLACED WRIST RESTRAINTS PRIOR TO LEAVING THE ROOM. VENT DEEP SUCTIONED X3 LAST NOC, YANKAR ORAL SUCTION X3. MEPILEX APPLIED TO PT'S COCCYX, AND NYSTATIN CREAM APPLIED TO COCCYX - PT TURNED EVERY 2 HOURS LAST NOC. PT DENIED ANY COMPLAINTS OF PAIN. TUBE FEED CURRENTLY RUNNING AT 45 CC HOUR, TUBING CHANGED LAST NOC - NOTATION ON TUBE FEED. NO OUTPUT IN RECTAL TUBE. PERMACATH TO LEFT CHEST WALL - WNL. CALL LIGHT WITHIN REACH. BED IN LOW POSITION.
--- NOTE | 2021-06-23 09:37 | NUR ---
PT ALERT AND ORIENTED X3. MOUTHING WORDS, DUE TO TRACH IN PLACE. BILATERAL STRONG HAND LAUNDERER. VERY WEAK OVERALL. PERRLA. TELE SHOWING SINUS WITH HR 80'S. DENIES CHEST PAIN/PRESSURE. VITAL SIGNS STABLE. 7 BEAT RUN OF VTACH THIS AM AT 0935. NONSYMPTOMATIC. DIALYSIS IN ROOM AT THIS TIME. LOWER EXTREMITY 4+ PITTING EDEMA. RIGHT HAND 3+ EDEMA. RIGHT FOREARM IN SPLINT AND OSCAR WRAP. SPONTANEOUS VENTILATION WITH TRACH, 40% FIO2. RESPIRATORY RATE 18-24 THIS AM. LUNGS SOUNDING CLEAR AND DIM IN BASES. SUCTIONING PRN. SPUTUM LIGHT JEREZ IN COLOR AND MODERATLY THICK. BOWEL TONES PRESENT. DOBHOFF IN PLACE AT 65 ROSY AND NEPRO TUBE FEED INFUSING AT GOAL RATE OF 45 ML/HR. SKIN OVERALL PALE/FRAGILE. DIALYSIS PORT TO LEFT CHEST WALL. BRUISING/SCABS SCATTERED THROUGHOUT. RED/EXCORIATED BOTTOM. WOUND CLEANSER AND MEPILEX APPLIED. Q2 TURNING. Q4 ORAL CARE. Q6 BLOOD SUGARS. ANXIOUS AND EMOTIONAL AT TIMES. PATIENT WANTS TO GET UP AND BE OUT OF BED. VERY WEAK WILL WORK WITH PT. BILATERAL WRIST RESTRAINTS IN PLACE DUE TO PATIENT PULLING AT LINES. CALL LIGHT IN REACH. WILL CONTINUE TO MONITOR.
--- NOTE | 2021-06-23 12:30 | NUR ---
UPDATE: DIALYSIS FINISHED. IN TO ASSESS AND GIVE PATIENT AM MEDS. PATIENT COUGHING AND NOTED OT HAVE TUBE FEED COMING OUT OF NOSE. TUBE FEED STOPPED PATIENT SITTING UP. SUCTIONED AND TUBE FEED NOTED TO BE IN SUCTION TUBING. RT IN ROOM AT TIME. PATIENT LUNG SOUNDS UNCHANGED SINCE THIS AM. DR. DELGADILLO NOTIFIED AND IN TO SEE PATIENT. TUBE FEED TO BE NOTED AT 15 ROSY. WHEN PLACED YESTERDAY BY THIS RN, WAS PLACED AT 65. TUBE FEEDING SECURED WITH TAPE. DOBHOFF REMOVED. PATIENT TO REMAIN NPO. PLAN FOR PEG PLACEMENT TOMORROW. PATIENT REMAINED SITTING UPRIGHT AND SUCTIONING NEEDED. OXYGENATION DEMEANDS NOT INCREASED AT THIS POINT.
--- NOTE | 2021-06-23 17:08 | NUR ---
UPDATE: PATIENT DESATS TO LOW 80'S. RESPIRATORY CARE IN. SUCTIONING NEEDED. ADJUSTED VENT SETTINGS TO 100% FIO2. PATIENT ABLE TO RECOVER AFTER 5 MIN. TITRATED VENT BACK DOWN TO 50% FIO2 AT THIS TIME AND SATING 98-100%. DR. AMAYA NOTIFIED. DR. AMAYA IN TO SEE PATIENT. CHEST XRAY ORDERED FOR TOMORROW MORNING. PATIENT ORAL TEMP TO BE NOTED AT 99.3. DR. AMAYA AWARE. RESTRAINTS REMOVED. WILL CONTINUE TO MONITOR. VITAL SIGNS STABLE.
--- NOTE | 2021-06-23 18:50 | NUR ---
SHIFT SUMMARY: SEE PREVIOUS NOTES FOR UPDATES. PATIENT REMAINS ON VENT SETTING 50% FIO2 SATING HIGH 90'S. SUCTIONING PRN. SPUTUM AT THIS TIME LIGHT JEREZ IN COLOR AND MOD THICK. NO SIGNS OF TUBE FEEDING IN SUCTION AT THIS TIME. Q4 ORAL CARE. TELE SHOWING SINUS WITH HR 90-110'S WELL TALL T WAVES. BP STABLE. NO CHANGES IN EDEMA. DIALYSIS TODAY. MINIMAL URINE OUTPUT. TOTAL 100ML FROM NAVARRETE CATH. TALA AND CLOUDY IN NATURE. RECTAL TUBE REMOVED TODAY. NO OUTPUT AND CAUSING PATIENT EXTREME DISCOMFORT. RED/EXCORIATED BOTTOM, CLEANED WITH TURNS. MEPILEX IN PLACE. Q2 TURNING PATIENT TOLERATES. TEMP 99.1, COOL TOWL TO FOREHEAD AND FAN IN PLACE. DR. AMAYA AWARE AND NO ANTIBIOTICS AT THIS TIME. PATIENT SLEEPING ON AND OFF. CALL LIGHT IN REACH. ANXIOUS AND EMOTIONAL AT TIMES. WILL REPORT OFF TO ONCOMING RN.
--- NOTE | 2021-06-23 19:45 | NUR ---
PATIENT AWAKE AND RESTLESS, MOVING BEDSIDE TABLE TO ATTEMPT TO HAVE FAN BLOWING TOWARD HER, PATIENT ABLE TO MOUTH WORDS TO MAKE NEEDS KNOWN. PATIENT NEEDING ENCOURAGEMENT TO ASSIST WITH REPOSITIONING IN BED. ONLY SLIGHT MOVEMENT SEEN IN LEGS. TRACH REMAINS IN PLACE MIDLINE WITH VENT SPONT WITH PS 10 FIO2 50% SUCTIONING THICK WHITE SPUTUM VIA TRACH AND CLEAR SECRETIONS VIA ORAL. LUNG SOUNDS DECREASED BASES. DIALYSIS CATH TO LEFT CHEST WITH DRESSING CD&I. MULTIPLE BRUISING TO ABD AND ARMS. SPLINT REMAINS IN PLACE TO RIGHT WRIST.
--- NOTE | 2021-06-24 04:03 | NUR ---
PATIENT RESTLESS, WANTING TO GET UP AND WALK. PATIENT REMINDED THAT SHE HAS NOT BEEN ABLE TO WALK, AND THAT PT WILL BE WORKING WITH HER TO GET HER STRENGTH BETTER. ATTEMPTING TO GET PATIENT TO ASSIST WITH REPOSITIONING IN BED. TRACH CARE DONE, SMALL AMT OF DRIED DARK RED DRAINAGE CLEANED, FROM UNDER TRACH AND NEW DRESSING PLACED UNDER TRACH FLANGE, PATIENT CHAD WELL.
[2021-06-24 04:09] LABS: Hematocrit 30.9 % (33.0-51.0); Hemoglobin 9.5 g/dL (11.5-16.0)
[2021-06-24 04:35] LABS: Albumin, Blood 1.9 g/dL (3.4-5.0); Anion Gap 7 mmol/L (6-16); Blood Urea Nitrogen 54 mg/dL (8-24); Bun/Creatinine Ratio 19.3 (12.0-20.0); CO2, Blood 29 mmol/L (21-32); Calcium, Blood 10.6 mg/dL (8.5-10.1); Chloride, Blood 97 mmol/L (98-108); Glomerular Filtration Rate 17 (60-); Glucose, Blood 120 mg/dL (70-99); Magnesium, Blood 2.4 mg/dL (1.6-2.4); Phosphorus, Blood 4.5 mg/dL (2.5-4.9); Potassium, Blood 3.4 mmol/L (3.5-5.5); Sodium, Blood 133 mmol/L (136-145)
--- NOTE | 2021-06-24 06:48 | NUR ---
SUMMARY PATIENT SLEEPING OFF AND ON T/O NIGHT. RESTLESS EARLY THIS MORNING LOOKING FORWARD TO WORKING WITH PT. ASSISTING MORE WITH REPOSITIONING THIS MORNING. CONTINUES WITH ONLY SLIGHT MOVEMENT SEEN IN BOTH LEGS. TRACH REMAINS MIDLINE WITH VENT SPONT WITH PS 10 FI02 45% SUCTIONING WHITE SPUTUM VIA TRACH AND CLEAR SPUTUM ORAL.
[2021-06-24 08:44] LABS: Hematocrit 30.5 % (33.0-51.0); Hemoglobin 9.2 g/dL (11.5-16.0); Mean Corpuscular HGB 27.1 pg (26.0-34.0); Mean Corpuscular HGB Conc 30.2 g/dL (31.5-36.5); Mean Corpuscular Volume 90 fL (80-100); Mean Platelet Volume 11.3 fL (9.1-12.4); Platelet Count 426 K/mm3 (150-400); RDW Coefficient Variation 18.5 % (11.7-14.2); RDW Standard Deviation 60.5 fL (35.1-46.3); Red Blood Cell Count 3.39 M/mm3 (3.80-5.20)
[2021-06-24 11:36] LABS: Source, Urine Catheter
[2021-06-24 11:44] LABS: Appearance, Urine Cloudy (Clear); Bilirubin, Urine Neg (Neg); Blood, Urine 5+ (Neg); Color, Urine Yellow (P-Yellow); Glucose Qualitative, Urine Neg (Neg); Ketones, Urine Neg (Neg); Leukocyte Esterase, Urine 3+ (Neg); Nitrite, Urine Neg (Neg); Protein, Urine 3+ (Neg); Urobilinogen, Urine NORM (Normal); pH, Urine 6.5 (5.0-8.0)
[2021-06-24 12:50] LABS: White Blood Cells, Urine TNTC /hpf (0-5)
[2021-06-24 12:51] LABS: Bacteria Many /hpf; Red Blood Cells, Urine 25-50 /hpf (0-2); Squamous Epithelial Cells Rare /hpf (Few); Transitional Epithelial Cells Rare /hpf (0-Rare)
--- NOTE | 2021-06-24 13:48 | NUR ---
Pt. is doing much better and [facility] prayed for Pt.
--- NOTE | 2021-06-24 14:34 | NUR ---
ASSUMED CARE: REPORT RECIEVED FROM CLINT RUSSELL. [facility]TUBE PLACEMENT. INSTRUCTION PER DR WILDER. PT RESTING QUIETLY AT THIS TIME. VSS. VENT ATTACHED TO PS WITH SETTINGS AT . NO ACUTE NEEDS AT THIS TIME.
--- NOTE | 2021-06-24 19:16 | NUR ---
SHIFT SUMMARY: [place] [address]/5/40% THROUGH TRACH. NSR ON TELE. G TUBE IN PLACE WITH MINIMAL BLEEDING. RESTING IN BED DUE TO BEDREST ORDER. MEDICATED X1 FOR PAIN. NO ACUTE NEEDS AT THIS TIME.
--- NOTE | 2021-06-24 20:00 | NUR ---
PATIENT RESTING QUIETLY, AWAKENS TO SLIGHT STIMULI FALLING BACK TO SLEEP WHEN UNDISTURBED. TRACH MIDLINE WITH VENT PRESSURE SUPPORT 5 FIO2 INCREASED TO 50% DUE TO BIOX DOWN TO 88%. SUCTIONING CLEAR TO WHITE SPUTUM VIA TRACH. ABD SOFT AND ROUND J-TUBE IN PLACE WITH DRESSING CD&I. MULTIPLE BRUISING TO ABD IN MULTIPLE STAGES NOT NEW. PATIENTS CALLED AND GIVEN UPDATE.
--- NOTE | 2021-06-24 22:30 | NUR ---
PATIENTS BUTTOCKS WOUND BLEEDING, AREA CLEANED AND FOAM DRESSING PLACED OVER AREA
[2021-06-25 04:36] LABS: Hematocrit 26.9 % (33.0-51.0); Hemoglobin 8.1 g/dL (11.5-16.0)
[2021-06-25 04:55] LABS: Albumin, Blood 1.7 g/dL (3.4-5.0); Anion Gap 9 mmol/L (6-16); Blood Urea Nitrogen 60 mg/dL (8-24); Bun/Creatinine Ratio 18.3 (12.0-20.0); CO2, Blood 27 mmol/L (21-32); Calcium, Blood 10.6 mg/dL (8.5-10.1); Chloride, Blood 98 mmol/L (98-108); Creatinine, Blood 3.27 mg/dL (0.40-1.00); Glomerular Filtration Rate 14 (60-); Glucose, Blood 101 mg/dL (70-99); Magnesium, Blood 2.5 mg/dL (1.6-2.4); Phosphorus, Blood 5.9 mg/dL (2.5-4.9); Potassium, Blood 3.7 mmol/L (3.5-5.5); Sodium, Blood 134 mmol/L (136-145)
--- NOTE | 2021-06-25 06:30 | NUR ---
SUMMARY PATIENT SLEEPING MOST OF NIGHT, AWAKENS EASILY MAKING NEED KNOWN WELL WITH MOUTHING WORDS. ASSISTING WITH REPOSITIONING, BOTH LEGS CONTINUE TO BE VERY WEAK. TRACH REMAINS MIDLINE WITH VENT SPONT WITH PC 5 FIO2 35% SUCTIONING OCCASIONAL WHITE SPUTUM. J TUBE TO LEFT UPPER QUAD CHAD MEDICATIONS WITH FLUSH WELL. DOCTOR KAMRAN IN TO SEE PATIENT PLAN FOR DIALYSIS.
--- NOTE | 2021-06-25 07:19 | NUR ---
ASSUMED CARE: PT RESTING QUIETLY AT THIS TIME. VENT TO TRACH. PS 450/35/5. PT SATTING LOW 90S WITH THIS. G TUBE IN PLACE AND HAS BEEN TOLERATING MED PUSHES OVERNIGHT. NO ACUTE NEEDS OR CONCERNS AT THIS TIME.
--- NOTE | 2021-06-25 14:11 | NUR ---
Met, pt.in bed and her nurses in the room attending to her needs prayed shy .
--- NOTE | 2021-06-25 18:19 | NUR ---
SHIFT SUMMARY: PT RECIEVED DIALYSIS TODAY. TRANSITIONED TO TRACH COLLAR WITH PLANS TO GO BACK TO VENT WITH SLEEP. RESTARTED TUBE FEEDS THROUGH G TUBE AND PT IS TOLERATING WELL. NSR ON TELE WITH SOME PVCS NOTED. NO ACUTE NEEDS OR CONCERNS AT THIS TIME.
--- NOTE | 2021-06-25 19:30 | NUR ---
PATIENT AWAKE UP IN CHAIR, BECOMING TEARFUL DURING SHIFT CHANGE REPORT, MOUTHING THAT SHE IS WANTING TO GO HOME. PATIENT REMINDED THAT SHE IS GETTING BETTER AND THAT SHE JUST NEEDS TO KEEP WORKING WITH PT AND THE NURSES AND GET HER STRENGTH UP SO SHE CAN GO HOME. PATIENT WANTING TO GO TO BED. TRANSFERRED TO BED WITH CEILING LIFT AND PLACED BACK ON VENT PS 5 PEEP 5 FIO2 100% BY RT FROM TRACH COLLAR. PATIENT CHAD TRANSFER WELL. TRACH REMAINS MIDLINE SUCTIONING MOD AMT WHITE SPUTUM. SMALL AMT OF CLEAR SECRETIONS ORAL. JTUBE IN PLACE TO LEFT UPPER ABD WITH TUBE FEEDING NEPRO UP TO GOAL RATE OF 45 CC/HR.
--- NOTE | 2021-06-25 20:45 | NUR ---
PATIENT UPSET AND AGITATED, CONTINUES TO WANT TO GO HOME. AGAIN EXPLAINED THAT SHE NEEDS TO GET BETTER AND STRONGER BEFORE ABLE TO CARE FOR SELF AT HOME. PATIENT PULLING OFF LINES AND CORDS AND REMOVING BRACE TO RIGHT WRIST. TOY PARTS FORMER SUPERVISOR AND VENT REPLACED AND BP CUFF REPLACED, EXPLAINED TO PATIENT THE NEED TO KEEP THESE ITEMS IN PLACE. BRACE PLACED OFF TO SIDE WILL REPLACE IF PATIENT WANTS. ATIVAN IV GIVEN TO HELP PATIENT RELAX. ATTEMPTING TO CALL , MESSAGE LEFT
--- NOTE | 2021-06-26 01:41 | NUR ---
PT ASLEEP nad WITH NO ISSUES NOTED
--- NOTE | 2021-06-26 03:28 | NUR ---
PATIENT AWAKE, ANGRY AND WANTING TO GO HOME AND WANTING SOMETHING TO DRINK. AGAIN EXPLAINED NPO STATUS DUE TO TRACH AND ASPIRATION PRECAUTIONS. ORAL CARE DONE, AND MOUTH SWAB WITH TOOTHETE AND WATER SEVERAL TIME. PATIENT MOUTHING "JUST GIVE ME A DRINK" HEART RATE 120'S BP ELEVATED AND REP 30'S. PATIENT REMOVING VENT FROM TRACH WHEN NURSING STAFF LEAVE THE ROOM. ATIVAN IV GIVEN TO HELP PATIENT RELAX.
[2021-06-26 05:07] LABS: Hematocrit 31.3 % (33.0-51.0); Hemoglobin 9.7 g/dL (11.5-16.0)
--- NOTE | 2021-06-26 05:20 | NUR ---
PATIENT AWAKE AND ANGRY, PULLING ON TRACH AND VENT TUBING, PULLING OFF GOWN AND BLANKETS. MOUTHING "I'M DONE" "SEND ME HOME" RESP UP TO 30'S HEART RATE UP TO 140'S. PATIENT SHACKING HER LEGS BACK AND FORTH AND HITTING THE BED. FENTANYL GIVEN NODING YES TO PAIN, BUT REFUSING TO TRY TO MOUTH OTHER WORDS AFTER BEING SCOLDED FOR PULLING ON VENT TUBING. PATIENT NOW RESTING QUIETLY, HR 125 BP 121/55 RESP 30 VENT BACK TO PS 5 FIO2 BACK DOWN TO 45%
[2021-06-26 05:23] LABS: Albumin, Blood 2.1 g/dL (3.4-5.0); Anion Gap 9 mmol/L (6-16); Blood Urea Nitrogen 43 mg/dL (8-24); Bun/Creatinine Ratio 17.2 (12.0-20.0); CO2, Blood 30 mmol/L (21-32); Calcium, Blood 10.7 mg/dL (8.5-10.1); Chloride, Blood 99 mmol/L (98-108); Glomerular Filtration Rate 19 (60-); Glucose, Blood 175 mg/dL (70-99); Magnesium, Blood 2.2 mg/dL (1.6-2.4); Phosphorus, Blood 3.8 mg/dL (2.5-4.9); Potassium, Blood 3.2 mmol/L (3.5-5.5); Sodium, Blood 138 mmol/L (136-145)
--- NOTE | 2021-06-26 08:18 | NUR ---
ASSUMED CARE: PT ANXIOUS THIS AM AND CONTINUES TO PULL CIRCUIT OFF OF VENT ATTACHED TO TRACH. PS OF 450/60%/5. TF VIA G TUBE. NAVARRETE CATH IN PLACE. STAFF REPEATEDLY AT BEDSIDE ATTEMPTING TO CALM PT
--- NOTE | 2021-06-26 10:23 | NUR ---
SPOKE WITH DR MICHEL REGARDING PT'S RIGHT WRIST. PT REMOVED SPLINT LAST NIGHT AND WANTED ORTHO'S INPUT FOR IF SPLINT NEEDS TO REMAIN. DR MICHEL INSTRUCTED TO GET 2 VIEW XRAY AND SHE WOULD REVIEW IT AND GIVE FURTHER ORDERS
--- NOTE | 2021-06-26 13:43 | NUR ---
RT AT BEDSIDE SWITCHING PT TO TRACH COLLAR AT 60%.
--- NOTE | 2021-06-26 15:11 | NUR ---
DR MICHEL PLACED ORDER FOR BRACE BUT SPECIFIC KIND IS UNKNOWN. MESSAGE LEFT ON DR MICHEL PHONE AFTER 2 ATTEMPTS FOR SPECIFIC ORDERS. AWAITING CALL BACK
--- NOTE | 2021-06-26 18:07 | NUR ---
SHIFT SUMMARY: DR MICHEL CAME TO SEE PT AND STATED THAT WITH PT'S WRIST IN WRIST RESTRAINT AND PROPPED ON PILLOW IS FINE FOR NOW BUT REQUESTED [employer] BE CONSULTED TO FIT PT FOR WRIST BRACE. CALL TO ANSWERING SERVICE WHO STATED THEY WILL GIVE MESSAGE TO STAFF TOMORROW SO PT CAN BE FITTED. PT ON TRACH COLLAR AT 60% AT THIS TIME. TOLERATED 2 TWO HOUR SESSIONS ON TRACH COLLAR TODAY AND WILL BE RETURNED TO VENT ON PS OVERNIGHT. PT IN WRIST RESTRAINTS DUE TO PULLING AT VENT CIRCUIT. STATES SHE WANTS TO GO HOME AND HAS BEEN TALKED DOWN FREQUENTLY THIS SHIFT DUE TO THAT BEING AN UNSAFE DISCHARGE AT THIS TIME DUE TO PT REQUIRING TOTAL CARE. DISCHARGE PLANNING WORKING ON PT'S CASE
--- NOTE | 2021-06-26 19:12 | NUR ---
ASSUMPTION OF CARE RECEIVED REPORT FROM OWEN JARAMILLO. PATIENT IN BED WITH TRACH SECURED, HIGH FLOW IN PLACE. VITALS STABLE. PATIENT WITH EYES CLOSED, NO S/S OF DISTRESS. WILL REVIEW ORDERS AND TREAT PRESCRIBED.
--- NOTE | 2021-06-27 | NUR ---
REASSESSMENT NO ACUTE CHANGES FROM INITIAL ASSESSMENT. PATIENT SLEPT FROM [id number], [place], ORIENTED. EASILY UNDERSTOOD. STATED VERY COMFORTABLE AND COOPERATIVE WITH CARE. VENT CONNECTED TO TRACH SINCE 1999 AT PS PEEP 5 AND FIO2 60%. 02 SATS ABOVE 95%. UPDATED FOR THE NIGHT. WILL CONTINUE TO MONITOR.
--- NOTE | 2021-06-27 04:00 | NUR ---
REASSESSMENT NO ACUTE CHANGES FROM PREVIOUS ASSESSMENT. EASILY AWAKENS, REMAINS ORIENTED AND COOPERATIVVE. VITALS STABLE. ORAL CARE PROVIDED. WILL CONTINUE TO MONITOR.
[2021-06-27 04:11] LABS: BASOPHILS ABSOLUTE AUTO 0.12 K/mm3 (0.00-0.23); BASOPHILS PERCENT AUTO 1 % (0-2); EOSINOPHILS ABSOLUTE AUTO 0.14 K/mm3 (0.00-0.68); EOSINOPHILS PERCENT AUTO 1 % (0-6); Hematocrit 26.6 % (33.0-51.0); IMMATURE GRAN ABSOLUTE AUTO 0.74 K/mm3 (0.00-0.10); IMMATURE GRAN PERCENT AUTO 3 % (0-1); LYMPHOCYTES ABSOLUTE AUTO 1.28 K/mm3 (0.84-5.20); LYMPHOCYTES PERCENT AUTO 6 % (21-46); MONOCYTES ABSOLUTE AUTO 2.25 K/mm3 (0.16-1.47); MONOCYTES PERCENT AUTO 10 % (4-13); Mean Corpuscular HGB 27.4 pg (26.0-34.0); Mean Corpuscular HGB Conc 30.1 g/dL (31.5-36.5); Mean Corpuscular Volume 91 fL (80-100); Mean Platelet Volume 10.7 fL (9.1-12.4); NEUTROPHILS ABSOLUTE AUTO 17.38 K/mm3 (1.96-9.15); NEUTROPHILS PERCENT AUTO 79 % (41-73); Platelet Count 331 K/mm3 (150-400); RDW Coefficient Variation 18.8 % (11.7-14.2); RDW Standard Deviation 62.1 fL (35.1-46.3); Red Blood Cell Count 2.92 M/mm3 (3.80-5.20); White Blood Cell Count 21.91 K/mm3 (4.00-11.30)
[2021-06-27 04:44] LABS: Albumin, Blood 1.8 g/dL (3.4-5.0); Anion Gap 7 mmol/L (6-16); Blood Urea Nitrogen 51 mg/dL (8-24); Bun/Creatinine Ratio 16.8 (12.0-20.0); CO2, Blood 30 mmol/L (21-32); Calcium, Blood 11.2 mg/dL (8.5-10.1); Chloride, Blood 100 mmol/L (98-108); Creatinine, Blood 3.03 mg/dL (0.40-1.00); Glomerular Filtration Rate 16 (60-); Glucose, Blood 163 mg/dL (70-99); Phosphorus, Blood 4.5 mg/dL (2.5-4.9); Potassium, Blood 3.6 mmol/L (3.5-5.5); Sodium, Blood 137 mmol/L (136-145)
--- NOTE | 2021-06-27 06:04 | NUR ---
SHIFT SUMMARY PATIENT RESTED WELL THROUGH NIGHT. ORIENTED WHEN AWAKE. VENT PLACED AT 2000 PS PEEP 5 AND FIO2 60% WITH SATS ABOVE 90%. RESTRAINTS REMOVED AT 0000. TF REMAINED AT GOAL OF 45ML/HR VIA J-TUBE WITH NO S/S OF INTOLERANCE. WILL CONTINUE TO MONITOR AND REPORT TO ONCOMING RN.
--- NOTE | 2021-06-27 11:01 | NUR ---
PT MEDICATED WITH 1MG ATIVAN FOR REPORTED ANXIETY. PT WITH CONSTANT NEEDS, BUS COMPANY MANAGER AT BEDSIDE REPORTS THAT PT WITH CONSTANT NEEDS AND BECOMES FRUSTRATED WHEN STAFF CAN NOT UNDERSTAND HER. THIS RN TO ROOM PT CONTINUES TO BE VERY IRRITABLE. PT BEGINS PULLING AT TRACH AND DIALYSIS CATH LINES, RESTRAINTS REPLACED, DR ROWE CALLED FOR ORDERS
--- NOTE | 2021-06-27 12:39 | NUR ---
NAVARRETE CATH REMOVED
--- NOTE | 2021-06-27 15:38 | NUR ---
PT NOW WITH FEVER OF 101.1 SHE IS TREATED WITH 650MG TYLENOL PER TUBE WILL REASSESS TEMP
--- NOTE | 2021-06-27 17:45 | NUR ---
PT WITH COMPLETE BED BATH INCLUDING HAIRWASHING AND COMBING. PT BECAME HYPOTENSIVE DURING BED BATH DR ROWE IS CALLED FOR ORDER OF MIODRENE WHICH WAS ADMINISTERED PER TUBE. UPON CHEMBG FINGER STICK PT'S BLOOD SMAPLE APPEARED VERY LIGHT, DR ROWE CALLED FOR STAT H&H ORDER WHICH IS PENDING. PT OTHERWISE AWAKENS TO VERBAL STIMULI, ANSWERS QUESTIONS SLOW BUT APPORPRIATE. RESTRAINTS REMAIN OFF AT THIS TIME WILL CONSIDER D/C. PT SUSTAINED NO BREAKDOWN OR INJURY FROM RESTAINTS. BP 91/50, SPO2 95%, HR NSR 100, RR 24.
[2021-06-27 18:07] LABS: Hematocrit 26.1 % (33.0-51.0); Hemoglobin 7.9 g/dL (11.5-16.0)
[2021-06-28 03:36] LABS: Mean Corpuscular HGB 27.9 pg (26.0-34.0); Mean Corpuscular HGB Conc 30.8 g/dL (31.5-36.5); Mean Corpuscular Volume 91 fL (80-100); Mean Platelet Volume 10.8 fL (9.1-12.4); Platelet Count 313 K/mm3 (150-400); RDW Coefficient Variation 18.8 % (11.7-14.2); RDW Standard Deviation 61.9 fL (35.1-46.3); Red Blood Cell Count 2.87 M/mm3 (3.80-5.20); White Blood Cell Count 27.77 K/mm3 (4.00-11.30)
[2021-06-28 03:53] LABS: Albumin, Blood 1.7 g/dL (3.4-5.0); Anion Gap 5 mmol/L (6-16); Blood Urea Nitrogen 37 mg/dL (8-24); Bun/Creatinine Ratio 16.4 (12.0-20.0); CO2, Blood 31 mmol/L (21-32); Calcium, Blood 10.8 mg/dL (8.5-10.1); Chloride, Blood 101 mmol/L (98-108); Creatinine, Blood 2.26 mg/dL (0.40-1.00); Glomerular Filtration Rate 22 (60-); Glucose, Blood 151 mg/dL (70-99); Magnesium, Blood 2.1 mg/dL (1.6-2.4); Phosphorus, Blood 2.9 mg/dL (2.5-4.9); Potassium, Blood 3.6 mmol/L (3.5-5.5); Sodium, Blood 137 mmol/L (136-145)
[2021-06-28 04:00] LABS: BAND PERCENT MAN 8 % (0-8); BASOPHILS PERCENT MAN 0 % (0-2); EOSINOPHILS PERCENT MAN 0 % (0-6); LYMPHOCYTES ABSOLUTE MAN 0.83 K/mm3 (0.84-5.20); LYMPHOCYTES PERCENT MAN 3 % (21-46); MONOCYTES ABSOLUTE MAN 1.11 K/mm3 (0.16-1.47); MONOCYTES PERCENT MAN 4 % (4-13); NEUTROPHILS ABSOLUTE MAN 25.82 K/mm3 (1.96-9.15); SEG NEUTROPHILS PERCENT MAN 85 % (41-73); TOTAL CELLS COUNTED 100
--- NOTE | 2021-06-28 06:48 | NUR ---
SHIFT SUMMARY PT REMAINS ON TRACH AND VENTED. O2 SATS MAINTAINING OVER 95% ON 35% FIO2. HR NSR 70'S-90'S WITH PVC'S. TUBE FEED INFUSING AT 45MLS/HR. NAVARRETE REMOVED DURING DAY, PT BLADDER SCANNED THIS AM, 70ML. PT REMAINS NPO, FREQUENTLY ASKING FOR HYDRATION. CENTRAL LINE IN RIGHT UPPER ARM PATENT AND DRAWS BLOOD. Q2 TURNS THROUGHOUT NIGHT. RESTRAINTS DCED. NO LONGER NEEDED. WILL CONTINUE TO MONITOR UNTIL REPORT GIVEN TO DAYSHIFT RN
--- NOTE | 2021-06-28 08:10 | NUR ---
SOFT BLOOD PRESSURE SOFT DECISION WAS MADE TO HOLD CLONIDINE AND GIVE MIDODRENE PER TUBE.
--- NOTE | 2021-06-28 09:52 | NUR ---
WHILE MOVING PT AROUND IN BED BP INCREASES, WILL CONTINUE TO MONITOR BP TO DETERMINE IF PT WILL REQUIRE THE DOSE OF CLONIDINE. PT HAS RECIEVED FETNANYL FOR PAIN ALONG WITH HER BUMEX, WILL CONTINUE TO MONITOR PRESSURE.
[2021-06-28 12:26] LABS: Albumin, Blood 1.8 g/dL (3.4-5.0); Anion Gap 5 mmol/L (6-16); Blood Urea Nitrogen 41 mg/dL (8-24); Bun/Creatinine Ratio 17.3 (12.0-20.0); CO2, Blood 31 mmol/L (21-32); Calcium, Blood 11.2 mg/dL (8.5-10.1); Chloride, Blood 100 mmol/L (98-108); Creatinine, Blood 2.37 mg/dL (0.40-1.00); Glomerular Filtration Rate 21 (60-); Glucose, Blood 164 mg/dL (70-99); Potassium, Blood 3.5 mmol/L (3.5-5.5); Sodium, Blood 136 mmol/L (136-145)
[2021-06-28 16:37] LABS: SARS-Cov-2 (COVID-19) PCR, MMC NEGATIVE (NEGATIVE)
--- NOTE | 2021-06-28 17:41 | NUR ---
SHIFT NOTE PT WITH NO VENT SETTING CHANGES THIS SHIFT. VSS T/O THE SHIFT. DENIES CP. SPUTUM SAMPLE OBTAINED BY RT. COVID SWAB SENT TO LAB, RESULTS ARE PENDING. PT HAS BEEN ALERT, UNABLE TO FULLY ESTABLISH ORIENTATION. PT WITH 2 VOIDS TODAY, BOTH UNMEASURED. PT WITH PARTIAL BEDBATH TODAY. PT HAD 2 SCANT UNFORMED BMs TODAY. PT WAS TREATED TWICE FOR PAIN, SHE IS RESTING WELL AT THIS TIME. PT INTERACTS MORE WITH STAFF TODAY APPEARS TO HAVE A LESS FLAT AFFFECT TODAY. PT STARTED ON ANTIBIOTICS TODAY WHICH HAVE BEEN ADMINISTERED. THERE ARE NO OTHER ACUTE CHANGES TO DISCUSS DURING THIS SHIFT
[2021-06-29 04:35] LABS: BASOPHILS PERCENT AUTO 1 % (0-2); EOSINOPHILS ABSOLUTE AUTO 0.09 K/mm3 (0.00-0.68); EOSINOPHILS PERCENT AUTO 0 % (0-6); Hematocrit 26.4 % (33.0-51.0); IMMATURE GRAN ABSOLUTE AUTO 0.98 K/mm3 (0.00-0.10); IMMATURE GRAN PERCENT AUTO 5 % (0-1); LYMPHOCYTES ABSOLUTE AUTO 1.49 K/mm3 (0.84-5.20); LYMPHOCYTES PERCENT AUTO 7 % (21-46); MONOCYTES ABSOLUTE AUTO 2.14 K/mm3 (0.16-1.47); MONOCYTES PERCENT AUTO 10 % (4-13); Mean Corpuscular HGB 27.6 pg (26.0-34.0); Mean Corpuscular HGB Conc 30.3 g/dL (31.5-36.5); Mean Corpuscular Volume 91 fL (80-100); Mean Platelet Volume 10.4 fL (9.1-12.4); NEUTROPHILS ABSOLUTE AUTO 16.89 K/mm3 (1.96-9.15); NEUTROPHILS PERCENT AUTO 78 % (41-73); Platelet Count 314 K/mm3 (150-400); RDW Standard Deviation 63.5 fL (35.1-46.3); White Blood Cell Count 21.69 K/mm3 (4.00-11.30)
[2021-06-29 04:54] LABS: Albumin, Blood 1.8 g/dL (3.4-5.0); Anion Gap 8 mmol/L (6-16); Blood Urea Nitrogen 47 mg/dL (8-24); Bun/Creatinine Ratio 18.5 (12.0-20.0); CO2, Blood 31 mmol/L (21-32); Calcium, Blood 11.8 mg/dL (8.5-10.1); Chloride, Blood 98 mmol/L (98-108); Creatinine, Blood 2.54 mg/dL (0.40-1.00); Glomerular Filtration Rate 19 (60-); Glucose, Blood 139 mg/dL (70-99); Magnesium, Blood 2.4 mg/dL (1.6-2.4); Phosphorus, Blood 3.5 mg/dL (2.5-4.9); Potassium, Blood 3.5 mmol/L (3.5-5.5); Sodium, Blood 137 mmol/L (136-145)
--- NOTE | 2021-06-29 06:14 | NUR ---
[facility]ALTH [facility] SUMMARY PT IS AXO X 4 THIS SHIFT W NUERO UNCHANGED THROUGHOUT THE SHIFT. PT HAS MAINTAINED O2 SATS >92% W VENT AND 35% FIO2. BP WNL AND STABLE THIS SHIFT. PT HAD 3 INCONTINENT VOIDSA THIS SHIFT, UNABLE TO MEASURE DUE TO INCONTINENCE. PTMGIVEN PAIN MEDICATION ONCE THIS SHIFT FOR BACK PAIN. HR HAS BEEN SR IN THE 80'S W PVC'S HOWEVER THE PT HAD A 9 BEAT RUN OF VTACH JUST AFTER 0230 THIS AM. TF RUNNING AT 45ML THIS SHIFT W RESIDUALS <20ML THIS SHIFT. PT VERY UPSET THIS SHIFT SHE WANTED TO GET OUT OF THE BED TO USE THE BSC THIS SHIFT BUT IS UNABLE TO MOVE HERSELF AT ALL IN BED. WILL REPORT TO ONCOMING RN.
[2021-06-29 12:03] LABS: Tobramycin, Random 1.2 ug/mL
[2021-06-29 13:39] LABS: Magnesium, Blood 1.9 mg/dL (1.6-2.4); Potassium, Blood 3.5 mmol/L (3.5-5.5)
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
--- NOTE | 2021-06-29 16:00 | NUR ---
Updated pt's son, Koffi on current status. Xiomara's blood pressure dropped this afternoon. She is also febrile. Dr. Addison at bedside placing new orders for different antibiotics, a PICC line placement and levophed to improve her blood pressure. Koffi is grateful for the update. PC to continue to update family and assist with advanced care planning.
[2021-06-29 16:46] LABS: Bicarbonate Venous 29.4 mmol/L (24.0-30.0); PCO2 Venous 43.6 mmHg (38-42); PO2 Venous 158 mmHg (38-42); pH Blood Venous 7.45 (7.34-7.37)
--- NOTE | 2021-06-29 18:01 | NUR ---
AT 1430 MYRA RN ALERTED ME THAT PT'S BP WAS 68/37, THIS RN TO ROOM TO ASSESS PT THERE IS NO IMPROVEMENT IN BP WITH RECYCLING, SAP BASIS ARCHITECT MARIA C CONTACTED DR ROWE AND DR SAXENA, NEW ORDERS ARE OBTAINED FOR 500ML FLUID BOLUS AND LEVOPHED DRIP. AT 1435 NS BOLUS STARTED AT WIDE OPEN WHICH DOES EXHIBIT A GOOD IMPROVEMENT IN BP WHILE AWAITING LEVOPHED DRIP. DR ROWE TO BEDSIDE FOR ASSESSMENT. PT'S RESPONDED WELL FOR A BRIEF PERIOD AND DECISION WAS MADE TO HOLD LEVOPHED, BUT HYPOTENSION RETURNED AT 1520 AND LEVOPHED WAS STARTED AT 2MCG IVP. LEVOPHED HAS NOW BEEN TITRATED TO 9MCG AT THE TIME OF THIS NOTE. PT AND FAMILY ARE CONSULTED AND THEY BOTH AGREE THAT PT SHOULD REMAIN A FULL CODE. THEY ARE THOROUGHLY UPDATED ON PT'S CONDITION BY PALLIATIVE CARE CLINT VOSS. AT THE TIME OF THIS NOTE PT IS LETHARGIC, DECISION WAS MADE TO HOLD EVENING ATIVAN. NO FURTHER CHANGES TO VENT AT THIS TIME. PT DID RECIEVE DIALYSIS TOODAY. PT NOTED TO HAVE FEVER AND RHR AFTER DIALYSIS.
--- NOTE | 2021-06-29 18:23 | NUR ---
SHIFT SUMMARY: ASSUMED CARE OF PATIENT 06/29/2021 AT 0715, PATIENT WAS VENTILATED THROUGH TRACH. CURRENT SETTINGS 70% AT 5 PEEP, SHE HAS BEEN SATURATING >92%SPO2 EXCEPT FOR BEFORE SHE STARTED TO DETERIORATE, SHE HAD THICK SECTRETIONS AND RT HAD TO INCREASE FI02. PATIENT IS STILL GENERALLY WEAK, ANXIOUS AND NOW LETHARGIC, SHE HAS DETERIORATED. PLEASE SEE DETAILED NOTE BY DONN JARAMILLO FOR DETAILED REPORT. PATIENT IS NOW ON LEVOPHED CURRENTLY AT 9. DIALYSIS OUTPUT OF 1500mL, TWO HOURS AFTER PATIENT BECAME FEBRILE TYLENOL, ICE, AND FAN INTERVENTIONS. AGAIN PLEASE SEE NOTE. TF HAS BEEN GOING AT 45, MEPILEX PLACED TO COCCYX FOR SKIN BREAKDOWN, BED BATH PROVIDED. SPOKE WITH DR ANDREW TO REVIEW LABS, HE ORDERED [facility] 20MEQ IV NOW X 1. READBACK ORDER, HE CONFIRMED. PICC LINE PLACED IN THE RIGHT UPPER ARM. REBECCA GOODMAN D/C'D. PALLIATIVE CARE CONSULTED AND THEY SPOKE EXTENSIVELY WITH FAMILY WHO HAVE CONFLICTING WISHES.
--- NOTE | 2021-06-29 20:27 | NUR ---
ASSUMED CARE OF PT AT 1900, REPORT RECEIVED FROM GI JARAMILLO. PT VENTED VIA TRACH. VENT SETTINGS PS 5/5 70% WITH SPO2 99%. LEVOPHED INFUSING AT 8 MCG/MIN TO MAINTAIN MAP >65. PT AWAKENS, FOLLOWS COMMANDS, MOUTHS WORDS. LUNGS CLEAR WITH DIM BASES. ABD SOFT WITH MOD DISTENTION, BOWEL TONES ACTIVE. PEG TUBE RUNNING NEPRO AT GOAL RATE OF 45 ML/HR. HR 80'S SINUS ON MONITOR, SBP 120'S. PULSES FAINT IN ALL EXTREMITIES. SCATTERED BRUISING TO ABD, OLD SCARS TO R LEG.
[2021-06-30 04:19] LABS: Hematocrit 24.6 % (33.0-51.0); Hemoglobin 7.4 g/dL (11.5-16.0)
[2021-06-30 04:34] LABS: Albumin, Blood 1.7 g/dL (3.4-5.0); Anion Gap 3 mmol/L (6-16); Blood Urea Nitrogen 34 mg/dL (8-24); Bun/Creatinine Ratio 16.7 (12.0-20.0); CO2, Blood 34 mmol/L (21-32); Calcium, Blood 10.5 mg/dL (8.5-10.1); Chloride, Blood 100 mmol/L (98-108); Creatinine, Blood 2.04 mg/dL (0.40-1.00); Glomerular Filtration Rate 25 (60-); Glucose, Blood 152 mg/dL (70-99); Magnesium, Blood 2.3 mg/dL (1.6-2.4); Phosphorus, Blood 2.3 mg/dL (2.5-4.9); Potassium, Blood 3.5 mmol/L (3.5-5.5); Sodium, Blood 137 mmol/L (136-145)
--- NOTE | 2021-06-30 06:16 | NUR ---
SHIFT SUMMARY PT REMAINS ON VENT VIA TRACH, SETTINGS PS 5/5 FIO2 40%. LEVOPHED ON STANDBY SINCE 519 THIS AM. HR 80'S SINUS ON MONITOR WITH OCCASIONAL PVC'S. SBP WITH MAP >65, SPO2 >95%. PT AWAKE AND FOLLOWING COMMANDS, ABLE TO MAKE NEEDS KNOWN. MOVING ALL EXTREMITIES, WEAKNESS IN ALL EXTREMITIES. PT HAD MEDIUM, BROWN, SOFT BM THIS SHIFT. INCONTINENT OF URINE TWICE. LUNGS CLEAR WITH DIM BASES. PEG TUBE WITH NEPRO CONTINUES AT GOAL RATE OF 45 ML/HR.
[2021-06-30 07:29] LABS: PO2 Arterial 64.3 mmHg (80-100); pH Blood Arterial 7.42 (7.35-7.45)
[2021-06-30 08:46] LABS: BASOPHILS ABSOLUTE AUTO 0.14 K/mm3 (0.00-0.23); BASOPHILS PERCENT AUTO 0 % (0-2); EOSINOPHILS ABSOLUTE AUTO 0.14 K/mm3 (0.00-0.68); EOSINOPHILS PERCENT AUTO 0 % (0-6); Hematocrit 24.8 % (33.0-51.0); Hemoglobin 7.4 g/dL (11.5-16.0); IMMATURE GRAN ABSOLUTE AUTO 1.12 K/mm3 (0.00-0.10); IMMATURE GRAN PERCENT AUTO 4 % (0-1); LYMPHOCYTES ABSOLUTE AUTO 1.62 K/mm3 (0.84-5.20); LYMPHOCYTES PERCENT AUTO 5 % (21-46); MONOCYTES ABSOLUTE AUTO 2.62 K/mm3 (0.16-1.47); MONOCYTES PERCENT AUTO 8 % (4-13); Mean Corpuscular HGB 27.9 pg (26.0-34.0); Mean Corpuscular HGB Conc 29.8 g/dL (31.5-36.5); Mean Corpuscular Volume 94 fL (80-100); Mean Platelet Volume 11.7 fL (9.1-12.4); NEUTROPHILS ABSOLUTE AUTO 25.56 K/mm3 (1.96-9.15); NEUTROPHILS PERCENT AUTO 82 % (41-73); Platelet Count 323 K/mm3 (150-400); RDW Coefficient Variation 19.3 % (11.7-14.2); RDW Standard Deviation 66.1 fL (35.1-46.3); Red Blood Cell Count 2.65 M/mm3 (3.80-5.20)
[2021-06-30 14:20] LABS: Hematocrit 24.2 % (33.0-51.0); Hemoglobin 7.3 g/dL (11.5-16.0)
--- NOTE | 2021-06-30 16:49 | NUR ---
ASSUMPTION OF CARE: ASSUMED CARE OF PATIENT ON 06/30/2021 @ 07:30 WITH SIMEON JARAMILLO LAZARO, PATIENT SLEEPY, ABLE TO RESPOND TO VERBAL STIMULI, FOLLOW DIRECTION, ABLE TO MOUTH COMMUNICATION THAT IS MILDY EFFECTIVE, WEAK BUT ABLE TO MOVE ALL FOUR EXTREMETIES, ABLE TO MAKE VERY MINOR REPOSITIONS. ANXIOUS MOST OF THE TIME. NSR 80'S-90'S, BLOOD PRESSURES FLUCTUATE. EDEMA IN ALL EXTREMETIES, WORSE IN THE LOWER EXTREMETIES, PITTING, NON-WEEPING. DENIES CHEST PAIN, LEVOPHED ON STANDBY. PEDAL PULSES WEAK, RADIAL ARE STRONGER. COARSE BILATERALLY THROUGHOUT WITH DIMINSHED LUNGS SOUNDS IN LOWER LOBES. TRACH WITH VENTIALATION PS5/5 40% FIO2 SPONTANEOUS, TENACIOUS SPUTUM OCCASSIONALLY. JTUBE IN PLACE WITH A RATE OF 45ML/HR GOAL OF CONTINOUS FEEDS. DENIES BELLY PAIN. SMALL TO SCANT BOWEL MOVEMENTS. Q6 CBG'S INCONTINENT, ATTENDS IN PLACE. SCATTERED BRUISING ON ABDOMEN. [address] ON SACRUM AND BUTTOCKS, SKIN IS DRY ON HANDS AND FEET, BOTTOM HAS ESCORIATED SKIN ON BOTH BUTTOCKS.
--- NOTE | 2021-06-30 18:24 | NUR ---
END OF SHIFT SUMMARY: Vent settings: FIO2 30% SPO2 >94% PS: 5/5, through trach. coarse lungs bilateral with dim bases. oral secretions and tenacious sputum, occassional. Patient responds to verbal stimuli, follwing commands, and able to express discomfort. Moves all extremes, extremes are all weak. Anxious most of the time. The levophed is on standby, not needed this shift, NSR with occassional PVC's. edema in all extremes, worse in lower extremes, deep pitting. faint pedal pulses. No dialysis today. held noon midodrine per EMR SBP guidlines.Denies CP small unformed BM's, mepilex were place on coccyx and buttock. incontinent of urine as well, minimal unmeasurable voids x 2. anxiety and pain medicated per EMR which was effective in position and care. continous feeds at 45mL/hr.
--- NOTE | 2021-06-30 19:30 | NUR ---
ASSUMED CARE BEDSIDE REPORT RECEIVED, PT IS NOTED TO BE RESTING QUIETLY AND APPEARS TO BE SLEEPING, PER OFFGOING RN, PT WAS RESTLESS THROUGHOUT DAY SHIFT AND APPEARS TO BE COMFORTABLE FOLLOWING LAST POSITION CHANGE. TRACH IS NOTED, CURRENT VENT SETTINGS ARE NOTED AT PRESSURE SUPPORT 5/5, FIO2 30%, CURRENT RESP RATE IS 22/MIN, SATS LOW TO MID 90S. PRESSURES IMPROVING AFTER MIDODRINE ADMINISTRATION, MAP IS NOW 70, SINUS RHYTHM NOTED ON MONITOR, RATE 70S. WILL FURTHER ASSESS WHEN PT AWAKENS.
[2021-07-01 04:10] LABS: BASOPHILS ABSOLUTE AUTO 0.18 K/mm3 (0.00-0.23); BASOPHILS PERCENT AUTO 1 % (0-2); Hematocrit 25.6 % (33.0-51.0); Hemoglobin 7.6 g/dL (11.5-16.0); LYMPHOCYTES PERCENT AUTO 7 % (21-46); MONOCYTES ABSOLUTE AUTO 2.15 K/mm3 (0.16-1.47); MONOCYTES PERCENT AUTO 9 % (4-13); Mean Corpuscular HGB 27.2 pg (26.0-34.0); Mean Corpuscular HGB Conc 29.7 g/dL (31.5-36.5); Mean Corpuscular Volume 92 fL (80-100); Mean Platelet Volume 10.8 fL (9.1-12.4); Platelet Count 320 K/mm3 (150-400); RDW Standard Deviation 62.6 fL (35.1-46.3); Red Blood Cell Count 2.79 M/mm3 (3.80-5.20); White Blood Cell Count 24.27 K/mm3 (4.00-11.30)
[2021-07-01 04:23] LABS: EOSINOPHILS ABSOLUTE AUTO 0.58 K/mm3 (0.00-0.68); EOSINOPHILS PERCENT AUTO 2 % (0-6); IMMATURE GRAN ABSOLUTE AUTO 2.08 K/mm3 (0.00-0.10); IMMATURE GRAN PERCENT AUTO 9 % (0-1); NEUTROPHILS ABSOLUTE AUTO 17.68 K/mm3 (1.96-9.15); NEUTROPHILS PERCENT AUTO 73 % (41-73)
[2021-07-01 04:27] LABS: Albumin, Blood 1.7 g/dL (3.4-5.0); Anion Gap 3 mmol/L (6-16); Blood Urea Nitrogen 42 mg/dL (8-24); Bun/Creatinine Ratio 18.4 (12.0-20.0); CO2, Blood 33 mmol/L (21-32); Calcium, Blood 11.1 mg/dL (8.5-10.1); Chloride, Blood 100 mmol/L (98-108); Creatinine, Blood 2.28 mg/dL (0.40-1.00); Glomerular Filtration Rate 22 (60-); Glucose, Blood 123 mg/dL (70-99); Magnesium, Blood 2.2 mg/dL (1.6-2.4); Phosphorus, Blood 3.4 mg/dL (2.5-4.9); Potassium, Blood 3.7 mmol/L (3.5-5.5); Sodium, Blood 136 mmol/L (136-145)
[2021-07-01 04:53] LABS: BAND PERCENT MAN 7 % (0-8); BASOPHILS PERCENT MAN 0 % (0-2); EOSINOPHILS ABSOLUTE MAN 0.48 K/mm3 (0.00-0.68); EOSINOPHILS PERCENT MAN 2 % (0-6); LYMPHOCYTES ABSOLUTE MAN 0.97 K/mm3 (0.84-5.20); LYMPHOCYTES PERCENT MAN 4 % (21-46); METAMYELOCYTE ABSOLUTE MAN 0.48 K/mm3 (0.00-0.00); METAMYELOCYTE PERCENT MAN 2 % (0-0); MONOCYTES PERCENT MAN 0 % (4-13); NEUTROPHILS ABSOLUTE MAN 22.32 K/mm3 (1.96-9.15); SEG NEUTROPHILS PERCENT MAN 85 % (41-73); TOTAL CELLS COUNTED 100
--- NOTE | 2021-07-01 06:28 | NUR ---
PT AWAKE FREQUENTLY THROUGHOUT SHIFT. CONTINUES TO MOUTH WORDS APPROPRIATELY TO MAKE NEEDS KNOWN, HAS INDICATED A LEVEL OF FRUSTRATION WITH DIFFICULTY COMMUNICATING AT TIMES. SHE IS HOPEFUL TO GET UP OOB VIA LIFT TO THE CHAIR TODAY AND SIT BY THE WINDOW IN ROOM TO WATCH OUTSIDE. VENT CONTINUES ON PRESSURE SUPPORT 5/5 FIO2 HAD TO BE TITRATED UP TO 40% WITH SLEEP. LUNGS REMAIN CLEAR WITH DIM BASES, SUCTIONED MODERATE AMOUNTS OF THICK WHITE SPUTUM FROM TRACH THIS SHIFT, RATE NEAR 20 THROUGHOUT SHIFT. MAINTAINS BP WITH LEVOPHED ON STANDBY SINCE YESTERDAY. CONTINUES IN SINUS RHYTHM WITH INTERMITTENT PVCS. EDEMA CONTINUES. SMALL VOID X 2 THIS SHIFT, INCONT. INCONT OF BOWEL X 3, LOOSE BROWN BMS.
--- NOTE | 2021-07-01 10:41 | NUR ---
Care Assumed 0700 Pt has trach in place, Vent settings: PS 5/5, FIO2 40%. A/O to location, following directions, and mouthing words to communicate successfully. Pt with high anxiety at times, wants to be turned frequently (every 30 mins), and currently recieving dialysis. HR 90's when anxious and BP stable. NSR to SIT. Large BM this morning and bedding changed, Peg tube in place with TF @ goal. BT active.
[2021-07-01 12:27] LABS: Tobramycin, Random 0.8 ug/mL
--- NOTE | 2021-07-01 12:58 | NUR ---
Update- Patient anxious Pt very anxious after dialysis. She would like to get out of the room and go outside, pt mouthing this statement. Explained to the patient the current limitations. Pallatie care nurse at bedside. Pt continues to state she would like everything done. Treated per emar. Will continue to monitor.
--- NOTE | 2021-07-01 13:24 | NUR ---
Visited with Xiomara this afternoon after her HD session. She is awake and alert. Able to mouth words to answer questions. Explained to her again that she is very ill and dependent on the ventilator and HD at this time. She appears to be more calm during our conversation today after she was medicated for anxiety. Explained that she will most likely require 24 hour care in a facility if she is able to be discharged from the hospital. Explained the need for termite control servicer dialysis and what that would look like. Explained that [facility] is working with facilities that can provide the level of care she needs. When asked if her current physical condition is her new baseline would she want to continue to live, she shook her head yes. Explained that she coded twice during this stay, she doesn't remember these events. She reports she would want to have CPR again if needed. Offered the option of comfort care as an alterate plan of care if the current plan is no longer what she wishes. Asked her to think about what she would want for continued care. She reports that she has been thinking about what she would want but has not yet made a decision. Encouraged her to tell staff is she makes a decision re: plan of care. Called Koffi her son and updated him on her current condition and also updated him on my conversation with Xiomara about plan of care and her wishes. PC to continue to follow for advanced care planning.
--- NOTE | 2021-07-01 18:36 | NUR ---
Shift Summary Vent settings unchanged. Pt continues to be anxious after dialysis and pulling off trach coller by the end of the shift. Pt mouthing and states, "I WANT TO GO HOME" multiple times. Explained to patient why she is not able to go home with little understanding. Patient is upset that she is still in the hospital. Father Karlos at bedside and pray with patient, Father Karlos states he read patients last rights to her. Patient appears calm after this. Two large BM today and complete bed change completed. HR 80-90's with occasional PVC's. Peg tube with Nepro at goal rate of 40 ml/hr. Will report to oncoming shift.
--- NOTE | 2021-07-01 19:20 | NUR ---
ASSUMED CARE OF PT, BEDSIDE REPORT RECEIVED. PT HAS BEEN NOTED TO REMOVE VENTILATOR CIRCUIT TUBING FROM TRACH, DISCUSSED DANGER OF HYPOXIA AND WITH DISCONNECTION FROM VENTILATOR, DISCUSSED DANGER TO TRACHEOSTOMY, PT IS STRONGLY ENCOURAGED TO USE CALL LIGHT. WILL MONITOR.
--- NOTE | 2021-07-02 01:44 | NUR ---
PT HAS PULLED VENTILATOR CIRCUIT LOOSE FROM TRACH FREQUENTLY THIS SHIFT, CONTINUES TO PULL MONITORING LINES LOOSE, FREQUENTLY REMOVES BLOOD PRESSURE CUFF, PUSHES STAFF'S HANDS AWAY WITH ATTEMPTS TO RECONNECT VENTILATOR TUBING, PUSHES STAFF HANDS AWAY WITH ATTEMPTS TO REPLACE MONITORING WIRES. PT HAS BEEN EDUCATED MULTIPLE TIMES THIS SHIFT REGARDING RISK OF INJURY/ WITH PULLING TRACH/VENT APART. BILAT SOFT WRIST RESTRAINTS APPLIED, PT EDUCATED REGARDING PURPOSE.
[2021-07-02 04:39] LABS: Hematocrit 27.4 % (33.0-51.0)
[2021-07-02 05:11] LABS: Albumin, Blood 1.9 g/dL (3.4-5.0); Anion Gap 6 mmol/L (6-16); Blood Urea Nitrogen 30 mg/dL (8-24); Bun/Creatinine Ratio 16.9 (12.0-20.0); CO2, Blood 33 mmol/L (21-32); Calcium, Blood 10.3 mg/dL (8.5-10.1); Chloride, Blood 101 mmol/L (98-108); Creatinine, Blood 1.77 mg/dL (0.40-1.00); Glomerular Filtration Rate 29 (60-); Glucose, Blood 136 mg/dL (70-99); Magnesium, Blood 2.1 mg/dL (1.6-2.4); Phosphorus, Blood 2.9 mg/dL (2.5-4.9); Potassium, Blood 3.7 mmol/L (3.5-5.5); Sodium, Blood 140 mmol/L (136-145)
--- NOTE | 2021-07-02 06:08 | NUR ---
PT AGITATED FREQUENTLY THIS SHIFT, ATIVAN PRN IV HAS HAD LITTLE EFFECT ON PT'S AGITATION, SHE FREQUENTLY REMOVED VENT CIRCUIT FROM TRACH THIS SHIFT AND WAS STRONGLY ENCOURAGED TO DISCONTINUE THIS BEHAVIOR, RISKS OF THIS WERE DISCUSSED IN DETAIL. RESTRAINTS WERE APPLIED AT 0130 THIS AM. PT HAS EXPRESSED EXTREME DISLIKE OF RESTRAINTS AND HAS MOUTHED STATEMENTS SUCH "MY IS WAITING OUTSIDE FOR ME" AND "WE LIVE JUST 4 HOUSES DOWN" HOWEVER SHE HAS MAINTAINED ABILITY TO ALSO MOUTH THAT SHE IS AT [facility]. VENT CONTINUES ON PRESSURE SUPPORT HOWEVER PRESSURE INCREASED TO 7/5 FOR LOW TIDAL VOLUMES AFTER MIDNOC ASSESSMENT, SATS HAVE MAINTAINED THROUGHOUT SHIFT.
--- NOTE | 2021-07-02 11:57 | NUR ---
Attempted a therapeutic visit with Xiomara this morning. She is currently having personal care done. Will attempt to revisit her at a better time.
--- NOTE | 2021-07-02 12:37 | NUR ---
REASSEMENT PT ALERT, ATTEMPTS TO TALK WITH STAFF, CONTINUES TO INTERMITTANTLY PULL AT TRACH. RT SWITCHED PT OVER FROM VENT TO TRACH COLLAR. TF CONTINUE AT GOAL IN PEG. BP TRENDING UPWARDS, AFTERNOON MIDODRINE HELD. MONITOR SHOWS PT TO BE SINUS RHYTHM/TACH WITH RATES 90'S-100'S. OTHER VITALS REMAIN STABLE.
--- NOTE | 2021-07-02 13:21 | NUR ---
Pt. is lying in bed and her nurse in the room attending to her needs offered prayers andspiritual support.
--- NOTE | 2021-07-02 18:29 | NUR ---
SHIFT SUMMARY PT IS ALERT, ANXIOUS AT TIMES. THIS AFTERNOON PT WAS TRANSITIONED TO TRACH COLLAR AND HAS TOLERATED WELL, WITH NO DECLINES IN SPO2. PT WAS ABLE TO TOLERATE A SHORT TIME IN CHAIR AND HAS HAD A RESTFUL AFTERNOON SINCE. VITALS HAVE BEEN STABLE, MONITOR SHOWS PT TO BE SINUS RHTYHM. PLAN FOR DIALYSIS TOMORROW.
--- NOTE | 2021-07-03 00:10 | NUR ---
PT REMOVES TRACH COLLAR AND SATS DECREASE TO 70S, PT PUSHES STAFF'S HANDS AWAY WITH ATTEMPTS TO REPLACE TRACH COLLAR AND MOUTHS "I WANT TO GO TO BED" WHEN EXPLAINED THAT SHE IS IN BED SHE MOUTHS "NO I'M NOT" "I WANT TO GO UPSTAIRS AND GO TO BED" CONTINUES TO ATTEMPT TO PUSH STAFF HANDS AWAY AND NOT ALLOW TRACH COLLAR TO BE REPLACED. BILAT WRIST RESTRAINTS ORDERED BY DR MCKEON AND APPLIED AT THIS TIME.
[2021-07-03 04:42] LABS: Hematocrit 27.5 % (33.0-51.0)
[2021-07-03 05:00] LABS: Albumin, Blood 1.9 g/dL (3.4-5.0); Anion Gap 5 mmol/L (6-16); Blood Urea Nitrogen 35 mg/dL (8-24); Bun/Creatinine Ratio 17.7 (12.0-20.0); CO2, Blood 34 mmol/L (21-32); Calcium, Blood 10.4 mg/dL (8.5-10.1); Chloride, Blood 101 mmol/L (98-108); Creatinine, Blood 1.98 mg/dL (0.40-1.00); Glomerular Filtration Rate 25 (60-); Glucose, Blood 130 mg/dL (70-99); Magnesium, Blood 2.3 mg/dL (1.6-2.4); Phosphorus, Blood 4.2 mg/dL (2.5-4.9); Potassium, Blood 3.9 mmol/L (3.5-5.5); Sodium, Blood 140 mmol/L (136-145)
--- NOTE | 2021-07-03 05:53 | NUR ---
PT WITH INCREASED AGITATION THIS SHIFT, WAS NOTED TO REMOVE TRACH COLLAR SEVERAL TIMES AND THEN PUSH STAFF HANDS AWAY WHEN ATTEMPTS ARE MADE TO REPLACE TRACH COLLAR. DR MCKEON WAS NOTIFIED AND BILAT WRIST RESTRAINTS WERE APPLIED. PT HAS SINCE REMAINED ON TRACH COLLAR AND SATS ARE MAINTAINED. SHE HAD A PERIOD OF INCREASED AGITATION/ANXIETY THIS AM AND SATS DECREASED TO MID 80S HOWEVER RECOVERED AFTER ADMINISTRATION OF ATIVAN IV AND REPOSITIONING. SHE HAS BEEN NOTED TO HAVE PERIODS OF CONFUSION THIS SHIFT WITH MOUTHING STATEMENTS SUCH WANTING TO GO UPSTAIRS TO GO TO BED AND ARGUING WITH STAFF WHEN IT IS EXPLAINED THAT SHE IS CURRENTLY IN HER BED IN THE HOSPITAL. PEG TUBE RESIDUALS HAVE BEEN BETWEEN 2 AND 300 ML THIS SHIFT.
--- NOTE | 2021-07-03 07:30 | NUR ---
ASSUMED CARE: PT RESTING IN BED, BILATERAL WRIST RESTRAINTS IN PLACE DUE TO SOFTWARE ENGINEER REPORTING PT PULLING AT LINES. PT CURRENTLY ON TRACH COLLAR AT 60%. SATURATIONS TOLERATING WELL. NO ACUTE NEEDS AT THIS TIME.
--- NOTE | 2021-07-03 08:59 | NUR ---
PHYSICAL THERAPY AT BEDSIDE AT THIS TIME.
--- NOTE | 2021-07-03 10:15 | NUR ---
TRACH CARE PERFORMED AND INNER CANNULA CHANGED. ATTEMPTED TO DO PICC LINE DRESSING MELISSA. EXPLAINED TO PT THAT SHE NEEDED TO HOLD HER ARM STILL BUT SHE MOUTHED TO STAFF TO LET HER GO AND THAT SHE WAS IN HER HOUSE AND SHE COULD DO WHAT SHE WANTED. REMINDER HER THAT SHE IS IN THE HOSPITAL AND THAT THE WRIST RESTRAINTS ARE IN PLACE DUE TO PT PULLING AT LINES. PT CONTINUED TO FIGHT STAFF SO RESTRAINT WAS REPLACED AND PICC LINE DRESSING DEFERRED FOR NOW.
[2021-07-03 14:55] LABS: Tobramycin, Random 1.2 ug/mL
--- NOTE | 2021-07-03 18:21 | NUR ---
SHIFT SUMMARY: PT HAS BEEN OUT OF RESTRAINTS SINCE 1800. SHE HAS BEEN AGITATED OFF AND ON THIS SHIFT AND REQUIRED RESTRAINTS BECAUSE SHE WAS PULLING AT LINES AND INTERFERING WITH CARE. DC PLANNING STATED SHE WAS GOING TO SPEAK WITH THERAPY AND PRINCESS TO COME UP WITH PLAN B SINCE PT IS A DIFFICULT PLACEMENT BECAUSE OF DIALYSIS AND NEW TRACH. TRACH TO 60% VIA TRACH COLLAR WITH A LOT OF THICK YELLOW SECRETIONS. RESTING QUIETLY AT THIS TIME. NO ACUTE NEEDS OR CONCERNS.
[2021-07-04 04:29] LABS: Hematocrit 26.7 % (33.0-51.0); Hemoglobin 7.9 g/dL (11.5-16.0); Mean Corpuscular HGB 27.3 pg (26.0-34.0); Mean Corpuscular HGB Conc 29.6 g/dL (31.5-36.5); Mean Corpuscular Volume 92 fL (80-100); Mean Platelet Volume 11.1 fL (9.1-12.4); Platelet Count 362 K/mm3 (150-400); RDW Coefficient Variation 19.9 % (11.7-14.2); RDW Standard Deviation 64.5 fL (35.1-46.3); Red Blood Cell Count 2.89 M/mm3 (3.80-5.20); White Blood Cell Count 20.38 K/mm3 (4.00-11.30)
[2021-07-04 05:01] LABS: Bun/Creatinine Ratio 17.6 (12.0-20.0); Creatinine, Blood 1.59 mg/dL (0.40-1.00); Percent Saturation 31.6 % (15.0-50.0); Potassium, Blood 3.6 mmol/L (3.5-5.5)
[2021-07-04 05:09] LABS: BAND PERCENT MAN 10 % (0-8); BASOPHILS PERCENT MAN 2 % (0-2); EOSINOPHILS ABSOLUTE MAN 0.61 K/mm3 (0.00-0.68); EOSINOPHILS PERCENT MAN 3 % (0-6); LYMPHOCYTES ABSOLUTE MAN 1.22 K/mm3 (0.84-5.20); LYMPHOCYTES PERCENT MAN 6 % (21-46); METAMYELOCYTE PERCENT MAN 2 % (0-0); MONOCYTES ABSOLUTE MAN 1.22 K/mm3 (0.16-1.47); MONOCYTES PERCENT MAN 6 % (4-13); MYELOCYTE ABSOLUTE MAN 0.61 K/mm3 (0.00-0.00); MYELOCYTE PERCENT MAN 3 % (0-0); NEUTROPHILS ABSOLUTE MAN 15.89 K/mm3 (1.96-9.15); SEG NEUTROPHILS PERCENT MAN 68 % (41-73); TOTAL CELLS COUNTED 100
--- NOTE | 2021-07-04 06:42 | NUR ---
PT CONTINUES TO BE AGITATED AND ANXIOUS AT TIMES. REPOSITIONING, SX AND PRN ATIVAN ARE HELPFUL FOR HER TO GET SOME REST. FIO2 IS DECREASED TO 30%. NO OTHER SIGNIFICANT CHANGES NOTED. WILL CONTINUE TO MONITOR AND REPORT TO ONCOMING SHIFT.
--- NOTE | 2021-07-04 07:30 | NUR ---
ASSUMED CARE: PT RESTING IN BED WITH TRACH COLLAR IN PLACE, 30% FIO2. PT ANXIOUS AND MOUTHING TO STAFF HER NEEDS. RT AT BEDSIDE AT THIS TIME. NSR ON TELE
--- NOTE | 2021-07-04 14:58 | NUR ---
PT GIVEN ANXIETY MEDS AND ATTENDS AND LINENS CHANGED PRIOR TO TRANSFER VIA BED TO ROOM 331. REPORT GIVEN TO CLINT MURPHY. RT ASSISTING WITH TRANSFER AND WAS AT BEDSIDE IN NEW ROOM TO SET UP RT EQUIPMENT. RN AWARE TO CHECK WITH [employer] ABOUT BRACE FOR RIGHT ARM
--- NOTE | 2021-07-04 15:00 | NUR ---
SHIFT SUMMARY: PT ARRIVED TO UNIT AND VITALS STABLE. PT IS A LIFT OOB. SLEEPING CONTINUOUS PULSE OX, 7L ON HUMIDIFIED TRACH COLLAR. PT ORIENTED TO CALL LIGHT. TUBE FEED INFUSING. PT DROWSY SO FULL SKIN ASSESSMENT NOT COMPLETED AT THIS TIME. REPORTED ESCORIATION AND MOISTURE ISSUES. OBSERVED MEPILEX AND CALLOUSES BILATERAL HEELS. PICC FLUSHED AND BLOOD RETURN NOTED ON ALL 3 LUMENS. PASSIVE DISINFECTION CAPS CHANGED. DIALYSIS CATHETER CLEAN AND INTACT WITH CLEAR DRESSING AND CHG PATCH IN PLACE. HEART WNL LUNGS DIMINISHED.
--- NOTE | 2021-07-05 05:27 | NUR ---
PT HAD MOOD AND BEHAVIORAL TROUBLES THIS SHIFT. ANXIETY TREATED PER EMAR. PT STATES SHE NEEDS SOMEONE TO HOLD HER HANDS OR SIT BY HER BEDSIDE. PT STATES SHE NEEDS TO SEE HER AND WOULD LIKE TO BE BROUGHT OUTSIDE TO SEE HIM. PT DOES NEED EMOTIONAL SUPPORT AND HELP COMMUNICATING HER NEEDS. PEG TUBE NUTRITION CONTINUES WITHOUT ISSUE. MEDS DELIVERED THROUGH TUBE. STAFF WILL CONT TO MONITOR.
[2021-07-05 08:19] LABS: Albumin, Blood 1.9 g/dL (3.4-5.0); Anion Gap 6 mmol/L (6-16); Blood Urea Nitrogen 35 mg/dL (8-24); Bun/Creatinine Ratio 20.1 (12.0-20.0); CO2, Blood 32 mmol/L (21-32); Calcium, Blood 10.5 mg/dL (8.5-10.1); Chloride, Blood 99 mmol/L (98-108); Creatinine, Blood 1.74 mg/dL (0.40-1.00); Glomerular Filtration Rate 30 (60-); Glucose, Blood 121 mg/dL (70-99); Phosphorus, Blood 4.5 mg/dL (2.5-4.9); Potassium, Blood 3.7 mmol/L (3.5-5.5); Sodium, Blood 137 mmol/L (136-145)
[2021-07-05 14:45] LABS: Tobramycin, Random 2.3 ug/mL
--- NOTE | 2021-07-05 18:14 | NUR ---
SHIFT SUMMARY PT AAO TO SELF AND FAMILY. ANXIOUS AT TIMES AND FORGETFUL. PT MEDICATED FOR ANXIETY ORDERED. NO C/O PAIN OR DISCOMFORT. TRACH CARE PROVIDED. MEDS DELIVERED CRUSHED IN APPLESAUCE ORDERED, PT TOLERATED WELL. PT REFUSED PUREE MEALS THIS SHIFT. APPLICATION TECHNICAL DESIGNER AWARE. PT ON CONTINUOUS PEG TUBE FEED AT ORDERED RATE. NO C/O ANY ABDOMINAL DISCOMFORT. NO N&V. NO C/O CP OR SOB. PT REMAINS ON 7LPM O2 VIA TRACH COLLAR. PT APPEARS CALM AND COMFORTABLE IN BED AT THIS TIME. BED AT LOWEST POSITION. CALL LIGHT WITHIN REACH.
[2021-07-06 05:24] LABS: Hematocrit 26.5 % (33.0-51.0); Hemoglobin 7.9 g/dL (11.5-16.0)
[2021-07-06 05:55] LABS: Albumin, Blood 2.1 g/dL (3.4-5.0); Anion Gap 7 mmol/L (6-16); Blood Urea Nitrogen 37 mg/dL (8-24); Bun/Creatinine Ratio 21.3 (12.0-20.0); CO2, Blood 32 mmol/L (21-32); Calcium, Blood 10.9 mg/dL (8.5-10.1); Chloride, Blood 97 mmol/L (98-108); Creatinine, Blood 1.74 mg/dL (0.40-1.00); Glomerular Filtration Rate 30 (60-); Glucose, Blood 115 mg/dL (70-99); Magnesium, Blood 2.1 mg/dL (1.6-2.4); Phosphorus, Blood 4.7 mg/dL (2.5-4.9); Potassium, Blood 3.7 mmol/L (3.5-5.5); Sodium, Blood 136 mmol/L (136-145)
--- NOTE | 2021-07-06 06:15 | NUR ---
PATIENT IS ALERT AND RESPONSIVE. PATIENT CONTINUES ON 11L OF HUMUDIFIED 02 VIA TRACH. TRACH CARE ADMINISTER ORDERED. PATIENT WAS SUCTION X1 DUE TO INCREASE MUCUS. PATIENT TOLERATED PO MEDS WITHOUT ANY DIFFICULTY. PATIENT HAD SOFT AND MUCUSY BM X2 THIS SHIFT. PATIENT NOTED WITH SOME CONFUSION, BANGING ON THE TABLE WITH THE SPOON, PULLING ON THE IV PULL WHEN SHE SHE NEEDS TO MAKE NEEDS KNOWED. ATIVAN WAS ADMINISTERED ORDERED WITH MINIMAL EFFECT. PATIENT CONTINUED WITH 3+ PITTING EDEMA.
[2021-07-06 12:46] LABS: Tobramycin, Random 1.7 ug/mL
--- NOTE | 2021-07-06 19:45 | NUR ---
Alert and oriented x 2 with some agitation and anxiety. continue on scheduled ativan for anxiety , it was effective. vital signs are stable. continue on tube feeding , it was tolerated. trache in place and sp02 via trach collar was 98%, no SOB noted.Miplex applied to buttock. one person assist with ADls. continue to monitor.
[2021-07-07 05:12] LABS: Hematocrit 24.2 % (33.0-51.0); Hemoglobin 7.3 g/dL (11.5-16.0)
[2021-07-07 05:43] LABS: Albumin, Blood 2.5 g/dL (3.4-5.0); Anion Gap 5 mmol/L (6-16); Blood Urea Nitrogen 38 mg/dL (8-24); Bun/Creatinine Ratio 23.6 (12.0-20.0); CO2, Blood 33 mmol/L (21-32); Calcium, Blood 10.8 mg/dL (8.5-10.1); Chloride, Blood 99 mmol/L (98-108); Creatinine, Blood 1.61 mg/dL (0.40-1.00); Glomerular Filtration Rate 32 (60-); Glucose, Blood 133 mg/dL (70-99); Magnesium, Blood 2.1 mg/dL (1.6-2.4); Potassium, Blood 3.5 mmol/L (3.5-5.5); Sodium, Blood 137 mmol/L (136-145)
--- NOTE | 2021-07-07 06:36 | NUR ---
SHIFT SUMMARRY PATIENT SUCTIONED MULTIPLE TIMES DURING THE MIGHT FOR MODERATE AMOUNTS OF LOOSE BLOOD TINGED SECRETIONS. O2 SATS REMAIN IN THE MID 90S . NO SIGNS OF RESPIRATORY OR CARDIAC DISTRESS NOTED. NO ACUTE MEDICAL CHANGES THIS SHIFT.
--- NOTE | 2021-07-07 19:45 | NUR ---
Alert and responsive to care. Two persons extensive assist with bed mobility and repositionig. Continue on Tube feeding , it was tolerated . right uppper arm PICC CDI. Continue on schduled ativan and seroquel , it was effective. vital signs are stable. Suctioning done multiple times . on 11L oxygen via trach collar , sp02 at 89 to 98% , no SOB noted. Continue to monitor.
[2021-07-07 23:16] LABS: PO2 Arterial 54.4 mmHg (80-100)
[2021-07-07 23:17] LABS: pH Blood Arterial 7.26 (7.35-7.45)
[2021-07-08 03:53] LABS: PCO2 Arterial 64.2 mmHg (35-45); pH Blood Arterial 7.36 (7.35-7.45)
--- NOTE | 2021-07-08 07:30 | NUR ---
END OF SHIFT SUMMARY PATIENT WAS HAVING SPO2 LESS THAN 80, SHE WAS SUCTIONED AND STILL NOT IMPROVING. THE RESPIRATORY THERAPIST WAS CALLED TO ASSIST. HE CAME IN SUCTIONED AND STILL PATIENT WAS STILL IN THE 86% THE MD WAS INFORMED ABOUT NEED FOR BIPAP WHICH HE AGREED AND HER BLOOD GAS WAS CHECKED AND IT WAS CRITICAL SEE LAB RESULTS, THE MD WAS ALSO INFORMED AND SHE WAS PLACED ON BIPAP. SHE IS CURRENTLY SATURATING AT 92-93%
[2021-07-08 09:25] LABS: Albumin, Blood 2.5 g/dL (3.4-5.0); Albumin/Globulin Ratio 0.7 (0.8-1.8); Bilirubin, Direct 0.2 mg/dL (0.0-0.3); Bilirubin, Indirect 0.2 mg/dL (0.1-0.7); Bilirubin, Total 0.4 mg/dL (0.1-1.0); Calcium, Blood 10.6 mg/dL (8.5-10.1); Creatinine, Blood 1.48 mg/dL (0.40-1.00); Globulin, Blood 3.4 g/dL (2.2-4.0); Magnesium, Blood 1.7 mg/dL (1.6-2.4); Percent Saturation 16.7 % (15.0-50.0); Phosphorus, Blood 4.8 mg/dL (2.5-4.9); Potassium, Blood 3.8 mmol/L (3.5-5.5); Total Protein, Blood 5.9 g/dL (6.4-8.2)
[2021-07-08 09:36] LABS: Hematocrit 25.4 % (33.0-51.0); Hemoglobin 7.5 g/dL (11.5-16.0); Mean Corpuscular HGB 27.9 pg (26.0-34.0); Mean Corpuscular HGB Conc 29.5 g/dL (31.5-36.5); Mean Corpuscular Volume 94 fL (80-100); Mean Platelet Volume 10.9 fL (9.1-12.4); Platelet Count 375 K/mm3 (150-400); RDW Coefficient Variation 21.5 % (11.7-14.2); Red Blood Cell Count 2.69 M/mm3 (3.80-5.20); White Blood Cell Count 15.83 K/mm3 (4.00-11.30)
--- NOTE | 2021-07-08 13:23 | NUR ---
Met pt. lyingin bed resting and awake ,pt. is doing fine encouraged her and prayed for her.
--- NOTE | 2021-07-08 20:03 | NUR ---
PT IS A/OX3, PLEASANT AND COOPERATIVE, THE PT IS BED REST AT THIS TIME, THE PT HAS A TRACH IN PLACE WITH BI-PAP CONECTED. THE PTS BIOX HAS BEEN IN THE 90-95%, THE PT HAS A PEG TUBE WITH CONTINUOS FEED AND HAS BEEN TOLERATING IT WELL. CALL LIGHT IN REACH. REPORT GIVEN TO THE NIGHT NURSE
--- NOTE | 2021-07-09 04:22 | NUR ---
END OF SHIFT SUMMARY PATIENT BP WAS ELEVATED AT THE BEGINING OF THE SHIFT, SHE WAS GIVEN THE PRN APRESOLIN WITH AMANDA OTHER HS MEDS AND THAT HELPED BRING IT DOWN TO WITHIN NORMAL RANGE. NO OTHER ISSUES OVER NIGHT. OXYGEN LEVEL WAS WITHIN 95-100% STILL ON BIPAP.
[2021-07-09 06:50] LABS: Calcium, Blood 10.3 mg/dL (8.5-10.1); Magnesium, Blood 1.8 mg/dL (1.6-2.4); Phosphorus, Blood 3.9 mg/dL (2.5-4.9); Potassium, Blood 3.6 mmol/L (3.5-5.5)
--- NOTE | 2021-07-09 13:38 | NUR ---
Pt. in bed relaxed reports to be doing much better ,encouraged and gave spiritual support and prayers
--- NOTE | 2021-07-09 13:42 | NUR ---
Pt. is in bed relaxed and reports nancy doing much beter encouraged pt and offered prayers andspititual supportllllllllllllnaveedllllllllllllnaveedl;;;;;;;;;;;;;;;;;;;;;;;;;;;;;;;;;;;;;; ;;;;;iiiiii""""""""""""""""""""""""""""""""""""""""""""""""""""""""""""""""""" """""""""""""""""""""""""""""""""""""""""""""""""""""""""""""""""""""""""""""" """""""""""""""""""""""""""""""""""""""""""""""""""""""""""""""""""""""""""""" """""""""""""""""""""""""" Pt. in bed relaxed and reports to be doing much better encouraged her, gave spiritual support and prayer.
[2021-07-09 14:10] LABS: A/G RATIO 1.3 (0.7-1.7); ALBUMIN 3.1 g/dL (2.9-4.4); ALPHA-1-GLOBULIN 0.3 g/dL (0.0-0.4); ALPHA-2-GLOBULIN 0.7 g/dL (0.4-1.0); BETA GLOBULIN 0.7 g/dL (0.7-1.3); GAMMA GLOBULIN 0.8 g/dL (0.4-1.8); GLOBULIN, TOTAL 2.4 g/dL (2.2-3.9); IMMUNOGLOBULIN A, QN, SERUM 126 mg/dL (87-352); IMMUNOGLOBULIN G, QN, SERUM 854 mg/dL (586-1602); IMMUNOGLOBULIN M, QN, SERUM 124 mg/dL (26-217); M-SPIKE Not Observed g/dL (Not Observed); PROTEIN, TOTAL, SERUM 5.5 g/dL (6.0-8.5)
--- NOTE | 2021-07-09 17:33 | NUR ---
NO ACUTE CHANGES PT AOX4 AND COOPERATIVE OF CARE. PT NEEDS TO BE TURNED WITH TWO PEOPLE AND IS INCONTENT OF URINE AND STOOL. PT HAD AND ORDER TO STRAIGHT CATH PER DR ANDREW. PT TOLERATED WELL. PT CALL APPROPRIATELY AND CAN INSTRUCT WHEN SHE REQUIRES SUCTIONING. PT SUCTIONED X3 TODAY AND TOLERATED WELL. TUBE FEEDING RUNNING AT 40ML/HR PER EMAR. NO DISTRESS NOTED AND CALL LIGHT WITHIN REACH. WILL CONTINUE TO MONITOR.
[2021-07-09 18:04] LABS: Hematocrit 22.8 % (33.0-51.0); Mean Corpuscular HGB Conc 30.7 g/dL (31.5-36.5); Mean Corpuscular Volume 91 fL (80-100); Mean Platelet Volume 10.1 fL (9.1-12.4); Platelet Count 349 K/mm3 (150-400); RDW Coefficient Variation 21.5 % (11.7-14.2); White Blood Cell Count 14.14 K/mm3 (4.00-11.30)
[2021-07-10 05:26] LABS: Hematocrit 29.5 % (33.0-51.0); Mean Corpuscular HGB Conc 30.5 g/dL (31.5-36.5); Mean Corpuscular Volume 92 fL (80-100); Mean Platelet Volume 10.2 fL (9.1-12.4); Platelet Count 390 K/mm3 (150-400); RDW Coefficient Variation 20.3 % (11.7-14.2); RDW Standard Deviation 63.1 fL (35.1-46.3); Red Blood Cell Count 3.22 M/mm3 (3.80-5.20)
[2021-07-10 06:00] LABS: Albumin, Blood 2.8 g/dL (3.4-5.0); Albumin/Globulin Ratio 0.8 (0.8-1.8); Bilirubin, Direct 0.2 mg/dL (0.0-0.3); Bilirubin, Indirect 0.4 mg/dL (0.1-0.7); Bilirubin, Total 0.6 mg/dL (0.1-1.0); Bun/Creatinine Ratio 30.8 (12.0-20.0); Calcium, Blood 10.9 mg/dL (8.5-10.1); Creatinine, Blood 1.3 mg/dL (0.40-1.00); Globulin, Blood 3.5 g/dL (2.2-4.0); Magnesium, Blood 1.8 mg/dL (1.6-2.4); Phosphorus, Blood 3.9 mg/dL (2.5-4.9); Potassium, Blood 3.5 mmol/L (3.5-5.5); Total Protein, Blood 6.3 g/dL (6.4-8.2)
--- NOTE | 2021-07-10 06:24 | NUR ---
PATIENT WAS TAKING OFF BIPAP, SHE IS NOW ON TRACH COLLAR. OXYGEN 95%
--- NOTE | 2021-07-10 16:21 | NUR ---
SHIFT SUMMARY PATIENT DENIES PAIN, NAUSEA, AND SHORTNESS OF BREATH AT REST. PATIENT REPORTS SOB WITH ACTIVITY. PATIENT ON 10L HUMIDIFIED AIR WITH A TRACH COLLAR. PATIENT MAINTAINING SATS ABOVE 93%. TUBE FEEDING CHANGED TO NOCTURNAL FEEDINGS. PATIENT ENCOURAGED TO EAT, BUT STATES SHE IS NERVOUS. PT WORKED WITH PATIENT TODAY. PATIENT PLEASANT AND COOPERATIVE WITH CARE.
--- NOTE | 2021-07-10 22:44 | NUR ---
AWAKE. INNER CANNULA OF TRACHE CHANGED WITH CLEAN TECHNIQUE. CALL LIGHT IN REACH. HOB REMAINS ELEVATED ABOUT 45 DEGREES. ISOLATION PRECAUTIONS MAINTAINED
[2021-07-11 06:11] LABS: Hematocrit 30.6 % (33.0-51.0); Hemoglobin 9.6 g/dL (11.5-16.0)
[2021-07-11 06:33] LABS: Albumin, Blood 2.9 g/dL (3.4-5.0); Anion Gap 3 mmol/L (6-16); Blood Urea Nitrogen 39 mg/dL (8-24); Bun/Creatinine Ratio 33.6 (12.0-20.0); CO2, Blood 38 mmol/L (21-32); Calcium, Blood 10.7 mg/dL (8.5-10.1); Chloride, Blood 92 mmol/L (98-108); Creatinine, Blood 1.16 mg/dL (0.40-1.00); Glomerular Filtration Rate 47 (60-); Glucose, Blood 132 mg/dL (70-99); Magnesium, Blood 1.4 mg/dL (1.6-2.4); Phosphorus, Blood 3.9 mg/dL (2.5-4.9); Potassium, Blood 3.7 mmol/L (3.5-5.5); Sodium, Blood 133 mmol/L (136-145)
--- NOTE | 2021-07-11 07:18 | NUR ---
GUT CLEANER SUMMARY ADMITTED FOR TRAUMATIC HEMOPERITONEUM. PT IS FULL CODE. PT WITH TRACH AND MASK AT 10L HUMIDIFIED AIR BY TRACH MASK. PT SATTING IN HIGH 90S TO [address] BUT DESATS TO 80S WHEN MASK IS OFF. PT WITH C/O ANXIETY IN THE AM - MEDICATED WITH IV ATIVAN. PT REPORTED BEING UNABLE TO SLEEP WELL THROUGHOUT THE NIGHT. NO OTHER CONCERNS THIS SHIFT.
--- NOTE | 2021-07-11 17:16 | NUR ---
SHIFT SUMMARY PATIENT DENIES PAIN, NAUSEA, AND SHORTNESS OF BREATH AT REST. PATIENT DOES REPORT BEING SHORT OF BREATH WHEN BEING REPOSITIONED IN BED. PATIENT HAD MULTIPLE EPISODES OF BEING ANXIOUS TODAY. PATIENT REQUESTED STAFF TO SIT IN ROOM AND HOLD HER HAND. DR. MARION NOTIFIED AND NEW ORDERS PLACED. PATIENT WAS SATURATING IN THE LOW 80S. OXYGEN INCREASED TO 12L AND FIO2 INCREASED TO 80%. PATIENT SATURATING AT 98%. TITRATED BACK DOWN TO 10L AND 40% FIO2 AFTER RECOVERING FOR HALF OF SHIFT. PATIENT IS A 2 PERSON ASSIST. SPEECH WORKED WITH PATIENT TODAY. ENCOURAGED PATIENT TO EAT THROUGHOUT THE DAY. PATIENT HESITANT, REFUSED BREAKFAST AND LUNCH. PATIENT HAVING MULTIPLE LOOSE STOOLS. PATIENT IS PLEASANT AND COOPERATIVE WITH CARE.
[2021-07-12 05:12] LABS: Hematocrit 29.8 % (33.0-51.0); Hemoglobin 9.1 g/dL (11.5-16.0)
[2021-07-12 05:52] LABS: Anion Gap 7 mmol/L (6-16); Blood Urea Nitrogen 34 mg/dL (8-24); Bun/Creatinine Ratio 28.8 (12.0-20.0); CO2, Blood 37 mmol/L (21-32); Calcium, Blood 10.3 mg/dL (8.5-10.1); Chloride, Blood 91 mmol/L (98-108); Creatinine, Blood 1.18 mg/dL (0.40-1.00); Glomerular Filtration Rate 46 (60-); Glucose, Blood 90 mg/dL (70-99); Magnesium, Blood 1.6 mg/dL (1.6-2.4); Potassium, Blood 3.8 mmol/L (3.5-5.5); Sodium, Blood 135 mmol/L (136-145)
--- NOTE | 2021-07-12 06:26 | NUR ---
PATIENT IS ALERT AND RESPONSIVE. PATIENT CONTINUE ON 10L HUMIDIFIED 02 VIA TRACH. PATIENT CONTINUES TO DESAT WITH POSITION CHANGES AND MOVEMENS. PATIENT WAS SUCTION THIS MORNING, WITH THICK MUCUS NOTED. PATIENT FELT ALOT BETTER AFTER SUCTIONING. PATIENT WAS MEDICATED WITH OXYCODONE DUE TO INCREASE ANXITY WITH MINIMAL EFFECT. PATIENT CONTINUES ON DROPLET PRECAUTIONS DUE TO ERBL IN THE TRACH. WILL CONTINUE TO MONITOR AND ENCOURAGE TO DECREASE PATIENT'S ANXIETY LEVEL.
--- NOTE | 2021-07-12 07:51 | NUR ---
patient suctioned thick secretions
--- NOTE | 2021-07-12 18:25 | NUR ---
ALERT. HAS TRACH WITH 10 L HUMIDIFIED OXYGEN. INNER CANNULA WAS CHANGED 07/10 PIPELINE DISPATCHER.NIGHT FEEDING TIMES CHANGED SO PATIENT WON'T BE SO "FULL" IN A.M.AND MAY EAT MORE DURING THE DAY. POWERGLIDE RT UPPER ARM PATENT. HAS BEEN ABLE TO TAKE SOME MEDS CRUSHED BY MOUTH. PERMACATH LEFT CHEST WALL. PEG TUBE PATENT. BUTTOCKS EXCORIATED. MEPILEX PLACED. 2-3 + PITTING EDEMA HIPS DOWN. SUCTIONED THROUGH TRACH OFTEN T/O DAY SHIFT WITH PATIENT TOLERATING WELL. WCTM
--- NOTE | 2021-07-13 05:23 | NUR ---
PT AWAKE IN HER ROOM WATCHING TV MAKING NO COMPLAINTS THIS SHIFT. NO ANXIETY OR LABILE MOOD. PT WAS CONG, COOPERATIVE AND LOOKING FORWARD TO GETTING STRONG ENOUGH TO GET HOME TO HER AND CAT. PT HAS PROTECTIVE MEP ON COXYS. CREAM APPLIED TO BOTTOM AND GIFTY AREA AND SKIN CONDITION IMPROVING WITH NO OPEN AREAS. PT WAS ABLE TO TAKE HER MEDS WHOLE WITH WATER ALL AT ONCE (5 SMALL PILLS). FLUIDS PROVIDED THROUGH NIGHT. TUBE FEEDINGS FROM 2000 TO 0500 WITH 120 FLUSH. NO OTHER CHANGES TO NOTE. STAFF WILL CONT TO MONITOR.
--- NOTE | 2021-07-13 18:50 | NUR ---
SHIFT SUMMARY VERY POOR PO INTAKE. REPORTS SEVERE ANXIETY, RESOLVED WITH THERAPEUTIC PRESENCE. ON 10L TRACH COLLAR. REQUIRED SUCTION 3X THIS SHIFT: MODERATE, JEREZ SECRETIONS. BED EXERCISES WITH PT.
--- NOTE | 2021-07-14 06:54 | NUR ---
PATIENT ALERT AND ORIENTED X4. PATIENT ON TRACH AND CONTINUE TO REQUIRE SUCTIONING. PATIENT WAS SUCTIONED X5. PATIENT WAS VERY AGITATED AND COMPLAINED OF PAIN. PATIENT WAS MEDICATED WITH PRN OXYCODONE, AND TYLENOL. PATIENT REPORTED SHE WAS UNABLE TO SLEEP. MD SAVAGE WAS CALLED AND OREDERED PRN MELATONIN 5MG PO FOR SLEEP AT BEDTIME. PATIENT CONTINUE BE AWAKE ALL NIGHT AND AND VERY NEEDY. WILL CONTINUE TO MONITOR AND ENCOURAGE PATIENT.
[2021-07-14 10:05] LABS: Hematocrit 29.5 % (33.0-51.0); Hemoglobin 8.8 g/dL (11.5-16.0)
[2021-07-14 10:30] LABS: Anion Gap 6 mmol/L (6-16); Blood Urea Nitrogen 31 mg/dL (8-24); CO2, Blood 38 mmol/L (21-32); Calcium, Blood 9.9 mg/dL (8.5-10.1); Chloride, Blood 90 mmol/L (98-108); Creatinine, Blood 1.29 mg/dL (0.40-1.00); Glomerular Filtration Rate 42 (60-); Glucose, Blood 156 mg/dL (70-99); Magnesium, Blood 1.5 mg/dL (1.6-2.4); Potassium, Blood 3.9 mmol/L (3.5-5.5); Sodium, Blood 134 mmol/L (136-145)
--- NOTE | 2021-07-15 06:39 | NUR ---
PATIENT IS ALERT AND RESPONSIVE. PATIENT WAS SUCTION X2 DUE TO INCREASE MUCUS PRODUCTION IN HER TRACH. TRACH CONTINUES ON HUMIDIED 02AT 10L. 2+ PITTING EDEMA FROM HER FOOT UP TO HER HIPS. PATIENT WAS INCONTINENT X2 OF BOTH BOWEL AND BLADDER. BED IN LOW POSITION AND CALL LIGHT WITHIN REACH FOR SAFETY.
[2021-07-15 09:31] LABS: Hematocrit 29.2 % (33.0-51.0); Hemoglobin 8.8 g/dL (11.5-16.0)
[2021-07-15 09:57] LABS: Albumin, Blood 3.1 g/dL (3.4-5.0); Anion Gap 4 mmol/L (6-16); Blood Urea Nitrogen 26 mg/dL (8-24); Bun/Creatinine Ratio 19.3 (12.0-20.0); CO2, Blood 39 mmol/L (21-32); Chloride, Blood 91 mmol/L (98-108); Creatinine, Blood 1.35 mg/dL (0.40-1.00); Glomerular Filtration Rate 40 (60-); Glucose, Blood 151 mg/dL (70-99); Magnesium, Blood 1.3 mg/dL (1.6-2.4); Phosphorus, Blood 3.5 mg/dL (2.5-4.9); Potassium, Blood 4.4 mmol/L (3.5-5.5); Sodium, Blood 134 mmol/L (136-145)
--- NOTE | 2021-07-15 18:24 | NUR ---
PT AO ,PT TRACH CHANGED TO A NUMBER 6 FENESTRATED CUFFLESS TUBE. PT TOLERATED WELL BUT STILL BLEEDING A LITTLE BIT FROM TRACH. PT HAVE BILATERAL PITTING EDEMA FROM HIPS DOWN TO FOOT,PT ON 10 L HUMIDIFIER FIO2 35% SATTING IN HIGH 90S TO 100% PT IS VERY PLEASANT,DENIES PAINS,N/V,SOB,PT IS 2 ASSIST WITH BEDPAN,PT IN BED,CALL LIGHT IN REACH WILL CONTINUE TO MONITOR.
--- NOTE | 2021-07-16 01:49 | NUR ---
AT ABOUT 1045P PATIENT CALLED FOR HELP REPORTING PANIC ATTACH AND RESPIRATORY DISTRESS. PATIENT WAS DESATTING AND SWEATING. VITAL SIGNED ASSESSED AND PATIENT'S 02 WAS IN THE 40'S. THIS NURSE ATTEMPTED TO TURNED THE 02 LEVEL UP. PATIENT CONTINUE TO DESAT. RR TEAM ACTIVATED WITH IMMEDIATE INTERVENTION. PATIENT WAS SUCTIONED WELL WITH MODERATE AMOUNT OF BLOOD OUSING FROM THE TRACH. PATIENT STATED "I FEEL BETTER" AFTER THIS.
--- NOTE | 2021-07-16 03:28 | NUR ---
PATIENT WAS COUGHING AND IRRITATING THE TRACH, AND HAVING SOME ANXIETY AND PANIC ATTACKS, DR ROWE WAS CALLED AND GOT AN ORDER FOR ROBITUSSIN 10ML Q4 HOURS VIA PEG TUBE AND HYDROXYZINE 25MG Q6 HOUR FOR ANXIETY VIA PEG TUBE.
--- NOTE | 2021-07-16 05:34 | NUR ---
PATIENT WAS NOTED TO BE OUSING BLOOD FROM THE TRACH, CALLED NOTIFIED AND GOT AN ORDER TO HOLD HEPARIN AT 2100PM.
[2021-07-16 08:55] LABS: Magnesium, Blood 1.4 mg/dL (1.6-2.4); Phosphorus, Blood 3.4 mg/dL (2.5-4.9); Potassium, Blood 4.7 mmol/L (3.5-5.5)
[2021-07-16 09:09] LABS: M-SPIKE, % 30.2 % (Not Observed); PROTEIN,TOTAL,URINE 8.3 mg/dL (Not Estab.)
--- NOTE | 2021-07-16 16:48 | NUR ---
SHIFT SUMMARY PATIENT MEDICATED FOR PAIN X1. PATIENT MEDICATED FOR NAUSEA X1. PATIENT DENIES SHORTNESS OF BREATH AT REST. PATIENT GET SOB WITH ACTIVITY. PATIENT IS MOTIVATED TO GO HOME. PATIENT IN GOOD SPIRITS TODAY. PT WORKED WITH PATIENT. PATIENT SAT ON SIDE OF BED FOR 5-8 MINUTES, BUT UNABLE TO STAND. PATIENT IS EATING AND DRINKING WELL. PATIENT CHANGED TO COOL O2 AT 8L AND 30% FIO2. PATIENT MAINTAINING SATS ABOVE 94%. PATIENT TAKING MEDS ORALLY. PATIENT IS PLEASANT AND COOPERATIVE WITH CARE.
[2021-07-17 05:19] LABS: Hematocrit 27.2 % (33.0-51.0); Hemoglobin 8.3 g/dL (11.5-16.0)
[2021-07-17 05:40] LABS: Albumin, Blood 3.2 g/dL (3.4-5.0); Anion Gap 8 mmol/L (6-16); Blood Urea Nitrogen 32 mg/dL (8-24); Bun/Creatinine Ratio 23.4 (12.0-20.0); CO2, Blood 33 mmol/L (21-32); Calcium, Blood 9.6 mg/dL (8.5-10.1); Chloride, Blood 93 mmol/L (98-108); Creatinine, Blood 1.37 mg/dL (0.40-1.00); Glomerular Filtration Rate 39 (60-); Glucose, Blood 121 mg/dL (70-99); Phosphorus, Blood 3.3 mg/dL (2.5-4.9); Potassium, Blood 4.7 mmol/L (3.5-5.5); Sodium, Blood 134 mmol/L (136-145)
--- NOTE | 2021-07-17 06:22 | NUR ---
SHIFT SUMMARY ADMITTED FOR TRAUMATIC HEMOPERITONEUM. FULL CODE. AWAITING PLACEMENT. PICC LINE IN PLACE. TUBE FEEDINGS THROUGH PM SHIFT. HEPARIN HELD ORDERED. TRACH IN PLACE. COLD HUMIDIFIED O2 @ 7 LPM/30% FIO2. THROUGHOUT SHIFT TUBES AND O2 SENSORS WOULD BECOME DISCONNECTED, THINGS ON THE PT'S TABLE OR BED WOULD BE THROWN TO THE FLOOR (INCLUDING DRINKS). SHE DID REFUSE HER MORNING MEDS. SHE DOES SEEM CONFUSED.
--- NOTE | 2021-07-17 16:23 | NUR ---
SHIFT SUMMARY PATIENT DENIES PAIN, NAUSEA, AND SHORTNESS OF BREATH AT REST. PATIENT GETS SHORT OF BREATH WITH ACTIVITY AND EATING. PATIENT IS ON 6L ON A VENTURI MASK. PATIENT VERY ANXIOUS/EMOTIONAL TODAY. TALKED WITH SISTER ALICIA AND PHYLICIA. PATIENT MEDICATED X2 FOR ANXIETY. PATIENT MOTIVATED TO GO HOME. PATIENT WORKED WITH PT AND WAS ABLE TO DANGLE ON SIDE OF BED FOR A LONGER PERIOD OF TIME THAN YESTERDAY. PATIENT EATING AND DRINKING WELL. PEG TUBE FEEDINGS DICONTINUED.
--- NOTE | 2021-07-18 05:46 | NUR ---
PT REMAINS MANIPULATIVE, ANXIOUS, AGITATED, IMPULSIVE, AND AGRESSIVE AT TIMES. VENTI MASK WITH 11L O2 VIA TRACH. DESAT TO 60% LAST NIGHT. RT PAGED AND ASSESSED PT. SAT INCREASED TO 99%. PT WAS SUCTIONED ONCE AND TOLERATED WELL. LOWERS HOB AT TIMES AND DESAT TO 70S. UPON REDIRECTIONS, PT CLAIMS SHE NEEDS ATTENTION. SEROQUEL AND ATARAX GIVEN PRN FOR ANXIETY. WILL CONTINUE TO MONITOR. ADLS GIVEN LAST NIGHT. REFUSES AM CARE.
[2021-07-18 11:18] LABS: Albumin, Blood 3.7 g/dL (3.4-5.0); Anion Gap 9 mmol/L (6-16); Blood Urea Nitrogen 37 mg/dL (8-24); Bun/Creatinine Ratio 22.4 (12.0-20.0); CO2, Blood 33 mmol/L (21-32); Calcium, Blood 10.4 mg/dL (8.5-10.1); Chloride, Blood 93 mmol/L (98-108); Creatinine, Blood 1.65 mg/dL (0.40-1.00); Glomerular Filtration Rate 31 (60-); Glucose, Blood 126 mg/dL (70-99); Magnesium, Blood 1.7 mg/dL (1.6-2.4); Potassium, Blood 4.8 mmol/L (3.5-5.5); Sodium, Blood 135 mmol/L (136-145)
--- NOTE | 2021-07-18 19:38 | NUR ---
Alert and oriented x3 , removed trach x2 and was replaced, TRACH is capped now and is on 4Ln/c, sp02 at 94-99%. No SON noted. Seroquel was given for anxiety and it was effective. Right upper arm PICC in place and site is CDI. Vital signs are stable. Continue to monitor.
[2021-07-19 06:14] LABS: Hematocrit 27.9 % (33.0-51.0); Hemoglobin 8.6 g/dL (11.5-16.0)
--- NOTE | 2021-07-19 06:15 | NUR ---
SHIFT SUMMARY PATIENT ALERT AND ORIENTED X3. IS CONFUSED AND DELUSIONAL AT TIMES. VERY ANXIOUS. PATIENT MEDICATED PER EMAR FOR PAIN. NO COMPLAINTS OF SHORTNESS OF BREATH. BED IN LOWEST POSITION WITH WHEELS LOCKED AND ALARM ON. CALL LIGHT WITHIN REACH. REPORT GIVEN TO ONCOMING RN.
[2021-07-19 06:33] LABS: Albumin, Blood 3.3 g/dL (3.4-5.0); Anion Gap 8 mmol/L (6-16); Blood Urea Nitrogen 38 mg/dL (8-24); Bun/Creatinine Ratio 22.1 (12.0-20.0); CO2, Blood 34 mmol/L (21-32); Calcium, Blood 9.9 mg/dL (8.5-10.1); Chloride, Blood 94 mmol/L (98-108); Creatinine, Blood 1.72 mg/dL (0.40-1.00); Glomerular Filtration Rate 30 (60-); Glucose, Blood 109 mg/dL (70-99); Magnesium, Blood 1.9 mg/dL (1.6-2.4); Phosphorus, Blood 4.5 mg/dL (2.5-4.9); Potassium, Blood 4.4 mmol/L (3.5-5.5); Sodium, Blood 136 mmol/L (136-145)
[2021-07-19 08:28] LABS: Bicarbonate Venous 33.3 mmol/L (24.0-30.0); PCO2 Venous 61.8 mmHg (38-42); pH Blood Venous 7.38 (7.34-7.37)
--- NOTE | 2021-07-19 15:16 | NUR ---
Pt.is lying in bed and her nurse in the room attending to her needs ,prayed and blessed pt.
--- NOTE | 2021-07-19 16:59 | NUR ---
SHIFT SUMMARY PT AGITATED THIS AM AT SHIFT CHANGE. MEDIATED WITH PRN SEROQUEL SOON AFTER AND HAD A PLEASANT DAY, UNTIL AROUND 1600. PT BECAME AGITATED AGAIN STATING SHE IS LEAVING AND A TAXI WILL BE HERE TO PICK HER UP SOON. PT INFORMED THAT SHE IS NOT ABLE TO LEAVE THE HOSPITAL SAFETLY YET AND WAS MEDICATED WITH SEROQUEL AGAIN. PT HAS BEEN INCONT T/O THE DAY. SATING WELL AT 98-100 ON 6L O2 VIA NC. PULMONOLOGY CONSULTED AND STATED THAT TRACH COULD POSSIBLY BE REMOVED TOMORROW IF SHE CONTINUES TO MAINTAIN HER SATS WITH IT CAPPED. CALL LESLIE IN REACH. RESTING IN BED AT THIS TIME. LOOKING FOR A RECLINER FOR THE PT TO USE DURING THE DAY.
--- NOTE | 2021-07-20 03:42 | NUR ---
SHIFT SUMMARY PT AWAKE MUCH OF THE EVENING. SLEPT OFF AND ON FOR SHORT PERIODS OF TIME. PT CONSTANTLY FIDGETING WITH SOMETHING. CALLS FREQUENTLY. SOMETIMES JUST YELLING OUT IN HER ROOM. ANXIOUS AT TIMES. MEDICATED PER EMAR. PEG TUBE IN PLACE AND CLAMPED. TRACH CAPPED. PT REMAINED ON 6 L VIA NC. O2 SATS MOSTLY IN THE HIGH 90'S BUT PT DESATS AT TIMES WHEN TALKING A LOT OR TAKING HER OXYGEN OFF. COCCYX AND MELONY AREA RED AND DISCOLORED. FLOATED BOTTOM AND BARRIER CREAM APPLIED. VITAL SIGNS STABLE. NO ACUTE CHANGES THIS EVENING.
[2021-07-20 05:00] LABS: PCO2 Arterial 55.8 mmHg (35-45); PO2 Arterial 68.5 mmHg (80-100); pH Blood Arterial 7.43 (7.35-7.45)
[2021-07-20 06:22] LABS: Hematocrit 27.9 % (33.0-51.0); Hemoglobin 8.5 g/dL (11.5-16.0)
[2021-07-20 07:04] LABS: Albumin, Blood 3.4 g/dL (3.4-5.0); Anion Gap 6 mmol/L (6-16); Blood Urea Nitrogen 37 mg/dL (8-24); Bun/Creatinine Ratio 22.7 (12.0-20.0); CO2, Blood 35 mmol/L (21-32); Calcium, Blood 9.8 mg/dL (8.5-10.1); Chloride, Blood 95 mmol/L (98-108); Creatinine, Blood 1.63 mg/dL (0.40-1.00); Glomerular Filtration Rate 32 (60-); Glucose, Blood 111 mg/dL (70-99); Magnesium, Blood 1.5 mg/dL (1.6-2.4); Phosphorus, Blood 4.7 mg/dL (2.5-4.9); Potassium, Blood 4.2 mmol/L (3.5-5.5); Sodium, Blood 136 mmol/L (136-145); Triiodothyronine, Free 1.69 pg/mL (2.18-3.98)
--- NOTE | 2021-07-20 16:00 | NUR ---
SHIFT SUMMARY PATIENT DENIES PAIN, NAUSEA, AND SHORTNESS OF BREATH AT REST. PATIENT MEDICATED X1 FOR ANXIETY. PATIENT GETS SOB WITH ACTIVITY. PATIENT IS ON 6L NASAL CANNULA. PATIENT WAS DECANNULATED TODAY. PATIENT TOLERATED WELL. OFE IN PLACE. PATIENT IS MAINTAINING SATS ABOVE 93%. PT WORKED WITH PATIENT TODAY. PATIENT ABLE TO SIT ON SIDE OF BED. PATIENT GOT VERY SOB AND HAD TO TAKE A BREAK. PATIENT DOES SEEM TO BE TOLERATING MORE ACTIVITY. PATIENT HAD A VISITOR IN THE AFTERNOON. PATIENT IS EAGER TO GO TO REHAB AND GET STRONGER. PATIENT IS EATING AND DRINKING WELL. PATIENT IS PLEASANT AND COOPERATIVE WITH CARE.
[2021-07-21 07:11] LABS: Hematocrit 22.8 % (33.0-51.0); Hemoglobin 6.8 g/dL (11.5-16.0)
[2021-07-21 07:20] LABS: Anion Gap 3 mmol/L (6-16); Blood Urea Nitrogen 38 mg/dL (8-24); Bun/Creatinine Ratio 24.4 (12.0-20.0); CO2, Blood 37 mmol/L (21-32); Calcium, Blood 9.6 mg/dL (8.5-10.1); Chloride, Blood 98 mmol/L (98-108); Creatinine, Blood 1.56 mg/dL (0.40-1.00); Glomerular Filtration Rate 34 (60-); Glucose, Blood 120 mg/dL (70-99); Magnesium, Blood 1.4 mg/dL (1.6-2.4); Phosphorus, Blood 4.7 mg/dL (2.5-4.9); Potassium, Blood 4.1 mmol/L (3.5-5.5); Sodium, Blood 138 mmol/L (136-145)
--- NOTE | 2021-07-21 07:25 | NUR ---
SHIFT SUMMARY PT IS A 60 Y/O FEMALE, ORIGINALLY ADMITTED FOR TRAUMATIC HEMOPARITENEUM. SHE IS A&O X 3, INCONTINENT, BEDREST, VERY ANXIOUS AND AGITATED AT TIMES. SHE IS ON 6L O2 VIA NC, AND DESATS TO THE 70S WHEN SHE TAKES IT OFF. DRESSING IN PLACE OVER TRACH SITE, C/D/I. PEG TUBE IN PLACE. VITAL SIGNS STABLE. NO C/O PAIN, NAUSEA OR SOB. PT HAD EPISODE OF SEVERE ANXIETY AND AGITATION DURING THE NIGHT, TAKING OFF HER O2 FOR A SHORT PERIOD AND REFUSING TO PUT IT BACK ON, RIPPING APART O2 TUBING AND HER O2 MONITOR BRACELET. PT WAS MEDICATED WITH PRN SEROQUEL AT THAT TIME. NO OTHER ACUTE CHANGES IN PT CONDITION NOTED. REPORT GIVEN TO ONCOMING RN.
--- NOTE | 2021-07-21 16:47 | NUR ---
SHIFT SUMMARY PATIENT IS ALERT AND ORIENTED X3, HAS BEEN COOPERATING WITH CARE THROUGHOUT THIS SHIFT. HGB WAS 6.8 THIS AM. THE PATIENT RECEIVED 1 UNIT OF PRBC'S THIS SHIFT. HGB CAME UP TO 9.7. THE PATIENT DID HAVE SOME ANXIETY EARLY IN THE SHIFT. THEY WANTED THEIR COMPUTER FIXED AND A CELL PHONE. THE PATIENT'S SON HAS BEEN VISITING WITH THE PATIENT THIS AFTERNOON. THE PATIENT IS CALM AND CONTENT. WILL CONTINUE TO MONITOR THE PATIENT UNTIL SHIFT CHANGE.
[2021-07-21 22:26] LABS: Stool Occult Blood Guaiac 1 Neg (Neg)
[2021-07-22 03:08] LABS: BASOPHILS ABSOLUTE AUTO 0.09 K/mm3 (0.00-0.23); BASOPHILS PERCENT AUTO 1 % (0-2); EOSINOPHILS ABSOLUTE AUTO 1.06 K/mm3 (0.00-0.68); EOSINOPHILS PERCENT AUTO 10 % (0-6); Hematocrit 29.6 % (33.0-51.0); Hemoglobin 9.2 g/dL (11.5-16.0); IMMATURE GRAN ABSOLUTE AUTO 0.12 K/mm3 (0.00-0.10); IMMATURE GRAN PERCENT AUTO 1 % (0-1); LYMPHOCYTES ABSOLUTE AUTO 1.15 K/mm3 (0.84-5.20); LYMPHOCYTES PERCENT AUTO 11 % (21-46); MONOCYTES ABSOLUTE AUTO 1.29 K/mm3 (0.16-1.47); MONOCYTES PERCENT AUTO 12 % (4-13); Mean Corpuscular HGB 29.2 pg (26.0-34.0); Mean Corpuscular HGB Conc 31.1 g/dL (31.5-36.5); Mean Corpuscular Volume 94 fL (80-100); Mean Platelet Volume 9.9 fL (9.1-12.4); NEUTROPHILS ABSOLUTE AUTO 6.87 K/mm3 (1.96-9.15); NEUTROPHILS PERCENT AUTO 65 % (41-73); Platelet Count 290 K/mm3 (150-400); RDW Coefficient Variation 20.1 % (11.7-14.2); RDW Standard Deviation 69.5 fL (35.1-46.3); Red Blood Cell Count 3.15 M/mm3 (3.80-5.20); White Blood Cell Count 10.58 K/mm3 (4.00-11.30)
[2021-07-22 03:23] LABS: Albumin, Blood 3.2 g/dL (3.4-5.0); Anion Gap 5 mmol/L (6-16); Blood Urea Nitrogen 37 mg/dL (8-24); Bun/Creatinine Ratio 25.9 (12.0-20.0); CO2, Blood 35 mmol/L (21-32); Calcium, Blood 9.4 mg/dL (8.5-10.1); Chloride, Blood 96 mmol/L (98-108); Creatinine, Blood 1.43 mg/dL (0.40-1.00); Glomerular Filtration Rate 37 (60-); Glucose, Blood 147 mg/dL (70-99); Phosphorus, Blood 4.2 mg/dL (2.5-4.9); Potassium, Blood 4.3 mmol/L (3.5-5.5); Sodium, Blood 136 mmol/L (136-145)
--- NOTE | 2021-07-22 05:26 | NUR ---
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 MEDICATED WITH TYLENOL X 1 PER REQUEST FOR PAIN, MED EFFECTIVE HSE SEEMED TO GO TO SLEEP SOON AFTER. CALL LIGHT IN REACH. VOICED MOTIVATION TO WORK WITH PT TO GET BETTER SO SHE COULD GO HOME. ISOLATION PRECAUTIONS MAINTAINED.
--- NOTE | 2021-07-22 15:33 | NUR ---
Pt. is relaxed in bed resting and is doing well offered prayers .
--- NOTE | 2021-07-22 17:03 | NUR ---
SHIFT SUMMARY PATIENT MEDICATED FOR PAIN X1. PATIENT DENIES NAUSEA AND SHORTNESS OF BREATH AT REST. PATIENT REPORTS SOB AND DIZZINESS WITH ACTIVITY. PATIENT WAS TITRATED TO 4L N/C THIS SHIFT. MAINTAINING SATS ABOVE 95%. DRESSING OVER TRACH INCISION CHANGED. PT WORKED WITH PATIENT, PATIENT ABLE TO SIT ON SIDE OF BED UNASSISTED. PT RECOMMENDED USING A LIFT. GOT PATIENT INTO A RECLINER WITH THE LIFT THIS AFTERNOON. PATIENT WAS VERY CALM, PLEASANT, AND COOPERATIVE WITH CARE THIS SHIFT. NO NOTED ANXIETY. PATIENT MENTIONED SHE RECOGNIZED THAT SHE HAD INCREASED ANXIETY THE LAST FEW DAYS AND WANTED TO APLOGIZE TO STAFF. PATIENT STATES SHE FEELS "CLEAR" NOW IN HER HEAD. PATIENT IS EATING AND DRINKING WELL.
--- NOTE | 2021-07-23 01:39 | NUR ---
O2 DESAT TO 80. NOTE PT HAD NC IN MOUTH, SLEEPING. O2 INCREASED TO 6L/MIN AND PLACED BACK IN NOSTRILS. INSTRUCTED TO TAKE DEEP BREATHS, RT NOTIFIED. RT WAS REQUESTED TO FOLLOW UP
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
[2021-07-23 08:02] LABS: Hematocrit 30.7 % (33.0-51.0); Hemoglobin 9.6 g/dL (11.5-16.0)
[2021-07-23 08:23] LABS: Albumin, Blood 3.1 g/dL (3.4-5.0); Anion Gap 5 mmol/L (6-16); Blood Urea Nitrogen 36 mg/dL (8-24); Bun/Creatinine Ratio 24.5 (12.0-20.0); CO2, Blood 34 mmol/L (21-32); Calcium, Blood 9.5 mg/dL (8.5-10.1); Chloride, Blood 98 mmol/L (98-108); Creatinine, Blood 1.47 mg/dL (0.40-1.00); Glomerular Filtration Rate 36 (60-); Glucose, Blood 149 mg/dL (70-99); Magnesium, Blood 1.4 mg/dL (1.6-2.4); Phosphorus, Blood 4.1 mg/dL (2.5-4.9); Potassium, Blood 4.3 mmol/L (3.5-5.5); Sodium, Blood 137 mmol/L (136-145)
--- NOTE | 2021-07-23 18:08 | NUR ---
SHIFT SUMMARY PATIENT DENIES PAIN, MEDICATED X1 FOR NAUSEA, DENIES SHORTNESS OF BREATH AT REST. PATIENT REPORTS SLIGHT SHORTNESS OF BREATH WITH ACTIVITY. PATIENT IS ON 2L N/C AND SATURATING IN THE MID 90S. PATIENT WAS QUITE ANXIOUS THIS MORINING, RESTLESS. MEDICATED X1 WITH PRN SEROQUEL. DISCONTINUED PRN SEROQUEL THIS AFTERNOON. PATIENT IS A LIFT TO THE CHAIR. PATIENT IS EATING AND DRINKING WELL. PATIENT VISITED THIS AFTERNOON. INFORMED PATIENT OF SOME BAD NEWS. PATIENT VERY EMOTIONAL AFTER. PATIENT CRYING AND YELLING OUT. PATIENT VERY AGGITATED. PATIENT WANTING TO GO HOME. ABLE TO TALK WITH PATIENT AND CALM HER DOWN.
--- NOTE | 2021-07-24 04:50 | NUR ---
PT SLEPT THROUGH THE NIGHT WITH INTERRUPTION. O2 2L NC IN PLACE. SAT 93-100%. PT IS STILL ANXIOUS BUT LESS AGITATED. SHE IS MORE COOPERATIVE WITH MEDS. ASSISTED WITH NEEDS. NO SOB. CALL LIGHT WITHIN REACH. ADLS GIVEN. SAFETY MEASURES IN PLACE.
[2021-07-24 06:08] LABS: Hemoglobin 9.9 g/dL (11.5-16.0)
[2021-07-24 06:21] LABS: Albumin, Blood 3.1 g/dL (3.4-5.0); Anion Gap 5 mmol/L (6-16); Blood Urea Nitrogen 32 mg/dL (8-24); Bun/Creatinine Ratio 23.9 (12.0-20.0); CO2, Blood 35 mmol/L (21-32); Calcium, Blood 9.8 mg/dL (8.5-10.1); Chloride, Blood 98 mmol/L (98-108); Creatinine, Blood 1.34 mg/dL (0.40-1.00); Glomerular Filtration Rate 40 (60-); Glucose, Blood 133 mg/dL (70-99); Magnesium, Blood 1.6 mg/dL (1.6-2.4); Phosphorus, Blood 3.7 mg/dL (2.5-4.9); Potassium, Blood 4.3 mmol/L (3.5-5.5); Sodium, Blood 138 mmol/L (136-145)
--- NOTE | 2021-07-24 19:20 | NUR ---
SUMMARY- PT WAS IRRITABLE THIS AM, YELLING AT THE STAFF AND DEMANDING. BECAME MORE AGREEABLE THE SHIFT PROGRESSED. PT TOLERATING MEALS. WORKED WITH PHYSICAL THERAPY, BUT WASN'T ABLE TO SIT OR STAND WITHOUT ALOT OF HELP, NO CORE STRENGTH, SEE TX NOTE. PT UP TO CHAIR 1740 WITH LIFT AND 2 STAFF. PAIN IN R ARM CONTROLLED WITH OXY. HEADACHE CONTROLLED THIS PM WITH TYLENOL.
--- NOTE | 2021-07-25 04:38 | NUR ---
RECEIVED PT OOB IN CHAIR. VISITED LAST NIGHT. PT REMAINS CALMER AND MORE PLEASANT ON APPROACH. TAKES MED SELECTIVELY. SAT 93-96% ON O2 2L NC. NO EVENT LAST NIGHT. VSS. SACRUM WITH REDNESS. MEPILEX APPLIED. INCONTINENT OF URINE. ATTENDS IN PLACE. CALL LIGHT WITHIN REACH.
[2021-07-25 05:34] LABS: Hematocrit 31.1 % (33.0-51.0); Hemoglobin 9.5 g/dL (11.5-16.0)
[2021-07-25 05:49] LABS: Albumin, Blood 2.9 g/dL (3.4-5.0); Anion Gap 6 mmol/L (6-16); Blood Urea Nitrogen 32 mg/dL (8-24); Bun/Creatinine Ratio 24.1 (12.0-20.0); CO2, Blood 33 mmol/L (21-32); Calcium, Blood 9.6 mg/dL (8.5-10.1); Chloride, Blood 98 mmol/L (98-108); Creatinine, Blood 1.33 mg/dL (0.40-1.00); Glomerular Filtration Rate 40 (60-); Glucose, Blood 117 mg/dL (70-99); Magnesium, Blood 1.6 mg/dL (1.6-2.4); Phosphorus, Blood 4.6 mg/dL (2.5-4.9); Potassium, Blood 4.2 mmol/L (3.5-5.5); Sodium, Blood 137 mmol/L (136-145)
--- NOTE | 2021-07-25 08:13 | NUR ---
NIGHT NURSE CONFIRMED WITH DR ANDREW THAT HE STILL WANTED HD CATH TO BE REMOVED. CONSULT RECALLED TO DR KIMBALL OFFICE FOR REMOVAL OF HD CATH.
--- NOTE | 2021-07-25 15:15 | NUR ---
Spiritual care visit attempted. Patient states that she has had a busy day of OT and PT and visitors coming and asked if I could come visit tomorrow so she could have a nap. I let patient rest.
--- NOTE | 2021-07-25 18:28 | NUR ---
PATIENT IS ALERT AND ORIENTED AND COOPERATIVE WITH CARE. SHE HAS BEEN PLEASANT TODAY WITH NO OUTBURSTS. SHE IS INCONTINENT OF BOWEL AND BLADDER, ATTENDS IN PLACE. SHE CALLS APPROPRIATELY. ON 2L O2 VIA NC. CONTINUOUS PULSE OXIMETRY IN PLACE. DR. MANDEL WAS CONSULTED TODAY TO REMOVE THE PATIENT'S DIALYSIS CATHETER AND PEG TUBE. SHE IS BEDREST. PLAN FOR RN FROM [facility] TO ASSESS THE PATIENT TOMORROW. WILL CONTINUE TO MONITOR
[2021-07-26 05:07] LABS: Hematocrit 30.9 % (33.0-51.0); Hemoglobin 9.7 g/dL (11.5-16.0)
[2021-07-26 05:37] LABS: Albumin, Blood 2.9 g/dL (3.4-5.0); Anion Gap 5 mmol/L (6-16); Blood Urea Nitrogen 30 mg/dL (8-24); Bun/Creatinine Ratio 22.6 (12.0-20.0); CO2, Blood 33 mmol/L (21-32); Calcium, Blood 9.5 mg/dL (8.5-10.1); Chloride, Blood 97 mmol/L (98-108); Creatinine, Blood 1.33 mg/dL (0.40-1.00); Glomerular Filtration Rate 40 (60-); Glucose, Blood 128 mg/dL (70-99); Magnesium, Blood 1.4 mg/dL (1.6-2.4); Phosphorus, Blood 4.5 mg/dL (2.5-4.9); Potassium, Blood 4.3 mmol/L (3.5-5.5); Sodium, Blood 135 mmol/L (136-145)
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
--- NOTE | 2021-07-26 11:50 | NUR ---
Spiritual care visit attempted. Patient is sleeping and does not respond to voice. I will continue to remain available.
--- NOTE | 2021-07-26 17:13 | NUR ---
SHIFT SUMMARY PATIENT ALERT AND ORIENTED, COOPERATIVE WITH CARE THIS SHIFT. PATIENT SITTING UP IN BED THROUGHOUT MUCH OF THIS SHIFT, UP TO THE CHAIR WITH THE LIFT FOR LUNCH. PATIENT HAD AN EMOTIONAL TIME THIS AFTERNOON REGARDING HER FRIEND. PATIENT TALKED THROUGH HER SITUATION AND CALMED CONSIDERABLY. PATIENT MEDICATED FOR PAIN 1X THIS AFTERNOON. PATIENT CURRENTLY SITTING UP IN BED AWAIDING DINNER.
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
[2021-07-27 09:12] LABS: Hematocrit 33.4 % (33.0-51.0); Hemoglobin 10.3 g/dL (11.5-16.0)
[2021-07-27 09:32] LABS: Anion Gap 7 mmol/L (6-16); Blood Urea Nitrogen 31 mg/dL (8-24); CO2, Blood 31 mmol/L (21-32); Calcium, Blood 9.5 mg/dL (8.5-10.1); Chloride, Blood 97 mmol/L (98-108); Creatinine, Blood 1.24 mg/dL (0.40-1.00); Glomerular Filtration Rate 44 (60-); Glucose, Blood 117 mg/dL (70-99); Magnesium, Blood 1.7 mg/dL (1.6-2.4); Phosphorus, Blood 4.5 mg/dL (2.5-4.9); Potassium, Blood 4.2 mmol/L (3.5-5.5); Sodium, Blood 135 mmol/L (136-145)
--- NOTE | 2021-07-27 11:10 | NUR ---
PEG TUBE AND L UPPER CHEST PERMACATH REMOVED AT BEDSIDE BY DR. COOPER. DILAUDID 1 MG IV GIVEN PRIOR TO PROCEDURE. PT TOLERATED PROCEDURE WELL. TWO SITES COVERED BY GAUZE AND TEGADERM.
--- NOTE | 2021-07-27 17:11 | NUR ---
SHIFT SUMMARY: NO ACUTE EVENTS. PERMACATH AND PEG TUBE REMOVED WITHOUT INCIDENT, DRSGS CD&I. OXYGEN TITRATED DOWN TO 1 L/MIN NC, OXIMETRY SHOWS 90-94%. WORKED WITH PHYSICAL THERAPY, DANGLED AT EDGE OF BED. C/O DISCOMFORT IN R FOREARM; MEDICATED PER EMAR WITH ADEQUATE RELIEF. REDNESS/RASH IN GROIN AND GLUTEAL FOLDS; NYSTATIN CREAM APPLIED, KEPT DRY POSSIBLE. WAS UP IN CHAIR FROM [id number]. HAD VISIT FROM HER SON THIS AFTERNOON. IS LOOKING FORWARD TO GOING TO REHAB NEXT WEEK.
[2021-07-28 06:01] LABS: Hemoglobin 10.2 g/dL (11.5-16.0)
[2021-07-28 06:19] LABS: Albumin, Blood 2.9 g/dL (3.4-5.0); Anion Gap 5 mmol/L (6-16); Blood Urea Nitrogen 31 mg/dL (8-24); Bun/Creatinine Ratio 26.1 (12.0-20.0); CO2, Blood 31 mmol/L (21-32); Calcium, Blood 9.4 mg/dL (8.5-10.1); Chloride, Blood 98 mmol/L (98-108); Creatinine, Blood 1.19 mg/dL (0.40-1.00); Glomerular Filtration Rate 46 (60-); Glucose, Blood 103 mg/dL (70-99); Magnesium, Blood 1.4 mg/dL (1.6-2.4); Phosphorus, Blood 4.7 mg/dL (2.5-4.9); Potassium, Blood 4.4 mmol/L (3.5-5.5); Sodium, Blood 134 mmol/L (136-145)
--- NOTE | 2021-07-28 07:57 | NUR ---
NO CHANGES THROUGH NIGHT. PT CONTINUES TO CALL APPROPRIATELY AND MAKES NO COMPLAINTS. STAFF WILL CONTINUE TO MONITOR.
--- NOTE | 2021-07-28 18:12 | NUR ---
PT REMAIN STABLE,MEDICATED FOR PAIN X1, OUT OF BED IN CHAIR, SPENT MOST OF DAY IN CHAIR, VISITED WITH FAMILY, INCONTINENT CARE PROVIDED NEEDED. TOLERATED MEDS AND CARE.CALL LIGHT WITHIN REACH, MONITORING CONTINUES.
[2021-07-29 04:49] LABS: Hematocrit 32.3 % (33.0-51.0)
--- NOTE | 2021-07-29 05:17 | NUR ---
NO CHANGES OVER NIGHT. PT SLEPT WELL. NO COMPLAINTS OF PAIN OR ANXIETY. WILL CONT TO MONITOR.
[2021-07-29 05:18] LABS: Albumin, Blood 2.7 g/dL (3.4-5.0); Anion Gap 5 mmol/L (6-16); Blood Urea Nitrogen 28 mg/dL (8-24); Bun/Creatinine Ratio 27.2 (12.0-20.0); CO2, Blood 32 mmol/L (21-32); Calcium, Blood 9.6 mg/dL (8.5-10.1); Chloride, Blood 100 mmol/L (98-108); Creatinine, Blood 1.03 mg/dL (0.40-1.00); Glomerular Filtration Rate 54 (60-); Glucose, Blood 118 mg/dL (70-99); Magnesium, Blood 1.9 mg/dL (1.6-2.4); Phosphorus, Blood 5.2 mg/dL (2.5-4.9); Potassium, Blood 4.1 mmol/L (3.5-5.5); Sodium, Blood 137 mmol/L (136-145)
--- NOTE | 2021-07-29 14:29 | NUR ---
Met pt. in bed resting she reports doing much better and hopes to be transfered to Rehab. tomorrow or next.Had nice visit with pt. offered prayers for her .
--- NOTE | 2021-07-29 17:28 | NUR ---
SHIFT SUMMARY PT IS AOX4. PT MEDICATED FOR PAIN X1 PER EMAR. PT DENIES N/V, SOB. ENHANCED ISOLATION PRECAUTIONS MAINTAINED T/O SHIFT. PT DID NOT HAVE VISITORS. PLAN IS FOR DC TO SNF. PT WORKED WITH PT/OT AT THE BEDSIDE AND REMAINS A LIFT TRANSFER. PT IS ON 2 L O2 VIA NC WITH SATS GREATER THAN 90%. PT APPETITE IS GOOD. PT IS IN BED, CALL LIGHT IN REACH, LOW POSITION.
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
[2021-07-30 05:11] LABS: Hematocrit 34.2 % (33.0-51.0); Hemoglobin 10.5 g/dL (11.5-16.0)
[2021-07-30 05:26] LABS: Albumin, Blood 2.8 g/dL (3.4-5.0); Anion Gap 6 mmol/L (6-16); Blood Urea Nitrogen 28 mg/dL (8-24); Bun/Creatinine Ratio 26.2 (12.0-20.0); CO2, Blood 31 mmol/L (21-32); Calcium, Blood 9.6 mg/dL (8.5-10.1); Chloride, Blood 99 mmol/L (98-108); Creatinine, Blood 1.07 mg/dL (0.40-1.00); Glomerular Filtration Rate 52 (60-); Glucose, Blood 130 mg/dL (70-99); Magnesium, Blood 1.6 mg/dL (1.6-2.4); Phosphorus, Blood 4.8 mg/dL (2.5-4.9); Potassium, Blood 4.2 mmol/L (3.5-5.5); Sodium, Blood 136 mmol/L (136-145)
--- NOTE | 2021-07-30 14:16 | NUR ---
Pt. in bed relaxed encouraged pt. and prayed vor her , pt. in fine.
--- NOTE | 2021-07-30 17:01 | NUR ---
SHIFT SUMMARY PATIENT MEDICATED X1 FOR PAIN, DENIES NAUSEA AND SHORTNESS OF BREATH. WEANED TO 1L/NC, MAINTAINING OXYGEN SATURATION ABOVE 92%. WORKED WITH PT, UP IN CHAIR VIA LIFT TWICE THIS SHIFT. EATING AND DRINKING WELL. PLEASANT AND COOPERATIVE WITH CARE.
[2021-07-31 06:06] LABS: Hematocrit 35.8 % (33.0-51.0); Hemoglobin 11.2 g/dL (11.5-16.0)
[2021-07-31 06:20] LABS: Albumin, Blood 2.9 g/dL (3.4-5.0); Anion Gap 5 mmol/L (6-16); Blood Urea Nitrogen 32 mg/dL (8-24); Bun/Creatinine Ratio 27.8 (12.0-20.0); CO2, Blood 32 mmol/L (21-32); Calcium, Blood 9.9 mg/dL (8.5-10.1); Chloride, Blood 97 mmol/L (98-108); Creatinine, Blood 1.15 mg/dL (0.40-1.00); Glomerular Filtration Rate 48 (60-); Glucose, Blood 126 mg/dL (70-99); Magnesium, Blood 1.6 mg/dL (1.6-2.4); Phosphorus, Blood 5.3 mg/dL (2.5-4.9); Potassium, Blood 4.3 mmol/L (3.5-5.5); Sodium, Blood 134 mmol/L (136-145)
--- NOTE | 2021-07-31 06:38 | NUR ---
PT continues to sat greater than 92% in 1 l nc via [employer]. She is incont of large amts of urine. Calls when wet. Declines toileting. Medicated twice for mod rt arm fx pain. Not OOB this shift. Involved with PT OT. SNF DC pending.
[2021-07-31] MEDS ORDERED: OXAYDO5 M1 PO (08:20)
[2021-07-31] MEDS ORDERED: POTA10T PO (08:20)
[2021-07-31] MEDS ORDERED: QUET100 PO (08:21)
[2021-07-31] MEDS ORDERED: VENL75ER PO (08:21)
[2021-07-31] MEDS ORDERED: NYSTATIN15 GM TOP (08:22)
[2021-07-31] MEDS ORDERED: Amiodarone HCl200 MG PO (08:22)
[2021-07-31] MEDS ORDERED: ONDA4ODT MM (08:22)
[2021-07-31] MEDS ORDERED: LIOT5 PO (08:23)
[2021-07-31] MEDS ORDERED: BUME1 PO (08:23)
[2021-07-31] MEDS ORDERED: MELATONIN5 M1 PO (08:23)
[2021-07-31] MEDS ORDERED: METO25 PO (08:24)
[2021-07-31 09:20] LABS: Influenza A, PCR NEGATIVE (NEGATIVE); Influenza B, PCR NEGATIVE (NEGATIVE); Resp Syncytial Virus, PCR NEGATIVE (NEGATIVE); SARS-Cov-2 (COVID-19) PCR, MMC NEGATIVE (NEGATIVE)
--- NOTE | 2021-07-31 14:16 | NUR ---
DISCHARGE PATIENT DISCHARGED TO [facility], TRANSPORTED VIA WHEELCHAIR TRANSPORT. DISCHARGE PACKET WITH KETTLE LOADER. PICC LINE REMOVED BY RELIGIOUS EDUCATOR. BELONGINGS WITH PATIENT, INCLUDING CELL PHONE, TABLET, AND TELEVISION. REPORT CALLED TO FACILITY NURSE TALA.
== END 2021-07-31 13:50 | DRG 3 ==
LOC: ER 17:02 → SURS 17:03 → ICUW 05-13 14:24 → MEDS 05-13 14:24 → SURS 05-13 14:24 → PCU 05-13 14:24 → ICUW 05-13 22:45 → PCU 05-24 17:15 → ICUW 05-24 17:56 → PCU 06-14 14:14 → MEDS 07-04 13:50
PROVIDERS: Family Medicine; Internal Medicine; Internal Medicine Cardiovascular Disease; Internal Medicine Critical Care Medicine; Internal Medicine Nephrology; Internal Medicine Pulmonary Disease; Nurse Practitioner Acute Care; Pharmacist; Physician Assistant; Student in an Organized Health Care Education/Training Program; ADMIT Surgery
PROC: 2W3CX1Z Immobilization of Right Lower Arm using Splint (ICD-10-PCS; principal; 2021-05-13)
PROC: 30233N1 Transfusion of Nonautologous Red Blood Cells into Peripheral Vein, Percutaneous Approach (ICD-10-PCS; 2021-05-13)
PROC: 30233K1 Transfusion of Nonautologous Frozen Plasma into Peripheral Vein, Percutaneous Approach (ICD-10-PCS; 2021-05-13)
PROC: 0JH63XZ Insertion of Tunneled Vascular Access Device into Chest Subcutaneous Tissue and Fascia, Percutaneous Approach (ICD-10-PCS; 2021-05-13)
PROC: 0WQF4ZZ Repair Abdominal Wall, Percutaneous Endoscopic Approach (ICD-10-PCS; 2021-05-13)
PROC: 5A1955Z Respiratory Ventilation, Greater than 96 Consecutive Hours (ICD-10-PCS; 2021-05-13)
PROC: 5A1955Z Respiratory Ventilation, Greater than 96 Consecutive Hours (ICD-10-PCS; 2021-05-23)
PROC: 04HY32Z Insertion of Monitoring Device into Lower Artery, Percutaneous Approach (ICD-10-PCS; 2021-05-24)
PROC: 4A133B1 Monitoring of Arterial Pressure, Peripheral, Percutaneous Approach (ICD-10-PCS; 2021-05-24)
PROC: 4A133J1 Monitoring of Arterial Pulse, Peripheral, Percutaneous Approach (ICD-10-PCS; 2021-05-24)
PROC: 3E033XZ Introduction of Vasopressor into Peripheral Vein, Percutaneous Approach (ICD-10-PCS; 2021-05-24)
PROC: 06H03DZ Insertion of Intraluminal Device into Inferior Vena Cava, Percutaneous Approach (ICD-10-PCS; 2021-05-29)
PROC: 02H633Z Insertion of Infusion Device into Right Atrium, Percutaneous Approach (ICD-10-PCS; 2021-05-29)
PROC: 04V23DZ Restriction of Gastric Artery with Intraluminal Device, Percutaneous Approach (ICD-10-PCS; 2021-05-29)
PROC: 5A12012 Performance of Cardiac Output, Single, Manual (ICD-10-PCS; 2021-06-03)
PROC: 02HV33Z Insertion of Infusion Device into Superior Vena Cava, Percutaneous Approach (ICD-10-PCS; 2021-06-04)
PROC: 5A1D70Z Performance of Urinary Filtration, Intermittent, Less than 6 Hours Per Day (ICD-10-PCS; 2021-06-04)
PROC: 02HV33Z Insertion of Infusion Device into Superior Vena Cava, Percutaneous Approach (ICD-10-PCS; 2021-06-04)
PROC: 0BH18EZ Insertion of Endotracheal Airway into Trachea, Via Natural or Artificial Opening Endoscopic (ICD-10-PCS; 2021-06-06)
PROC: 0B113F4 Bypass Trachea to Cutaneous with Tracheostomy Device, Percutaneous Approach (ICD-10-PCS; 2021-06-10)
PROC: 0DH63UZ Insertion of Feeding Device into Stomach, Percutaneous Approach (ICD-10-PCS; 2021-06-21)
PROC: BD12ZZZ Fluoroscopy of Stomach (ICD-10-PCS; 2021-06-21)
DX: S36.899A Unspecified injury of other intra-abdominal organs, initial encounter (principal); I46.2 Cardiac arrest due to underlying cardiac condition; J80 Acute respiratory distress syndrome; N17.0 Acute kidney failure with tubular necrosis; A41.9 Sepsis, unspecified organism; R65.21 Severe sepsis with septic shock; R57.0 Cardiogenic shock; G92.8 Other toxic encephalopathy; N18.6 End stage renal disease; R57.8 Other shock; J69.0 Pneumonitis due to inhalation of food and vomit; S52.601A Unspecified fracture of lower end of right ulna, initial encounter for closed fracture; I50.42 Chronic combined systolic (congestive) and diastolic (congestive) heart failure; I47.2 Ventricular tachycardia; I13.0 Hypertensive heart and chronic kidney disease with heart failure and stage 1 through stage 4 chronic kidney disease, or unspecified chronic kidney disease; E87.2 Acidosis; E87.1 Hypo-osmolality and hyponatremia; D62 Acute posthemorrhagic anemia; I42.8 Other cardiomyopathies; I82.452 Acute embolism and thrombosis of left peroneal vein; G62.81 Critical illness polyneuropathy; K43.0 Incisional hernia with obstruction, without gangrene; E66.01 Morbid (severe) obesity due to excess calories; F15.10 Other stimulant abuse, uncomplicated; I34.0 Nonrheumatic mitral (valve) insufficiency; E03.9 Hypothyroidism, unspecified; E78.5 Hyperlipidemia, unspecified; Z20.822 Contact with and (suspected) exposure to COVID-19; E11.22 Type 2 diabetes mellitus with diabetic chronic kidney disease; E11.65 Type 2 diabetes mellitus with hyperglycemia; D63.1 Anemia in chronic kidney disease; K21.9 Gastro-esophageal reflux disease without esophagitis; I25.10 Atherosclerotic heart disease of native coronary artery without angina pectoris; E83.39 Other disorders of phosphorus metabolism; E88.09 Other disorders of plasma-protein metabolism, not elsewhere classified; Z99.2 Dependence on renal dialysis; Z51.5 Encounter for palliative care; E83.42 Hypomagnesemia; Z98.51 Tubal ligation status; Z90.49 Acquired absence of other specified parts of digestive tract; Z90.89 Acquired absence of other organs; Z98.890 Other specified postprocedural states; Z79.82 Long term (current) use of aspirin; Z79.84 Long term (current) use of oral hypoglycemic drugs; Z79.899 Other long term (current) drug therapy; Z88.2 Allergy status to sulfonamides; E87.6 Hypokalemia; V49.40XA Driver injured in collision with unspecified motor vehicles in traffic accident, initial encounter; Y92.410 Unspecified street and highway as the place of occurrence of the external cause
CPT/HCPCS: 0241U; 31500; 31502; 31720; 36010; 36245; 36247; 36248; 36415; 36430; 36556; 36558; 36569; 36600; 36620; 37191; 37244; 49440; 51702; 70450; 71045; 71046; 71260; 73090; 73100; 73110; 74176; 74177; 75726; 75774; 76770; 76937; 77001; 80047; 80048; 80053; 80069; 80074; 80200; 80202; 81001; 82248; 82272; 82310; 82330; 82530; 82533; 82728; 82784; 82803; 82947; 83036; 83540; 83550; 83605; 83690; 83735; 83880; 83930; 83970; 84100; 84132; 84145; 84156; 84165; 84166; 84439; 84443; 84481; 84484; 84550; 85007; 85014; 85018; 85025; 85027; 85610; 85730; 86140; 86317; 86334; 86335; 86850; 86900; 86901; 86923; 87040; 87070; 87077; 87086; 87186; 87205; 87493; 92507; 92526; 92610; 93005; 93010; 93306; 93308; 93321; 93970; 93971; 94002; 94003; 94640; 94660; 94667; 94668; 94762; 96374-59; 96375; 96375-59; 96376; 97110; 97110-CQ; 97112; 97129; 97130; 97163; 97166; 97530; 99152; 99153; 99285-25; A9270; C1750; C1751; C1752; C1760; C1769; C1880; C1887; C1894; C9113; G0378; J0171; J0282; J0330; J0360; J0610; J0630; J0690; J0692; J0881; J1100; J1170; J1250; J1644; J1650; J1720; J1815; J1940; J2060; J2185; J2250; J2270; J2310; J2370; J2405; J2543; J2704; J2920; J2930; J2997; J3010; J3260; J3370; J3475; J3480; J7030; J7040; J7050; J7060; J7120; P9016; P9041; P9046; P9059; Q9967; U0004

== ENCOUNTER 2022-03-11 10:35 | Day surgery (SDC) | payer OTHER ==
[~2022-03-11] VITALS: Ht 170.2 cm; Wt 90.3 kg
[~2022-03-11 10:35] MED LIST changes: +Amiodarone HCl200 MG PO; +BUME1 PO; +LIOT5 PO; +MELATONIN5 M1 PO; +METO25 PO; +NYSTATIN15 GM TOP; +ONDA4ODT MM; +OXAYDO5 M1 PO; +POTA10T PO; +QUET100 PO; +THERA-D2000 UNIT PO; +VENL75ER PO
[2022-03-11 11:24] LABS: BASOPHILS ABSOLUTE AUTO 0.08 K/mm3 (0.00-0.23); BASOPHILS PERCENT AUTO 1 % (0-2); EOSINOPHILS ABSOLUTE AUTO 0.47 K/mm3 (0.00-0.68); EOSINOPHILS PERCENT AUTO 5 % (0-6); Hematocrit 42.5 % (33.0-51.0); Hemoglobin 13.2 g/dL (11.5-16.0); IMMATURE GRAN ABSOLUTE AUTO 0.08 K/mm3 (0.00-0.10); IMMATURE GRAN PERCENT AUTO 1 % (0-1); LYMPHOCYTES ABSOLUTE AUTO 1.94 K/mm3 (0.84-5.20); LYMPHOCYTES PERCENT AUTO 18 % (21-46); MONOCYTES ABSOLUTE AUTO 0.99 K/mm3 (0.16-1.47); MONOCYTES PERCENT AUTO 9 % (4-13); Mean Corpuscular HGB 28.3 pg (26.0-34.0); Mean Corpuscular HGB Conc 31.1 g/dL (31.5-36.5); Mean Corpuscular Volume 91 fL (80-100); Mean Platelet Volume 11.2 fL (9.1-12.4); NEUTROPHILS PERCENT AUTO 66 % (41-73); Platelet Count 241 K/mm3 (150-400); RDW Coefficient Variation 14.8 % (11.7-14.2); RDW Standard Deviation 49.1 fL (35.1-46.3); Red Blood Cell Count 4.67 M/mm3 (3.80-5.20); White Blood Cell Count 10.56 K/mm3 (4.00-11.30)
[2022-03-11 11:31] LABS: Bun/Creatinine Ratio 24.4 (12.0-20.0); Calcium, Blood 9.4 mg/dL (8.5-10.1); Creatinine, Blood 1.31 mg/dL (0.40-1.00); International Normalized Ratio 1.01; Potassium, Blood 4.8 mmol/L (3.5-5.5); Prothrombin Time Results 10.6 Sec (9.7-11.5)
--- NOTE | 2022-03-11 14:33 | NUR ---
DISCHARGE INSTRUCTIONS REVIEWED WITH PT, PAPERWORK PROVIDED IN FOLDER. RIGHT IJ VEIN WITH TRANSPARENT TEGADERM INTACT. SITE SOFT NON TENDER WITH NO BLEEDING OR OOZING NOTED. PT DENIES PAIN. IV REMOVED FROM LFA WITH CATH INTACT. PRESSURE DRESSING APPLIED. PT GETS SELF DRESSED WITH NO NEEDED ASSISTANCE. PT RIDE ARRIVES TO DRIVE HER HOME. ALL PERSONAL BELONGINGS SENT HOME WITH PT. ENCOURAGED TO CONTACT PROVIDER WITH ANY QUESTIONS OR CONCERNS. NO ACUTE DISTRESS NOTED.
== END 2022-03-11 14:30 | disposition home or self-care (01) ==
LOC: MHTC 10:35
PROVIDERS: Radiology Diagnostic Radiology
DX: Z45.89 Encounter for adjustment and management of other implanted devices (principal); Z95.828 Presence of other vascular implants and grafts; I25.10 Atherosclerotic heart disease of native coronary artery without angina pectoris; I13.0 Hypertensive heart and chronic kidney disease with heart failure and stage 1 through stage 4 chronic kidney disease, or unspecified chronic kidney disease; E11.22 Type 2 diabetes mellitus with diabetic chronic kidney disease; N18.30 Chronic kidney disease, stage 3 unspecified; I50.22 Chronic systolic (congestive) heart failure; E78.5 Hyperlipidemia, unspecified; E03.9 Hypothyroidism, unspecified; Z98.51 Tubal ligation status; Z88.1 Allergy status to other antibiotic agents; Z88.6 Allergy status to analgesic agent
CPT/HCPCS: 76937; 80048; 85025; 85610; 99152; 99153; C1769; C1773; C1887; C1894; J1644; J2250; J3010; J7030; J7040; Q9967

== ENCOUNTER 2022-04-23 01:38 | Emergency (ER) | payer OTHER ==
[2022-04-23 04:15] LABS: Source, Urine Voided
[2022-04-23 04:23] LABS: Bilirubin, Urine Neg (Neg); Blood, Urine 5+ (Neg); Glucose Qualitative, Urine Neg (Neg); Ketones, Urine Neg (Neg); Leukocyte Esterase, Urine 2+ (Neg); Nitrite, Urine Pos (Neg); Protein, Urine 2+ (Neg); Urobilinogen, Urine NORM (Normal)
[2022-04-23 04:38] LABS: Appearance, Urine Hazy (Clear); Color, Urine Yellow (P-Yellow)
[2022-04-23 04:39] LABS: Bacteria Mod /hpf; Red Blood Cells, Urine 25-50 /hpf (0-2); Squamous Epithelial Cells Few /hpf (Few); White Blood Cells, Urine 25-50 /hpf (0-5)
[2022-04-23] MEDS ORDERED: CEPH500 PO (04:48)
== END 2022-04-23 05:46 | disposition home or self-care (01) ==
LOC: ER 01:38
PROVIDERS: Emergency Medicine
DX: N39.0 Urinary tract infection, site not specified (principal); I11.0 Hypertensive heart disease with heart failure; I50.9 Heart failure, unspecified; E78.5 Hyperlipidemia, unspecified; E11.9 Type 2 diabetes mellitus without complications; E03.9 Hypothyroidism, unspecified; Z87.891 Personal history of nicotine dependence; Z79.899 Other long term (current) drug therapy; Z79.82 Long term (current) use of aspirin; Z79.84 Long term (current) use of oral hypoglycemic drugs; Z88.1 Allergy status to other antibiotic agents; Z88.2 Allergy status to sulfonamides; Z88.8 Allergy status to other drugs, medicaments and biological substances
CPT/HCPCS: 51798; 81001; 87077; 87086; 87186; 99283-25; A9270

== ENCOUNTER → 2022-09-15 | Outpatient (CLI) | payer OTHER | END | disposition home or self-care (01) | LOC: LAB 16:57 → LAB SHORT 16:57 | DX: N39.0 Urinary tract infection, site not specified (principal) | CPT/HCPCS: 87077; 87086; 87186 ==

== ENCOUNTER → 2023-04-20 | Outpatient (CLI) | payer OTHER ==
[2023-04-20 20:31] LABS: BASOPHILS ABSOLUTE AUTO 0.06 K/mm3 (0.00-0.23); BASOPHILS PERCENT AUTO 1 % (0-2); EOSINOPHILS ABSOLUTE AUTO 0.39 K/mm3 (0.00-0.68); EOSINOPHILS PERCENT AUTO 5 % (0-6); Hematocrit 41.1 % (33.0-51.0); Hemoglobin 13.6 g/dL (11.5-16.0); IMMATURE GRAN ABSOLUTE AUTO 0.03 K/mm3 (0.00-0.10); IMMATURE GRAN PERCENT AUTO 0 % (0-1); LYMPHOCYTES ABSOLUTE AUTO 1.59 K/mm3 (0.84-5.20); LYMPHOCYTES PERCENT AUTO 22 % (21-46); MONOCYTES ABSOLUTE AUTO 0.72 K/mm3 (0.16-1.47); MONOCYTES PERCENT AUTO 10 % (4-13); Mean Corpuscular HGB 30.6 pg (26.0-34.0); Mean Corpuscular HGB Conc 33.1 g/dL (31.5-36.5); Mean Corpuscular Volume 93 fL (80-100); Mean Platelet Volume 12.4 fL (9.1-12.4); NEUTROPHILS ABSOLUTE AUTO 4.54 K/mm3 (1.96-9.15); NEUTROPHILS PERCENT AUTO 62 % (41-73); Platelet Count 198 K/mm3 (150-400); RDW Coefficient Variation 14.5 % (11.7-14.2); RDW Standard Deviation 48.7 fL (35.1-46.3); Red Blood Cell Count 4.44 M/mm3 (3.80-5.20); White Blood Cell Count 7.33 K/mm3 (4.00-11.30)
[2023-04-20 21:26] LABS: Albumin, Blood 3.4 g/dL (3.4-5.0); Albumin/Globulin Ratio 0.9 (0.8-1.8); Bilirubin, Total 0.4 mg/dL (0.1-1.0); Bun/Creatinine Ratio 40.8 (12.0-20.0); Calcium, Blood 9.4 mg/dL (8.5-10.1); Creatinine, Blood 1.25 mg/dL (0.40-1.00); Globulin, Blood 3.8 g/dL (2.2-4.0); Thyroid Stimulating Hormone 0.101 uIU/mL (0.360-4.800); Total Protein, Blood 7.2 g/dL (6.4-8.2)
[2023-04-22 07:12] LABS: HEMOGLOBIN A1C 6.1 % (4.8-5.6)
== END | disposition home or self-care (01) ==
LOC: LAB 19:16 → LAB SHORT 19:16
PROVIDERS: Nurse Practitioner Family
DX: N18.30 Chronic kidney disease, stage 3 unspecified (principal); E03.9 Hypothyroidism, unspecified; R73.03 Prediabetes
CPT/HCPCS: 80053; 83036; 84443; 85025

== ENCOUNTER → 2023-08-28 | Outpatient (CLI) | payer OTHER | LOC: LAB 14:00 → LAB SHORT 14:00 | DX: N39.0 Urinary tract infection, site not specified (principal) | CPT/HCPCS: 87086; 87147 ==

== ENCOUNTER 2024-10-03 18:12 | Inpatient (IN) | payer MEDICARE, OTHER ==
[~2024-10-03] VITALS: Ht 170.2 cm; Wt 103.2 kg
[2024-10-03 18:58] LABS: BASOPHILS ABSOLUTE AUTO 0.11 K/mm3 (0.00-0.23); BASOPHILS PERCENT AUTO 1 % (0-2); EOSINOPHILS ABSOLUTE AUTO 0.07 K/mm3 (0.00-0.68); EOSINOPHILS PERCENT AUTO 1 % (0-6); Hemoglobin 11.8 g/dL (11.5-16.0); IMMATURE GRAN ABSOLUTE AUTO 0.23 K/mm3 (0.00-0.10); IMMATURE GRAN PERCENT AUTO 2 % (0-1); LYMPHOCYTES ABSOLUTE AUTO 1.71 K/mm3 (0.84-5.20); LYMPHOCYTES PERCENT AUTO 14 % (21-46); MONOCYTES ABSOLUTE AUTO 1.22 K/mm3 (0.16-1.47); MONOCYTES PERCENT AUTO 10 % (4-13); Mean Corpuscular HGB 29.7 pg (26.0-34.0); Mean Corpuscular HGB Conc 31.1 g/dL (31.5-36.5); Mean Corpuscular Volume 96 fL (80-100); Mean Platelet Volume 11.1 fL (9.1-12.4); NEUTROPHILS ABSOLUTE AUTO 9.04 K/mm3 (1.96-9.15); NEUTROPHILS PERCENT AUTO 73 % (41-73); NRBC ABSOLUTE 0.03 K/mm3 (0.00-0.02); NRBC Auto 0.2 /100 WBC (0.0-0.2); Platelet Count 241 K/mm3 (150-400); RDW Coefficient Variation 14.3 % (11.7-14.2); RDW Standard Deviation 49.1 fL (35.1-46.3); Red Blood Cell Count 3.97 M/mm3 (3.80-5.20); White Blood Cell Count 12.38 K/mm3 (4.00-11.30)
[2024-10-03 19:16] LABS: Albumin, Blood 3.1 g/dL (3.4-5.0); Albumin/Globulin Ratio 0.8 (0.8-1.8); Bilirubin, Total 1.1 mg/dL (0.1-1.0); Bun/Creatinine Ratio 14.3 (12.0-20.0); Calcium, Blood 8.9 mg/dL (8.5-10.1); Creatinine, Blood 2.03 mg/dL (0.40-1.00); Globulin, Blood 3.9 g/dL (2.2-4.0); Potassium, Blood 5.8 mmol/L (3.5-5.5)
[2024-10-03 21:31] LABS: Influenza A, PCR NEGATIVE (NEGATIVE); Influenza B, PCR NEGATIVE (NEGATIVE); Resp Syncytial Virus, PCR NEGATIVE (NEGATIVE); SARS-Cov-2 (COVID-19) PCR, MMC NEGATIVE (NEGATIVE)
[2024-10-03] MEDS ORDERED: Ondansetron HCl 2 MG / ML 2ML Vial IV ONE (21:40)
[2024-10-03] MEDS ORDERED: LORazepam 0.5 MG Tab PO PRN (22:46)
[2024-10-03] MEDS ORDERED: FLU VACC TS2024-25(6MOS UP)/PF 45 MCG/0.5 ML SYRINGE IM ONE (22:50)
[2024-10-03 23:04] LABS: International Normalized Ratio 1.31; Prothrombin Time Results 13.7 Sec (9.7-11.5)
[2024-10-04] MEDS ORDERED: Acetaminophen 325 MG TABLET PO PRN (04:35)
[2024-10-04] MEDS ORDERED: Enoxaparin 40 MG/0.4 ML SYR SC SCH (09:00)
[2024-10-04 09:33] LABS: BASOPHILS ABSOLUTE AUTO 0.08 K/mm3 (0.00-0.23); BASOPHILS PERCENT AUTO 1 % (0-2); EOSINOPHILS PERCENT AUTO 1 % (0-6); Hematocrit 34.4 % (33.0-51.0); Hemoglobin 10.9 g/dL (11.5-16.0); IMMATURE GRAN ABSOLUTE AUTO 0.14 K/mm3 (0.00-0.10); IMMATURE GRAN PERCENT AUTO 1 % (0-1); LYMPHOCYTES PERCENT AUTO 22 % (21-46); MONOCYTES ABSOLUTE AUTO 1.47 K/mm3 (0.16-1.47); MONOCYTES PERCENT AUTO 12 % (4-13); Mean Corpuscular HGB 29.6 pg (26.0-34.0); Mean Corpuscular HGB Conc 31.7 g/dL (31.5-36.5); Mean Corpuscular Volume 94 fL (80-100); Mean Platelet Volume 11.3 fL (9.1-12.4); NEUTROPHILS ABSOLUTE AUTO 7.42 K/mm3 (1.96-9.15); NEUTROPHILS PERCENT AUTO 63 % (41-73); NRBC ABSOLUTE 0.07 K/mm3 (0.00-0.02); NRBC Auto 0.6 /100 WBC (0.0-0.2); Platelet Count 256 K/mm3 (150-400); RDW Coefficient Variation 14.3 % (11.7-14.2); RDW Standard Deviation 48.3 fL (35.1-46.3); Red Blood Cell Count 3.68 M/mm3 (3.80-5.20); White Blood Cell Count 11.81 K/mm3 (4.00-11.30)
[2024-10-04 10:08] LABS: Magnesium, Blood 1.5 mg/dL (1.6-2.4)
[2024-10-04 10:17] LABS: Thyroid Stimulating Hormone 2.55 uIU/mL (0.360-4.800)
[2024-10-04 10:18] LABS: Albumin, Blood 3.1 g/dL (3.4-5.0); Albumin/Globulin Ratio 0.9 (0.8-1.8); Bilirubin, Total 1.1 mg/dL (0.1-1.0); Bun/Creatinine Ratio 14.9 (12.0-20.0); Calcium, Blood 8.1 mg/dL (8.5-10.1); Creatinine, Blood 2.41 mg/dL (0.40-1.00); Globulin, Blood 3.5 g/dL (2.2-4.0); Phosphorus, Blood 4.8 mg/dL (2.5-4.9); Potassium, Blood 4.9 mmol/L (3.5-5.5); Total Protein, Blood 6.6 g/dL (6.4-8.2)
[2024-10-04 11:06] VITALS: BP 116/78
[2024-10-04 15:40] VITALS: BP 103/71
[2024-10-04] MEDS ORDERED: ENTRESTO 97 MG1 EACH PO (16:59)
[2024-10-04] MEDS ORDERED: MONT10T PO (16:59)
[2024-10-04] MEDS ORDERED: Naltrexone HCl50 MG PO (17:00)
[2024-10-04] MEDS ORDERED: SPIR50 PO (17:00)
--- NOTE | 2024-10-04 17:14 | NUR ---
SHIFT SUMMARY PT A&OX4, VSS, ON 2L O2 NC SATS 92%, TOLERATING PO, VOIDING, AND DENIED PAIN. UA SAMPLE SENT TO LAB. MED REC COMPLETE. PT HAD ECHO THIS SHIFT. CALL LIGHT WITHIN REACH AND PT ABLE TO MAKE NEEDS KNOWN.
[2024-10-04 17:15] LABS: Source, Urine Clean Catch
[2024-10-04 17:27] LABS: Appearance, Urine Clear (Clear); Bilirubin, Urine Neg (Neg); Blood, Urine 1+ (Neg); Color, Urine Amber (P-Yellow); Glucose Qualitative, Urine Neg (Neg); Ketones, Urine Neg (Neg); Leukocyte Esterase, Urine 3+ (Neg); Nitrite, Urine Neg (Neg); Protein, Urine 1+ (Neg); Specific Gravity, Urine 1.025 (1.003-1.022); Urobilinogen, Urine 1+ (Normal)
[2024-10-04 17:41] VITALS: BP 121/94
[2024-10-04 17:46] LABS: U Amphetamine Screen Not Detected; U Barbituate Screen Not Detected; U Benzodiazapine Screen Not Detected; U Buprenorphine Screen Not Detected; U Cannabinoids Screen DETECTED; U Cocaine Screen Not Detected; U Methadone Screen Not Detected; U Methamphetamine Screen DETECTED; U Opiates Screen Not Detected; U Oxycodone Screen Not Detected; U Phencyclidine Screen Not Detected
[2024-10-04] MEDS ORDERED: Bumetanide 0.25 MG/ML 4ML ViaL IV SCH (18:00)
[2024-10-04 18:01] LABS: Bacteria Many /hpf; Squamous Epithelial Cells Few /hpf (Few); White Blood Cells, Urine 25-50 /hpf (0-5)
[2024-10-04] MEDS ORDERED: NS 250 ML IV PRN (20:20)
[2024-10-04] MEDS ORDERED: Meropenem 1,000 MG in NS 100 ML IV SCH (21:00)
[2024-10-04] MEDS ORDERED: Bumetanide 1 MG Tab PO SCH (21:00)
[2024-10-04] MEDS ORDERED: LORazepam 0.5 MG Tab PO ONE (21:08)
[2024-10-04 21:52] VITALS: BP 112/78
[2024-10-05 04:51] VITALS: BP 124/86
[2024-10-05 05:12] LABS: BASOPHILS PERCENT AUTO 1 % (0-2); EOSINOPHILS ABSOLUTE AUTO 0.43 K/mm3 (0.00-0.68); EOSINOPHILS PERCENT AUTO 4 % (0-6); Hematocrit 35.6 % (33.0-51.0); Hemoglobin 11.3 g/dL (11.5-16.0); IMMATURE GRAN ABSOLUTE AUTO 0.13 K/mm3 (0.00-0.10); IMMATURE GRAN PERCENT AUTO 1 % (0-1); LYMPHOCYTES ABSOLUTE AUTO 2.22 K/mm3 (0.84-5.20); LYMPHOCYTES PERCENT AUTO 19 % (21-46); MONOCYTES ABSOLUTE AUTO 1.07 K/mm3 (0.16-1.47); MONOCYTES PERCENT AUTO 9 % (4-13); Mean Corpuscular HGB 29.5 pg (26.0-34.0); Mean Corpuscular HGB Conc 31.7 g/dL (31.5-36.5); Mean Corpuscular Volume 93 fL (80-100); Mean Platelet Volume 11.4 fL (9.1-12.4); NEUTROPHILS ABSOLUTE AUTO 7.57 K/mm3 (1.96-9.15); NEUTROPHILS PERCENT AUTO 66 % (41-73); NRBC ABSOLUTE 0.04 K/mm3 (0.00-0.02); NRBC Auto 0.3 /100 WBC (0.0-0.2); Platelet Count 246 K/mm3 (150-400); RDW Coefficient Variation 14.6 % (11.7-14.2); RDW Standard Deviation 48.6 fL (35.1-46.3); Red Blood Cell Count 3.83 M/mm3 (3.80-5.20); White Blood Cell Count 11.52 K/mm3 (4.00-11.30)
--- NOTE | 2024-10-05 05:12 | NUR ---
SHIFT SUMMARY NOC PT A/O X 4. PLEASANT AND COOPERATIVE WITH CARE. VSS. PT STARTED ON IV ABX FOR UTI. HOSPITALIST REQUESTED REPEAT EKG TO RECHECK QTC INTERVAL WHICH HAS IMPROVED SINCE 10/03/24. PT HAD C/D OF LACK OF SLEEP FOR PAST FEW DAYS AND ORDER FOR ATIVAN 0.5 MG PO GIVEN. PT IN CONTACT ISOLATION FOR ESBL IN URINE. HAS PUREWICK IN PLACE PER MD ORDER FOR STRICT I/O. PT ON O2 2L/NC SPO2 >92%. PT CURRENTLY RESTING WITH BED IN LOWEST POSITION, AND CALL LIGHT WITHIN REACH.
[2024-10-05 07:33] VITALS: BP 107/65
[2024-10-05 07:39] LABS: Magnesium, Blood 1.5 mg/dL (1.6-2.4)
[2024-10-05 07:50] LABS: Albumin, Blood 2.9 g/dL (3.4-5.0); Albumin/Globulin Ratio 0.8 (0.8-1.8); Bilirubin, Total 0.8 mg/dL (0.1-1.0); Bun/Creatinine Ratio 18.7 (12.0-20.0); Calcium, Blood 8.4 mg/dL (8.5-10.1); Creatinine, Blood 2.25 mg/dL (0.40-1.00); Globulin, Blood 3.6 g/dL (2.2-4.0); Potassium, Blood 4.7 mmol/L (3.5-5.5); Total Protein, Blood 6.5 g/dL (6.4-8.2)
[2024-10-05] MEDS ORDERED: Bumetanide 0.25 MG/ML 4ML ViaL IV SCH (09:00)
[2024-10-05] MEDS ORDERED: Mag Sulfate 1 GM/D5% 100ML 100 ML IV STA (12:13)
[2024-10-05 16:34] VITALS: BP 134/88
--- NOTE | 2024-10-05 17:54 | NUR ---
SHIFT SUMMARY PT A&OX4 AND ANSWERS QUESTIONS APPROPRIATELY. PT PUREWICK REMOVED AND PT AMBULATED INDEPENDENTLY TO THE BR. PT RECEIVED SCHEDULED MEDICATIONS, NO COMPLAINTS OF PAIN DURING SHIFT. VSS, HR ELEVATED DURING EVENING VITALS, PT JUST AMBULATED. PT SPENT MOST OF SHIFT RESTING IN BED. NO ACUTE EVENTS AT THIS TIME, PT REPOSITIONED INDEPENDENTLY. PT LEFT IN A POSITION OF SAFETY WITH FALL PRECAUTIONS IN PLACE AND CALL LIGHT IN REACH.
[2024-10-05 20:01] VITALS: BP 132/79
[2024-10-05] MEDS ORDERED: LORazepam 0.5 MG Tab PO ONE (20:15)
--- NOTE | 2024-10-06 04:14 | NUR ---
SHIFT SUMMARY PT IS A/OX4. INDEPENDENT IN THE ROOM. NO ACUTE EVENTS THROUGHOUT THIS SHIFT. PT REMAINS ON 2L NC IN ORDER TO MAINTAIN SATS GREATER THAN 95%. RA AT BASELINE. PT REPORTS DYSPNEA WITH EXERTION. ON AN 1800 ML FLUID RESTICTION, STRICT I&O'S. PT RECIEVED ONE TIME DOSE OF ATIVAN PER DEC FOR INSOMINIA.
[2024-10-06 04:20] VITALS: BP 96/58
[2024-10-06 05:01] LABS: Hematocrit 38.2 % (33.0-51.0); Hemoglobin 12.3 g/dL (11.5-16.0); Mean Corpuscular HGB 29.6 pg (26.0-34.0); Mean Corpuscular HGB Conc 32.2 g/dL (31.5-36.5); Mean Corpuscular Volume 92 fL (80-100); Mean Platelet Volume 11.2 fL (9.1-12.4); NRBC ABSOLUTE 0.02 K/mm3 (0.00-0.02); NRBC Auto 0.2 /100 WBC (0.0-0.2); Platelet Count 266 K/mm3 (150-400); RDW Coefficient Variation 14.6 % (11.7-14.2); RDW Standard Deviation 47.3 fL (35.1-46.3); Red Blood Cell Count 4.16 M/mm3 (3.80-5.20); White Blood Cell Count 9.32 K/mm3 (4.00-11.30)
[2024-10-06 05:35] LABS: Magnesium, Blood 1.5 mg/dL (1.6-2.4)
[2024-10-06 05:43] LABS: Albumin, Blood 2.9 g/dL (3.4-5.0); Albumin/Globulin Ratio 0.8 (0.8-1.8); Bilirubin, Total 0.9 mg/dL (0.1-1.0); Bun/Creatinine Ratio 22.5 (12.0-20.0); Calcium, Blood 9.2 mg/dL (8.5-10.1); Creatinine, Blood 2.18 mg/dL (0.40-1.00); Globulin, Blood 3.8 g/dL (2.2-4.0); Potassium, Blood 4.7 mmol/L (3.5-5.5); Total Protein, Blood 6.7 g/dL (6.4-8.2)
[2024-10-06 07:18] VITALS: BP 95/67
[2024-10-06 07:35] VITALS: BP 114/87
--- NOTE | 2024-10-06 07:38 | NUR ---
AM NOTE ASSUMED CARE OF PATIENT AT APPROX. 0700. REPORT COMPLETE. PATIENT IS A&OX4. PATIENT IS INDEPENDENT IN ROOM. STRICT I&O ORDERED, HAT IN BATHROOM. FLUID RESTRICTION OF 1800. PATIENT AWARE OF BOTH ORDERS. BP SOFT THIS AM, PATIENT WAS LAYING ON SIDE DURING VITALS. RECHECK WITH PATIENT ON BACK WAS 114/87. PATIENT 100% SATURATIONS ON 2L. PATIENT TITRATED TO ROOM AIR, WILL MONITOR TO SEE HOW SHE TOLERATES.
[2024-10-06] MEDS ORDERED: Magnesium Sulf 2 GM/Water 50ML 50 ML IV ONE (08:00)
--- NOTE | 2024-10-06 08:26 | NUR ---
UPDATE PATIENT IS 94% ON ROOM AIR. PATIENT TOLERATING WELL.
[2024-10-06] MEDS ORDERED: Metoprolol Tartrate 25 MG Tab PO SCH (09:00)
[2024-10-06] MEDS ORDERED: NORTRIPTYLINE H1012 PO (12:10)
[2024-10-06 15:34] VITALS: BP 112/84
[2024-10-06] MEDS ORDERED: JARDIANCE10 MG PO (16:30)
[2024-10-06] MEDS ORDERED: FURO40 PO (16:30)
[2024-10-06] MEDS ORDERED: METO25ER PO (16:31)
[2024-10-06] MEDS ORDERED: NITR100CA PO (16:31)
--- NOTE | 2024-10-06 16:43 | NUR ---
DISCHARGE PATIENT TRANSPORTED VIA WHEELCHAIR TO [facility]. DISCHARGE INSTRUCTIONS EXPLAINED TO PATIENT. PATIENT STATED UNDERSTANDING. DISCHARGE PACKET SENT WITH PATIENT. IV REMOVED BY BRANDON SANCHEZ WITHOUT DIFFICULTY. PATIENT TO SCHEDULE FOLLOW UP WITH PCP AND TELECOMMUNICATIONS ADMINISTRATOR. NEW MEDICATIONS FAXED TO PREFERRED PHARMACY. BELONGINGS SENT WITH PATIENT. PATIENT EXCITED TO DISCHARGE AND GO HOME.
[2024-10-07 16:13] LABS: HEPATITIS B SURFACE ANTIBODY 269.65 IU/L
[2024-10-07 16:19] LABS: HEPATITIS B SURFACE ANTIBODY 275.51 IU/L
[2024-10-07 17:15] LABS: HBV CORE ANTIBODIES,TOTAL Positive (Negative)
== END 2024-10-06 16:47 | disposition home or self-care (01) | DRG 682 ==
LOC: ER 18:12 → ERHOLD 18:13 → MEDS 10-04 10:58
PROVIDERS: Family Medicine; Internal Medicine; Student in an Organized Health Care Education/Training Program; ADMIT Student in an Organized Health Care Education/Training Program
DX: N17.9 Acute kidney failure, unspecified (principal); I50.33 Acute on chronic diastolic (congestive) heart failure; E87.1 Hypo-osmolality and hyponatremia; I13.0 Hypertensive heart and chronic kidney disease with heart failure and stage 1 through stage 4 chronic kidney disease, or unspecified chronic kidney disease; R74.01 Elevation of levels of liver transaminase levels; E87.5 Hyperkalemia; N18.32 Chronic kidney disease, stage 3b; I25.10 Atherosclerotic heart disease of native coronary artery without angina pectoris; F41.9 Anxiety disorder, unspecified; E11.65 Type 2 diabetes mellitus with hyperglycemia; E03.9 Hypothyroidism, unspecified; E11.22 Type 2 diabetes mellitus with diabetic chronic kidney disease; B96.20 Unspecified Escherichia coli [E. coli] as the cause of diseases classified elsewhere; F10.10 Alcohol abuse, uncomplicated; F15.10 Other stimulant abuse, uncomplicated; Z88.2 Allergy status to sulfonamides; Z88.8 Allergy status to other drugs, medicaments and biological substances; Z98.51 Tubal ligation status; Z90.49 Acquired absence of other specified parts of digestive tract; Z90.89 Acquired absence of other organs; Z98.890 Other specified postprocedural states; Z79.82 Long term (current) use of aspirin; Z79.890 Hormone replacement therapy; Z79.84 Long term (current) use of oral hypoglycemic drugs; Z79.899 Other long term (current) drug therapy
CPT/HCPCS: 0241U; 36415; 71046; 76705; 80053; 81001; 82140; 82570; 83690; 83735; 83880; 84100; 84300; 84443; 84484; 85025; 85027; 85610; 85730; 87077; 87086; 87186; 93005; 93010; 93306; 96374; 99285-25; A9270; G0378; G0480; J1650; J2185; J2405; J3475; J7050

== ENCOUNTER → 2024-11-05 | Outpatient (CLI) | payer MEDICARE, OTHER ==
[~2024-11-05] MED LIST changes: +ENTRESTO 97 MG1 EACH PO; +FURO40 PO; +JARDIANCE10 MG PO; +METO25ER PO; +MONT10T PO; +NITR100CA PO; +NORTRIPTYLINE H1012 PO; +Naltrexone HCl50 MG PO; +SPIR50 PO
== END | disposition home or self-care (01) ==
LOC: LAB 17:50 → LAB SHORT 17:50
DX: R30.9 Painful micturition, unspecified (principal)
CPT/HCPCS: 87077; 87086; 87186

== ENCOUNTER → 2025-01-23 | Outpatient (CLI) | payer MEDICARE, OTHER | LOC: LAB SHORT 16:38 → LAB 16:38 | DX: N39.0 Urinary tract infection, site not specified (principal) | CPT/HCPCS: 87077; 87086; 87186 ==

== ENCOUNTER 2025-09-01 21:30 | Emergency (ER) | payer OTHER, MEDICARE ==
[~2025-09-01] VITALS: Ht 170.2 cm; Wt 96.6 kg
[2025-09-01] MEDS ORDERED: FentaNYL Citrate 50 MCG/ML 2 ML Injection IV ONE (22:20)
[2025-09-01] MEDS ORDERED: RX Prepack 6 Tabs Oxycodone 5mg UD ONE (23:35)
[2025-09-01] MEDS ORDERED: RX Prepack 2 Tabs Ondansetron ODT 4MG UD ONE (23:35)
[2025-09-01] MEDS ORDERED: OxyCODONE 10/Acetamin 325 TABLET PO ONE (23:35)
[2025-09-02] MEDS ORDERED: FentaNYL Citrate 50 MCG/ML 2 ML Injection IV ONE (00:50)
[2025-09-02] MEDS ORDERED: OXAYDO5 M1 PO (00:55)
[2025-09-02] MEDS ORDERED: POLY500 PO (00:55)
[2025-09-02] MEDS ORDERED: ONDA4ODT MM (00:55)
[2025-09-02] MEDS ORDERED: SENNA LAXATIVE8.6 MG PO (00:55)
[2025-09-02 01:21] VITALS: BP 107/66
== END 2025-09-02 01:12 | disposition home or self-care (01) ==
LOC: ER 21:30
DX: S42.341A Displaced spiral fracture of shaft of humerus, right arm, initial encounter for closed fracture (principal); I10 Essential (primary) hypertension; E03.9 Hypothyroidism, unspecified; W01.0XXA Fall on same level from slipping, tripping and stumbling without subsequent striking against object, initial encounter; Z87.891 Personal history of nicotine dependence; Z79.899 Other long term (current) drug therapy; Z88.1 Allergy status to other antibiotic agents
CPT/HCPCS: 24505; 73060; 73200; 96374-59; 96376; 99284-25; A9270; J3010

== ENCOUNTER 2025-09-05 13:47 | Emergency (ER) | payer MEDICARE, OTHER ==
[~2025-09-05] VITALS: Ht 170.2 cm; Wt 96.6 kg
[~2025-09-05 13:47] MED LIST changes: +POLY500 PO; +SENNA LAXATIVE8.6 MG PO
[2025-09-05 14:02] VITALS: BP 109/86
== END 2025-09-05 14:50 | disposition left against medical advice (07) ==
LOC: ER 13:47
DX: Z53.21 Procedure and treatment not carried out due to patient leaving prior to being seen by health care provider (principal); S42.301A Unspecified fracture of shaft of humerus, right arm, initial encounter for closed fracture; I95.9 Hypotension, unspecified; Z59.89 Other problems related to housing and economic circumstances; X58.XXXA Exposure to other specified factors, initial encounter
CPT/HCPCS: 99281

== ENCOUNTER 2025-09-14 22:26 | Emergency (ER) | payer MEDICARE, OTHER ==
[~2025-09-14] VITALS: Ht 170.2 cm; Wt 95.2 kg
[2025-09-14] MEDS ORDERED: Aspir 8181 MG PO (22:41)
[2025-09-14] MEDS ORDERED: HYDROCODONE-AC1 EA19 PO (22:42)
[2025-09-14] MEDS ORDERED: VENL25 PO (22:42)
[2025-09-14 22:54] LABS: BASOPHILS ABSOLUTE AUTO 0.10 K/mm3 (0.00-0.23); BASOPHILS PERCENT AUTO 1 % (0-2); EOSINOPHILS ABSOLUTE AUTO 0.45 K/mm3 (0.00-0.68); EOSINOPHILS PERCENT AUTO 3 % (0-6); Hematocrit 31.2 % (33.0-51.0); Hemoglobin 10.2 g/dL (11.5-16.0); IMMATURE GRAN ABSOLUTE AUTO 0.20 K/mm3 (0.00-0.10); IMMATURE GRAN PERCENT AUTO 1 % (0-1); LYMPHOCYTES ABSOLUTE AUTO 2.01 K/mm3 (0.84-5.20); LYMPHOCYTES PERCENT AUTO 14 % (21-46); MONOCYTES ABSOLUTE AUTO 1.20 K/mm3 (0.16-1.47); MONOCYTES PERCENT AUTO 8 % (4-13); Mean Corpuscular HGB Conc 32.7 g/dL (31.5-36.5); Mean Corpuscular Volume 93 fL (80-100); NEUTROPHILS ABSOLUTE AUTO 10.85 K/mm3 (1.96-9.15); NEUTROPHILS PERCENT AUTO 73 % (41-73); NRBC ABSOLUTE 0.00 K/mm3 (0.00-0.02); NRBC Auto 0.0 /100 WBC (0.0-0.2); Platelet Count 338 K/mm3 (150-400); RDW Coefficient Variation 15.1 % (11.7-14.2); RDW Standard Deviation 50.4 fL (35.1-46.3)
[2025-09-14 23:05] LABS: Alanine Aminotransfer (ALT/SGP 22.0 U/L (12-78); Albumin, Blood 2.9 g/dL (3.4-5.0); Albumin/Globulin Ratio 0.8 (0.8-1.8); Anion Gap 12.0 mmol/L (3-11); Aspartate Aminotrans (AST/SGOT 19.0 U/L (12-37); Bilirubin, Total 0.7 mg/dL (0.1-1.0); Blood Urea Nitrogen 62.0 mg/dL (8-24); CO2, Blood 22.0 mmol/L (21-32); Calcium, Blood 8.2 mg/dL (8.5-10.1); Chloride, Blood 103.0 mmol/L (98-108); Creatinine, Blood 1.91 mg/dL (0.40-1.00); Globulin, Blood 3.5 g/dL (2.2-4.0); Glucose, Blood 134.0 mg/dL (70-99); Potassium, Blood 4.7 mmol/L (3.5-5.5); Sodium, Blood 132.0 mmol/L (136-145); Total Protein, Blood 6.4 g/dL (6.4-8.2)
[2025-09-14] MEDS ORDERED: NS 1,000 ML IV SCH (23:05)
[2025-09-15 00:30] VITALS: BP 101/68
== END 2025-09-15 00:59 | disposition home or self-care (01) ==
LOC: ER 22:26
PROVIDERS: Emergency Medicine
DX: I95.9 Hypotension, unspecified (principal); I13.0 Hypertensive heart and chronic kidney disease with heart failure and stage 1 through stage 4 chronic kidney disease, or unspecified chronic kidney disease; E11.22 Type 2 diabetes mellitus with diabetic chronic kidney disease; D63.1 Anemia in chronic kidney disease; N18.9 Chronic kidney disease, unspecified; E78.5 Hyperlipidemia, unspecified; Z87.891 Personal history of nicotine dependence; Z88.2 Allergy status to sulfonamides; Z88.8 Allergy status to other drugs, medicaments and biological substances
CPT/HCPCS: 80053; 84484; 85025; 93005; 93010; 99285-25; J7030